=== PATIENT | male | born 1945 | race Caucasian/White ===

== ENCOUNTER → 2019-11-21 09:22 | Outpatient (BNVA) | payer MEDICARE, MEDICAID, SELFPAY | PROVIDERS: Family Provider Family Medicine; PCP Nurse Practitioner Family; Visit Provider Nurse Practitioner | DX: G89.29 Other chronic pain (principal); M54.5 Low back pain; M54.2 Cervicalgia; M47.9 Spondylosis, unspecified; Z79.891 Long term (current) use of opiate analgesic | CPT/HCPCS: 99213; 99214 ==

== ENCOUNTER 2019-12-10 12:14 | Outpatient (CLI) | payer MEDICARE, MEDICAID, SELFPAY ==
[2019-12-10 12:50] LABS: Basophils % 0.6 %; Eosinophils # 0.1 10^3/uL (0.0-0.8); Eosinophils % 2.4 %; Hemoglobin 13.4 g/dL (11.7-16.6); Lymphocytes # 1.4 10^3/uL (0.8-4.8); Lymphocytes % 27.8 %; Mean Corpuscular HGB Conc 34.4 g/dL (30.0-36.0); Mean Corpuscular Hemoglobin 32.7 pg (28.0-34.0); Mean Corpuscular Volume 95.1 fL (80-94); Mean Platelet Volume 10.8 fL (7.4-10.4); Monocytes # 0.4 10^3/uL (0.2-0.9); Nucleated Red Blood Cells % 0 %; Platelet Count 76 10^3/cmm (130-400); Red Cell Distribution Width 12.8 % (12.1-15.1)
== END 2019-12-10 12:15 | disposition home or self-care (01) ==
LOC: ONCMED 12:21
PROVIDERS: Family Provider Family Medicine; PCP Nurse Practitioner Family; Referring Provider Nurse Practitioner Family; Visit Provider Internal Medicine Medical Oncology
DX: D69.6 Thrombocytopenia, unspecified (principal)
CPT/HCPCS: 85025

== ENCOUNTER 2019-12-16 12:13 | Outpatient (CLI) | payer MEDICARE, MEDICAID, SELFPAY ==
--- NOTE | 2019-12-16 13:21 | ONC CON_ITS ---
Dr. Wells New Patient Note Patient: Sloan Rodriguez Unit #: [id number]: 1945 Dicatated By: Amber Wells M.D.Date of Visit: Dec 16, 2019 Onc MED New Patient/Consult Referring Physician: Jada Wallis History of Present Illness: Mr. Sloan Rodriguez, Is a 74-year-old gentleman with history of hepatitis C, as per patient he was diagnosed in 2006 with hepatitis C and at that time he underwent treatment with interferon and multiple times thereafter till 2012 and he was getting all those treatment at [facility] and in 2013, he was declared hepatitis C free and since then he has been following there on 6 months basis. Patient said he was also diagnosed with cirrhosis in 2006 at that time he underwent liver biopsy and it confirmed. During treatment with interferon patient said he required blood transfusion on 3-4 occasion and last time was in 2013. Underwent EGD recently and was diagnosed with peptic ulcer disease and he was started on Protonix, Had colonoscopy done by Dr. Hopkins, many years ago, as per patient, multiple polyps were removed and they were benign. Patient denies any night sweats, or peripheral lymphadenopathy or recurrent fevers. Or weight loss Patient said he never heard about low platelets before until recently. Never required any platelets transfusion. He denies any history of hemoptysis or hematemesis. Denies any history of melena or hematochezia. Denies any nausea vomiting. Denies any petechiae or ecchymosis. Denies any jaundice. Denies aspirin or NSAID intake. Past Medical History: Mr. Rodriguez's medical history consists of arthritis in spine, bph, chronic obstructive pulmonary disease, colon polyps, degenerative disease of the spine, history of hepatitis c, hypertension, memory impairment, osteoarthritis, and renal calculi. Past Surgical History: Mr. Rodriguez's surgical/procedural history consists of cataract excision and cholecystectomy. Medications: There is no information available for Current Medications - Patient. Allergies: Donepezil HCl, Erythromycin Base, Methadone HCl, traMADol HCl, and Vicodin. Social History: Mr. Rodriguez is legally and he is retired. Mr. Rodriguez quit smoking 14 years ago but had smoked 1.0 pack/day for 16 years. He has no history of drinking. Mr. Rodriguez reports contact with the following hazardous materials: asbestos. Mr. Rodriguez reports the following support systems: lives with spouse, significant other, family, or friends. Family History: Mr. Rodriguez's mother at age 66: bladder cancer. Mr. Rodriguez's father at age 81. Mr. Rodriguez has 1 sister who is : leukemia. Review Of Symptoms: Review of Systems is not available for this patient. Vital Signs: Most recent vitals are not available for this patient. Performance Status: 0 - Fully active, able to carry on all predisease activities without restrictions. (ECOG) Physical Examination: ENMT - No oral exudates, ulcers, masses, thrush or mucositis. Oropharynx clear. Tongue normal, Hematologic/Lymphatic - No petechiae or purpura. No tender or palpable lymph nodes in the cervical, supraclavicular, axillary or inguinal area, Respiratory - Lungs are clear to auscultation without rhonchi or wheezing, Cardiovascular - Regular rate and rhythm of heart, Abdomen - Non-tender,but obese Good bowel sounds. No guarding or rebound tenderness. No pulsatile masses, Extremities - no edema. Lab/Imaging: Test performed on Dec 10, 2019 12:26 WBC 5.0 10 3/uL RBC 4.10 10 6/uL HGB 13.4 g/dL HCT 39.0 % MCV 95.1 fL MCH 32.7 pg MCHC 34.4 g/dL RDW 12.8 % Platelet Count 76 10 3/cmm MPV 10.8 fL Neutrophils 3.0 10 3/uL Lymphocytes 1.4 10 3/uL Monocytes 0.4 10 3/uL Eosinophils 0.1 10 3/uL Basophils 0.0 10 3/uL Neutrophil % 61.0 % Lymphocyte % 27.8 % Monocyte % 8.0 % Eosinophil % 2.4 % Basophils % 0.6 % Impression: Isolated moderate thrombocytopenia with a normal hemoglobin and white blood cells per lab done on 11/27/2019 showed white blood count 4.5 hemoglobin 14 crit 39.7 platelets 68,000 with a normal differential History of hepatitis C, diagnosed in 2006, status post therapy with interferon, and multiple occasion till 2012, per patient. History of hepatic cirrhosis per liver biopsy done in 2006, per patient mild hyperbilirubinemia, per labs done on 11/27/2019, bilirubin was 1.8, AST 24, aortic 20, alkaline phosphatase 62. Albumin 4.4. History of alcohol abuse till 2006. Peptic ulcer disease per EGD now on Protonix. Colonoscopy done by Dr. Jauregui, few years back showed benign polyps Plan: Discussed with patient regarding his labs from 12/10/2019 which shows white blood count 5 hemoglobin 13.4 crit 39, platelets 76,000 with normal differential Clinically, patient is doing well with no evidence of gross bleeding, is initial lab workup done on 11/26/2019 showed moderate thrombocytopenia platelet count 68,000 with a normal hemoglobin and white blood cells and CMP shows bilirubin 1.8 with a normal AST/ALT and alkaline phosphatase, albumin. 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 At this point we'll review his peripheral blood smear and also manual platelet count. And also do abdominal sonogram to check spleen size. And the patient return to clinic in one month with CBC, in the meantime we'll obtain record from [facility] especially information regarding hepatitis C status and follow-up radiological studies and labs. After reviewing that we'll consider further workup if needed. Patient was advised to avoid aspirin or NSAIDs or trauma Signed By: Amber Wells M.D. <<Signature on File>>
== END 2019-12-16 12:14 | disposition home or self-care (01) ==
LOC: ONCMED 12:18
PROVIDERS: Family Provider Family Medicine; PCP Nurse Practitioner Family; Visit Provider Internal Medicine Hematology & Oncology
DX: D69.6 Thrombocytopenia, unspecified (principal); K27.9 Peptic ulcer, site unspecified, unspecified as acute or chronic, without hemorrhage or perforation; N40.0 Benign prostatic hyperplasia without lower urinary tract symptoms; J44.9 Chronic obstructive pulmonary disease, unspecified; M47.9 Spondylosis, unspecified; I10 Essential (primary) hypertension; E80.6 Other disorders of bilirubin metabolism; F10.21 Alcohol dependence, in remission; R16.1 Splenomegaly, not elsewhere classified; K74.60 Unspecified cirrhosis of liver; Z79.899 Other long term (current) drug therapy; Z86.19 Personal history of other infectious and parasitic diseases; Z87.442 Personal history of urinary calculi; Z87.891 Personal history of nicotine dependence
CPT/HCPCS: 99203

== ENCOUNTER → 2020-01-14 08:39 | Outpatient (BNVA) | payer MEDICARE, MEDICAID, SELFPAY | PROVIDERS: Family Provider Family Medicine; PCP Nurse Practitioner Family; Visit Provider Anesthesiology | DX: G89.29 Other chronic pain (principal); M54.5 Low back pain; M47.9 Spondylosis, unspecified; Z79.891 Long term (current) use of opiate analgesic | CPT/HCPCS: 99213; 99214 ==

== ENCOUNTER 2020-01-15 07:41 | Outpatient (CLI) | payer MEDICARE, MEDICAID, SELFPAY ==
--- NOTE | 2020-01-15 08:00 | US_ITS ---
WS: [id number] Abdomen ultrasound, 01/15/2020 Clinical Data: THROMBOCYTOPENIA/ATTN: TO SPLEEN Comparison: Abdomen ultrasound, 12/11/2017. Findings: The pancreas is partly obscured by gas, but it shows no cyst, pseudocyst or evidence of pancreatitis. The liver shows no cysts, masses or dilated intrahepatic ducts. The liver measures 13.[address] AP diameter and has a slightly irregular surface contour. There is fatty infiltration of the liver . The gallbladder is absent. The common bile duct is 0.3 cm and no intraductal abnormalities are noted. The right kidney is 3.95 x 4.69 x 8.3 cm. No cysts, masses or hydronephrosis is seen. The left kidney is 4.49 x 5.04 x 8.9 cm. There are numerous left renal calculi. The abdominal aorta is not dilated and the inferior vena cava has normal flow. No vascular abnormalities are seen. The spleen measures 5.49 x 5.92 x 10.3 cm and there are no intrasplenic masses are capsular abnormal ities. US/US abdomen complete* [id number] Impression: 1. Fatty infiltration of the liver with surface irregularity which can be seen with cirrhosis. 2. Splenic size slightly smaller than prior study. 3. Left renal calculi. 4. Cholecystectomy.
== END 2020-01-15 07:42 | disposition home or self-care (01) ==
LOC: ONCMED 07:42
PROVIDERS: Family Provider Nurse Practitioner Family; PCP Nurse Practitioner Family; Visit Provider Internal Medicine Hematology & Oncology
DX: D69.6 Thrombocytopenia, unspecified (principal); K76.0 Fatty (change of) liver, not elsewhere classified; N20.0 Calculus of kidney
CPT/HCPCS: 76700

== ENCOUNTER 2020-01-16 10:53 | Outpatient (CLI) | payer MEDICARE, MEDICAID, SELFPAY ==
[2020-01-16 11:33] LABS: Basophils % 0.6 %; Eosinophils # 0.2 10^3/uL (0.0-0.8); Eosinophils % 3.3 %; Hematocrit 40.7 % (42.0-52.0); Hemoglobin 14.1 g/dL (11.7-16.6); Lymphocytes # 1.1 10^3/uL (0.8-4.8); Lymphocytes % 21.2 %; Mean Corpuscular HGB Conc 34.6 g/dL (30.0-36.0); Mean Corpuscular Hemoglobin 33.6 pg (28.0-34.0); Mean Corpuscular Volume 96.9 fL (80-94); Mean Platelet Volume 11.2 fL (7.4-10.4); Monocytes # 0.4 10^3/uL (0.2-0.9); Monocytes % 6.9 %; Neutrophils # 3.5 10^3/uL (1.8-7.7); Neutrophils % 67.8 %; Nucleated Red Blood Cells % 0 %; Platelet Count 75 10^3/cmm (130-400); Red Cell Distribution Width 13.2 % (12.1-15.1); White Blood Count 5.1 10^3/uL (4.0-10.0)
[2020-01-16 11:35] LABS: INR 1.24 (0.8-1.2)
[2020-01-16 11:43] LABS: Alanine Aminotransferase 19 U/L (0-41); Albumin Level 4.5 g/dL (3.5-5.2); Alkaline Phosphatase 85 IU/L (40-130); Anion Gap 14.5 (5-19); Aspartate Amino Transferase 22 U/L (0-40); Blood Urea Nitrogen 17 mg/dL (8-23); Calcium 9.8 mg/dL (8.5-10.5); Carbon Dioxide 27 mmol/L (22-29); Chloride 103 mmol/L (98-107); Globulin 3.2 g/dL (1.3-4.6); Glucose 118 mg/dL (65-115); Osmolality Calculated 287 mOsm/kg (285-295); Potassium 4.5 mmol/L (3.5-5.1); Sodium 140 mmol/L (136-145); Total Bilirubin 1.4 mg/dL (0.15-1.2); Total Protein 7.7 g/dL (6.6-8.7)
[2020-01-16 12:47] LABS: LAB Peripheral Smear Sent for Review
== END 2020-01-16 10:54 | disposition home or self-care (01) ==
LOC: LAB 10:56
PROVIDERS: Family Provider Nurse Practitioner Family; PCP Nurse Practitioner Family; Visit Provider Nurse Practitioner
DX: Z01.810 Encounter for preprocedural cardiovascular examination (principal); I10 Essential (primary) hypertension; Z79.899 Other long term (current) drug therapy
CPT/HCPCS: 36415; 80053; 80500; 85025; 85610

== ENCOUNTER 2020-01-19 14:58 | Outpatient (CLI) | payer MEDICARE, MEDICAID, SELFPAY ==
--- NOTE | 2020-01-19 16:19 | ONC FU_ITS ---
Dr. Wells follow up note Patient: Sloan Rodriguez Unit #: [id number]: [id number] Dicatated By: Amber Wells M.D.Date of Visit:Jan 19, 2020 Onc Med Follow-up/Prog Note History of Present Illness: Mr. Sloan Rodriguez, Is a 74-year-old gentleman with history of hepatitis C, as per patient he was diagnosed in 2006 with hepatitis C and at that time he underwent treatment with interferon and multiple times thereafter till 2012 and he was getting all those treatment at [facility] and in 2013, he was declared hepatitis C free and since then he has been following there on 6 months basis. Patient said he was also diagnosed with cirrhosis in 2006 at that time he underwent liver biopsy and it confirmed. During treatment with interferon patient said he required blood transfusion on 3-4 occasion and last time was in 2013. Underwent EGD recently and was diagnosed with peptic ulcer disease and he was started on Protonix, Had colonoscopy done by Dr. Hopkins, many years ago, as per patient, multiple polyps were removed and they were benign. Patient denies any night sweats, or peripheral lymphadenopathy or recurrent fevers. Or weight loss Patient said he never heard about low platelets before until recently. Never required any platelets transfusion. He denies any history of hemoptysis or hematemesis. Denies any history of melena or hematochezia. Denies any nausea vomiting. Denies any petechiae or ecchymosis. Denies any jaundice. Denies aspirin or NSAID intake. Came for follow-up, denies any specific complaints, no nausea or vomiting no fever no chills no melena or hematochezia, no hemoptysis or hematemesis no nosebleed or gum bleed no petechiae or ecchymosis. Patient has history of hepatic cirrhosis and portal hypertension for which she is being followed up at [facility], as per patient he is going back for follow-up for sonogram of abdomen on 02/26/2020. Medications: Breo Ellipta 1 Puff(s) (of 100-25 mcg/inh) Aerosol Powder, Breath Activated Inhalation daily, Cyclobenzaprine HCl 1 Tablet (of 10 mg) Oral t.i.d. PRN, oxyCODONE HCl 1 Tablet (of 20 mg) Oral t.i.d. PRN, Ventolin HFA 1 (108 (90 base) mcg/act) Aerosol, solution Inhalation daily PRN Allergies: Donepezil HCl, Erythromycin Base, Methadone HCl, traMADol HCl, and Vicodin. Review of Systems: Constitutional - Appetite is poor and weight is stable. No fever, chills, hot flashes, or night sweats. Energy level varies from poor to fair, per Pt, ENMT - Positive for sinus congestion/drainage. No mouth sores. No sore throat or difficulty swallowing, Hematologic/Lymphatic - No abnormal bruising or bleeding, Respiratory - Positive for shortness of breath. Positive for cough. No pleuritic pain or hemoptysis, Cardiovascular - No angina pain. No palpitations, Gastrointestinal - No nausea or vomiting. No heartburn or acid reflux. Positive for diarrhea, no constipation. No blood in the stool or black stools, Genitourinary (M) - No dysuria or hematuria. No urinary frequency. No urgency or incontinence, Musculoskeletal - No joint or bone pain, Neurologic - No headache or dizziness. No numbness/paresthesias or other focal neurologic symptoms, Psychiatric - No anxiety or depression. No insomnia. Vital Signs: Performed on Jan 19, 2020 15:12 Height - 63.5 in Weight - 183.2 lbs (HIGH) BSA - 1.87 sq.m BMI - 31.94 (HIGH) Temperature - 98.0 F (LOW) Pulse - 78 /min Respiration - 19 /min BP - 151/96 mm(hg) (HIGH) O2 Sat - 96 % Pain - 6 Performance Status: 0 - Fully active, able to carry on all predisease activities without restrictions. (ECOG) Physical Examination: ENMT - No oral exudates, ulcers, masses, thrush or mucositis. Oropharynx clear. Tongue normal, Respiratory - Lungs are clear to auscultation without rhonchi or wheezing, Cardiovascular - Regular rate and rhythm of heart, Abdomen - Non-tender, non-distended,Good bowel sounds. No guarding or rebound tenderness. No pulsatile masses, Extremities - no edema. Lab/Imaging: Test performed on Jan 16, 2020 11:10 Glucose 118 mg/dL BUN 17 mg/dL Creatinine 0.9 mg/dL Cr Clearance (Est) 87.2000 mL/min (Preliminary) Sodium 140 mmol/L Potassium 4.5 mmol/L Chloride 103 mmol/L CO2 27 mmol/L Calcium 9.8 mg/dL Protein, Total 7.7 g/dL Albumin 4.5 g/dL Globulin 3.2 g/dL Bilirubin, Total 1.4 mg/dL Alkaline Phosphatase 85 IU/L AST (SGOT) 22 IU/L ALT (SGPT) 19 IU/L WBC 5.1 10^9/L RBC 4.20 10^12/L HGB 14.1 g/dL HCT 40.7 % MCV 96.9 fl MCH 33.6 pg MCHC 34.6 g/dL RDW 13.2 % Platelet Count 75 10^9/L MPV 11.2 fL Neutrophils (Gran) 3.5 10^9/L Lymphocytes 1.1 10^9/L Monocytes 0.4 10^9/L Eosinophils 0.2 10^9/L Basophils 0.0 10^9/L Manual Lymphocytes 21.2 % Manual Monocytes 6.9 % Manual Eosinophils 3.3 % Manual Basophils 0.6 % Test performed on Dec 10, 2019 12:26 Neutrophil % 61.0 % Lymphocyte % 27.8 % Monocyte % 8.0 % Eosinophil % 2.4 % Basophils % 0.6 % Impression: Isolated moderate thrombocytopenia with a normal hemoglobin and white blood cells per lab done on 11/27/2019 showed white blood count 4.5 hemoglobin 14 crit 39.7 platelets 68,000 with a normal differential History of hepatitis C, diagnosed in 2006, status post therapy with interferon, and multiple occasion till 2012, per patient. History of hepatic cirrhosis per liver biopsy done in 2006, per patient mild hyperbilirubinemia, per labs done on 11/27/2019, bilirubin was 1.8, AST 24, aortic 20, alkaline phosphatase 62. Albumin 4.4. History of alcohol abuse till 2006. Peptic ulcer disease per EGD now on Protonix. Colonoscopy done by Dr. Jauregui, few years back showed benign polyps Plan: Discussed with patient regarding his labs white blood count 5.1 hemoglobin 14.1 crit 40.7 platelets 75,000 with a normal differential CMP within normal limit except bilirubin 1.4 Clinically, patient is doing well with no evidence of gross bleeding his follow-up lab shows persistent but stable moderate isolated thrombocytopenia etiology most likely due to splenic sequestration but his recently done sonogram of abdomen on 01/15/2020 showed spleen size 5.49 x 5.92 x 10.3 cm whereas in the past CT scan and sonograms done at [facility] showed spleen size was 13-14 cm. As per patient he is scheduled for abdominal sonogram on 02/26/2020 at [facility] and At this point is platelet count is stable and there is no evidence of gross bleeding we'll continue to monitor return to clinic in 6 weeks with CBC and will also review abdominal sonogram report from [place]. If it shows normal spleen size then will consider bone marrow evaluation to rule out other causes of isolated thrombocytopenia Signed By: Amber Wells M.D. <<Signature on File>>
== END 2020-01-19 14:59 | disposition home or self-care (01) ==
LOC: ONCMED 14:58
PROVIDERS: Family Provider Nurse Practitioner Family; PCP Nurse Practitioner Family; Visit Provider Internal Medicine Hematology & Oncology
DX: D69.6 Thrombocytopenia, unspecified (principal); K27.9 Peptic ulcer, site unspecified, unspecified as acute or chronic, without hemorrhage or perforation; E80.6 Other disorders of bilirubin metabolism; F10.21 Alcohol dependence, in remission; Z79.899 Other long term (current) drug therapy; Z79.51 Long term (current) use of inhaled steroids; Z86.19 Personal history of other infectious and parasitic diseases
CPT/HCPCS: G0463

== ENCOUNTER 2020-03-01 10:40 | Outpatient (CLI) | payer MEDICARE, MEDICAID, SELFPAY ==
[2020-03-01 12:49] LABS: Basophils # 0.1 10^3/uL (0.0-0.1); Basophils % 0.7 %; Eosinophils # 0.3 10^3/uL (0.0-0.8); Eosinophils % 4.2 %; Hematocrit 42.9 % (42.0-52.0); Hemoglobin 14.3 g/dL (11.7-16.6); Lymphocytes # 1.9 10^3/uL (0.8-4.8); Lymphocytes % 26.6 %; Mean Corpuscular HGB Conc 33.3 g/dL (30.0-36.0); Mean Corpuscular Hemoglobin 32.6 pg (28.0-34.0); Mean Corpuscular Volume 97.7 fL (80-94); Mean Platelet Volume 11.1 fL (7.4-10.4); Monocytes # 0.6 10^3/uL (0.2-0.9); Neutrophils # 4.3 10^3/uL (1.8-7.7); Neutrophils % 60.1 %; Nucleated Red Blood Cells % 0 %; Platelet Count 103 10^3/cmm (130-400); Red Blood Count 4.39 10^6/uL (4.1-5.3); Red Cell Distribution Width 13.7 % (12.1-15.1); White Blood Count 7.1 10^3/uL (4.0-10.0)
[2020-03-01 13:04] LABS: Alanine Aminotransferase 25 U/L (0-41); Albumin Level 4.7 g/dL (3.5-5.2); Alkaline Phosphatase 84 IU/L (40-130); Anion Gap 16.2 (5-19); Aspartate Amino Transferase 27 U/L (0-40); Blood Urea Nitrogen 15 mg/dL (8-23); Calcium 9.5 mg/dL (8.5-10.5); Carbon Dioxide 26 mmol/L (22-29); Chloride 103 mmol/L (98-107); Globulin 3.3 g/dL (1.3-4.6); Glucose 98 mg/dL (65-115); Osmolality Calculated 288 mOsm/kg (285-295); Potassium 4.2 mmol/L (3.5-5.1); Sodium 141 mmol/L (136-145)
== END 2020-03-01 10:41 | disposition home or self-care (01) ==
PROVIDERS: Family Provider Nurse Practitioner Family; PCP Nurse Practitioner Family; Visit Provider Internal Medicine Hematology & Oncology
DX: D69.6 Thrombocytopenia, unspecified (principal)
CPT/HCPCS: 36415; 80053; 85025

== ENCOUNTER → 2020-05-05 07:58 | Outpatient (BNVA) | payer MEDICARE, MEDICAID, SELFPAY | PROVIDERS: Family Provider Nurse Practitioner Family; PCP Nurse Practitioner Family; Visit Provider Anesthesiology | DX: G89.29 Other chronic pain (principal); M54.41 Lumbago with sciatica, right side; M54.9 Dorsalgia, unspecified; M47.9 Spondylosis, unspecified; Z79.891 Long term (current) use of opiate analgesic | CPT/HCPCS: 99213; 99214 ==

== ENCOUNTER 2020-06-02 15:45 | Outpatient (CLI) | payer MEDICARE, MEDICAID, SELFPAY ==
--- NOTE | 2020-06-11 11:06 | ONC FU_ITS ---
Dr. Wells follow up note Patient: Sloan Rodriguez Unit #: [id number]: [id number] Dicatated By: Amber Wells M.D.Date of Visit:Jun 02, 2020 Onc Med Follow-up/Prog Note History of Present Illness: Mr. Sloan Rodriguez, Is a 75-year-old gentleman with history of hepatitis C, as per patient he was diagnosed in 2006 with hepatitis C and at that time he underwent treatment with interferon and multiple times thereafter till 2012 and he was getting all those treatment at [facility] and in 2013, he was declared hepatitis C free and since then he has been following there on 6 months basis. Patient said he was also diagnosed with cirrhosis in 2006 at that time he underwent liver biopsy and it confirmed. During treatment with interferon patient said he required blood transfusion on 3-4 occasion and last time was in 2013. Underwent EGD recently and was diagnosed with peptic ulcer disease and he was started on Protonix, Had colonoscopy done by Dr. Hopkins, many years ago, as per patient, multiple polyps were removed and they were benign. Patient denies any night sweats, or peripheral lymphadenopathy or recurrent fevers. Or weight loss Patient said he never heard about low platelets before until recently. Never required any platelets transfusion. He denies any history of hemoptysis or hematemesis. Denies any history of melena or hematochezia. Denies any nausea vomiting. Denies any petechiae or ecchymosis. Denies any jaundice. Denies aspirin or NSAID intake. Patient has history of hepatic cirrhosis and portal hypertension for which she is being followed up at [facility],Follow-up sonogram of abdomen done on January 15, 2020 showed fatty infiltration of the liver with surface irregularity which can be seen with cirrhosis, spleen size slightly smaller than the prior study, normally 5.49 x 5.92 x 10.3 cm. Came for follow-up, denies any specific complaints, no fever chills, no nausea vomiting, no nosebleed or gum bleed, no hemoptysis or hematemesis, no melena or hematochezia, no hematuria, no petechia or ecchymosis. Patient said since his last visit he has been to hepatic clinic in [place] and he was told everything is fine and stable and he will continue to follow there every 6-month. Medications: Breo Ellipta 1 Puff(s) (of 100-25 mcg/inh) Aerosol Powder, Breath Activated Inhalation daily, Cyclobenzaprine HCl 1 Tablet (of 10 mg) Oral t.i.d. PRN, oxyCODONE HCl 1 Tablet (of 20 mg) Oral t.i.d. PRN, Ventolin HFA 1 (108 (90 base) mcg/act) Aerosol, solution Inhalation daily PRN Allergies: Donepezil HCl, Erythromycin Base, Methadone HCl, traMADol HCl, and Vicodin. Review of Systems: Constitutional - Appetite is poor and weight is stable. No fever, chills, hot flashes, or night sweats. Energy level varies from poor to fair, per Pt, ENMT - Positive for sinus congestion/drainage. No mouth sores. No sore throat or difficulty swallowing, Hematologic/Lymphatic - No abnormal bruising or bleeding, Respiratory - Positive for shortness of breath. Positive for cough. No pleuritic pain or hemoptysis, Cardiovascular - No angina pain. No palpitations, Gastrointestinal - No nausea or vomiting. No heartburn or acid reflux. Positive for diarrhea, no constipation. No blood in the stool or black stools, Genitourinary (M) - No dysuria or hematuria. No urinary frequency. No urgency or incontinence, Musculoskeletal - No joint or bone pain, Neurologic - No headache or dizziness. No numbness/paresthesias or other focal neurologic symptoms. Pt reports increasing problems with his memory, Psychiatric - No anxiety or depression. No insomnia. Vital Signs: Performed on Jun 02, 2020 15:56 Height - 63.50 in Weight - 182.3 lbs (LOW) BSA - 1.87 sq.m BMI - 31.79 (HIGH) Temperature - 98.8 F Pulse - 81 /min Respiration - 24 /min BP - 153/83 mm(hg) (HIGH) O2 Sat - 96 % Pain - 7 Performance Status: 0 - Fully active, able to carry on all predisease activities without restrictions. (ECOG) Physical Examination: ENMT - No mouth sores, no thrush, no jaundice, Respiratory - Lungs are clear, Cardiovascular - Regular rate and rhythm of heart, Abdomen - Soft, bowel sounds present, Extremities - No visible edema or rash. Lab/Imaging: Test performed on May 31, 2020 08:08 Glucose 106 mg/dL BUN 19 mg/dL Creatinine 1.07 mg/dL Cr Clearance (Est) 71.9100 mL/min Sodium 143 mmol/L Potassium 4.3 mmol/L Chloride 108 mmol/L CO2 28 mmol/L Calcium 9.6 mg/dL Protein, Total 6.7 g/dL Albumin 4.2 g/dL Globulin 2.5 g/dL A/G Ratio 1.7 Absolute Value Bilirubin, Total 1.4 mg/dL Alkaline Phosphatase 67 IU/L AST (SGOT) 19 IU/L ALT (SGPT) 20 IU/L WBC 4.3 10^9/L RBC 4.00 10^12/L HGB 13.6 g/dL HCT 40.0 % MCV 100.0 fl MCH 34.0 pg MCHC 34.0 g/dL RDW 13.8 % Platelet Count 69 10^9/L MPV 11.2 fL Neutrophils (Gran) 2.571 10^9/L Lymphocytes 1.200 10^9/L Monocytes 0.348 10^9/L Eosinophils 0.142 10^9/L Basophils 0.039 10^9/L Manual Lymphocytes 27.9 % Manual Monocytes 8.1 % Manual Eosinophils 3.3 % Manual Basophils 0.9 % Test performed on Mar 01, 2020 10:40 Anion Gap 16.2 Neutrophil % 60.1 % Lymphocyte % 26.6 % Monocyte % 8.0 % Eosinophil % 4.2 % Basophils % 0.7 % Impression: Isolated moderate thrombocytopenia with a normal hemoglobin and white blood cells per lab done on 11/27/2019 showed white blood count 4.5 hemoglobin 14 crit 39.7 platelets 68,000 with a normal differential History of hepatitis C, diagnosed in 2006, status post therapy with interferon, and multiple occasion till 2013, per patient. History of hepatic cirrhosis per liver biopsy done in 2006, per patient mild hyperbilirubinemia, per labs done on 11/27/2019, bilirubin was 1.8, AST 24, aortic 20, alkaline phosphatase 62. Albumin 4.4. History of alcohol abuse till 2006. Peptic ulcer disease per EGD now on Protonix. Colonoscopy done by Dr. Jauregui, few years back showed benign polyps Plan: Discussed with the patient regarding his labs white blood count 4.3 hemoglobin 13.6 crit 40 platelets 69,000 and CMP within normal limits except bilirubin 1.4 compared to 2 on March 01, 2020 Clinically, patient is doing well with no new signs symptoms no evidence of gross bleeding his follow-up lab showed hemoglobin normal range but with moderate thrombocytopenia, platelet count down to 69,000 from 103,000 on March 01, 2020 and prior to that 75,000 on January 16, 2020, as per previous lab work-up is baseline platelet count is around 70,000, will continue to follow unless there is a progressive thrombocytopenia. Patient was advised to avoid any kind of trauma. Return to clinic in 3 months with CBC Signed By: Amber Wells M.D. <<Signature on File>>
== END 2020-06-02 15:46 | disposition home or self-care (01) ==
PROVIDERS: PCP Nurse Practitioner Family; Visit Provider Internal Medicine Hematology & Oncology
DX: D69.6 Thrombocytopenia, unspecified (principal); Z86.19 Personal history of other infectious and parasitic diseases; F10.11 Alcohol abuse, in remission; K27.9 Peptic ulcer, site unspecified, unspecified as acute or chronic, without hemorrhage or perforation; Z86.010 Personal history of colon polyps
CPT/HCPCS: G0463

== ENCOUNTER → 2020-06-09 10:28 | Outpatient (BNVA) | payer MEDICARE, MEDICAID, SELFPAY | PROVIDERS: PCP Nurse Practitioner Family; Visit Provider Anesthesiology | DX: G89.29 Other chronic pain (principal); M54.41 Lumbago with sciatica, right side; M54.9 Dorsalgia, unspecified; M47.9 Spondylosis, unspecified; Z79.891 Long term (current) use of opiate analgesic | CPT/HCPCS: 99213; 99214 ==

== ENCOUNTER → 2020-07-02 16:46 | Outpatient (BNVA) | payer MEDICARE, MEDICAID, SELFPAY | PROVIDERS: PCP Nurse Practitioner Family; Visit Provider Nurse Practitioner | DX: J02.9 Acute pharyngitis, unspecified (principal); J06.9 Acute upper respiratory infection, unspecified; H66.91 Otitis media, unspecified, right ear | CPT/HCPCS: 87071; 87880 ==

== ENCOUNTER → 2020-07-14 10:38 | Outpatient (BNVA) | payer MEDICARE, MEDICAID, SELFPAY | PROVIDERS: PCP Nurse Practitioner Family; Visit Provider Anesthesiology | DX: G89.29 Other chronic pain (principal); M54.41 Lumbago with sciatica, right side; M54.9 Dorsalgia, unspecified; M47.9 Spondylosis, unspecified; Z79.891 Long term (current) use of opiate analgesic | CPT/HCPCS: 99213; 99214 ==

== ENCOUNTER 2020-09-01 13:43 | Outpatient (CLI) | payer MEDICARE, MEDICAID, SELFPAY ==
[2020-09-01 14:15] LABS: Basophils % 0.9 %; Eosinophils # 0.2 10^3/uL (0.0-0.8); Eosinophils % 3.3 %; Hematocrit 39.5 % (42.0-52.0); Hemoglobin 13.7 g/dL (11.7-16.6); Lymphocytes # 1.2 10^3/uL (0.8-4.8); Lymphocytes % 25.7 %; Mean Corpuscular HGB Conc 34.7 g/dL (30.0-36.0); Mean Corpuscular Hemoglobin 34.1 pg (28.0-34.0); Mean Corpuscular Volume 98.3 fL (80-94); Mean Platelet Volume 10.9 fL (7.4-10.4); Monocytes # 0.4 10^3/uL (0.2-0.9); Neutrophils # 2.77 10^3/uL (1.8-7.7); Neutrophils % 60.9 %; Nucleated Red Blood Cells % 0 %; Platelet Count 72 10^3/cmm (130-400); Red Blood Count 4.02 10^6/uL (4.1-5.3); Red Cell Distribution Width 13.4 % (12.1-15.1); White Blood Count 4.6 10^3/uL (4.0-10.0)
[2020-09-01 14:34] LABS: Alanine Aminotransferase 28 U/L (0-41); Albumin Level 4.4 g/dL (3.5-5.2); Alkaline Phosphatase 75 IU/L (40-130); Aspartate Amino Transferase 27 U/L (0-40); Blood Urea Nitrogen 16 mg/dL (8-23); Calcium 9.2 mg/dL (8.5-10.5); Carbon Dioxide 23 mmol/L (22-29); Chloride 106 mmol/L (98-107); Globulin 2.4 g/dL (1.3-4.6); Glucose 96 mg/dL (65-115); Osmolality Calculated 291 mOsm/kg (285-295); Sodium 140 mmol/L (136-145); Total Bilirubin 2.1 mg/dL (0.15-1.2); Total Protein 6.8 g/dL (6.6-8.7)
--- NOTE | 2020-09-01 15:24 | ONC FU_ITS ---
Dr. Wells follow up note Patient: Sloan Rodriguez Unit #: [id number]: [id number] Dicatated By: Amber Wells M.D.Date of Visit:Sep 01, 2020 Onc Med Follow-up/Prog Note History of Present Illness: Mr. Sloan Rodriguez, Is a 75-year-old gentleman with history of hepatitis C, as per patient he was diagnosed in 2006 with hepatitis C and at that time he underwent treatment with interferon and multiple times thereafter till 2012 and he was getting all those treatment at [facility] and in 2013, he was declared hepatitis C free and since then he has been following there on 6 months basis. Patient said he was also diagnosed with cirrhosis in 2006 at that time he underwent liver biopsy and it confirmed. During treatment with interferon patient said he required blood transfusion on 3-4 occasion and last time was in 2013. Underwent EGD recently and was diagnosed with peptic ulcer disease and he was started on Protonix, Had colonoscopy done by Dr. Hopkins, many years ago, as per patient, multiple polyps were removed and they were benign. Patient denies any night sweats, or peripheral lymphadenopathy or recurrent fevers. Or weight loss Patient said he never heard about low platelets before until recently. Never required any platelets transfusion. He denies any history of hemoptysis or hematemesis. Denies any history of melena or hematochezia. Denies any nausea vomiting. Denies any petechiae or ecchymosis. Denies any jaundice. Denies aspirin or NSAID intake. Patient has history of hepatic cirrhosis and portal hypertension for which she is being followed up at [facility],Follow-up sonogram of abdomen done on January 15, 2020 showed fatty infiltration of the liver with surface irregularity which can be seen with cirrhosis, spleen size slightly smaller than the prior study, normally 5.49 x 5.92 x 10.3 cm. Came for follow-up, denies any specific complaints, no fever chills, no nausea or vomiting, no diarrhea or constipation, no melena hematochezia, no hemoptysis or hematemesis, no nosebleed. Patient said he has been seeing Dr. Kary Govea, mercerizing range feeder in [place] for his history of hepatitis C and cirrhosis, now scheduled see her in coming October. Medications: Breo Ellipta 1 Puff(s) (of 100-25 mcg/inh) Aerosol Powder, Breath Activated Inhalation daily, Cyclobenzaprine HCl 1 Tablet (of 10 mg) Oral t.i.d. PRN, oxyCODONE HCl 1 Tablet (of 20 mg) Oral t.i.d. PRN, Ventolin HFA 1 (108 (90 base) mcg/act) Aerosol, solution Inhalation daily PRN Allergies: Donepezil HCl, Erythromycin Base, Methadone HCl, traMADol HCl, and Vicodin. Review of Systems: Constitutional - Appetite is poor and weight is stable. No fever, chills, hot flashes, or night sweats. Energy level varies from poor to fair, per Pt, ENMT - Positive for sinus congestion/drainage. No mouth sores. No sore throat or difficulty swallowing, Hematologic/Lymphatic - No abnormal bruising or bleeding, Respiratory - Positive for shortness of breath. Positive for cough. No pleuritic pain or hemoptysis, Cardiovascular - No angina pain. No palpitations, Gastrointestinal - No nausea or vomiting. No heartburn or acid reflux. Positive for diarrhea, no constipation. No blood in the stool or black stools, Genitourinary (M) - No dysuria or hematuria. No urinary frequency. No urgency or incontinence, Musculoskeletal - No joint or bone pain, Neurologic - No headache or dizziness. No numbness/paresthesias or other focal neurologic symptoms. Pt reports increasing problems with his memory, Psychiatric - No anxiety or depression. No insomnia. Vital Signs: Performed on Sep 01, 2020 14:53 Height - 63.50 in Weight - 183.0 lbs (HIGH) BSA - 1.87 sq.m BMI - 31.91 (HIGH) Temperature - 98.0 F (LOW) Pulse - 71 /min Respiration - 16 /min BP - 159/88 mm(hg) (HIGH) O2 Sat - 96 % Pain - 0 Performance Status: 0 - Fully active, able to carry on all predisease activities without restrictions. (ECOG) Physical Examination: ENMT - No mouth sores, no thrush, mild jaundice, Respiratory - Poor air entry otherwise clear, Cardiovascular - Regular rate and rhythm of heart, Abdomen - Soft, bowel sounds present, Extremities - Trace edema bilaterally. Lab/Imaging: Test performed on Jun 01, 2020 06:11 Glucose 106 mg/dL BUN 19 mg/dL Creatinine 1.07 mg/dL Cr Clearance (Est) 71.91 mL/min Sodium 143 mmol/L Potassium 4.3 mmol/L Chloride 108 mmol/L CO2 28 mmol/L Calcium 9.6 mg/dL Protein, Total 6.7 g/dL Albumin 4.2 g/dL Globulin 2.5 g/dL Bilirubin, Total 1.4 mg/dL Alkaline Phosphatase 67 IU/L AST (SGOT) 19 IU/L ALT (SGPT) 20 IU/L WBC 4.3 10^9/L RBC 4.00 10^12/L HGB 13.6 g/dL HCT 40.0 % MCV 100.0 fl MCH 34.0 pg MCHC 34.0 g/dL RDW 13.8 % Platelet Count 69 10^9/L MPV 11.2 fL Neutrophils (Gran) 2571 10^9/L Lymphocytes 1200 10^9/L Monocytes 348 10^9/L Eosinophils 142 10^9/L Basophils 39 10^9/L Manual Lymphocytes 27.9 % Manual Monocytes 8.1 % Manual Eosinophils 3.3 % Manual Basophils 0.9 % Test performed on May 31, 2020 08:08 A/G Ratio 1.7 Absolute Value Impression: Isolated moderate thrombocytopenia with a normal hemoglobin and white blood cells per lab done on 11/27/2019 showed white blood count 4.5 hemoglobin 14 crit 39.7 platelets 68,000 with a normal differential History of hepatitis C, diagnosed in 2006, status post therapy with interferon, and multiple occasion till 2012, per patient. History of hepatic cirrhosis per liver biopsy done in 2006, per patient mild hyperbilirubinemia, per labs done on 11/27/2019, bilirubin was 1.8, AST 24, aortic 20, alkaline phosphatase 62. Albumin 4.4. History of alcohol abuse till 2006. Peptic ulcer disease per EGD now on Protonix. Colonoscopy done by Dr. Jauregui, few years back showed benign polyps Plan: Discussed with patient regarding his labs white blood count 4.6 hemoglobin 13.7 crit 39.5 platelets 72,000 CMP within normal limit except bilirubin 2.1 compared to 1.4 on June 01, 2020 Clinically, patient doing reasonably well with no signs symptom suggestive of gross bleeding, his follow-up CBC shows hemoglobin in normal range and with persistent isolated moderate thrombocytopenia, etiology still unclear, could be due to splenic sequestration as patient has hepatic cirrhosis with mildly enlarged spleen and considering his age underlying myelodysplasia cannot be ruled out, finally, patient agreed for bone marrow evaluation. We will schedule him for bone marrow evaluation and return to clinic 2 weeks after bone marrow for further discussion and planning. As far as mild hyperbilirubinemia is concerned, patient is being followed by Dr. Kary Govea mercerizing range feeder in [facility]. Signed By: Amber Wells M.D. <<Signature on File>>
== END 2020-09-01 13:44 | disposition home or self-care (01) ==
LOC: ONCMED 13:47
PROVIDERS: PCP Nurse Practitioner Family; Visit Provider Internal Medicine Hematology & Oncology
DX: D69.6 Thrombocytopenia, unspecified (principal); K74.60 Unspecified cirrhosis of liver; R16.1 Splenomegaly, not elsewhere classified; E80.6 Other disorders of bilirubin metabolism; Z86.19 Personal history of other infectious and parasitic diseases; F10.11 Alcohol abuse, in remission; K27.9 Peptic ulcer, site unspecified, unspecified as acute or chronic, without hemorrhage or perforation; Z86.010 Personal history of colon polyps
CPT/HCPCS: 36415; 80053; 85025; 99214

== ENCOUNTER → 2020-09-08 13:42 | Outpatient (BNVA) | payer MEDICARE, MEDICAID, SELFPAY | PROVIDERS: PCP Nurse Practitioner Family; Visit Provider Internal Medicine Hematology & Oncology | DX: Z11.59 Encounter for screening for other viral diseases (principal) | CPT/HCPCS: 87635 ==

== ENCOUNTER → 2020-09-15 08:33 | Outpatient (BNVA) | payer MEDICARE, MEDICAID, SELFPAY | PROVIDERS: PCP Nurse Practitioner Family; Visit Provider Anesthesiology | DX: G89.29 Other chronic pain (principal); M54.41 Lumbago with sciatica, right side; M47.9 Spondylosis, unspecified; M54.9 Dorsalgia, unspecified; Z79.891 Long term (current) use of opiate analgesic | CPT/HCPCS: 99212; 99214 ==

== ENCOUNTER 2020-09-16 10:18 | Day surgery (SDC) | payer MEDICARE, MEDICAID, SELFPAY ==
[2020-09-15 09:52] VITALS: BMI 32.9
[2020-09-16] VITALS (8 sets, daily range): BP systolic 93–155; BP diastolic 59–89; PULSE 69–73; RESP 14–20; TEMP 36.3–36.9; O2SAT 98–100
--- NOTE | 2020-09-16 11:03 | ANES.PREANE2 ---
Pre-Anesthetic Assessment Pre-Anesthetic Assessment: Height/Weight: Height 1.6 m Weight 84.368 kg Temp Pulse Resp BP Pulse Ox 97.7 F 73 18 155/78 98 09/16/20 10:45 09/16/20 10:45 09/16/20 10:45 09/16/20 10:45 09/16/20 10:45 Preop Diagnosis: Thombocytopenia Proposed Procedure: Operation Date: 09/16/20 11:30 Proposed Procedures p Bone Marrow Biopsy With Aspiration(Not Applicable) - Amber Wells MD Familial anesthetic complications: None Was Beta Patience taken within 24 hours: N/A Last intake: NPO > 8 hrs Social: Social History: No alcohol and No tobacco Exam: Pre-Anes Outpt Exam: alert, oriented x 3, clear to auscultation bilaterally and regular rate & rhythm Airway: Cervical ROM: WNL MP: 2 Dentition: Full Pulmonary: Pulmonary: COPD Hepatic: Hepatic: Cirrohsis and Hepatitis (C) Anesthetic Plan: ASA status: 3 Anesthesia: MAC Risk of > 500 ml blood loss (7ml/kg in children): No PFSH Anesthesia PFSH: Medical History Chronic pain cervical and lumbar spine Hepatitis C Opioid contract exists Osteoarthritis Surgical History S/P cataract extraction bilateral S/P cholecystectomy Family History Mother Cancer Grandmother Diabetes Social History (Updated 09/15/20 @ 08:45 by Maura Corbett LPN) Smoking and tobacco status: former smoker Second hand smoke exposure: No Alcohol intake: never History of recent travel: No Data Anesthesia CBC & Chem 7: 09/16/20 10:54 Cardiac Studies: No Data to Display
[2020-09-16 11:04] LABS: Basophils % 0.7 %; Eosinophils # 0.1 10^3/uL (0.0-0.8); Eosinophils % 2.4 %; Hematocrit 39.4 % (42.0-52.0); Hemoglobin 13.6 g/dL (11.7-16.6); Lymphocytes # 1.5 10^3/uL (0.8-4.8); Lymphocytes % 25.6 %; Mean Corpuscular HGB Conc 34.5 g/dL (30.0-36.0); Mean Corpuscular Hemoglobin 33.7 pg (28.0-34.0); Mean Corpuscular Volume 97.8 fL (80-94); Mean Platelet Volume 10.7 fL (7.4-10.4); Monocytes # 0.4 10^3/uL (0.2-0.9); Monocytes % 7.2 %; Neutrophils # 3.73 10^3/uL (1.8-7.7); Neutrophils % 63.9 %; Nucleated Red Blood Cells % 0 %; Platelet Count 74 10^3/cmm (130-400); Red Blood Count 4.03 10^6/uL (4.1-5.3); Red Cell Distribution Width 13.1 % (12.1-15.1); White Blood Count 5.8 10^3/uL (4.0-10.0)
[2020-09-16] MEDS: sodium chloride 0.9% 1,000 ML 30 ML IV (11:09)
--- NOTE | 2020-09-16 12:35 | PM.BMB ---
Bone Marrow Biopsy Bone Marrow Biopsy: I was consulted by [] office regarding bone marrow biopsy on Sloan Rodrigeuz[]. Briefly, the patient is a [75] year old [Male] with [Thrombocytopenia]. In the Outpatient Services Department, with nursing staff and laboratory technologists in attendance, the procedure was discussed with the patient. Appropriate consent form had been signed. Appropriate alternatives, benefits and risks of procedure were discussed with the patient and he was pre-operatively assessed with a history and physical by myself and cleared for the biopsy procedure. The patient did request IV sedation and that was provided by the Anesthesia Department. Sedation was given, under aseptic condition right posterior iliac area was cleaned and prepped, local anesthesia was, about 15 mL of bone marrow aspirate and core biopsy was obtained, patient tolerated procedure well, specimen was sent for routine histopathologic and for MDS panel. Postprocedureinstructions were given Thank you for allowing me to participate in this patient's care and diagnosis. Coding Level of Care Code Acute Program Schedule Clerk for 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
--- NOTE | 2020-09-16 14:15 | PC.NURSE ---
No drainage or bleeding noted at surgical site. Observed while in recovery. No bruising or redness noted.
--- NOTE | 2020-09-16 20:19 | ANE.PACU2 ---
Inpatient post-anesthesia follow up: Airway intact: Yes Vital signs: Temperature 97.4 F Pulse Rate 69 Respiratory Rate 16 Blood Pressure 142/89 Pulse Oximetry 98 Oxygen Delivery Me thod Room Air Oxygen Flow Rate 3 Fraction of Inspir ed Oxygen Hydration adequate: Yes Nausea and vomiting: No Pain level: 2 Mental status: Baseline
[2020-09-20 11:28] LABS: Miscellaneous Test See Scanned Lab Rpt
== END 2020-09-16 13:46 | disposition home or self-care (01) ==
PROVIDERS: PCP Nurse Practitioner Family; Visit Provider Internal Medicine Hematology & Oncology
PROC: 07DT3ZX Extraction of Bone Marrow, Percutaneous Approach, Diagnostic (ICD-10-PCS; CPT 38222; principal; 2020-09-16 11:30)
DX: D69.6 Thrombocytopenia, unspecified (principal); B19.20 Unspecified viral hepatitis C without hepatic coma; K74.60 Unspecified cirrhosis of liver; M19.90 Unspecified osteoarthritis, unspecified site; G89.29 Other chronic pain; Z79.891 Long term (current) use of opiate analgesic; Z87.891 Personal history of nicotine dependence
CPT/HCPCS: 12345; 36415; 38222; 85025; 88305; J7030

== ENCOUNTER 2020-10-05 13:44 | Outpatient (CLI) | payer MEDICARE, MEDICAID, SELFPAY ==
[2020-10-05 14:21] LABS: Basophils # 0.1 10^3/uL (0.0-0.1); Basophils % 1.1 %; Eosinophils # 0.1 10^3/uL (0.0-0.8); Eosinophils % 2.5 %; Hematocrit 39.7 % (42.0-52.0); Hemoglobin 13.6 g/dL (11.7-16.6); Lymphocytes # 1.6 10^3/uL (0.8-4.8); Lymphocytes % 28.7 %; Mean Corpuscular HGB Conc 34.3 g/dL (30.0-36.0); Mean Corpuscular Hemoglobin 33.7 pg (28.0-34.0); Mean Corpuscular Volume 98.3 fL (80-94); Mean Platelet Volume 10.7 fL (7.4-10.4); Monocytes # 0.5 10^3/uL (0.2-0.9); Monocytes % 8.8 %; Neutrophils # 3.32 10^3/uL (1.8-7.7); Neutrophils % 58.7 %; Nucleated Red Blood Cells % 0 %; Platelet Count 74 10^3/cmm (130-400); Red Blood Count 4.04 10^6/uL (4.1-5.3); Red Cell Distribution Width 13.1 % (12.1-15.1); White Blood Count 5.7 10^3/uL (4.0-10.0)
[2020-10-05 14:56] LABS: Alanine Aminotransferase 30 U/L (0-41); Albumin Level 4.4 g/dL (3.5-5.2); Alkaline Phosphatase 77 IU/L (40-130); Anion Gap 10.5 (5-19); Aspartate Amino Transferase 27 U/L (0-40); Blood Urea Nitrogen 18 mg/dL (8-23); Calcium 9.3 mg/dL (8.5-10.5); Carbon Dioxide 29 mmol/L (22-29); Chloride 106 mmol/L (98-107); Globulin 2.5 g/dL (1.3-4.6); Glucose 95 mg/dL (65-115); Osmolality Calculated 294 mOsm/kg (285-295); Potassium 4.5 mmol/L (3.5-5.1); Sodium 141 mmol/L (136-145); Total Bilirubin 2.1 mg/dL (0.15-1.2); Total Protein 6.9 g/dL (6.6-8.7)
[2020-10-05 20:28] LABS: INR 1.33 (0.8-1.2)
== END 2020-10-05 13:45 | disposition home or self-care (01) ==
PROVIDERS: PCP Nurse Practitioner Family; Visit Provider Nurse Practitioner
DX: K74.60 Unspecified cirrhosis of liver (principal)
CPT/HCPCS: 36415; 80053; 85025; 85610

== ENCOUNTER → 2020-10-12 13:27 | Outpatient (BNVA) | payer MEDICARE, MEDICAID, SELFPAY | PROVIDERS: PCP Nurse Practitioner Family; Visit Provider Anesthesiology | DX: M54.9 Dorsalgia, unspecified (principal); M51.35 Other intervertebral disc degeneration, thoracolumbar region; M47.9 Spondylosis, unspecified; G89.29 Other chronic pain; Z79.899 Other long term (current) drug therapy; Z79.891 Long term (current) use of opiate analgesic | CPT/HCPCS: 99214 ==

== ENCOUNTER 2020-10-26 08:51 | Outpatient (CLI) | payer MEDICARE, MEDICAID, SELFPAY ==
[2020-10-26 09:32] LABS: Basophils # 0.1 10^3/uL (0.0-0.1); Basophils % 1.1 %; Eosinophils # 0.1 10^3/uL (0.0-0.8); Eosinophils % 2.4 %; Hematocrit 40.4 % (42.0-52.0); Hemoglobin 13.7 g/dL (11.7-16.6); Lymphocytes # 1.2 10^3/uL (0.8-4.8); Lymphocytes % 26.1 %; Mean Corpuscular HGB Conc 33.9 g/dL (30.0-36.0); Mean Corpuscular Hemoglobin 33.5 pg (28.0-34.0); Mean Corpuscular Volume 98.8 fL (80-94); Mean Platelet Volume 10.7 fL (7.4-10.4); Monocytes # 0.4 10^3/uL (0.2-0.9); Monocytes % 9.3 %; Neutrophils # 2.82 10^3/uL (1.8-7.7); Neutrophils % 60.9 %; Nucleated Red Blood Cells % 0 %; Platelet Count 73 10^3/cmm (130-400); Red Blood Count 4.09 10^6/uL (4.1-5.3); Red Cell Distribution Width 12.8 % (12.1-15.1); White Blood Count 4.6 10^3/uL (4.0-10.0)
[2020-10-26 09:41] LABS: Alanine Aminotransferase 29 U/L (0-41); Albumin Level 4.1 g/dL (3.5-5.2); Alkaline Phosphatase 82 IU/L (40-130); Anion Gap 11.1 (5-19); Aspartate Amino Transferase 29 U/L (0-40); Blood Urea Nitrogen 17 mg/dL (8-23); Carbon Dioxide 27 mmol/L (22-29); Chloride 103 mmol/L (98-107); Globulin 2.7 g/dL (1.3-4.6); Glucose 131 mg/dL (65-115); Osmolality Calculated 287 mOsm/kg (285-295); Potassium 4.1 mmol/L (3.5-5.1); Sodium 137 mmol/L (136-145); Total Bilirubin 1.4 mg/dL (0.15-1.2); Total Protein 6.8 g/dL (6.6-8.7)
--- NOTE | 2020-10-26 10:30 | ONC FU_ITS ---
Dr. Wells follow up note Patient: Sloan Rodriguez Unit #: [id number]: [id number] Dicatated By: Amber Wells M.D.Date of Visit:Oct 26, 2020 Onc Med Follow-up/Prog Note History of Present Illness: Mr. Sloan Rodriguez, Is a 75-year-old gentleman with history of hepatitis C, as per patient he was diagnosed in 2006 with hepatitis C and at that time he underwent treatment with interferon and multiple times thereafter till 2012 and he was getting all those treatment at [facility] and in 2013, he was declared hepatitis C free and since then he has been following there on 6 months basis. Patient said he was also diagnosed with cirrhosis in 2006 at that time he underwent liver biopsy and it confirmed. During treatment with interferon patient said he required blood transfusion on 3-4 occasion and last time was in 2013. Underwent EGD recently and was diagnosed with peptic ulcer disease and he was started on Protonix, Had colonoscopy done by Dr. Hopkins, many years ago, as per patient, multiple polyps were removed and they were benign. Patient denies any night sweats, or peripheral lymphadenopathy or recurrent fevers. Or weight loss Patient said he never heard about low platelets before until recently. Never required any platelets transfusion. He denies any history of hemoptysis or hematemesis. Denies any history of melena or hematochezia. Denies any nausea vomiting. Denies any petechiae or ecchymosis. Denies any jaundice. Denies aspirin or NSAID intake. Patient has history of hepatic cirrhosis and portal hypertension for which she is being followed up at [facility],Follow-up sonogram of abdomen done on January 15, 2020 showed fatty infiltration of the liver with surface irregularity which can be seen with cirrhosis, spleen size slightly smaller than the prior study, normally 5.49 x 5.92 x 10.3 cm. Bone marrow evaluation done on September 16, 2020 showed normocellular bone marrow for age with trilineage hematopoiesis present. No overt dyspoietic or megaloblastic changes seen., No evidence of bone marrow infiltrative disorder. No ring sideroblasts, overall iron stores appear to be slightly decreased. No significant reticulin fibrosis. Adequate to mildly increased megakaryopoiesis FISH for MDS is negative and flow cytometry showed no evident myeloid or lymphoid population .Came for follow-up, denies any specific complaints, denies any nausea vomiting diarrhea denies any headaches blurred vision double denies any melena or hematochezia denies hemoptysis or hematemesis denies any jaundice denies any petechia or ecchymosis. Has seen his inspection supervisor in [place], recently Medications: Breo Ellipta 1 Puff(s) (of 100-25 mcg/inh) Aerosol Powder, Breath Activated Inhalation daily, Cyclobenzaprine HCl 1 Tablet (of 10 mg) Oral t.i.d. PRN, oxyCODONE HCl 1 Tablet (of 20 mg) Oral t.i.d. PRN, Ventolin HFA 1 (108 (90 base) mcg/act) Aerosol, solution Inhalation daily PRN Allergies: Donepezil HCl, Erythromycin Base, Methadone HCl, traMADol HCl, and Vicodin. Review of Systems: Constitutional - Appetite is poor and weight is stable. No fever, chills, hot flashes, or night sweats. Energy level is fair, ENMT - Positive for sinus congestion/drainage. No mouth sores. Positive for sore throat or difficulty swallowing, Hematologic/Lymphatic - No abnormal bruising or bleeding, Respiratory - Positive for shortness of breath. No for cough. No pleuritic pain or hemoptysis, Cardiovascular - No angina pain. No palpitations, Gastrointestinal - No nausea or vomiting. No heartburn or acid reflux. Positive for diarrhea, no constipation. No blood in the stool or black stools, Genitourinary (M) - No dysuria or hematuria. No urinary frequency. No urgency or incontinence, Musculoskeletal - No joint or bone pain, Neurologic - No headache or dizziness. No numbness/paresthesias or other focal neurologic symptoms. Pt reports increasing problems with his memory, Psychiatric - No anxiety or depression. No insomnia. Vital Signs: Performed on Oct 26, 2020 09:45 Height - 63.50 in Weight - 183.4 lbs (HIGH) BSA - 1.87 sq.m BMI - 31.98 (HIGH) Temperature - 97.6 F (LOW) Pulse - 76 /min Respiration - 18 /min BP - 160/82 mm(hg) (HIGH) O2 Sat - 96 % Pain - 8 Performance Status: 0 - Fully active, able to carry on all predisease activities without restrictions. (ECOG) Physical Examination: ENMT - No mouth sores, no thrush, no jaundice, Respiratory - Lungs are clear to auscultation, Cardiovascular - Regular rate and rhythm of heart, Abdomen - Soft, bowel sounds present, Extremities - No visible edema Or petechia. Lab/Imaging: Test performed on Sep 01, 2020 13:58 Sodium 140 mmol/L Potassium 4.0 mmol/L Chloride 106 mmol/L CO2 23 mmol/L Anion Gap 15.0 BUN 16 mg/dL Creatinine 0.9 mg/dL Cr Clearance (Est) 85.83 mL/min Glucose 96 mg/dL Osmolality - Calculated 291 mOsm/kg Calcium 9.2 mg/dL Protein, Total 6.8 g/dL Albumin 4.4 g/dL Globulin 2.4 g/dL Bilirubin, Total 2.1 mg/dL ALT (SGPT) 28 U/L AST (SGOT) 27 U/L Alkaline Phosphatase 75 IU/L WBC 4.6 10 3/uL RBC 4.02 10 6/uL HGB 13.7 g/dL HCT 39.5 % MCV 98.3 fL MCH 34.1 pg MCHC 34.7 g/dL RDW 13.4 % Platelet Count 72 10 3/cmm MPV 10.9 fL Neutrophils 2.77 10 3/uL Lymphocytes 1.2 10 3/uL Monocytes 0.4 10 3/uL Eosinophils 0.2 10 3/uL Basophils 0.0 10 3/uL Neutrophil % 60.9 % Lymphocyte % 25.7 % Monocyte % 9.0 % Eosinophil % 3.3 % Basophils % 0.9 % NRBC % 0 % Test performed on Jun 01, 2020 06:11 Manual Lymphocytes 27.9 % Manual Monocytes 8.1 % Manual Eosinophils 3.3 % Manual Basophils 0.9 % Test performed on May 31, 2020 08:08 A/G Ratio 1.7 Absolute Value Impression: Isolated moderate thrombocytopenia with a normal hemoglobin and white blood cells per lab done on 11/27/2019 showed white blood count 4.5 hemoglobin 14 crit 39.7 platelets 68,000 with a normal differential, Etiology unclear but most likely due to peripheral destruction due to either splenic sequestration due to splenomegaly plus minus low-grade ITP as Bone marrow Evaluation done on September 16, 2020 findings showed adequate or increased megakaryopoiesis. And no overt dyspoietic or megaloblastic changes seen, normocellular for his age. FISH for MDS negative and flow cytometry showed no aberrant myeloid or lymphoid population.^ History of hepatitis C, diagnosed in 2006, status post therapy with interferon, and multiple occasion till 2012, per patient. History of hepatic cirrhosis per liver biopsy done in 2006, per patient mild hyperbilirubinemia, per labs done on 11/27/2019, bilirubin was 1.8, AST 24, aortic 20, alkaline phosphatase 62. Albumin 4.4. History of alcohol abuse till 2006. Peptic ulcer disease per EGD now on Protonix. Colonoscopy done by Dr. Jauregui, few years back showed benign polyps ] Plan: Discussed with patient regarding his labs white blood count 4.6 hemoglobin 13.7 hematocrit 40.4 platelets 73,000 compared to 72,000 on September 01, 2020 CMP within normal limit except bilirubin level is pending Bone marrow findings showed adequate or increased megakaryopoiesis. And no overt dyspoietic or megaloblastic changes seen, normocellular for his age. FISH for MDS negative and flow cytometry showed no aberrant myeloid or lymphoid population. 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 Patient return to clinic in 3 months with CBC, and was advised in case he has any evidence of gross bleeding, petechiae or ecchymosis he need to call us. Mild hyperbilirubinemia, now being followed by inspection supervisor in [place] as per patient he was evaluated recently and was told that liver is recovering and will continue to follow-up with observation alone. . . Signed By: Amber Wells M.D. <<Signature on File>>
== END 2020-10-26 08:52 | disposition home or self-care (01) ==
LOC: ONCMED 08:53
PROVIDERS: PCP Nurse Practitioner Family; Visit Provider Internal Medicine Hematology & Oncology
DX: D69.6 Thrombocytopenia, unspecified (principal); K27.9 Peptic ulcer, site unspecified, unspecified as acute or chronic, without hemorrhage or perforation; E80.6 Other disorders of bilirubin metabolism; F10.11 Alcohol abuse, in remission; Z79.899 Other long term (current) drug therapy; Z86.19 Personal history of other infectious and parasitic diseases; Z87.19 Personal history of other diseases of the digestive system
CPT/HCPCS: 36415; 80053; 85025; G0463

== ENCOUNTER 2020-11-18 14:52 | Inpatient (IN) | payer MEDICARE, MEDICAID, SELFPAY ==
[2020-11-18] VITALS (16 sets, daily range): BP systolic 105–151; BP diastolic 44–86; PULSE 62–103; RESP 13–22; TEMP 36.5–37.3; O2SAT 92–100; BMI 31.8
--- NOTE | 2020-11-18 15:06 | CT_ITS ---
WS: [id number] CT scan of the abdomen and pelvis without Oral and IV contrast. Additional two-dimensional coronal an d sagittal reconstruction was performed. 11/18/2020 Clinical Data: abd pain Comparison: CT abdomen and pelvis, 10/19/2017. DLP: 1162.[address] scans at [facility] use at least one of these dose optimization techniques: automat ed exposure control; mA and/or kV adjustment per patient size (includes targeted exams where dose is matched to clinical indication); or iterative reconstruction. Findings: There is a large amount of free air. There is a small hiatal hernia. The lower lungs show no nodules, masses or effusions. The spleen, adrenal glands and pancreas are normal. The liver shows surface irregularity which can b e seen with cirrhosis. The gallbladder is absent and there are clips in the gallbladder fossa from a cholecystectomy. The kidneys show a 2 cm left intrarenal calculus. No right renal calculi are seen. No hydronephrosis, renal masses or cysts are seen. The abdominal aorta is normal in size with calcification in the wall .. No appendicitis or diverticulitis is seen. No abscess, adenopathy, ascites, mass or obstruction is no silvano. The bladder is readily distended. No inguinal hernia is seen. The prostate is enlarged with calcifica tion. There are old compression fractures of the T8, T11 and L1 vertebral bodies. There is degenerati ve disc narrowing at L5-S1. CT/CT abdomen pelvis wo con [id number] Impression: 1. Large amount of free air which by history is from a perforation from a recen t colonoscopy. 2. Negative for acute intra-abdominal or pelvic abnormalities. 3. Large collection of stones in the left kidney. 4. Surface irregularity of the liver which can be seen with cirrhosis.
[2020-11-18] MEDS: fentaNYL 50 mcg/mL INJ 2mL IVP (15:16)
[2020-11-18 15:43] LABS: Basophils % 0.7 %; Eosinophils # 0.1 10^3/uL (0.0-0.8); Eosinophils % 2.4 %; Hematocrit 26.6 % (42.0-52.0); Hemoglobin 8.8 g/dL (11.7-16.6); Lymphocytes # 0.9 10^3/uL (0.8-4.8); Lymphocytes % 29.8 %; Mean Corpuscular HGB Conc 33.1 g/dL (30.0-36.0); Mean Corpuscular Hemoglobin 34.5 pg (28.0-34.0); Mean Corpuscular Volume 104.3 fL (80-94); Monocytes # 0.2 10^3/uL (0.2-0.9); Monocytes % 7.2 %; Neutrophils # 1.75 10^3/uL (1.8-7.7); Neutrophils % 59.9 %; Nucleated Red Blood Cells % 0 %; Platelet Count 46 10^3/cmm (130-400); Red Blood Count 2.55 10^6/uL (4.1-5.3); Red Cell Distribution Width 13.5 % (12.1-15.1); White Blood Count 2.9 10^3/uL (4.0-10.0)
--- NOTE | 2020-11-18 15:58 | W.ED.ABDPA2 ---
HPI - Abdominal Pain General: Chief Complaint: Abdominal Pain Stated Complaint: ABDOMINAL PAIN Time Seen by Provider: 11/18/20 14:53 Source: patient and EMS Mode of arrival: EMS Limitations: no limitations History of Present Illness: HPI narrative: The patient is a 75-year-old male with a history of COPD and chronic pain who presents to the emergency department from the [facility] where he was undergoing a colonoscopy and apparently the physician inadvertently perforated the patient's colon. He was then sent here to be evaluated by the surgeon. The patient is in severe pain, generalized abdominal pain. No vomiting. MD elicited complaint: abdominal pain Location: Diffuse Quality: stabbing Radiation: none Migration to: no migration Exacerbating factors: movement Relieving factors: nothing Context: recent surgery/procedure Associated Symptoms: Denies anorexia, belching, bloating, change in bowel habits, change in stool character, chills, coffee ground emesis, constipation, GI cramping, diarrhea, dyspepsia, dysuria, excessive flatus, fever(s), heartburn, hematochezia, hematuria, hematemesis, fecal incontinence, loose stools, melena, nausea, poor appetite, syncope and vomiting Review of Systems General: Reports: 10 or more systems reviewed and unremarkable except in HPI and below Const: Denies: fever(s) or chills Eyes: Denies: change in vision or blurry vision ENMT: Denies: throat pain, enlarged tonsils, odynophagia, hoarseness, mouth pain or swelling of lips/tongue Card: Denies: syncope Resp: Denies: dyspnea, productive cough or non-productive cough GI: Reports: abdominal pain; Denies: nausea, vomiting, hematemesis, coffee ground emesis, heartburn, diarrhea, constipation, bloating, GI cramping, belching, excessive flatus, fecal incontinence, change in bowel habits, change in stool character, hematochezia or melena : Denies: dysuria or hematuria Musc: Denies: neck pain, back pain or extremity swelling Skin/Breast: Denies: rash, pruritus or erythema Neuro: Denies: headache(s), numbness in extremities or weakness in extremities Endo: Denies: polyuria, polydipsia or tired all the time [facility] ED PFSH: Medical History (Updated 11/18/20 @ 22:39 by Geovanna Nunez MD, [facility] [place]) Chronic pain cervical and lumbar spine Cirrhosis Colon perforation Colon polyps COPD (chronic obstructive pulmonary disease) Hepatitis C Osteoarthritis Thrombocytopenia Surgical History S/P cataract extraction bilateral S/P cholecystectomy Status post colonoscopy Family History Mother Cancer Grandmother Diabetes Social History Smoking and tobacco status: former smoker Second hand smoke exposure: No Alcohol intake: never History of recent travel: No Physical Exam Const: COMMON NORMALS: average body habitus, patient oriented x3, no limitations, healthy appearing, alert and well nourished GENERAL APPEARANCE: in distress HENMT: COMMON NORMALS: normocephalic, atraumatic and moist oral mucous membranes HEAD & SCALP: normocephalic and atraumatic Neck/C-Spine: COMMON NORMALS: no meningeal signs and no JVD Resp: COMMON NORMALS: normal respiratory effort, No retractions, No use of accessory muscles, clear to auscultation bilaterally and percussion normal AUSCULTATION: clear to auscultation bilaterally PERCUSSION: percussion normal Cardio: COMMON NORMALS: no JVD, regular rate, regular rhythm, S1 normal heart sound present, S2 normal heart sound present, No gallops present (Cardio), No clicks present (Cardio), No murmurs present (Cardio), No rub (Cardio) and Peripheral pulses 2+ throughout RATE: regular rate RHYTHM: regular rhythm HEART SOUNDS: S1 normal heart sound present and S2 normal heart sound present PERIPHERAL PULSES: Peripheral pulses 2+ throughout GI: COMMON NORMALS: Normal to inspection, nondistended, normoactive bowel sounds present, Soft to palpation, No hepatosplenomegaly present, no masses and no bruits PALPATION: Yes Soft to palpation, Yes Tenderness to palpation present (GI), Yes Guarding due to palpation present (GI) and Yes No hepatosplenomegaly present Extremity: COMMON NORMALS: normal to inspection, full ROM, capillary refill normal, no calf tenderness and no pedal edema Neuro: COMMON NORMALS: patient oriented x3 SENSORIUM/ORIENTATION: Yes alert MENINGEAL SIGNS: Yes no meningeal signs Skin: COMMON NORMALS: no rashes or lesions noted, no wounds, turgor normal, no jaundice, no petechiae and no mottling GENERAL SKIN EXAM: no rashes or lesions noted and turgor normal Course Consultations: Consultation #1: Discussed patient with Dr. Tang and he accepted the patient to his service. Consultation #2: Discussed the patient with Dr. Stoddard, utilization review coordinator. He saw the second EKG and said the ST changes are nonspecific and this is not a STEMI. Time: 17:58 Vital Signs: Vital signs: Vital Signs Temperature 97.7 F 11/18/20 19:58 Pulse Rate 86 11/18/20 19:58 Respiratory Rate 13 11/18/20 19:58 Blood Pressure 128/73 11/18/20 19:58 Pulse Oximetry 97 11/18/20 19:58 MDM - Abdominal Pain MDM Narrative: Medical decision making narrative: 75-year-old male who had an inadvertent perforation of his colon during colonoscopy. He has remained stable in the emergency department. He was given a dose of intravenous antibiotic and admitted to the surgical service for further evaluation and management. He will be watched for decompensation, if he decompensates he will be taken emergently to the OR. Medical Records: Attestation: I reviewed the patient's medical records. Lab Data: Attestation: I reviewed the patient's lab results. Labs: Lab Results 11/18/20 11/18/20 11/18/20 Range/Units 15:15 15:15 15:15 WBC 2.9 L (4.0-10.0) 10^3/ uL RBC 2.55 L (4.1-5.3) 10^6/u L Hgb 8.8 L (11.7-16.6) g/dL Hct 26.6 L (42.0-52.0) % MCV 104.3 H (80-94) fL MCH 34.5 H (28.0-34.0) pg MCHC 33.1 (30.0-36.0) g/dL RDW 13.5 (12.1-15.1) % Plt Count 46 L (130-400) 10^3/c mm MPV 11.0 H (7.4-10.4) fL Neut % (Auto) 59.9 % Lymph % (Auto) 29.8 % [place] % (Auto) 7.2 % Eos % (Auto) 2.4 % Baso % (Auto) 0.7 % Neut # (Auto) 1.75 L (1.8-7.7) 10^3/u L Lymph # (Auto) 0.9 (0.8-4.8) 10^3/u L [place] # (Auto) 0.2 (0.2-0.9) 10^3/u L Eos # (Auto) 0.1 (0.0-0.8) 10^3/u L Baso # (Auto) 0.0 (0.0-0.1) 10^3/u L Nucleated RBC % (a uto) 0 % Nucleated RBCs # 0.0 /100WBC Sodium 134 L (136-145) mmol/L Potassium 4.1 (3.5-5.1) mmol/L Chloride 104 (98-107) mmol/L Carbon Dioxide 18 L (22-29) mmol/L Anion Gap 16.1 (5-19) BUN 10 (8-23) mg/dL Creatinine 0.5 L (0.7-1.2) mg/dL GFR Calculation Not Reportable Glucose 76 (65-115) mg/dL Calculated Osmolal ity 276 L (285-295) mOsm/k g Lactate 8.4 H* (0.5-2.2) mmol/L Calcium 7.7 L (8.5-10.5) mg/dL Total Bilirubin 1.7 H (0.15-1.2) mg/dL AST 19 (0-40) U/L ALT 18 (0-41) U/L Alkaline Phosphata se 45 (40-130) IU/L C-Reactive Protein 0.5 (0.0-4.9) mg/L Total Protein 4.3 L (6.6-8.7) g/dL Albumin 2.7 L (3.5-5.2) g/dL Globulin 1.6 (1.3-4.6) g/dL Blood Type Rho(D) Type 11/18/20 11/18/20 Range/Units 17:17 17:17 WBC (4.0-10.0) 10^3/ uL RBC (4.1-5.3) 10^6/u L Hgb (11.7-16.6) g/dL Hct (42.0-52.0) % MCV (80-94) fL MCH (28.0-34.0) pg MCHC (30.0-36.0) g/dL RDW (12.1-15.1) % Plt Count (130-400) 10^3/c mm MPV (7.4-10.4) fL Neut % (Auto) % Lymph % (Auto) % [place] % (Auto) % Eos % (Auto) % Baso % (Auto) % Neut # (Auto) (1.8-7.7) 10^3/u L Lymph # (Auto) (0.8-4.8) 10^3/u L [place] # (Auto) (0.2-0.9) 10^3/u L Eos # (Auto) (0.0-0.8) 10^3/u L Baso # (Auto) (0.0-0.1) 10^3/u L Nucleated RBC % (a uto) % Nucleated RBCs # /100WBC Sodium (136-145) mmol/L Potassium (3.5-5.1) mmol/L Chloride (98-107) mmol/L Carbon Dioxide (22-29) mmol/L Anion Gap (5-19) BUN (8-23) mg/dL Creatinine (0.7-1.2) mg/dL GFR Calculation Glucose (65-115) mg/dL Calculated Osmolal ity (285-295) mOsm/k g Lactate 2.1 (0.5-2.2) mmol/L Calcium (8.5-10.5) mg/dL Total Bilirubin (0.15-1.2) mg/dL AST (0-40) U/L ALT (0-41) U/L Alkaline Phosphata se (40-130) IU/L C-Reactive Protein (0.0-4.9) mg/L Total Protein (6.6-8.7) g/dL Albumin (3.5-5.2) g/dL Globulin (1.3-4.6) g/dL Blood Type B Positive Rho(D) Type Positive Imaging Data ^: CT Abd/Pel: Radiologist's impression: [employer] [address] [address] [address] Scan Report Signed Patient: Sloan Rodriguez #: [id number] : 7Acct#:[id number] Age/Sex: 75 / MADM Date: 11/18/20 Loc: ERRoom/Bed: Attending Dr: Ordering Provider/Ordering MD: Geovanna Nunez MD, [facility] [place] Date of Service: 11/18/20 Procedure(s): CT abdomen pelvis wo con [id number] Accession Number(s): [id number] Report Number: [id number] WS: [id number] CT scan of the abdomen and pelvis without Oral and IV contrast. Additional two-dimensional coronal and sagittal reconstruction was performed. 11/18/2020 Clinical Data: abd pain Comparison: CT abdomen and pelvis, 10/19/2017. DLP: 1162.[address] scans at [facility] use at least one of these dose optimization techniques: automated exposure control; mA and/or kV adjustment per patient size (includes targeted exams where dose is matched to clinical indication); or iterative reconstruction. Findings: There is a large amount of free air. There is a small hiatal hernia. The lower lungs show no nodules, masses or effusions. The spleen, adrenal glands and pancreas are normal. The liver shows surface irregularity which can be seen with cirrhosis. The gallbladder is absent and there are clips in the gallbladder fossa from a cholecystectomy. The kidneys show a 2 cm left intrarenal calculus. No right renal calculi are seen. No hydronephrosis, renal masses or cysts are seen. The abdominal aorta is normal in size with calcification in the wall.. No appendicitis or diverticulitis is seen. No abscess, adenopathy, ascites, mass or obstruction is noted. The bladder is readily distended. No inguinal hernia is seen. The prostate is enlarged with calcification. There are old compression fractures of the T8, T11 and L1 vertebral bodies. There is degenerative disc narrowing at L5-S1. CT/CT abdomen pelvis wo con [id number] Impression: 1. Large amount of free air which by history is from a perforation from a recent colonoscopy. 2. Negative for acute intra-abdominal or pelvic abnormalities. 3. Large collection of stones in the left kidney. 4. Surface irregularity of the liver which can be seen with cirrhosis. Dictated By:Rani Phillips MD Signed By:Rani Phillips MDSigned Date/Time:11/18/20 1637 DD/ 1544 EKG Data ^: EKG 1: Attestation: I personally reviewed and interpreted this EKG as follows: EKG interpretation date: 11/18/20 EKG interpretation time: 15:03 Prior EKG tracings: not available for review Interpretation: Sinus rhythm with first-degree AV block. Heart rate [address] changes. Normal axis. EKG 2: Attestation: I personally reviewed and interpreted this EKG as follows: EKG interpretation date: 11/18/20 EKG interpretation time: 17:51 Prior EKG tracings: available for review Interpretation: Normal sinus rhythm. Heart rate [address] elevation in lead V2. Discharge Plan Discharge Patient Disposition: Admitted As Inpatient Admit Provider: Haresh Tang Clinical Impression: Colon perforation, Thrombocytopenia, Anemia, Acidosis, lactic, Leukopenia Condition: Stable Coding Level of Care Code ED Talking Books Library Clerk for Chg Fwd Exam Comprehensive
[2020-11-18 16:02] LABS: Alanine Aminotransferase 18 U/L (0-41); Albumin Level 2.7 g/dL (3.5-5.2); Alkaline Phosphatase 45 IU/L (40-130); Anion Gap 16.1 (5-19); Aspartate Amino Transferase 19 U/L (0-40); Blood Urea Nitrogen 10 mg/dL (8-23); C Reactive Protein 0.5 mg/L (0.0-4.9); Calcium 7.7 mg/dL (8.5-10.5); Carbon Dioxide 18 mmol/L (22-29); Chloride 104 mmol/L (98-107); Globulin 1.6 g/dL (1.3-4.6); Glucose 76 mg/dL (65-115); Osmolality Calculated 276 mOsm/kg (285-295); Potassium 4.1 mmol/L (3.5-5.1); Sodium 134 mmol/L (136-145); Total Bilirubin 1.7 mg/dL (0.15-1.2); Total Protein 4.3 g/dL (6.6-8.7)
[2020-11-18 16:11] LABS: Lactate (Lactic Acid level) 8.4 mmol/L (0.5-2.2)
--- NOTE | 2020-11-18 16:13 | PC.NURSE ---
lactic 8.4
[2020-11-18] MEDS: piperacillin-tazobactam 3.375 GM in sodium chloride 0.9% (plus) 50 ML IV ×2 (16:18→21:21)
--- NOTE | 2020-11-18 16:31 | P.HP_ITS ---
Providers/Chief Complaint Admitting Physician: Haresh Tang Primary Care Provider: TERRY Wall Chief Complaint: ABDOMINAL PAIN History of Present Illness Sloan Rodriguez is a 75 year old male who was undergoing a colonoscopy for history of colon polyps at the surgery center. Patient developed abdominal distention at about 40 cm on the colonoscope and as per Dr. Cuevas extr aluminal abdominal cavity could be seen that he could not subsequently identify the perforation. Patient was therefore transferred here by ambulance. At presentation he complained of abdominal pain and distention. No nausea or vomiting. Patient is noted to be hemodynamically stable, not tachycardic. Review of Systems General: Reports: 10 or more systems reviewed and unremarkable except in HPI and below Medications/Allergies Home Medications Medication Instructions Recorded Confirmed Last Taken Type fluticasone 500 mcg-salmeterol 50 1 inh INHALATION ONCE each 11/21/19 10/12/20 09/06/20 History mcg/dose blistr powdr for inhalation oxycodone 20 mg tablet 20 mg PO TID PRN 30 Days #90 tab 10/12/20 10/12/20 Unknown Rx albuterol sulfate [Ventolin HFA] 2 puff INHALATION Q4H PRN 11/18/20 11/18/20 Unknown History clotrimazole 1 applic TOPICAL BID 11/18/20 11/18/20 Unknown History pantoprazole 40 mg PO DAILY 11/18/20 11/18/20 11/17/20 History Allergies Allergy/AdvReac Type Severity Reaction Status Date / Time methadone Allergy SWELLING, Verified 11/18/20 15:04 INDIGESTION acetaminophen [From Tylenol] AdvReac UNABLE TO Verified 11/18/20 15:04 TAKE DUE TO LIVER FUNCTION donepezil AdvReac DROWSINESS Verified 11/18/20 15:04 erythromycin base AdvReac ALGY-Rash Verified 11/18/20 15:04 tramadol AdvReac MAKES HIM Verified 11/18/20 15:04 FEEL FUNNY PFSH Acute PFSH: Medical History (Updated 11/18/20 @ 17:06 by Moises Villa MD) Chronic pain cervical and lumbar spine Cirrhosis Colon perforation Colon polyps COPD (chronic obstructive pulmonary disease) Hepatitis C Osteoarthritis Thrombocytopenia Surgical History S/P cataract extraction bilateral S/P cholecystectomy Status post colonoscopy Family History Mother Cancer Grandmother Diabetes Social History Smoking and tobacco status: former smoker Second hand smoke exposure: No Alcohol intake: never History of recent travel: No Vitals/I&O/Wt Last Vital Signs Temp 97.8 F 11/18/20 14:52 Pulse 62 11/18/20 14:52 Resp 20 H 11/18/20 15:16 BP 115/80 11/18/20 14:52 Pulse Ox 96 11/18/20 15:16 Weight last 48 hrs Weight 180 lb Physical Exam Narrative: EXAM NARRATIVE: HEENT: Normocephalic Eye: Sclera /conjunctiva normal Cardiovascular: Normal S1 and S2 heart sounds Abdomen: Distended, tender left lower quadrant, voluntary guarding present, no rigidity Neurological: Oriented to place person and time Skin: Intact, no lesions appreciated on gross exam Data : 11/18/20 15:15 11/18/20 15:15 Micro: Microbiology 11/18/20 15:15 Blood Culture - Preliminary Blood SPECIMEN COLLECTED A&P Assessment and plan (1) Colon perforation: 75-year-old male with history of colon polyps, thrombocytopenia who developed sigmoid perforation during colonoscopy. Patient has been hemodynamically stable and tender in the left lower quadrant. A Verres needle was used to decompress the pneumoperitoneum. Patient feels better after placement of Quevedo catheter and decompression of pneumoperitoneum. Quevedo catheter placed Admit to ICU Vitals every hour D51/2NS + 20 KCl at 100 cc/h CBC, CMP in the morning Lactic acid series IV zosyn q8h Heparin for DVT prophylaxis Pepcid for GI prophylaxis Hospitalist consult for medical management 2 units platelets on hold If patient develops worsening abdominal pain or hypotension, then we will proceed with surgery Status: Acute Attestations Medical Necessity Statement*: perforation requiring ICU monitoring Coding Level of Care Code Acute Climatology Professor for 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 Diagnoses Colon perforation K63.1
--- NOTE | 2020-11-18 17:00 | P.CONIM_ITS ---
Providers/Reason For Consult Consulting Physican/Specialty*: General surgery Reason for Consult*: Anemia, thrombocytopenia, lactic acidosis Primary Care Provider: TERRY Wall History of Present Illness History of Present Illness Sloan Rodriguez is a 75 year old male with a past medical history of hepatitis C status post treatment, chronic thrombocytopenia, chronic back pain, who presents to [facility] from the surgery center after developing a perforation during a colonoscopy procedure. Hospitalist team was called for comanagement of perforated abdomen, with lactic acidosis and thrombocytopenia and anemia. Currently patient is alert oriented x3, on 2 L, blood pressures in 180/110, sinus tachycardia heart rates in the 80s, he is in severe abdominal pain, abdomen is distended. Patient's only complaint is abdominal pain, no fevers, chills, no nausea, no vomiting, no chest pain, no shortness of breath, no lightheadedness, no dizziness. Patient denies a history of cardiovascular disease. Denies history of CHF. Denies a history of strokes. Denies a history of COPD. Denies a history of DVTs or PEs. Is not on blood thinners. No issues with anesthesia in the past. Review of Systems Const: Denies: fever(s), chills, fatigue or malaise Eyes: Denies: change in vision or blurry vision ENMT: Denies: nasal congestion Card: Denies: chest pain Resp: Denies: dyspnea, productive cough, non-productive cough or wheezing GI: Reports: abdominal pain; Denies: nausea, vomiting, hematemesis, diarrhea, constipation, hematochezia or melena : Denies: flank pain, difficulty urinating, dysuria or urinary frequency Musc: Denies: neck pain or back pain Skin/Breast: Denies: rash Neuro: Denies: headache(s), dizziness or vertigo Psych: Denies: anxiety or depression Endo: Denies: polyuria or polydipsia Meds/Allergies Home Medications and Allergies Home Medications Medication Instructions Recorded Confirmed Last Taken Type fluticasone 500 mcg-salmeterol 50 1 inh INHALATION ONCE each 11/21/19 10/12/20 09/06/20 History mcg/dose blistr powdr for inhalation oxycodone 20 mg tablet 20 mg PO TID PRN 30 Days #90 tab 10/12/20 10/12/20 Unknown Rx albuterol sulfate [Ventolin HFA] 2 puff INHALATION Q4H PRN 11/18/20 11/18/20 Unknown History clotrimazole 1 applic TOPICAL BID 11/18/20 11/18/20 Unknown History pantoprazole 40 mg PO DAILY 11/18/20 11/18/20 11/17/20 History Allergies Allergy/AdvReac Type Severity Reaction Status Date / Time methadone Allergy SWELLING, Verified 11/18/20 15:04 INDIGESTION acetaminophen [From Tylenol] AdvReac UNABLE TO Verified 11/18/20 15:04 TAKE DUE TO LIVER FUNCTION donepezil AdvReac DROWSINESS Verified 11/18/20 15:04 erythromycin base AdvReac ALGY-Rash Verified 11/18/20 15:04 tramadol AdvReac MAKES HIM Verified 11/18/20 15:04 FEEL FUNNY PFSH Acute PFSH: Medical History Chronic pain cervical and lumbar spine Cirrhosis Colon perforation Colon polyps COPD (chronic obstructive pulmonary disease) Hepatitis C Osteoarthritis Thrombocytopenia Surgical History S/P cataract extraction bilateral S/P cholecystectomy Status post colonoscopy Family History Mother Cancer Grandmother Diabetes Social History Smoking and tobacco status: former smoker Second hand smoke exposure: No Alcohol intake: never History of recent travel: No Vitals/I&O/Wt Last Vital Signs Temp 97.8 F 11/18/20 14:52 Pulse 62 11/18/20 14:52 Resp 20 H 11/18/20 15:16 BP 115/80 11/18/20 14:52 Pulse Ox 96 11/18/20 15:16 Weight last 48 hrs Weight 81.647 kg Physical Exam Const: COMMON NORMALS: patient oriented x3 GENERAL APPEARANCE: cooperative OTHER: Has moderate pain abdominal pain HENMT: COMMON NORMALS: normocephalic HEAD & SCALP: normocephalic Eye: COMMON NORMALS: Equal, round and reactive pupils present, EOMs intact bilaterally and no papilledema GENERAL EYE: appearance normal, both eyes and all related structures PUPIL: Yes Equal, round and reactive pupils present DIRECT OPHTHALMOSCOPY: Yes no papilledema Neck/C-Spine: COMMON NORMALS: full ROM, no lymphadenopathy, no JVD and Thyroid normal THYROID: Thyroid normal Lymph: LYMPHATIC: no lymphadenopathy noted Resp: COMMON NORMALS: normal respiratory effort, No retractions, No use of accessory muscles and clear to auscultation bilaterally AUSCULTATION: clear to auscultation bilaterally Cardio: COMMON NORMALS: no JVD, regular rate, regular rhythm, S1 normal heart sound present, S2 normal heart sound present, No gallops present (Cardio), No clicks present (Cardio) and No murmurs present (Cardio) RATE: regular rate RHYTHM: regular rhythm HEART SOUNDS: S1 normal heart sound present and S2 normal heart sound present GI: INSPECTION: Yes abdominal distension AUSCULTATION: Yes Hyperactive bowel sounds present PALPATION: Yes Firmness to palpation present (GI), Yes Tenderness to palpation present (GI) Details: LLQ, RLQ, LUQ and RUQ, Yes Guarding due to palpation present (GI) and Yes Rigid due to palpation : COMMON NORMALS: Yes no CVA tenderness BLADDER/KIDNEY EXAM: Yes no CVA tenderness Back/Pelvis: COMMON NORMALS: no CVA tenderness Extremity: COMMON NORMALS: normal to inspection, full ROM and no pedal edema Neuro: COMMON NORMALS: patient oriented x3, CN's II-XII intact bilaterally, moves all extremities and no focal motor deficits Psych: COMMON NORMALS: mental status grossly normal, Normal thought process present and cooperative THOUGHT PROCESS: Normal thought process present Data Micro: Micro: Microbiology 11/18/20 15:15 Blood Culture - Pr eliminary Blood SPECIMEN [facility] A&P Assessment and plan (1) Colon perforation: -Currently n.p.o. -Morphine for pain -Pepcid for GI prophylaxis -Receiving Zosyn for antibiotic coverage -Patient is a full code -Lovenox for DVT prophylaxis -Serial abdominal exams, KUB -Monitor hemodynamics closely Status: Acute (2) Thrombocytopenia: -Acute on chronic thrombocytopenia -We will give 1 unit platelet -Had a bone marrow biopsy on 09/24/2020, by Dr. Wells, normocellular bone marrow, no overt myelo blastic changes or dysplastic changes, no evidence of bone marrow infiltration -We will continue to monitor Status: Acute (3) Anemia: -Acute anemia, likely secondary to colon perforation -Hemoglobin 8.8 -We will transfuse if hemoglobin less than 7 -Recheck CBC in the evening Status: Acute (4) Lactic acidosis: -Likely secondary to perforation, lactic acid 8.8 -Currently normotensive -Monitor hemodynamics closely -Lactic acids every 4 hours -Fluid boluses as needed -Levophed as needed Status: Acute (5) Hepatitis C: Status: Acute Coding Level of Care Code Acute Nursery Technician for [facility] Fwd Diagnoses Colon perforation K63.1 Thrombocytopenia D69.6 Anemia D64.9 Lactic acidosis E87.2 Hepatitis C B19.20
--- NOTE | 2020-11-18 17:10 | PC.PHAR ---
pt states he takes the medications entered-pts states she thinks the pt has a ventolin inhaler that he uses prn-[facility] states they havent filled that medication for 377 days
--- NOTE | 2020-11-18 17:40 | ECG_ITS ---
[facility] Test Date: 2020-11-18 Pat Name: Sloan Rodriguez Department: Room: Gender: Male Stuffed Casing Tier: : 1945 Requested By: Geovanna Nunez I Order Number: [id number] Reading MD: SHIVANI LOYOLA Measurements Intervals [place] Rate: 81 P: 71 NM: 209 QRS: 64 QRSD: 102 T: 67 QT: 390 QTc: 453 Interpretive Statements SINUS RHYTHM LOW QRS VOLTAGE IN EXTREMITY LEADS [QRS DEFLECTION < 0.5 mV IN LIMB LEADS] ST Abnormality in lead V1 and II could be nonspecific. Compared to ECG 01/05/2019 17:10:09 Low QRS voltage now present Incomplete right bundle-branch block no longer present ST (T wave) deviation still present Electronically Signed On 11-18-2020 20:27:23 MANAGER ONLINE by SHIVANI LOYOLA [id number]
--- NOTE | 2020-11-18 17:56 | ECG_ITS ---
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: : 1945 Requested By: Geovanna Nunez I Order Number: [id number] Reading MD: SHIVANI LOYOLA Measurements Intervals [place] Rate: 64 P: 65 MT: 212 QRS: 50 QRSD: 108 T: 48 QT: 417 QTc: 431 Interpretive Statements SINUS RHYTHM WITH FIRST DEGREE AV BLOCK Compared to ECG 01/05/2019 17:10:09 First degree AV block now present Incomplete right bundle-branch block no longer present ST (T wave) deviation no longer present Electronically Signed On 11-18-2020 20:27:33 CORN PICKER by SHIVANI LOYOLA [id number]
[2020-11-18 18:15] LABS: Lactate (Lactic Acid level) 2.1 mmol/L (0.5-2.2)
[2020-11-18 18:29] LABS: Troponin(5th) Baseline 7 ng/L (0-15)
[2020-11-18] MEDS: fentaNYL 50 mcg/mL INJ 2mL 100 MCG IVP (19:22)
--- NOTE | 2020-11-18 19:51 | PM.PN ---
Subjective Subjective: Interval history: Patient denies any abdominal pain at rest, no nausea or vomiting, patient has not received any pain medications for the last 4 hours Vitals/I&O/Wt Last Vital Signs Temp 97.8 F 11/18/20 14:52 Pulse 90 11/18/20 19:00 Resp 19 H 11/18/20 19:22 BP 126/67 11/18/20 19:00 Pulse Ox 95 11/18/20 19:22 Weight last 48 hrs Weight 180 lb Physical Exam Narrative: EXAM NARRATIVE: Abdomen: Soft, mildly distended, minimally tender left lower quadrant Urinary Catheter Management^: Quevedo: Cath Placed During This Visit: yes Reason for Continuing Indwelling Catheter: Acute Urinary Retention or Obstruction Urinary Catheter Date of Insertion: 11/18/20 Urinary Catheter Time of Insertion: 16:00 Data : 11/18/20 15:15 11/18/20 15:15 Micro: Microbiology 11/18/20 15:15 Blood Culture - Preliminary Blood SPECIMEN COLLECTED A&P Assessment and plan (1) Colon perforation: Iatrogenic colonic perforation, patient currently hemodynamically stable, no evidence of peritonitis. Continue IV fluids NPO iv zosyn Status: Acute Attestations Medical Necessity Statement*: colonic perforation Coding Level of Care Code Acute Revenue Accounting Manager for 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 Diagnoses Colon perforation K63.1
--- NOTE | 2020-11-18 19:58 | ECG_ITS ---
[facility] Test Date: 2020-11-18 Pat Name: Sloan Rodriguez Department: Room: ICU01 Gender: Male Healthcare Specialist: : 1945 Requested By: Geovanna Nunez I Order Number: [id number] Reading MD: Jm Stewart M.D. Measurements Intervals [place] Rate: 80 P: 15 DC: 202 QRS: 23 QRSD: 105 T: 42 QT: 396 QTc: 457 Interpretive Statements SINUS RHYTHM POSSIBLE INFERIOR MYOCARDIAL INFARCTION [30 ms Q WAVE IN II/aVF], PROBABLY OLD ST ELEVATION, CONSIDER SEPTAL INJURY [MARKED ST ELEVATION W/O NORMALLY INFLECTED T WAVE IN V1/V2] ACUTE LA Compared to ECG 11/18/2020 17:50:58 Myocardial infarct finding now present ST (T wave) deviation still present Electronically Signed On 11-21-2020 9:21:33 CLERICAL DENTIST ASSISTANT by Jm Stewart M.D. [id number]
--- NOTE | 2020-11-18 20:58 | ECG_ITS ---
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 Measurements Intervals [place] Rate: 82 P: -5 MN: 184 QRS: 42 QRSD: 107 T: 56 QT: 393 QTc: 461 Interpretive Statements SINUS RHYTHM POSSIBLE INFERIOR MYOCARDIAL INFARCTION [30 ms Q WAVE IN II/aVF], PROBABLY OLD INTERPRETATION BASED ON A DEFAULT AGE OF 40 YEARS Compared to ECG 11/18/2020 20:30:50 ST (T wave) deviation no longer present Myocardial infarct finding still present Electronically Signed On 11-21-2020 9:00:18 TEACHER SPECIALIST by Jm Stewart M.D. [id number] f
--- NOTE | 2020-11-18 21:10 | PM.EVENT ---
Event Note Event Note: Called with EKG changes. Serial cardiac enzymes and EKGs were ordered earlier. Review shows nonspecific changes in V1 and lead II earlier today, sinus rhythm 60s to 80s. EKG done at [address] elevation confined to V2, with continued sinus rhythm in the 80s.. Had similar but less prominent changes on last EKG at 1750. He is currently resting comfortably. Heart rate 83, blood pressure 128/76 and oxygen saturations normal. He denies any chest pain. Denies shortness of breath. No diaphoresis. No palpitations. Denies recall of any specific similar symptoms any time today. He underwent needle decompression of pneumoperitoneum from a iatrogenic colonic perforation during colonoscopy earlier in the day. He has had a Quevedo catheter placed. He has thrombocytopenia with platelet count 46. This is chronic. 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 He has not had any gross bleeding. He has a history of hepatitis C and was previously treated with interferon. 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 No known history of coronary artery disease, hypertension, diabetes. No family history of coronary artery disease. He is a former smoker. Initial troponin was normal. Repeat EKG just now per my interpretation shows approximately [address] elevation, continues to be confined to V2. Second troponin is still pending. We will follow this up and monitor patient. Given perforation today combined with degree of chronic thrombocytopenia not a good candidate for consideration of anticoagulation or antiplatelet therapy. We will monitor for development of any symptoms and further changes. Discussed with the patient and nursing staff.
[2020-11-18] MEDS: D5-NS 0.45% + KCL 20 mEq 20 MEQ/1,000 ML BAG 100 MEQ IV (21:20)
[2020-11-18] MEDS: famotidine 20 mg/2 mL INJ IVP (21:21)
[2020-11-18] MEDS: morphine 4 mg/mL SDV 1 mL 2 MG IVP (21:22)
--- NOTE | 2020-11-18 21:22 | PC.NURSE ---
Late medication - Famotadine - d5 1/2 ns with 20k Patient newly admitted, medications not administered in ED Pain is 7/10 in abdominal region
[2020-11-18 21:23] LABS: Troponin 5 2HR 7.09 ng/L (0-15); Troponin 5 2HR Delta 0.09 ABS# (0-10)
--- NOTE | 2020-11-18 22:21 | PM.PN ---
Subjective Subjective: Interval history: Patient denies any abdominal pain unless he moves and the pain is localized to the left lower quadrant. His T-max was 99 Vitals/I&O/Wt Last Vital Signs Temp 97.7 F 11/18/20 19:58 Pulse 86 11/18/20 19:58 Resp 13 11/18/20 19:58 BP 128/73 11/18/20 19:58 Pulse Ox 97 11/18/20 19:58 Weight last 48 hrs Weight 180 lb Physical Exam Narrative: EXAM NARRATIVE: Abdomen: Soft, tender left lower quadrant, voluntary guarding Urinary Catheter Management^: Quevedo: Cath Placed During This Visit: yes Reason for Continuing Indwelling Catheter: Acute Urinary Retention or Obstruction Urinary Catheter Date of Insertion: 11/18/20 Urinary Catheter Time of Insertion: 16:00 Data : 11/18/20 15:15 11/18/20 15:15 Micro: Microbiology 11/18/20 15:15 Blood Culture - Preliminary Blood SPECIMEN COLLECTED A&P Assessment and plan (1) Colon perforation: Iatrogenic colonic perforation, patient currently hemodynamically stable, no evidence of peritonitis. Continue IV fluids NPO iv zosyn Status: Acute Attestations Medical Necessity Statement*: Perforation requiring continued inpatient stay for monitoring Coding Level of Care Code Acute Drier Transfer Car Operator for [facility] Diagnoses Colon perforation K63.1
[2020-11-18 23:42] LABS: Basophils % 0.4 %; Hematocrit 40.5 % (42.0-52.0); Hemoglobin 13.7 g/dL (11.7-16.6); Lymphocytes # 0.3 10^3/uL (0.8-4.8); Lymphocytes % 6.6 %; Mean Corpuscular HGB Conc 33.8 g/dL (30.0-36.0); Mean Corpuscular Hemoglobin 33.8 pg (28.0-34.0); Mean Platelet Volume 11.7 fL (7.4-10.4); Monocytes # 0.3 10^3/uL (0.2-0.9); Monocytes % 5.2 %; Neutrophils # 4.52 10^3/uL (1.8-7.7); Neutrophils % 87.6 %; Nucleated Red Blood Cells % 0 %; Platelet Count 64 10^3/cmm (130-400); Red Blood Count 4.05 10^6/uL (4.1-5.3); Red Cell Distribution Width 13.2 % (12.1-15.1); White Blood Count 5.2 10^3/uL (4.0-10.0)
[2020-11-18 23:54] LABS: Lactate (Lactic Acid level) 2.1 mmol/L (0.5-2.2)
--- NOTE | 2020-11-18 23:58 | ECG_ITS ---
[facility] Test Date: 2020-11-18 Pat Name: Sloan Rodriguez Department: Room: ICU01 Gender: Male Burial Needs Salesperson: : 1945 Requested By: Geovanna Nunez I Order Number: [id number] Chidi MD: Jm Stewart M.D. Measurements Intervals [place] Rate: 97 P: 35 [place]: 201 QRS: 35 QRSD: 105 T: 23 QT: 361 QTc: 461 Interpretive Statements SINUS RHYTHM ST ELEVATION, CONSIDER SEPTAL INJURY [MARKED ST ELEVATION W/O NORMALLY INFLECTED T WAVE IN V1/V2] ACUTE TN INTERPRETATION BASED ON A DEFAULT AGE OF 40 YEARS Compared to ECG 11/18/2020 20:59:58 ST (T wave) deviation now present Myocardial infarct finding no longer present Electronically Signed On 11-21-2020 9:22:20 SUPERVISOR LOOPING by Jm Stewart M.D. [id number] f
[2020-11-19] VITALS (41 sets, daily range): BP systolic 84–144; BP diastolic 45–86; PULSE 60–103; RESP 11–25; TEMP 36.9–37.3; O2SAT 91–98
[2020-11-19] MEDS: morphine 4 mg/mL SDV 1 mL 2 MG IVP ×4 (01:26→21:48)
[2020-11-19 04:39] LABS: Basophils % 0.5 %; Hematocrit 40.2 % (42.0-52.0); Hemoglobin 13.6 g/dL (11.7-16.6); Lymphocytes # 0.5 10^3/uL (0.8-4.8); Lymphocytes % 5.5 %; Mean Corpuscular HGB Conc 33.8 g/dL (30.0-36.0); Mean Corpuscular Hemoglobin 33.8 pg (28.0-34.0); Mean Platelet Volume 10.8 fL (7.4-10.4); Monocytes # 0.4 10^3/uL (0.2-0.9); Monocytes % 4.9 %; Neutrophils # 7.48 10^3/uL (1.8-7.7); Neutrophils % 88.9 %; Nucleated Red Blood Cells % 0 %; Platelet Count 71 10^3/cmm (130-400); Red Blood Count 4.02 10^6/uL (4.1-5.3); Red Cell Distribution Width 13.3 % (12.1-15.1); White Blood Count 8.4 10^3/uL (4.0-10.0)
[2020-11-19 05:08] LABS: Lactate (Lactic Acid level) 3.4 mmol/L (0.5-2.2)
[2020-11-19 05:13] LABS: Alanine Aminotransferase 24 U/L (0-41); Albumin Level 3.7 g/dL (3.5-5.2); Alkaline Phosphatase 55 IU/L (40-130); Anion Gap 13.6 (5-19); Aspartate Amino Transferase 23 U/L (0-40); Blood Urea Nitrogen 17 mg/dL (8-23); Calcium 8.5 mg/dL (8.5-10.5); Carbon Dioxide 24 mmol/L (22-29); Chloride 104 mmol/L (98-107); Globulin 2.4 g/dL (1.3-4.6); Glucose 185 mg/dL (65-115); Osmolality Calculated 290 mOsm/kg (285-295); Potassium 4.6 mmol/L (3.5-5.1); Sodium 137 mmol/L (136-145); Total Bilirubin 3.9 mg/dL (0.15-1.2); Total Protein 6.1 g/dL (6.6-8.7)
[2020-11-19 05:17] LABS: Slide Review Slide Review Perform
[2020-11-19] MEDS: D5-NS 0.45% + KCL 20 mEq 20 MEQ/1,000 ML BAG 100 MEQ IV (05:44)
[2020-11-19] MEDS: sodium chloride 0.9% 500 ML 999 ML IV (05:45)
--- NOTE | 2020-11-19 05:45 | PC.NURSE ---
d5 1/2 ns with 20 k hung late due to previos bag being hung late after patient didnt receive in ED
[2020-11-19] MEDS: piperacillin-tazobactam 3.375 GM in sodium chloride 0.9% (plus) 50 ML IV ×3 (06:20→21:15)
--- NOTE | 2020-11-19 06:24 | P.PN_ITS ---
Subjective Subjective: Interval history: I was contacted 30 minutes ago since patient's systolic had dropped to 85. His lactate which was initially 8.4 and down to 2.1x2 has now increased to 3.4. His current temp is 99.1. Patient has abdominal pain Vitals/I&O/Wt Last Vital Signs Temp 99.1 F 11/18/20 21:00 Pulse 97 11/19/20 05:45 Resp 14 11/19/20 05:45 BP 103/72 11/19/20 05:45 Pulse Ox 93 11/19/20 05:45 11/18/20 11/18/20 11/19/20 14:59 22:59 06:59 Intake Total 890 / 890 Output Total 250 / 450 200 / 450 Balance -250 / 440 690 / 440 Weight last 48 hrs Weight 180 lb Physical Exam Narrative: EXAM NARRATIVE: Abdomen: Soft, tenderness now more generalized compared to yesterday and is localized to the left lower quadrant Urinary Catheter Management^: Quevedo: Cath Placed During This Visit: yes Reason for Continuing Indwelling Catheter: Acute Urinary Retention or Obstruction Urinary Catheter Date of Insertion: 11/18/20 Urinary Catheter Time of Insertion: 16:00 Data : 11/19/20 04:04 11/19/20 04:04 Micro: Microbiology 11/18/20 04:04 Blood Culture - Preliminary Blood SPECIMEN COLLECTED 11/18/20 15:15 Blood Culture - Preliminary Blood SPECIMEN COLLECTED A&P Assessment and plan (1) Colon perforation: Iatrogenic colonic perforation, patient's blood pressure is now a bit softer running in the 90s systolic while it was in the 120s last night, he is awake and alert. Patient appears to have more generalized tenderness and current temperature is 99.1. His lactate has gone up to 3.4 from 2.1. Urine output has been around 30 cc an hour. I discussed my concerns with the patient and his over the phone that conservative measures are probably failing, plan for laparoscopic possible open colon resection, possible ostomy 1 L normal saline bolus given. Thrombocytopenia. 2 units platelets given Patient is receiving a dose of IV Zosyn now Status: Acute Attestations Medical Necessity Statement*: Colonic perforation requiring continued inpatient stay Coding Level of Care Code Acute Pathology Laboratory Technologist for [facility] Diagnoses Colon perforation K63.1
[2020-11-19] MEDS: sodium chloride 0.9% (100 ml) 100 ML 10 ML (06:35)
--- NOTE | 2020-11-19 06:55 | PC.NURSE ---
Patient escorted to surgery via surgical team
--- NOTE | 2020-11-19 07:40 | P.ANESASSM_ITS ---
Pre-Anesthetic Assessment Pre-Anesthetic Assessment: Height/Weight: Height 1.6 m Weight 81.647 kg Temp Pulse Resp BP Pulse Ox 99 F 91 20 H 105/72 92 11/19/20 06:48 11/19/20 06:48 11/19/20 06:48 11/19/20 06:48 11/19/20 06:48 Preop Diagnosis: Thombocytopenia Proposed Procedure: Operation Date: 11/19/20 06:50 Proposed Procedures p Laparoscopy possible open laparotomy for colon perforation(Not Applicable) - Haresh Tang MD Social: Social History: No alcohol and No tobacco Comment: h/o smoking Exam: Pre-Anes Outpt Exam: alert, oriented x 3, clear to auscultation bilaterally and regular rate & rhythm Airway: Submandibular: WNL Cervical ROM: WNL MP: 2 Additional comments: Missing some Pulmonary: Pulmonary: COPD CV/HEM: CV/HEM: CAD and HTN Comments: thrombocytopenia Hepatic: Hepatic: Cirrohsis and Hepatitis (C) GI: GI: GERD Comments: Perforated bowel s/p endoscopy Metabolic: Metabolic: Morbid obesity Musc/skel: Musc/skel: None reported Neuropsych: Neuropsych: None reported Anesthetic Plan: ASA status: 4E Anesthesia: General Other: Mod RSI, A.line Risk of > 500 ml blood loss (7ml/kg in children): Yes, adequate IV access and fluids planned Meds/Allergies Current Medications: Current Medications Generic Name Dose Route Start Last Admin Trade Name Freq PRN Reason Stop Dose Admin Famotidine 20 mg 11/18/20 18:00 11/18/20 21:21 Famotidine 20 Mg /2 Ml Inj IVP 20 mg BID HUBERT Administration Heparin Sodium (Be ef Lung) 5,000 unit 11/19/20 06:00 11/19/20 06:17 Heparin 5,000 Un it/Ml Inj 1 Ml SUBCUT Not Given Q12H HUBERT Potassium Chloride /Dextrose/Sod Cl 20 meq in 1,000 m ls @ 100 mls/hr 11/18/20 16:15 11/19/20 05:44 D5-Ns 0.45% + Justino l 20 Meq IV 100 mls/hr .Q10H HUBERT Administration Piperacillin Sod/T azobactam 50 mls @ 12.5 mls /hr 11/18/20 22:00 11/19/20 06:20 Sod 3.375 gm/ So dium Chloride IV 12.5 mls/hr Q8H HBUERT Administration Protocol Morphine Sulfate 2 mg 11/18/20 16:44 11/19/20 01:26 Morphine 4 Mg/Ml Sdv 1 Ml IVP 2 mg Q4H PRN Administration PAIN PFSH Anesthesia PFSH: Medical History (Updated 11/18/20 @ 22:39 by Geovanna Nunez MD, [facility] [place]) Chronic pain cervical and lumbar spine Cirrhosis Colon perforation Colon polyps COPD (chronic obstructive pulmonary disease) Hepatitis C Osteoarthritis Thrombocytopenia Surgical History S/P cataract extraction bilateral S/P cholecystectomy Status post colonoscopy Family History Mother Cancer Grandmother Diabetes Social History Smoking and tobacco status: former smoker Second hand smoke exposure: No Alcohol intake: never History of recent travel: No Data Anesthesia CBC & Chem 7: 11/19/20 04:04 11/19/20 04:04 Other Labs: Laboratory Results - last 48 hr 11/18/20 11/18/20 11/18/20 15:15 15:15 15:15 WBC 2.9 L RBC 2.55 L Hgb 8.8 L Hct 26.6 L MCV 104.3 H MCH 34.5 H MCHC 33.1 RDW 13.5 Plt Count 46 L MPV 11.0 H Neut % (Auto) 59.9 Lymph % (Auto) 29.8 Simpson % (Auto) 7.2 Eos % (Auto) 2.4 Baso % (Auto) 0.7 Neut # (Auto) 1.75 L Lymph # (Auto) 0.9 Simpson # (Auto) 0.2 Eos # (Auto) 0.1 Baso # (Auto) 0.0 Nucleated RBC % (auto) 0 Nucleated RBCs # 0.0 Sodium 134 L Potassium 4.1 Chloride 104 Carbon Dioxide 18 L Anion Gap 16.1 BUN 10 Creatinine 0.5 L GFR Calculation Not Reportable Glucose 76 Calculated Osmolality 276 L Lactate 8.4 H* Calcium 7.7 L Total Bilirubin 1.7 H AST 19 ALT 18 Alkaline Phosphatase 45 Troponin T Baseline Troponin T 120 Minute Delta Troponin T Troponin T Hi Sens 6Hr Troponin T Hi Sens 6Hr Delta C-Reactive Protein 0.5 Total Protein 4.3 L Albumin 2.7 L Globulin 1.6 Blood Type Rho(D) Type 11/18/20 11/18/20 11/18/20 17:17 17:17 18:00 WBC RBC Hgb Hct MCV MCH MCHC RDW Plt Count MPV Neut % (Auto) Lymph % (Auto) Simpson % (Auto) Eos % (Auto) Baso % (Auto) Neut # (Auto) Lymph # (Auto) Simpson # (Auto) Eos # (Auto) Baso # (Auto) Nucleated RBC % (auto) Nucleated RBCs # Sodium Potassium Chloride Carbon Dioxide Anion Gap BUN Creatinine GFR Calculation Glucose Calculated Osmolality Lactate 2.1 Calcium Total Bilirubin AST ALT Alkaline Phosphatase Troponin T Baseline 7 Troponin T 120 Minute Delta Troponin T Troponin T Hi Sens 6Hr Troponin T Hi Sens 6Hr Delta C-Reactive Protein Total Protein Albumin Globulin Blood Type B Positive Rho(D) Type Positive 11/18/20 11/18/20 11/18/20 20:21 22:58 22:58 WBC 5.2 RBC 4.05 L Hgb 13.7 D Hct 40.5 L D MCV 100.0 H MCH 33.8 MCHC 33.8 RDW 13.2 Plt Count 64 L MPV 11.7 H Neut % (Auto) 87.6 Lymph % (Auto) 6.6 Simpson % (Auto) 5.2 Eos % (Auto) 0.0 Baso % (Auto) 0.4 Neut # (Auto) 4.52 Lymph # (Auto) 0.3 L Simpson # (Auto) 0.3 Eos # (Auto) 0.0 Baso # (Auto) 0.0 Nucleated RBC % (auto) 0 Nucleated RBCs # 0.0 Sodium Potassium Chloride Carbon Dioxide Anion Gap BUN Creatinine GFR Calculation Glucose Calculated Osmolality Lactate 2.1 Calcium Total Bilirubin AST ALT Alkaline Phosphatase Troponin T Baseline Troponin T 120 Minute 7.09 Delta Troponin T 0.09 Troponin T Hi Sens 6Hr Troponin T Hi Sens 6Hr Delta C-Reactive Protein Total Protein Albumin Globulin Blood Type Rho(D) Type 11/18/20 11/19/20 11/19/20 22:58 04:04 04:04 WBC 8.4 RBC 4.02 L Hgb 13.6 Hct 40.2 L MCV 100.0 H MCH 33.8 MCHC 33.8 RDW 13.3 Plt Count 71 L MPV 10.8 H Neut % (Auto) 88.9 Lymph % (Auto) 5.5 Simpson % (Auto) 4.9 Eos % (Auto) 0.0 Baso % (Auto) 0.5 Neut # (Auto) 7.48 Lymph # (Auto) 0.5 L Simpson # (Auto) 0.4 Eos # (Auto) 0.0 Baso # (Auto) 0.0 Nucleated RBC % (auto) 0 Nucleated RBCs # 0.0 Sodium 137 Potassium 4.6 Chloride 104 Carbon Dioxide 24 Anion Gap 13.6 BUN 17 Creatinine 1.2 GFR Calculation Not Reportable Glucose 185 H Calculated Osmolality 290 Lactate Calcium 8.5 Total Bilirubin 3.9 H AST 23 ALT 24 Alkaline Phosphatase 55 Troponin T Baseline Troponin T 120 Minute Delta Troponin T Troponin T Hi Sens 6Hr 7.70 Troponin T Hi Sens 6Hr Delta 0.70 C-Reactive Protein Total Protein 6.1 L D Albumin 3.7 Globulin 2.4 Blood Type Rho(D) Type 11/19/20 04:04 WBC RBC Hgb Hct MCV MCH MCHC RDW Plt Count MPV Neut % (Auto) Lymph % (Auto) Simpson % (Auto) Eos % (Auto) Baso % (Auto) Neut # (Auto) Lymph # (Auto) Simpson # (Auto) Eos # (Auto) Baso # (Auto) Nucleated RBC % (auto) Nucleated RBCs # Sodium Potassium Chloride Carbon Dioxide Anion Gap BUN Creatinine GFR Calculation Glucose Calculated Osmolality Lactate 3.4 H Calcium Total Bilirubin AST ALT Alkaline Phosphatase Troponin T Baseline Troponin T 120 Minute Delta Troponin T Troponin T Hi Sens 6Hr Troponin T Hi Sens 6Hr Delta C-Reactive Protein Total Protein Albumin Globulin Blood Type Rho(D) Type Micro: Microbiology 11/18/20 04:04 Blood Culture - Preliminary Blood SPECIMEN COLLECTED 11/18/20 15:15 Blood Culture - Preliminary Blood SPECIMEN COLLECTED Cardiac Studies: No Data to Display
--- NOTE | 2020-11-19 07:42 | ANES.PROC ---
Anesthesia Procedures Procedure/Date: 11/19/20 Arterial Line: Time Out Performed: Yes Consent: requested by attending/covering physician, from patient, risks and benefits reviewed and patient agrees to proceed Size (Gauge): 20 Technique Used: guide wire technique Post-Procedure: dry sterile dressing placed Patient Tolerated Procedure: well Complications: other (hematoma) Site: left and radial Additional Comments: x3 attempts on left radial
--- NOTE | 2020-11-19 08:39 | USCV_ITS ---
Sloan Rodriguez Age: 75 Gender: M : 1945 Exam Date: 11/19/2020 14:52 Ordering Phys: Moises Villa MD Technologist: Jose Stearns [place] [facility] [place]: SHORTNESS OF BREATH BP: 105 / 72 HR: 87 Rhythm: Sinus Technical Quality: Poor MEASUREMENTS (Male / Female) Normal Values 2D ECHO LV Diastolic Diameter PLAX 3.6 cm 4.2 - 5.9 / 3.9 - 5.3 cm LV Systolic Diameter PLAX 2.1 cm IVS Diastolic Thickness 1.0 cm 0.6 - 1.0 / 0.6 - 0.9 cm IVS Systolic Thickness 1.2 cm LVPW Diastolic Thickness 1.2 cm 0.6 - 1.0 / 0.6 - 0.9 cm LVPW Systolic Thickness 1.3 cm LVOT Diameter 2.0 cm LV Ejection Fraction 2D Teich 72.6 % LV Ejection Fraction MOD 2C 68.3 % LV Ejection Fraction 2C AL 68.3 % LA Diameter 3.9 cm M-MODE LV Diastolic Diameter MM 4.9 cm 4.2 - 5.9 / 3.9 - 5.3 cm LV Systolic Diameter MM 3.2 cm LV Ejection Fraction MM Teich 63.0 % IVS Diastolic Thickness MM 0.9 cm 0.6 - 1.0 / 0.6 - 0.9 cm IVS Systolic Thickness MM 1.6 cm LVPW Diastolic Thickness MM 1.2 cm 0.6 - 1.0 / 0.6 - 0.9 cm LVPW Systolic Thickness MM 1.9 cm RV Diastolic Diameter MM 2.1 cm Aortic Annulus Diameter 3.7 cm LA Ao Ratio MM 1.2 MV E Point Septal Separation 1.2 cm DOPPLER AV Peak Velocity 132.0 cm/s LVOT Peak Velocity 80.0 cm/s AV Area Cont Eq vti 2.6 cm squared AV Area Cont Eq pk 2.0 cm squared MV Area PHT 5.0 cm squared Mitral E to A Ratio 0.9 MV E' Velocity 44.5 cm/s Mitral E to MV E' Ratio 8.8 Mitral E to LV E' Lateral Ratio 8.2 Mitral E to LV E' Septal Ratio 9.4 TR Peak Velocity 133.7 cm/s TR Peak Gradient 7.1 mmHg TV Peak E Velocity 94.0 cm/s Right Atrial Pressure 3.0 mmHg Pulmonary Artery Systolic Pressu 10.1 mmHg PV Peak Velocity 120.0 cm/s RV Acceleration Time 0.1 s FINDINGS Left Ventricle Normal left ventricular size and systolic function, EF 63 %. No regional wall motion abnormalities. Grade I/IV diastolic dysfunction (abnormal relaxation filling pattern), normal to mildly elevated filling pressures. Right Ventricle Normal right ventricular size and systolic function. Right Atrium Possibly of normal size Left Atrium Possibly of normal size . Mitral Valve No gross abnormalities noted . Aortic Valve Not visualized well Tricuspid Valve Tricuspid valve not well visualized. Pulmonic Valve Pulmonic valve not well visualized. Pericardium No pericardial effusion. Aorta Normal aortic annulus size. CONCLUSIONS Normal left ventricular size and systolic function, EF 63 %. No regional wall motion abnormalities. Grade I/IV diastolic dysfunction (abnormal relaxation filling pattern), normal to mildly elevated filling pressures. Possibly normal chamber sizes Technically difficult study because of the poor ultrasonic window. Dr Jm Stewart MD FACC (Electronically Signed) Final Date: 19 November 2020 20:14 S
--- NOTE | 2020-11-19 09:14 | P.OP_ITS ---
Operative Report Date of procedure: November 19, 2020 Pre-op Diagnosis: Sigmoid perforation during colonoscopy Pre-op Diagnosis: Peritonitis Post-op Diagnosis: 1.5 cm tear in the mid sigmoid colon with peritoneal cont amination. No fecal contamination identified Procedure Done: Laparoscopic primary repair of sigmoid colon perforation Flexible sigmoidoscopy Pathology: none sent Surgeon: Haresh Tang Anesthesia: General Estimated blood loss (mL): 10 IV fluids (mL): 1,000 Urine output (mL): 100 Condition: stable Disposition: ICU Procedure: The patient was taken to the operating room and was intubated under general anesthesia in the modified lithotomy position. The patient already had a Quevedo catheter in place. After the antibiotic had been administered, the abdomen was prepped and draped in a sterile manner. Using a #15 blade, a 1 centimeter infraumbilical incision was made and using an open Simran technique the peritoneal cavity was entered. A 10 millimeter port was placed and 15 millimeters of pneumoperitoneum was created. A 10 millimeter, 30 degrees scope was introduced. 5 mm ports were placed in the right lower quadrant and at the level of the umbilicus under direct visualization. There was peritoneal contamination noted within the left lower quadrant and pelvis which was irrigated and suctioned out after the patient had been placed in steep Trendelenburg position. The sigmoid colon was examined and in the mid sigmoid colon there was a 1.5 cm tear which was identified. 2-0 silk interrupted s utures were placed to close the colonic tear and a piece of appendiceal epiploicae was laid over the sutures and tied down. The peritoneal cavity was irrigated with 3 L of warm saline. A colonoscope was introduced , sigmoidoscopy was performed and leak test was negative. The greater omentum was laid over the repair. A 10 mm flat JEANNE drain was introduced through the 5 mm port and was placed within the pelvis and adjacent to the repair and sutured with 2-0 Prolene suture. The fascia of the umbilical port site was closed using [id number] 0 Vicryl suture and the subcutaneous tissue was approximated using 3-0 Vicryl sutures and skin was closed with diana. 20 cc of 0.5% Marcaine, 20 cc of saline mixed with 20 cc of Exparel was injected around the incisions. The patient was extubated and transferred back to the ICU with a Quevedo catheter.
[2020-11-19] MEDS: famotidine 20 mg/2 mL INJ IVP ×2 (09:42→17:41)
[2020-11-19] MEDS: HYDROcodone-acetaminophen 5-325 mg Tablet 1 TAB PO (11:20)
[2020-11-19 11:30] LABS: Lactate (Lactic Acid level) 3.6 mmol/L (0.5-2.2)
--- NOTE | 2020-11-19 11:31 | PC.NURSE ---
pt refused at this time wasted with witness jadon raymond rn
--- NOTE | 2020-11-19 13:13 | PM.PN ---
Subjective Subjective: Interval history: This morning patient was examined postoperatively, he is in mild pain, he is on 4 L, denies fevers, chills, denies chest pain, denies shortness of breath, alert oriented x3, answering all questions appropriately Vitals/I&O/Wt Last Vital Signs Temp 99 F 11/19/20 06:48 Pulse 79 11/19/20 10:45 Resp 16 11/19/20 10:45 BP 105/72 11/19/20 06:48 Pulse Ox 96 11/19/20 10:45 11/18/20 11/19/20 11/19/20 22:59 06:59 14:59 Intake Total 1366 / 1366 150 / 150 Output Total 250 / 250 200 / 450 305 / 305 Balance -250 / -250 1166 / 916 -155 / -155 Weight last 48 hrs Weight 81.647 kg Physical Exam Const: COMMON NORMALS: no acute distress and patient oriented x3 HENMT: COMMON NORMALS: normocephalic HEAD & SCALP: normocephalic Neck/C-Spine: COMMON NORMALS: no JVD Resp: COMMON NORMALS: normal respiratory effort, No retractions, No use of accessory muscles and clear to auscultation bilaterally AUSCULTATION: clear to auscultation bilaterally Cardio: COMMON NORMALS: no JVD, regular rate, regular rhythm, S1 normal heart sound present and S2 normal heart sound present RATE: regular rate RHYTHM: regular rhythm HEART SOUNDS: S1 normal heart sound present and S2 normal heart sound present GI: COMMON NORMALS: Normal to inspection, nondistended, normoactive bowel sounds present, Soft to palpation, non-tender, no masses and no bruits PALPATION: Yes Soft to palpation and Yes Tenderness to palpation present (GI) (Generalized tenderness) Details: LLQ, RLQ, LUQ and RUQ OTHER: Surgical site looks clean and dry Extremity: COMMON NORMALS: capillary refill normal, no clubbing, cyanosis or edema, no calf tenderness and no pedal edema Neuro: COMMON NORMALS: patient oriented x3 Psych: COMMON NORMALS: mental status grossly normal Urinary Catheter Management^: Quevedo: Cath Placed During This Visit: yes Reason for Continuing Indwelling Catheter: Acute Urinary Retention or Obstruction Urinary Catheter Date of Insertion: 11/18/20 Urinary Catheter Time of Insertion: 16:00 Data : 11/19/20 04:04 11/19/20 04:04 Micro: Microbiology 11/18/20 04:04 Blood Culture - Preliminary Blood SPECIMEN COLLECTED 11/18/20 15:15 Blood Culture - Preliminary Blood SPECIMEN COLLECTED A&P Assessment and plan (1) Colon perforation: -Status post laparoscopic repair of sigmoid colon perforation by Dr. Tang postop day 0 -Morphine for pain -Pepcid for GI prophylaxis -Receiving Zosyn for antibiotic coverage -Patient is a full code -Heparin for DVT prophylaxis -Serial abdominal exam -Monitor hemodynamics closely Status: Acute (2) Thrombocytopenia: -Acute on chronic thrombocytopenia, -71,000 -Status post 1 unit PRBC -Had a bone marrow biopsy on 09/24/2020, by Dr. Wells, normocellular bone marrow, no overt myelo blastic changes or dysplastic changes, no evidence of bone marrow infiltration -We will continue to monitor Status: Acute (3) Anemia: -Acute anemia, likely secondary to colon perforation -Hemoglobin 13.6 -We will transfuse if hemoglobin less than 7 -Recheck CBC in the evening Status: Acute (4) Lactic acidosis: -Likely secondary to perforation, lactic acid 8.8, now 3.6 -Currently normotensive -Monitor hemodynamics closely -Fluid boluses as needed -Levophed as needed Status: Acute (5) Hepatitis C: Status: Acute (6) ST segment changes on electrocardiogram: -EKG shows slight ST elevation in V1, V2, 1 to 2 mm, nonspecific -No chest pain complaints -6-hour troponin 7.7, 6-hour delta 0.7 -No complaints of chest pain, no complaints of shortness of breath -Cardiac echocardiogram pending -We will continue to monitor, monitor for chest pain, telemetry monitoring Status: Acute Attestations Medical Necessity Statement*: Patient requires hospitalization for colon perforation, status post repair Procedures Arterial Line Size (Gauge): 20 Coding Level of Care Code Acute Financial Sales Advisor for Chg Fwd Diagnoses Colon perforation K63.1 Thrombocytopenia D69.6 Anemia D64.9 Lactic acidosis E87.2 [address]atitis C B19.20 ST segment changes on electrocardiogram R94.31
--- NOTE | 2020-11-19 13:53 | ANE.PACU2 ---
Inpatient post-anesthesia follow up: Airway intact: Yes Vital signs: Temperature 99 F Pulse Rate [Apical ] 62 Pulse Rate 79 Respiratory Rate 16 Blood Pressure [Ri ght Arm] 115/80 Blood Pressure 105/72 Pulse Oximetry 96 Oxygen Delivery Me thod [ Nasal Cannula Current Rate & Del dany] Oxygen Delivery Me thod Nasal Cannula Oxygen Flow Rate [ Current Rate 6 & Delivery] Oxygen Flow Rate 3 Fraction of Inspir ed Oxygen Hydration adequate: Yes Nausea and vomiting: No Pain level: 3 Mental status: Baseline
--- NOTE | 2020-11-19 15:24 | PC.RESP ---
PULMONARY REHAB INFORMATION SENT TO PATIENT.
--- NOTE | 2020-11-19 17:30 | P.PN_ITS ---
Subjective Subjective: Interval history: Patient hemodynamically stable denies any chest pain, has some abdominal pain, tolerating clears Vitals/I&O/Wt Last Vital Signs Temp 99 F 11/19/20 06:48 Pulse 79 11/19/20 14:22 Resp 16 11/19/20 10:45 BP 105/72 11/19/20 06:48 Pulse Ox 96 11/19/20 10:45 11/19/20 11/19/20 11/19/20 06:59 14:59 22:59 Intake Total 1366 / 1366 150 / 150 Output Total 200 / 450 305 / 305 Balance 1166 / 916 -155 / -155 Weight last 48 hrs Weight 180 lb Physical Exam Narrative: EXAM NARRATIVE: Abdomen: Soft, distended, minimally tender, JEANNE drain output is serosanguineous Urinary Catheter Management^: Quevedo: Cath Placed During This Visit: yes Reason for Continuing Indwelling Catheter: Acute Urinary Retention or Obstruction Urinary Catheter Date of Insertion: 11/18/20 Urinary Catheter Time of Insertion: 16:00 Data : 11/19/20 04:04 11/19/20 04:04 Micro: Microbiology 11/18/20 15:15 Blood Culture - Preliminary Blood NEGATIVE TO DATE 11/18/20 04:04 Blood Culture - Preliminary Blood SPECIMEN COLLECTED A&P Assessment and plan (1) S/P laparoscopy: Patient currently hemodynamically stable Continue clears Continue antibiotics Quevedo to gravity JEANNE to bulb suction Status: Acute Attestations Medical Necessity Statement*: Colonic perforation requiring continued inpatient stay Procedures Arterial Line Size (Gauge): 20 Coding Level of Care Code Acute District Plant Supervisor for Bassem Fwd Diagnoses S/P laparoscopy Z98.890
[2020-11-19] MEDS: sennosides-docusate Tablet 1 TAB PO (17:41)
[2020-11-19] MEDS: heparin 5,000 unit/mL INJ 1 mL 5000 UNIT SUBCUT (17:41)
--- NOTE | 2020-11-19 19:00 | PC.NURSE ---
Left wrist arterial line d/c'd, manual pressure applied to site for 15min with pressure dressing applied after. Cap refill<3 seconds, hands warm to touch and pink in coloration. Patient tolerated well
[2020-11-20] VITALS (14 sets, daily range): BP systolic 108–155; BP diastolic 59–106; PULSE 62–99; RESP 14–22; TEMP 36.9–37.2; O2SAT 90–98
[2020-11-20] MEDS: D5-NS 0.45% + KCL 20 mEq 20 MEQ/1,000 ML BAG 30 MEQ IV (01:59)
[2020-11-20] MEDS: morphine 4 mg/mL SDV 1 mL 2 MG IVP ×2 (04:55→09:15)
[2020-11-20] MEDS: piperacillin-tazobactam 3.375 GM in sodium chloride 0.9% (plus) 50 ML IV ×3 (05:02→21:42)
[2020-11-20 05:32] LABS: Lactate (Lactic Acid level) 1.8 mmol/L (0.5-2.2)
[2020-11-20 05:59] LABS: Basophils # 0.1 10^3/uL (0.0-0.1); Basophils % 0.6 %; Eosinophils # 0.1 10^3/uL (0.0-0.8); Hematocrit 36.7 % (42.0-52.0); Lymphocytes # 1.1 10^3/uL (0.8-4.8); Lymphocytes % 9.6 %; Mean Corpuscular HGB Conc 32.7 g/dL (30.0-36.0); Mean Corpuscular Hemoglobin 33.5 pg (28.0-34.0); Mean Corpuscular Volume 102.5 fL (80-94); Mean Platelet Volume 11.2 fL (7.4-10.4); Monocytes # 0.7 10^3/uL (0.2-0.9); Monocytes % 5.7 %; Neutrophils # 9.56 10^3/uL (1.8-7.7); Neutrophils % 82.8 %; Nucleated Red Blood Cells % 0 %; Platelet Count 91 10^3/cmm (130-400); Red Blood Count 3.58 10^6/uL (4.1-5.3); Red Cell Distribution Width 13.6 % (12.1-15.1); White Blood Count 11.5 10^3/uL (4.0-10.0)
--- NOTE | 2020-11-20 06:00 | ECG_ITS ---
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 Measurements Intervals [place] Rate: 91 P: 49 [place]: 197 QRS: 53 QRSD: 98 T: 32 QT: 346 QTc: 427 Interpretive Statements SINUS RHYTHM MARKED ST ELEVATION, CONSIDER SEPTAL INJURY [MARKED ST ELEVATION W/O NORMALLY INFLECTED T WAVE IN V1/V2] TYPE 3 BRUGADA PATTERN (NON-DIAGNOSTIC) [COVED/SADDLEBACK ST ELEVATION > 0.1mV IN 2 OF V1-3] ACUTE [place] Compared to ECG 11/18/2020 23:47:21 No significant changes Electronically Signed On 11-21-2020 20:28:07 ELECTRONIC MUSICAL INSTRUMENT REPAIRER by Jm tSewart M.D. [id number]
[2020-11-20 06:35] LABS: Alanine Aminotransferase 22 U/L (0-41); Albumin Level 3.5 g/dL (3.5-5.2); Alkaline Phosphatase 49 IU/L (40-130); Aspartate Amino Transferase 34 U/L (0-40); Blood Urea Nitrogen 26 mg/dL (8-23); Calcium 8.4 mg/dL (8.5-10.5); Carbon Dioxide 22 mmol/L (22-29); Chloride 108 mmol/L (98-107); Globulin 2.6 g/dL (1.3-4.6); Glucose 105 mg/dL (65-115); Magnesium 2.4 mg/dL (1.7-2.3); NT Pro B Type Natriuretic Pept 460 pg/mL (0-125); Osmolality Calculated 289 mOsm/kg (285-295); Sodium 137 mmol/L (136-145); Total Protein 6.1 g/dL (6.6-8.7)
--- NOTE | 2020-11-20 08:29 | PC.CHAP ---
Pastoral Care Encounter/Spiritual Assessment Type of Contact [] Declined cath lab visit [] Patient/Family/Request visit [] Outpatient visit [] Follow-up visit [] Physician referral [] Code/Alert [] Routine visit [] Staff referral [] Actively dying [] Patient sleeping [] Family support [] [] Out of room [] Palliative care [] [] Receiving care in room [] Pre-surgical visit [] Trauma [] Long length of stay [x] ICU visit [] Other: Relational/Emotional Strength [] Patient feels connected with others/family/visitors/staff [] Distress [] Loneliness/isolation [] Abandonment Spirituality of Patient [] Person of Hannah [] Attends Adventist of their Hannah [] Believes in Prayer [] Reads Bible or Congregational materials [] There are Spiritual issues to be addressed [place]er Off Interventions [x] Prayer [] Active listening [] Non-anxious presence [] Spiritual/emotional support [] Crisis/trauma care [] Spiritual counseling [] Bereavement support [] Provided bereavement packet [] Provided Bible/devotional materials [] Provided toy/stuffed animal, coloring book to patient or family member [] Provided Communion [] Anointing/[place] [] Salvation [x] Completed spiritual assessment [] Other: Impact on Illness or Injury [] Angry [] Fearful [] Anxious [] Often cries [] Exhaustion [] Unable to work [] Unable to attend muslim [] Unable to walk/stand [] Unable to read [] Unable to drive [] Unable to eat/drink [] Unable to sleep [] Unable to be with family [] Patient intubated [] Other: Summary Time spent with patient
[2020-11-20] MEDS: phosphorus 250 mg Tablet 500 MG PO (09:06)
[2020-11-20] MEDS: famotidine 20 mg/2 mL INJ IVP ×2 (09:06→17:48)
[2020-11-20] MEDS: sennosides-docusate Tablet 1 TAB PO ×2 (09:06→17:48)
[2020-11-20] MEDS: FUROsemide 10 mg/mL SDV 4mL 40 MG IVP (09:06)
--- NOTE | 2020-11-20 09:29 | PC.NURSE ---
had gotten out of bed by self prior and now with more c/o pain in abd and wants to rest painn medication given and bed alarm placed on .. close to nurses station at this
--- NOTE | 2020-11-20 11:02 | P.PN_ITS ---
Subjective Subjective: Interval history: This morning patient was examined, he is doing well, he has no complaints, no fevers, chills Vitals/I&O/Wt Last Vital Signs Temp 98.4 F 11/20/20 04:00 Pulse 95 11/20/20 06:00 Resp 15 11/20/20 06:00 BP 116/70 11/20/20 06:00 Pulse Ox 91 11/20/20 06:00 11/19/20 11/20/20 11/20/20 22:59 06:59 14:59 Intake Total 1180 / 1330 50 / 1380 200 / 200 Output Total 630 / 935 475 / 1410 0 / 0 Balance 550 / 395 -425 / -30 200 / 200 Weight last 48 hrs Weight 81.647 kg Physical Exam Const: COMMON NORMALS: no acute distress and patient oriented x3 HENMT: COMMON NORMALS: normocephalic HEAD & SCALP: normocephalic Neck/C-Spine: COMMON NORMALS: no JVD Resp: COMMON NORMALS: normal respiratory effort, No retractions, No use of accessory muscles and clear to auscultation bilaterally AUSCULTATION: clear to auscultation bilaterally Cardio: COMMON NORMALS: no JVD, regular rate, regular rhythm, S1 normal heart sound present and S2 normal heart sound present RATE: regular rate RHYTHM: regular rhythm HEART SOUNDS: S1 normal heart sound present and S2 normal heart sound present GI: COMMON NORMALS: Normal to inspection, nondistended, normoactive bowel sounds present, Soft to palpation, non-tender, No hepatosplenomegaly present, no masses and no bruits PALPATION: Yes Soft to palpation and Yes No hepatosplenomegaly present OTHER: Surgical site looks clean and dry Extremity: COMMON NORMALS: capillary refill normal, no clubbing, cyanosis or edema, no calf tenderness and no pedal edema Neuro: COMMON NORMALS: patient oriented x3 Psych: COMMON NORMALS: mental status grossly normal Urinary Catheter Management^: Quevedo: Cath Placed During This Visit: yes Reason for Continuing Indwelling Catheter: Accurate Measurement of Urinary Output in Critically Ill Patients Urinary Catheter Date of Insertion: 11/18/20 Urinary Catheter Time of Insertion: 16:00 Data : 11/21/20 06:05 11/21/20 06:05 Micro: Microbiology 11/18/20 04:04 Blood Culture - Preliminary Blood NEGATIVE TO DATE 11/18/20 15:15 Blood Culture - Preliminary Blood A&P Assessment and plan (1) Colon perforation: -Status post laparoscopic repair of sigmoid colon perforation by Dr. Tang postop day 1 -Morphine for pain -Pepcid for GI prophylaxis -Receiving Zosyn for antibiotic coverage -Patient is a full code -Heparin for DVT prophylaxis -Serial abdominal exam -Monitor hemodynamics closely Status: Acute (2) Thrombocytopenia: -Acute on chronic thrombocytopenia, -91,000 -Status post 1 unit platelets -Had a bone marrow biopsy on 09/24/2020, by Dr. Wells, normocellular bone marrow, no overt myelo blastic changes or dysplastic changes, no evidence of bone marrow infiltration -We will continue to monitor Status: Acute (3) Anemia: -Acute anemia, likely secondary to colon perforation -Hemoglobin 12.0 -We will transfuse if hemoglobin less than 7 -Recheck CBC in the evening Status: Acute (4) Lactic acidosis: -Resolved -Likely secondary to perforation, lactic acid 8.8, now 3.6 -Currently normotensive -Monitor hemodynamics closely Status: Acute (5) Hepatitis C: Status: Acute (6) ST segment changes on electrocardiogram: -EKG shows slight ST elevation in V1, V2, 1 to 2 mm, nonspecific -No chest pain complaints -6-hour troponin 7.7, 6-hour delta 0.7 -No complaints of chest pain, no complaints of shortness of breath -Cardiac echocardiogram Normal left ventricular size and systolic function, EF 63 %. No regional wall motion abnormalities. Grade I/IV diastolic dysfunction (abnormal relaxation filling pattern), normal to mildly elevated filling pressures. Possibly normal chamber sizes -We will continue to monitor, monitor for chest pain, telemetry monitoring Status: Acute Attestations Medical Necessity Statement*: Patient requires hospitalization for colon perforation, status post surgery for repair, thrombocytopenia, anemia, this is note from 11/20/2020 Procedures Arterial Line Size (Gauge): 20 Coding Level of Care Code Acute Poultry Hatchery Man for Pennyg Fwd Diagnoses Colon perforation K63.1 Thrombocytopenia D69.6 Anemia D64.9 Lactic acidosis E87.2 Hepatitis C B19.20 ST segment changes on electrocardiogram R94.31
--- NOTE | 2020-11-20 11:36 | PM.PN ---
Subjective Subjective: Interval history: Patient has been stable overnight, no nausea or vomiting, tolerating clears, no flatus or BM Vitals/I&O/Wt Last Vital Signs Temp 98.4 F 11/20/20 04:00 Pulse 95 11/20/20 06:00 Resp 15 11/20/20 06:00 BP 116/70 11/20/20 06:00 Pulse Ox 91 11/20/20 06:00 11/19/20 11/20/20 11/20/20 22:59 06:59 14:59 Intake Total 1180 / 1380 50 / 1380 200 / 200 Output Total 630 / 1410 475 / 1410 0 / 0 Balance 550 / -30 -425 / -30 200 / 200 Weight last 48 hrs Weight 180 lb Physical Exam Narrative: EXAM NARRATIVE: Abdomen: Soft, slightly distended, minimally tender, JEANNE drain output serosanguineous, dressing saturated slightly Urinary Catheter Management^: Quevedo: Cath Placed During This Visit: yes Reason for Continuing Indwelling Catheter: Accurate Measurement of Urinary Output in Critically Ill Patients Urinary Catheter Date of Insertion: 11/18/20 Urinary Catheter Time of Insertion: 16:00 Data : 11/20/20 04:50 11/20/20 04:50 Micro: Microbiology 11/18/20 04:04 Blood Culture - Preliminary Blood NEGATIVE TO DATE 11/18/20 15:15 Blood Culture - Preliminary Blood A&P Assessment and plan (1) S/P laparoscopy: With repair of sigmoid colon perforation Patient currently hemodynamically stable Continue clears Continue IV Zosyn Quevedo to gravity JEANNE to bulb suction DC morphine, Homer, Tylenol, start oxycodone 10 mg extended release twice daily as needed and Toradol 10 mg 3 times daily as needed Appreciate medical management by Dr. Villa Status: Acute Attestations Medical Necessity Statement*: Status post laparoscopic repair of colon perforation requiring continued IV antibiotics Procedures Arterial Line Size (Gauge): 20 Coding Level of Care Code Acute Test Kitchen Home Economist for Bassem Fwhuan Diagnoses S/P laparoscopy Z98.890
--- NOTE | 2020-11-20 16:06 | PC.NURSE ---
up with staff and ambulated in sanchez up in chair for about 1hr tolerated well . but with ambulation noted wheezes noted and short of breath
[2020-11-20] MEDS: heparin 5,000 unit/mL INJ 1 mL 5000 UNIT SUBCUT (17:53)
[2020-11-21] VITALS (13 sets, daily range): BP systolic 113–146; BP diastolic 71–98; PULSE 80–103; RESP 12–20; TEMP 36.4–37.5; O2SAT 91–94
[2020-11-21] MEDS: heparin 5,000 unit/mL INJ 1 mL 5000 UNIT SUBCUT ×2 (05:45→17:09)
[2020-11-21] MEDS: piperacillin-tazobactam 3.375 GM in sodium chloride 0.9% (plus) 50 ML IV ×3 (05:45→22:34)
--- NOTE | 2020-11-21 06:00 | ECG_ITS ---
[facility] Test Date: 2020-11-21 Pat Name: Sloan Rodriguez Department: Room: [id number] Gender: Male Corporate Scheduler: : 1945 Requested By: Moises Villa Order Number: [id number] Chidi MD: Jm Stewart M.D. Measurements Intervals [place] Rate: 84 P: 48 ME: 195 QRS: 38 QRSD: 101 T: 34 QT: 353 QTc: 419 Interpretive Statements SINUS RHYTHM LOW QRS VOLTAGE IN EXTREMITY LEADS [QRS DEFLECTION < 0.5 mV IN LIMB LEADS] Compared to ECG 11/20/2020 06:19:49 Low QRS voltage now present ST (T wave) deviation no longer present Electronically Signed On 11-21-2020 20:31:06 BLANKET WEAVER by Jm Stewart M.D. [id number]
[2020-11-21 06:17] LABS: Basophils % 0.4 %; Eosinophils # 0.2 10^3/uL (0.0-0.8); Eosinophils % 1.7 %; Hematocrit 35.2 % (42.0-52.0); Hemoglobin 11.9 g/dL (11.7-16.6); Lymphocytes % 9.5 %; Mean Corpuscular HGB Conc 33.8 g/dL (30.0-36.0); Mean Corpuscular Hemoglobin 33.9 pg (28.0-34.0); Mean Corpuscular Volume 100.3 fL (80-94); Mean Platelet Volume 10.5 fL (7.4-10.4); Monocytes # 0.7 10^3/uL (0.2-0.9); Monocytes % 6.8 %; Neutrophils # 8.14 10^3/uL (1.8-7.7); Neutrophils % 80.9 %; Nucleated Red Blood Cells % 0 %; Platelet Count 86 10^3/cmm (130-400); Red Blood Count 3.51 10^6/uL (4.1-5.3); Red Cell Distribution Width 13.2 % (12.1-15.1); White Blood Count 10.1 10^3/uL (4.0-10.0)
[2020-11-21 06:47] LABS: Alanine Aminotransferase 21 U/L (0-41); Albumin Level 3.2 g/dL (3.5-5.2); Alkaline Phosphatase 65 IU/L (40-130); Anion Gap 10.5 (5-19); Aspartate Amino Transferase 32 U/L (0-40); Blood Urea Nitrogen 22 mg/dL (8-23); Calcium 8.3 mg/dL (8.5-10.5); Carbon Dioxide 28 mmol/L (22-29); Chloride 104 mmol/L (98-107); Globulin 2.6 g/dL (1.3-4.6); Glucose 133 mg/dL (65-115); Osmolality Calculated 291 mOsm/kg (285-295); Potassium 4.5 mmol/L (3.5-5.1); Sodium 138 mmol/L (136-145); Total Bilirubin 2.8 mg/dL (0.15-1.2); Total Protein 5.8 g/dL (6.6-8.7)
[2020-11-21 06:57] LABS: NT Pro B Type Natriuretic Pept 148 pg/mL (0-125)
[2020-11-21 07:11] LABS: Lactate (Lactic Acid level) 1.1 mmol/L (0.5-2.2)
[2020-11-21 07:14] LABS: Magnesium 2.1 mg/dL (1.7-2.3); Phosphorus 1.7 mg/dL (2.5-4.5)
[2020-11-21] MEDS: FUROsemide 10 mg/mL SDV 4mL 40 MG IVP (08:05)
--- NOTE | 2020-11-21 08:37 | USR_ITS ---
PROCEDURE INFORMATION: Exam: US Abdomen, Limited; Right Upper Quadrant Exam date and time: 11/21/2020 8:41 AM Age: 75 years old Clinical indication: Other: Jaundice; Prior surgery; Surgery type: S/P colonoscopy (not clear when). Post-op laparoscopy 11-19-20 TECHNIQUE: Imaging protocol: US abdomen. Real time ultrasound with image documentation. Limited exam focused on the right upper quadrant. COMPARISON: US abdomen complete* [id number] 01/15/2020 7:57 AM FINDINGS: Liver: No focal mass in the incompletely visualized liver. Gallbladder: Status post cholecystectomy. Common bile duct: Normal caliber of the incompletely visualized common bile duct measuring 2 mm in diameter. Pancreas: Obscuration of the pancreas by bowel gas. Right kidney: Incompletely visualized right kidney. No hydronephrosis. US/US liver [id number] IMPRESSION: 1. Technically limited examination. 2. No acute sonographic abnormality in the visualized right upper quadrant.
--- NOTE | 2020-11-21 09:04 | PC.SOCIAL ---
IM follow up initialed explained and copy provided to patient. Verbalized understanding no questions.
[2020-11-21] MEDS: famotidine 20 mg/2 mL INJ IVP ×2 (09:18→17:08)
[2020-11-21] MEDS: phosphorus 250 mg Tablet PO ×2 (09:18→17:07)
[2020-11-21] MEDS: sennosides-docusate Tablet 1 TAB PO ×2 (09:18→17:08)
[2020-11-21 09:27] LABS: Gamma Glutamyl Transferase 44 U/L (8-61)
[2020-11-21 09:52] LABS: Total Bilirubin 2.8 mg/dL (0.15-1.2)
--- NOTE | 2020-11-21 10:34 | PM.PN ---
Subjective Subjective: Interval history: This morning patient was examined, he is alert oriented x3, tells me is passing gas, has not had a bowel movement, he is feeling well, pain is well controlled, he was able to ambulate the hallways, no nausea, no vomiting, he does appear jaundiced this morning, Vitals/I&O/Wt Last Vital Signs Temp 98.6 F 11/21/20 04:00 Pulse 85 11/21/20 06:00 Resp 17 11/21/20 06:00 BP 146/97 11/21/20 06:00 Pulse Ox 93 11/21/20 06:00 11/20/20 11/21/20 11/21/20 22:59 06:59 14:59 Intake Total 250 / 950 250 / 1200 450 / 450 Output Total 2940 / 2940 535 / 3475 Balance -2690 / -1990 -285 / -2275 450 / 450 Physical Exam Narrative: EXAM NARRATIVE: Appears jaundice Const: COMMON NORMALS: no acute distress and patient oriented x3 HENMT: COMMON NORMALS: normocephalic HEAD & SCALP: normocephalic Neck/C-Spine: COMMON NORMALS: no JVD Resp: COMMON NORMALS: normal respiratory effort, No retractions, No use of accessory muscles and clear to auscultation bilaterally AUSCULTATION: clear to auscultation bilaterally Cardio: COMMON NORMALS: no JVD, regular rate, regular rhythm, S1 normal heart sound present and S2 normal heart sound present RATE: regular rate RHYTHM: regular rhythm HEART SOUNDS: S1 normal heart sound present and S2 normal heart sound present GI: COMMON NORMALS: Normal to inspection, nondistended, normoactive bowel sounds present, Soft to palpation, non-tender, No hepatosplenomegaly present, no masses and no bruits PALPATION: Yes Soft to palpation and Yes No hepatosplenomegaly present OTHER: Surgical site looks clean and dry Extremity: COMMON NORMALS: capillary refill normal, no clubbing, cyanosis or edema, no calf tenderness and no pedal edema Neuro: COMMON NORMALS: patient oriented x3 Psych: COMMON NORMALS: mental status grossly normal Urinary Catheter Management^: Quevedo: Cath Placed During This Visit: yes Reason for Continuing Indwelling Catheter: Accurate Measurement of Urinary Output in Critically Ill Patients Urinary Catheter Date of Insertion: 11/18/20 Urinary Catheter Time of Insertion: 16:00 Data : 11/21/20 06:05 11/21/20 06:05 A&P Assessment and plan (1) Colon perforation: -Status post laparoscopic repair of sigmoid colon perforation by Dr. Tang postop day 2 -Morphine for pain -Pepcid for GI prophylaxis -Receiving Zosyn for antibiotic coverage -Patient is a full code -Heparin for DVT prophylaxis -Serial abdominal exam -On a full liquid diet -Transition patient to the general medical floors today Status: Acute (2) Thrombocytopenia: -Acute on chronic thrombocytopenia, - 86,000 -Status post 1 unit platelets -Had a bone marrow biopsy on 09/24/2020, by Dr. Wells, normocellular bone marrow, no overt myelo blastic changes or dysplastic changes, no evidence of bone marrow infiltration -We will continue to monitor Status: Acute (3) Anemia: -Acute anemia, likely secondary to colon perforation -Hemoglobin 10.1 -We will transfuse if hemoglobin less than 7 -Recheck CBC in the evening Status: Acute (4) Lactic acidosis: -Resolved -Likely secondary to perforation, lactic acid 8.8, now 3.6 -Currently normotensive -Monitor hemodynamics closely Status: Acute (5) Hepatitis C: Status: Acute (6) ST segment changes on electrocardiogram: -EKG shows slight ST elevation in V1, V2, 1 to 2 mm, nonspecific -No chest pain complaints -6-hour troponin 7.7, 6-hour delta 0.7 -No complaints of chest pain, no complaints of shortness of breath -Cardiac echocardiogram Normal left ventricular size and systolic function, EF 63 %. No regional wall motion abnormalities. Grade I/IV diastolic dysfunction (abnormal relaxation filling pattern), normal to mildly elevated filling pressures. Possibly normal chamber sizes -We will continue to monitor, monitor for chest pain, telemetry monitoring Status: Acute (7) Jaundice: -Appears jaundiced today -His total bili has come down to 2.8 -Direct bili is 0.6 -We will order a right upper quadrant ultrasound to evaluate liver -No right upper quadrant pain complaints, has evidence of liver cirrhosis Status: Acute Attestations Medical Necessity Statement*: Patient requires hospitalization for colon perforation, anemia, thrombocytopenia Procedures Arterial Line Size (Gauge): 20 Coding Level of Care Code Acute Home Health Lpn for g Fwd Diagnoses Colon perforation K63.1 Thrombocytopenia D69.6 Anemia D64.9 Lactic acidosis E87.2 Hepatitis C B19.20 ST segment changes on electrocardiogram R94.31 Jaundice R17
--- NOTE | 2020-11-21 11:33 | PC.NURSE ---
report called for transfer
--- NOTE | 2020-11-21 11:43 | P.PN_ITS ---
Subjective Subjective: Interval history: Patient passing flatus, no nausea or vomiting, tolerating clear liquid diet abdomen is less distended, pain is controlled with oxycodone and Toradol Vitals/I&O/Wt Last Vital Signs Temp 98.6 F 11/21/20 04:00 Pulse 85 11/21/20 06:00 Resp 17 11/21/20 06:00 BP 146/97 11/21/20 06:00 Pulse Ox 93 11/21/20 06:00 11/20/20 11/21/20 11/21/20 22:59 06:59 14:59 Intake Total 250 / 1200 250 / 1200 450 / 450 Output Total 2940 / 3475 535 / 3475 Balance -2690 / -2275 -285 / -2275 450 / 450 Physical Exam Narrative: EXAM NARRATIVE: Abdomen: Soft, minimally distended, JEANNE drain output serosanguineous, dressing saturated Urinary Catheter Management^: Quevedo: Cath Placed During This Visit: yes Reason for Continuing Indwelling Catheter: Accurate Measurement of Urinary Output in Critically Ill Patients Urinary Catheter Date of Insertion: 11/18/20 Urinary Catheter Time of Insertion: 16:00 Data : 11/21/20 06:05 11/21/20 06:05 A&P Assessment and plan (1) S/P laparoscopy: With repair of sigmoid colon perforation Patient currently hemodynamically stable, WBC down to 10.1 today Thrombocytopenia: Received 2 units platelets stable at 86 Advance to full liquid diet Continue IV Zosyn DC Quevedo today JEANNE to bulb suction Continue oxycodone 10 mg extended release twice daily as needed and Toradol 10 mg 3 times daily as needed Appreciate medical management by Dr. Villa Hyperbilirubinemia: Trending down, patient has known cirrhosis secondary to hep C. Ultrasound: Normal Transfer to floor today Status: Acute Attestations Medical Necessity Statement*: Patient will need 1 more night of inpatient stay to ensure resolution of ileus and leukocytosis Procedures Arterial Line Size (Gauge): 20 Coding Level of Care Code Acute Repair Electric Motor Assembler for Chg Fwd Diagnoses S/P laparoscopy Z98.890
--- NOTE | 2020-11-21 12:40 | PC.NURSE ---
report given and transfered to 258
[2020-11-21] MEDS: oxyCODONE 10 mg ER (12 HR) Tablet PO (12:57)
[2020-11-22] VITALS (11 sets, daily range): BP systolic 101–158; BP diastolic 58–79; PULSE 78–92; RESP 18–20; TEMP 36.6–37.4; O2SAT 91–93
[2020-11-22 04:18] LABS: Basophils # 0.1 10^3/uL (0.0-0.1); Basophils % 0.5 %; Eosinophils # 0.3 10^3/uL (0.0-0.8); Eosinophils % 3.1 %; Hematocrit 33.8 % (42.0-52.0); Hemoglobin 11.8 g/dL (11.7-16.6); Lymphocytes # 1.4 10^3/uL (0.8-4.8); Mean Corpuscular HGB Conc 34.9 g/dL (30.0-36.0); Mean Corpuscular Hemoglobin 33.6 pg (28.0-34.0); Mean Corpuscular Volume 96.3 fL (80-94); Monocytes # 0.9 10^3/uL (0.2-0.9); Monocytes % 8.9 %; Neutrophils # 7.27 10^3/uL (1.8-7.7); Nucleated Red Blood Cells % 0 %; Platelet Count 98 10^3/cmm (130-400); Red Blood Count 3.51 10^6/uL (4.1-5.3)
[2020-11-22 04:34] LABS: Anion Gap 9.4 (5-19); Blood Urea Nitrogen 21 mg/dL (8-23); Calcium 8.1 mg/dL (8.5-10.5); Carbon Dioxide 27 mmol/L (22-29); Chloride 101 mmol/L (98-107); Potassium 3.4 mmol/L (3.5-5.1); Sodium 134 mmol/L (136-145); Total Protein 5.3 g/dL (6.6-8.7)
[2020-11-22 04:51] LABS: Magnesium 1.8 mg/dL (1.7-2.3); NT Pro B Type Natriuretic Pept 134 pg/mL (0-125); Phosphorus 2.4 mg/dL (2.5-4.5)
[2020-11-22 05:41] LABS: Alanine Aminotransferase 22 U/L (0-41); Albumin Level 2.8 g/dL (3.5-5.2); Alkaline Phosphatase 63 IU/L (40-130); Aspartate Amino Transferase 25 U/L (0-40); Globulin 2.5 g/dL (1.3-4.6); Glucose 117 mg/dL (65-115); Osmolality Calculated 282 mOsm/kg (285-295)
[2020-11-22] MEDS: piperacillin-tazobactam 3.375 GM in sodium chloride 0.9% (plus) 50 ML IV ×3 (05:43→20:54)
[2020-11-22] MEDS: heparin 5,000 unit/mL INJ 1 mL 5000 UNIT SUBCUT ×2 (05:43→17:20)
[2020-11-22] MEDS: phosphorus 250 mg Tablet PO ×2 (09:00→17:20)
[2020-11-22] MEDS: famotidine 20 mg/2 mL INJ IVP ×2 (09:00→17:20)
--- NOTE | 2020-11-22 11:06 | PM.PN ---
Subjective Subjective: Interval history: Patient doing well, had a large bowel movement yesterday and loose stools today, no nausea or vomiting, tolerating full liquid diet, abdominal pain is minimal Vitals/I&O/Wt Last Vital Signs Temp 98.2 F 11/22/20 07:14 Pulse 78 11/22/20 07:14 Resp 18 11/22/20 07:14 BP 106/65 11/22/20 07:14 Pulse Ox 92 11/22/20 07:14 11/21/20 11/22/20 11/22/20 22:59 06:59 14:59 Intake Total 530 / 1890 410 / 1890 320 / 320 Output Total 175 / 3180 855 / 3180 30 / 30 Balance 355 / -1290 -445 / -1290 290 / 290 Physical Exam Narrative: EXAM NARRATIVE: Abdomen: Soft, nondistended, incision clean dry and intact, minimally tender, JEANNE drain output is serosanguineous Urinary Catheter Management^: Quevedo: Cath Placed During This Visit: yes, but has since been removed by the nurse Reason for Continuing Indwelling Catheter: Decision to DC Catheter Urinary Catheter Date of Insertion: 11/18/20 Urinary Catheter Time of Insertion: 16:00 Date Urinary Catheter Removed: 11/21/20 Time Urinary Catheter Discontinued: 14:00 Data : 11/22/20 03:43 11/22/20 03:43 A&P Assessment and plan (1) S/P laparoscopy: With repair of sigmoid colon perforation, patient had bowel movements, tolerating full liquid diet Patient currently hemodynamically stable, WBC down to 10 today Thrombocytopenia: Received 2 units platelets stable at 86 Advance to GI soft diet Continue IV Zosyn DC Quevedo today JEANNE to bulb suction Continue oxycodone 10 mg extended release twice daily as needed and Toradol 10 mg 3 times daily as needed Appreciate medical management by Dr. Villa Hyperbilirubinemia: Trending down, patient has known cirrhosis secondary to hep C. Ultrasound: Normal Hopefully patient can be discharged home tomorrow Status: Acute Attestations Medical Necessity Statement*: Status post colon perforation doing well with plan discharge tomorrow Procedures Arterial Line Size (Gauge): 20 Coding Level of Care Code Acute Environmental Health Officer for Chg Fwd Diagnoses S/P laparoscopy Z98.890
--- NOTE | 2020-11-22 11:08 | P.PN_ITS ---
Subjective Subjective: Interval history: No acute event overnight, Complaining of loose stools today, no nausea or vomiting, tolerating full liquid diet. Abdominal pain has improved. His vitals and labs have been reviewed. l Medications: Reviewed: Yes Vitals/I&O/Wt Last Vital Signs Temp 98.2 F 11/22/20 07:14 Pulse 78 11/22/20 07:14 Resp 18 11/22/20 07:14 BP 106/65 11/22/20 07:14 Pulse Ox 92 11/22/20 07:14 11/21/20 11/22/20 11/22/20 22:59 06:59 14:59 Intake Total 530 / 1480 410 / 1890 320 / 320 Output Total 175 / 2325 855 / 3180 30 / 30 Balance 355 / -845 -445 / -1290 290 / 290 Physical Exam Const: COMMON NORMALS: patient oriented x3 HENMT: COMMON NORMALS: normocephalic and atraumatic HEAD & SCALP: normocephalic and atraumatic Chest: COMMONS NORMALS: normal inspection of the chest and normal palpation of entire chest wall CHEST: Yes Symmetrical chest wall rise Resp: COMMON NORMALS: normal respiratory effort, No retractions, No use of accessory muscles and clear to auscultation bilaterally EFFORT & INSPECTION: Yes symmetric chest movement AUSCULTATION: clear to auscultation bilaterally Cardio: COMMON NORMALS: regular rate, regular rhythm, S1 normal heart sound present, S2 normal heart sound present, No gallops present (Cardio), No murmurs present (Cardio), No rub (Cardio) and Peripheral pulses 2+ throughout RATE: regular rate RHYTHM: regular rhythm HEART SOUNDS: S1 normal heart sound present and S2 normal heart sound present PERIPHERAL PULSES: Peripheral pulses 2+ throughout GI: COMMON NORMALS: Soft to palpation, non-tender, No hepatosplenomegaly present and no masses AUSCULTATION: Yes normoactive bowel sounds PALPATION: Yes Soft to palpation and Yes No hepatosplenomegaly present RECTAL EXAM: Yes deferred OTHER: Abdomen: Soft, nondistended, incision clean dry and intact, minimally tender, JEANNE drain output is serosanguineous Extremity: COMMON NORMALS: no clubbing, cyanosis or edema and no pedal edema Neuro: COMMON NORMALS: patient oriented x3 Urinary Catheter Management^: Quevedo: Cath Placed During This Visit: yes, but has since been removed by the nurse Reason for Continuing Indwelling Catheter: Decision to DC Catheter Urinary Catheter Date of Insertion: 11/18/20 Urinary Catheter Time of Insertion: 16:00 Date Urinary Catheter Removed: 11/21/20 Time Urinary Catheter Discontinued: 14:00 Data : 11/22/20 03:43 11/22/20 03:43 A&P Assessment and plan (1) Colon perforation: -Status post laparoscopic repair of sigmoid colon perforation by Dr. Tang postop day 2 -Morphine for pain -Pepcid for GI prophylaxis -Receiving Zosyn for antibiotic coverage -Patient is a full code -Heparin for DVT prophylaxis -Serial abdominal exam -On a full liquid diet -Transition patient to the general medical floors today Status: Acute (2) Thrombocytopenia: -Acute on chronic thrombocytopenia, - 86,000 -Status post 1 unit platelets -Had a bone marrow biopsy on 09/24/2020, by Dr. Wells, normocellular bone marrow, no overt myelo blastic changes or dysplastic changes, no evidence of bone marrow infiltration -We will continue to monitor Status: Acute (3) Anemia: -Acute anemia, likely secondary to colon perforation -Hemoglobin 10.1 -We will transfuse if hemoglobin less than 7 -Recheck CBC in the evening Status: Acute (4) Lactic acidosis: -Resolved -Likely secondary to perforation, lactic acid 8.8, now 3.6 -Currently normotensive -Monitor hemodynamics closely Status: Acute (5) Hepatitis C: Status: Acute (6) ST segment changes on electrocardiogram: -EKG shows slight ST elevation in V1, V2, 1 to 2 mm, nonspecific -No chest pain complaints -6-hour troponin 7.7, 6-hour delta 0.7 -No complaints of chest pain, no complaints of shortness of breath -Cardiac echocardiogram Normal left ventricular size and systolic function, EF 63 %. No regional wall motion abnormalities. Grade I/IV diastolic dysfunction (abnormal relaxation filling pattern), normal to mildly elevated filling pressures. Possibly normal chamber sizes -We will continue to monitor, monitor for chest pain, telemetry monitoring Status: Acute (7) Jaundice: -Appears jaundiced today -His total bili has come down to 2.8 -Direct bili is 0.6 -Indirect Hyperbilirubenemia : Will do hemolysis work up -US Abdomen :Technically limited examination. No acute sonographic abnormality in the visualized right upper quadrant. -No right upper quadrant pain complaints, has evidence of liver cirrhosis. -Monitor LFT Status: Acute Attestations Medical Necessity Statement*: Patient requires hospitalization for colon perforation, anemia, Procedures Arterial Line Size (Gauge): 20 Coding Level of Care Code Acute Platform Beater for Chg Fwd Diagnoses Colon perforation K63.1 Thrombocytopenia D69.6 Anemia D64.9 Lactic acidosis E87.2 [address] C B19.20 ST segment changes on electrocardiogram R94.31 Jaundice R17
[2020-11-22] MEDS: oxyCODONE 10 mg ER (12 HR) Tablet PO (17:19)
[2020-11-23 02:44] LABS: Basophils # 0.1 10^3/uL (0.0-0.1); Basophils % 0.7 %; Eosinophils # 0.3 10^3/uL (0.0-0.8); Eosinophils % 3.7 %; Hematocrit 33.8 % (42.0-52.0); Hemoglobin 11.8 g/dL (11.7-16.6); Lymphocytes # 1.6 10^3/uL (0.8-4.8); Lymphocytes % 20.5 %; Mean Corpuscular HGB Conc 34.9 g/dL (30.0-36.0); Mean Corpuscular Hemoglobin 33.6 pg (28.0-34.0); Mean Corpuscular Volume 96.3 fL (80-94); Mean Platelet Volume 10.9 fL (7.4-10.4); Monocytes # 0.9 10^3/uL (0.2-0.9); Neutrophils # 4.74 10^3/uL (1.8-7.7); Neutrophils % 62.1 %; Nucleated Red Blood Cells % 0 %; Platelet Count 90 10^3/cmm (130-400); Red Blood Count 3.51 10^6/uL (4.1-5.3); Red Cell Distribution Width 12.7 % (12.1-15.1); White Blood Count 7.6 10^3/uL (4.0-10.0)
[2020-11-23 02:47] LABS: Alanine Aminotransferase 25 U/L (0-41); Albumin Level 2.9 g/dL (3.5-5.2); Alkaline Phosphatase 69 IU/L (40-130); Anion Gap 14.2 (5-19); Aspartate Amino Transferase 30 U/L (0-40); Blood Urea Nitrogen 20 mg/dL (8-23); Calcium 8.2 mg/dL (8.5-10.5); Carbon Dioxide 25 mmol/L (22-29); Chloride 99 mmol/L (98-107); Globulin 2.6 g/dL (1.3-4.6); Glucose 120 mg/dL (65-115); Osmolality Calculated 284 mOsm/kg (285-295); Potassium 3.2 mmol/L (3.5-5.1); Sodium 135 mmol/L (136-145); Total Bilirubin 1.4 mg/dL (0.15-1.2); Total Protein 5.5 g/dL (6.6-8.7)
[2020-11-23 04:07] VITALS: BP 151/74; PULSE 75; RESP 18; TEMP 36.8; O2SAT 94
[2020-11-23] MEDS: piperacillin-tazobactam 3.375 GM in sodium chloride 0.9% (plus) 50 ML IV (05:27)
[2020-11-23] MEDS: heparin 5,000 unit/mL INJ 1 mL 5000 UNIT SUBCUT (05:27)
[2020-11-23 06:00] VITALS: PULSE 80
[2020-11-23 07:45] VITALS: BP 127/55; PULSE 76; RESP 17; TEMP 37; O2SAT 94
[2020-11-23] MEDS: phosphorus 250 mg Tablet PO (09:24)
[2020-11-23] MEDS: famotidine 20 mg/2 mL INJ IVP (09:26)
--- NOTE | 2020-11-23 09:46 | PM.PN ---
Subjective Subjective: Interval history: Patient doing well, tolerating GI soft diet, had bowel movements, abdominal pain is minimal Vitals/I&O/Wt Last Vital Signs Temp 98.6 F 11/23/20 07:45 Pulse 76 11/23/20 07:45 Resp 17 11/23/20 07:45 BP 127/55 11/23/20 07:45 Pulse Ox 94 11/23/20 07:45 11/22/20 11/23/20 11/23/20 22:59 06:59 14:59 Intake Total 650 / 1670 650 / 1670 360 / 360 Output Total 480 / 1225 515 / 1225 Balance 170 / 445 135 / 445 360 / 360 Physical Exam Narrative: EXAM NARRATIVE: Abdomen: Soft, nondistended minimally tender, drain output is serous fluid, drain was removed today Urinary Catheter Management^: Quevedo: Cath Placed During This Visit: yes, but has since been removed by the nurse Reason for Continuing Indwelling Catheter: Decision to DC Catheter Urinary Catheter Date of Insertion: 11/18/20 Urinary Catheter Time of Insertion: 16:00 Date Urinary Catheter Removed: 11/21/20 Time Urinary Catheter Discontinued: 14:00 Data : 11/23/20 02:05 11/23/20 02:05 Micro: Microbiology 11/18/20 15:15 Blood Culture - Preliminary Blood Anaerobic cocci A&P Assessment and plan (1) S/P laparoscopy: Tolerating GI soft diet D/c home today Status: Acute Attestations Medical Necessity Statement*: Status post laparoscopic repair of colon perforation going home today Procedures Arterial Line Size (Gauge): 20 Coding Level of Care Code Acute Entertainment Reporter for Pennyg Fwd Diagnoses S/P laparoscopy Z98.890
--- NOTE | 2020-11-23 09:48 | P.DS_ITS ---
Discharge Providers Date of Admission: 11/18/20 17:19 Date of Discharge: November 23, 2020 Attending Provider at Admission: Haresh Tang MD Attending Provider at Discharge: Haresh Tang MD Primary Care Provider: TERRY Wall Diagnoses at Discharge Discharge Diagnosis (1) S/P laparoscopy: Status: Acute Permanent problem details: repair of sigmoid perforation Reason for Visit Reason for Visit: ABDOMINAL PAIN Hospital Course Hospital Course This is 75-year-old male who had undergone colonoscopy for colon polyps at [facility] and subsequently had a perforation on 11/18/2020. On initi al presentation patient is hemodynamically stable with minimal tenderness in the left lower quadrant and therefore was admitted for observation and IV antibiotics. Overnight he became a bit hypotensive and more tender on physical exam and therefore was taken to the operating room where he underwent laparoscopic repair of colonic perforation. Patient was treated with IV antibiotics and by day 2 patient was passing flatus and by day 3 had bowel movements. At time of discharge patient is tolerating a GI soft diet, having bowel movements, abdominal pain is minimal. His incisions are clean dry and intact. His JEANNE drain has been removed. His leukocytosis has resolved Patient also had some ST changes on day 1 of hospital stay but troponins were normal and subsequent echo showed ejection fraction of 65%. He also had elevated bilirubin, patient has known cirrhosis secondary to hep C and initially the bilirubin went up to 3.9 but was down to 1.4 at the time of discharge Physical Exam Urinary Catheter Management^: Quevedo: Cath Placed During This Visit: yes, but has since been removed by the nurse Reason for Continuing Indwelling Catheter: Decision to DC Catheter Urinary Catheter Date of Insertion: 11/18/20 Urinary Catheter Time of Insertion: 16:00 Date Urinary Catheter Removed: 11/21/20 Time Urinary Catheter Discontinued: 14:00 Discharge Data Data Completed and Pending: Completed Studies During Hospitalization Category Date Time Status CT abdomen pelvis wo con [id number] Stat Cat Scan 11/18/20 15:06 Completed CV echo complete* [id number] Routine Ultrasound 11/19/20 08:39 [address] [place] liver [id number] Ro utine Ultrasound 11/21/20 08:37 Completed Pending at discharge Category Date Time Status ES surgery / GI i mages Routine Exams 11/19/20 06:42 Ordered Blood Culture Sta t Lab 11/18/20 04:04 Results Complete Blood Co unt w/Auto AM LABS Lab 11/24/20 04:00 Ordered Comprehensive Met abolic Panel AM LA BS Lab 11/24/20 04:00 Ordered Labs from last 24 hours 11/23/20 11/23/20 02:05 02:05 WBC 7.6 RBC 3.51 L Hgb 11.8 Hct 33.8 L MCV 96.3 H MCH 33.6 MCHC 34.9 RDW 12.7 Plt Count 90 L MPV 10.9 H Neut % (Auto) 62.1 Lymph % (Auto) 20.5 [place] % (Auto) 12.0 Eos % (Auto) 3.7 Baso % (Auto) 0.7 Neut # (Auto) 4.74 Lymph # (Auto) 1.6 [place] # (Auto) 0.9 Eos # (Auto) 0.3 Baso # (Auto) 0.1 Nucleated RBC % (a uto) 0 Nucleated RBCs # 0.0 Sodium 135 L Potassium 3.2 L Chloride 99 Carbon Dioxide 25 Anion Gap 14.2 BUN 20 Creatinine 1.2 GFR Calculation Not Reportable Glucose 120 H Calculated Osmolal ity 284 L Calcium 8.2 L Total Bilirubin 1.4 H AST 30 ALT 25 Alkaline Phosphata se 69 Total Protein 5.5 L Albumin 2.9 L Globulin 2.6 Vitals: Last Vital Signs Temp 98.6 F 11/23/20 07:45 Pulse 76 11/23/20 07:45 Resp 17 11/23/20 07:45 BP 127/55 11/23/20 07:45 Pulse Ox 94 11/23/20 07:45 Discharge Plan Discharge Patient Disposition: Home Condition: Stable Prescriptions: New lactulose 10 gram/15 mL solution 15 ml PO BID Qty: 237 RF: 2 levofloxacin 750 mg tablet 750 mg PO DAILY 7 Days RF: 0 metronidazole [Flagyl] 500 mg tablet 500 mg PO Q8H 7 Days Qty: 21 RF: 0 Continued fluticasone propion-salmeterol [Advair Diskus] 500-50 mcg/dose blister with device 1 inh INHALATION DAILY RF: 0 oxycodone 20 mg tablet 20 mg PO TID PRN (Reason: pain) 30 Days Qty: 90 RF: 0 pantoprazole 40 mg tablet,delayed release (DR/EC) 40 mg PO DAILY RF: 0 Ventolin HFA 90 mcg/actuation Hfa Aerosol Inhaler 2 puff INHALATION Q4H PRN (Reason: Shortness Of Breath) RF: 0 clotrimazole 1 % cream 1 applic TOPICAL BID RF: 0 finasteride 5 mg Tablet 5 mg PO DAILY RF: 0 Discharge Orders: Discharge Order (Routine); Ordered 11/23/20 Ordered By: Haresh Tang Referrals: Haresh Tang MD [Physician] - 11/30/20 1:30 pm Discharge Activity: Resume usual activity Activity Restrictions/Additional Instructions: 1. Up and walking as tolerated. 2. Ok to shower 3. Ok to leave incisions open 4. Do not lift more than 10 pounds. 5. Do not operate heavy machinery or drive while using pain medications. 6. Advised to return to ER or contact my office if there are any signs of infection like, increasing pain, fevers, chills, redness or drainage of pus. 7. Adjust the dose of Lactulose if having excessive loose stools. Discharge Attestations Time Spent in Discharge Care*: less than 30 min Quality Metrics Clinical Quality Measures During this hospital stay, did patient experience: None Coding Level of Care Code Acute Chiller Hand for Chg Fwd Diagnoses S/P laparoscopy Z98.890
--- NOTE | 2020-11-23 11:13 | PC.SOCIAL ---
*IMM UPDATE* Called and gave IMM to pt's , Valeria. Initialed, dated and timed and placed in chart.
[2020-11-23 11:28] VITALS: BP 151/75; PULSE 84; RESP 18; TEMP 36.2; O2SAT 95
[2020-11-23 12:50] VITALS: BP 151/75; PULSE 84; RESP 18; TEMP 36.2; O2SAT 95
== END 2020-11-23 12:00 | disposition home or self-care (01) | DRG 908 ==
LOC: ER 15:15 → ICU 19:02 → MEDSURG 11-21 12:30
PROVIDERS: Family Medicine; Admitting Provider Surgery; Emergency Provider Family Medicine; PCP Nurse Practitioner Family; Visit Provider Surgery
PROC: 0DQN4ZZ Repair Sigmoid Colon, Percutaneous Endoscopic Approach (ICD-10-PCS; CPT 49320; principal; 2020-11-19 06:30)
DX: K91.71 Accidental puncture and laceration of a digestive system organ or structure during a digestive system procedure (principal); E87.2 Acidosis; Y73.0 Diagnostic and monitoring gastroenterology and urology devices associated with adverse incidents; Z86.010 Personal history of colon polyps; G89.29 Other chronic pain; M54.2 Cervicalgia; M54.5 Low back pain; K71.7 Toxic liver disease with fibrosis and cirrhosis of liver; B18.2 Chronic viral hepatitis C; J44.9 Chronic obstructive pulmonary disease, unspecified; M19.90 Unspecified osteoarthritis, unspecified site; D69.6 Thrombocytopenia, unspecified; Z87.891 Personal history of nicotine dependence; D64.9 Anemia, unspecified; Z79.891 Long term (current) use of opiate analgesic
CPT/HCPCS: 12345; 36415; 36430; 51702; 74176; 76705; 80053; 82247; 82248; 82977; 83605; 83735; 83880; 84100; 84484; 85025; 86140; 86900; 87040; 87077; 87205; 93005; 93306; 94664; 96372; 99283; 99291; C9290; J1644; J1940; J2270; J2370; J2405; J2543; J2704; J2710; J3010; J3490; J7040; P9035

== ENCOUNTER → 2020-12-14 10:23 | Outpatient (BNVA) | payer MEDICARE, MEDICAID, SELFPAY | PROVIDERS: PCP Nurse Practitioner Family; Visit Provider Anesthesiology | DX: G89.29 Other chronic pain (principal); M47.9 Spondylosis, unspecified; M54.9 Dorsalgia, unspecified; Z79.899 Other long term (current) drug therapy; Z79.891 Long term (current) use of opiate analgesic | CPT/HCPCS: 99213 ==

== ENCOUNTER 2021-01-17 11:58 | Outpatient (CLI) | payer MEDICARE, MEDICAID, SELFPAY ==
[2021-01-17 12:19] LABS: Basophils % 0.7 %; Eosinophils # 0.1 10^3/uL (0.0-0.8); Eosinophils % 3.1 %; Hemoglobin 13.1 g/dL (11.7-16.6); Lymphocytes # 1.1 10^3/uL (0.8-4.8); Lymphocytes % 26.6 %; Mean Corpuscular HGB Conc 33.6 g/dL (30.0-36.0); Mean Corpuscular Hemoglobin 32.8 pg (28.0-34.0); Mean Corpuscular Volume 97.5 fL (80-94); Mean Platelet Volume 10.9 fL (7.4-10.4); Monocytes # 0.3 10^3/uL (0.2-0.9); Monocytes % 7.8 %; Neutrophils # 2.63 10^3/uL (1.8-7.7); Neutrophils % 61.8 %; Nucleated Red Blood Cells % 0 %; Platelet Count 70 10^3/cmm (130-400); Red Cell Distribution Width 13.3 % (12.1-15.1); White Blood Count 4.3 10^3/uL (4.0-10.0)
--- NOTE | 2021-01-17 15:01 | ONC FU_ITS ---
Dr. Wells follow up note Patient: Sloan Rodriguez Unit #: [id number]: [id number] Dicatated By: Amber Wells M.D.Date of Visit:Jan 17, 2021 Onc Med Follow-up/Prog Note History of Present Illness: Mr. Sloan Rodriguez, Is a 75-year-old gentleman with history of hepatitis C, as per patient he was diagnosed in 2006 with hepatitis C and at that time he underwent treatment with interferon and multiple times thereafter till 2012 and he was getting all those treatment at [facility] and in 2013, he was declared hepatitis C free and since then he has been following there on 6 months basis. Patient said he was also diagnosed with cirrhosis in 2006 at that time he underwent liver biopsy and it confirmed. During treatment with interferon patient said he required blood transfusion on 3-4 occasion and last time was in 2013. Underwent EGD recently and was diagnosed with peptic ulcer disease and he was started on Protonix, Had colonoscopy done by Dr. Hopkins, many years ago, as per patient, multiple polyps were removed and they were benign. Patient denies any night sweats, or peripheral lymphadenopathy or recurrent fevers. Or weight loss Patient said he never heard about low platelets before until recently. Never required any platelets transfusion. He denies any history of hemoptysis or hematemesis. Denies any history of melena or hematochezia. Denies any nausea vomiting. Denies any petechiae or ecchymosis. Denies any jaundice. Denies aspirin or NSAID intake. Patient has history of hepatic cirrhosis and portal hypertension for which she is being followed up at [facility],Follow-up sonogram of abdomen done on January 15, 2020 showed fatty infiltration of the liver with surface irregularity which can be seen with cirrhosis, spleen size slightly smaller than the prior study, normally 5.49 x 5.92 x 10.3 cm. Bone marrow evaluation done on September 16, 2020 showed normocellular bone marrow for age with trilineage hematopoiesis present. No overt dyspoietic or megaloblastic changes seen., No evidence of bone marrow infiltrative disorder. No ring sideroblasts, overall iron stores appear to be slightly decreased. No significant reticulin fibrosis. Adequate to mildly increased megakaryopoiesis FISH for MDS is negative and flow cytometry showed no evident myeloid or lymphoid population Has seen his assessment rn in [place], recently Came for follow-up, denies any specific complaints, no fever chills, no nausea or vomiting, no diarrhea or constipation, no nosebleed or gum bleed, no petechia or ecchymosis, no melena or hematochezia or hemoptysis or hematemesis Medications: Breo Ellipta 1 Puff(s) (of 100-25 mcg/inh) Aerosol Powder, Breath Activated Inhalation daily, Cyclobenzaprine HCl 1 Tablet (of 10 mg) Oral t.i.d. PRN, oxyCODONE HCl 1 Tablet (of 20 mg) Oral t.i.d. PRN, Ventolin HFA 1 (108 (90 base) mcg/act) Aerosol, solution Inhalation daily PRN Allergies: Donepezil HCl, Erythromycin Base, Methadone HCl, traMADol HCl, and Vicodin. Review of Systems: Review of Systems is not available for this patient. Vital Signs: Performed on Jan 17, 2021 14:25 Height - 63.50 in Weight - 176 lbs (LOW) BSA - 1.84 sq.m BMI - 30.69 (HIGH) Temperature - 98.1 F (LOW) Pulse - 73 /min Respiration - 18 /min BP - 172/91 mm(hg) (HIGH) O2 Sat - 97 % Pain - 8 Fatigue - 5 Performance Status: 1 - No physically strenuous activity, but ambulatory and able to carry out light or sedentary work (e.g. office work, light house work). (ECOG) Physical Examination: ENMT - No mouth sores, no thrush, no jaundice, Respiratory - Lungs are clear to auscultation, Cardiovascular - Regular rate and rhythm of heart, Abdomen - Soft, bowel sounds present, Extremities - No visible edema. Lab/Imaging: Test performed on Oct 26, 2020 09:10 Sodium 137 mmol/L Potassium 4.1 mmol/L Chloride 103 mmol/L CO2 27 mmol/L Anion Gap 11.1 BUN 17 mg/dL Creatinine 1.1 mg/dL Cr Clearance (Est) 70.38 mL/min Glucose 131 mg/dL Osmolality - Calculated 287 mOsm/kg Calcium 9.0 mg/dL Protein, Total 6.8 g/dL Albumin 4.1 g/dL Globulin 2.7 g/dL Bilirubin, Total 1.4 mg/dL ALT (SGPT) 29 U/L AST (SGOT) 29 U/L Alkaline Phosphatase 82 IU/L WBC 4.6 10 3/uL RBC 4.09 10 6/uL HGB 13.7 g/dL HCT 40.4 % MCV 98.8 fL MCH 33.5 pg MCHC 33.9 g/dL RDW 12.8 % Platelet Count 73 10 3/cmm MPV 10.7 fL Neutrophils 2.82 10 3/uL Lymphocytes 1.2 10 3/uL Monocytes 0.4 10 3/uL Eosinophils 0.1 10 3/uL Basophils 0.1 10 3/uL Neutrophil % 60.9 % Lymphocyte % 26.1 % Monocyte % 9.3 % Eosinophil % 2.4 % Basophils % 1.1 % NRBC % 0 % Impression: Isolated moderate thrombocytopenia with a normal hemoglobin and white blood cells per lab done on 11/27/2019 showed white blood count 4.5 hemoglobin 14 crit 39.7 platelets 68,000 with a normal differential History of hepatitis C, diagnosed in 2006, status post therapy with interferon, and multiple occasion till 2012, per patient. History of hepatic cirrhosis per liver biopsy done in 2006, per patient mild hyperbilirubinemia, per labs done on 11/27/2019, bilirubin was 1.8, AST 24, aortic 20, alkaline phosphatase 62. Albumin 4.4. History of alcohol abuse till 2006. Peptic ulcer disease per EGD now on Protonix. Colonoscopy done by Dr. Jauregui, few years back showed benign polyps Bone marrow Evaluation done on September 16, 2020 findings showed adequate or increased megakaryopoiesis. And no overt dyspoietic or megaloblastic changes seen, normocellular for his age. FISH for MDS negative and flow cytometry showed no aberrant myeloid or lymphoid population. Plan: . 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 He will return to clinic in 3 months with CBC, patient was advised to call us in case there is any evidence of gross bleeding or petechia or ecchymosis. Signed By: Amber Wells M.D. <<Signature on File>>
== END 2021-01-17 11:59 | disposition home or self-care (01) ==
PROVIDERS: PCP Nurse Practitioner Family; Visit Provider Internal Medicine Hematology & Oncology
DX: D69.6 Thrombocytopenia, unspecified (principal); K76.0 Fatty (change of) liver, not elsewhere classified; Z86.19 Personal history of other infectious and parasitic diseases; E80.6 Other disorders of bilirubin metabolism; F10.11 Alcohol abuse, in remission; K27.7 Chronic peptic ulcer, site unspecified, without hemorrhage or perforation; D12.6 Benign neoplasm of colon, unspecified; Z79.899 Other long term (current) drug therapy
CPT/HCPCS: 85025; G0463

== ENCOUNTER → 2021-02-10 08:46 | Outpatient (BNVA) | payer MEDICARE, MEDICAID, SELFPAY | PROVIDERS: PCP Nurse Practitioner Family; Visit Provider Anesthesiology | DX: G89.29 Other chronic pain (principal); M47.9 Spondylosis, unspecified; M54.9 Dorsalgia, unspecified; M54.2 Cervicalgia; M25.551 Pain in right hip; Z79.899 Other long term (current) drug therapy; Z79.891 Long term (current) use of opiate analgesic | CPT/HCPCS: 99213; 99214 ==

== ENCOUNTER 2021-03-17 09:54 | Outpatient (CLI) | payer MEDICARE, MEDICAID, SELFPAY ==
--- NOTE | 2021-03-17 10:07 | CT_ITS ---
WS: [id number] CT ABDOMEN PELVIS TECHNIQUE: Contrast-enhanced CT of the abdomen and pelvis with coronal and sagittal reformatted image s. CLINICAL INFORMATION: RLQ ABDOMINAL PAIN/DIARRHEA COMPARISON: November 18, 2020 DLP: 1511.[address] scans at [facility] use at least one of these dose optimization techniques: automat ed exposure control; mA and/or kV adjustment per patient size (includes targeted exams where dose is matched to clinical indication); or iterative reconstruction. FINDINGS: Diffuse fatty infiltration of the liver. Portal vein and splenic vein are patent. Cholecystectomy cli ps. Normal GE junction. Splenomegaly. Spleen measures 14.8 cm [id number]. Lung bases are well aerated. Fatty atrophy of the pancreas. Diffuse transmural thickening involving t he right colon and extending into the proximal transverse colon involving the hepatic flexure most co nsistent with colitis. Recommend correlation for infection and colitis type symptoms. Normal appendix in the right lower quadrant.Colon is otherwise normal in appearance. Normal sigmoid colon. No eviden ce of small bowel obstruction. Urine distended bladder. Prominent prostate with calcification. Prostate measures 3.6 cm. Disc space narrowing L5-S1 with chronic spondylolysis. Grade 1 anterolisthesis L5 on S1. Biconcave ch ronic appearing compression fractures at T11 and L1. Tiny fat-containing upper abdominal epigastric h ernia. CT/CT abdomen pelvis w con* [id number] IMPRESSION: 1. Diffuse transmural colonic thickening involving the right ascending colon e xtending into the proximal transverse colon consistent with infectious or infla mmatory colitis. No drainable fluid collections. Recommend correlation for infe ction and colitis symptoms. 2. Normal appendix in the right lower quadrant. 3. Normal sigmoid colon. 4. Diffuse fatty infiltration of the liver with cirrhotic contour. Splenomegal y measuring 14.8 cm. 5. Urine distended bladder with prominent prostate likely due to bladder outle t obstruction. Recommend correlation PSA. 6. Normal caliber abdominal aorta.
[2021-03-17] MEDS: iohexol 300 mg/mL 50 mL Btl PO (11:21)
[2021-03-17] MEDS: iohexol 300 mg/mL 100 mL Btl IV (12:10)
== END 2021-03-17 09:55 | disposition home or self-care (01) ==
LOC: RADWPI 10:02
PROVIDERS: PCP Nurse Practitioner Family; Visit Provider Nurse Practitioner Family
DX: R10.31 Right lower quadrant pain (principal); R19.7 Diarrhea, unspecified; N40.0 Benign prostatic hyperplasia without lower urinary tract symptoms; K76.0 Fatty (change of) liver, not elsewhere classified; R16.1 Splenomegaly, not elsewhere classified
CPT/HCPCS: 74177; Q9967

== ENCOUNTER 2021-04-01 10:09 | Outpatient (CLI) | payer MEDICARE, MEDICAID, SELFPAY ==
[2021-04-01 10:42] LABS: Basophils # 0.1 10^3/uL (0.0-0.1); Basophils % 1.1 %; Eosinophils # 0.1 10^3/uL (0.0-0.8); Eosinophils % 2.6 %; Hematocrit 40.3 % (42.0-52.0); Hemoglobin 13.6 g/dL (11.7-16.6); Lymphocytes % 20.7 %; Mean Corpuscular HGB Conc 33.7 g/dL (30.0-36.0); Mean Corpuscular Hemoglobin 33.3 pg (28.0-34.0); Mean Corpuscular Volume 98.8 fL (80-94); Mean Platelet Volume 10.6 fL (7.4-10.4); Monocytes # 0.4 10^3/uL (0.2-0.9); Monocytes % 8.2 %; Neutrophils # 3.12 10^3/uL (1.8-7.7); Neutrophils % 67.2 %; Nucleated Red Blood Cells % 0 %; Platelet Count 68 10^3/cmm (130-400); Red Blood Count 4.08 10^6/uL (4.1-5.3); Red Cell Distribution Width 14.1 % (12.1-15.1); White Blood Count 4.6 10^3/uL (4.0-10.0)
[2021-04-01 10:51] LABS: INR 1.26 (0.8-1.2)
[2021-04-01 11:06] LABS: Alanine Aminotransferase 26 U/L (0-41); Albumin Level 4.2 g/dL (3.5-5.2); Alkaline Phosphatase 71 IU/L (40-130); Anion Gap 11.2 (5-19); Aspartate Amino Transferase 30 U/L (0-40); Blood Urea Nitrogen 12 mg/dL (8-23); Calcium 8.7 mg/dL (8.5-10.5); Carbon Dioxide 28 mmol/L (22-29); Chloride 106 mmol/L (98-107); Globulin 2.7 g/dL (1.3-4.6); Glucose 113 mg/dL (65-115); Osmolality Calculated 293 mOsm/kg (285-295); Potassium 4.2 mmol/L (3.5-5.1); Sodium 141 mmol/L (136-145); Total Bilirubin 2.1 mg/dL (0.15-1.2); Total Protein 6.9 g/dL (6.6-8.7)
== END 2021-04-01 10:10 | disposition home or self-care (01) ==
LOC: LAB 10:20
PROVIDERS: PCP Nurse Practitioner Family; Visit Provider Nurse Practitioner
DX: K74.60 Unspecified cirrhosis of liver (principal)
CPT/HCPCS: 36415; 80053; 85025; 85610

== ENCOUNTER → 2021-04-14 09:18 | Outpatient (BNVA) | payer MEDICARE, MEDICAID, SELFPAY | PROVIDERS: PCP Nurse Practitioner Family; Visit Provider Nurse Practitioner | DX: G89.29 Other chronic pain (principal); M47.9 Spondylosis, unspecified; M54.9 Dorsalgia, unspecified; Z79.899 Other long term (current) drug therapy; Z79.891 Long term (current) use of opiate analgesic | CPT/HCPCS: 99213 ==

== ENCOUNTER 2021-04-25 11:08 | Outpatient (CLI) | payer MEDICARE, MEDICAID, SELFPAY ==
[2021-04-25 11:35] LABS: Basophils % 1.1 %; Eosinophils # 0.1 10^3/uL (0.0-0.8); Eosinophils % 1.9 %; Hematocrit 37.8 % (42.0-52.0); Hemoglobin 12.8 g/dL (11.7-16.6); Lymphocytes # 1.1 10^3/uL (0.8-4.8); Lymphocytes % 29.1 %; Mean Corpuscular HGB Conc 33.9 g/dL (30.0-36.0); Mean Corpuscular Hemoglobin 32.9 pg (28.0-34.0); Mean Corpuscular Volume 97.2 fL (80-94); Mean Platelet Volume 10.9 fL (7.4-10.4); Monocytes # 0.3 10^3/uL (0.2-0.9); Monocytes % 7.3 %; Neutrophils # 2.24 10^3/uL (1.8-7.7); Neutrophils % 60.3 %; Nucleated Red Blood Cells % 0 %; Platelet Count 59 10^3/cmm (130-400); Red Blood Count 3.89 10^6/uL (4.1-5.3); Red Cell Distribution Width 13.5 % (12.1-15.1); White Blood Count 3.7 10^3/uL (4.0-10.0)
--- NOTE | 2021-04-25 17:04 | ONC FU_ITS ---
Dr. Wells follow up note Patient: Sloan Rodriguez Unit #: [id number]: 1945 Dicatated By: Amber Wells M.D.Date of Visit:Apr 25, 2021 Onc Med Follow-up/Prog Note History of Present Illness: Mr. Sloan Rodriguez, Is a 76-year-old gentleman with history of hepatitis C, as per patient he was diagnosed in 2006 with hepatitis C and at that time he underwent treatment with interferon and multiple times thereafter till 2012 and he was getting all those treatment at [facility] and in 2013, he was declared hepatitis C free and since then he has been following there on 6 months basis. Patient said he was also diagnosed with cirrhosis in 2006 at that time he underwent liver biopsy and it confirmed. During treatment with interferon patient said he required blood transfusion on 3-4 occasion and last time was in 2013. Underwent EGD recently and was diagnosed with peptic ulcer disease and he was started on Protonix, Had colonoscopy done by Dr. Hopkins, many years ago, as per patient, multiple polyps were removed and they were benign. Patient denies any night sweats, or peripheral lymphadenopathy or recurrent fevers. Or weight loss Patient said he never heard about low platelets before until recently. Never required any platelets transfusion. He denies any history of hemoptysis or hematemesis. Denies any history of melena or hematochezia. Denies any nausea vomiting. Denies any petechiae or ecchymosis. Denies any jaundice. Denies aspirin or NSAID intake. Patient has history of hepatic cirrhosis and portal hypertension for which she is being followed up at [facility],Follow-up sonogram of abdomen done on January 15, 2020 showed fatty infiltration of the liver with surface irregularity which can be seen with cirrhosis, spleen size slightly smaller than the prior study, normally 5.49 x 5.92 x 10.3 cm. Bone marrow evaluation done on September 16, 2020 showed normocellular bone marrow for age with trilineage hematopoiesis present. No overt dyspoietic or megaloblastic changes seen., No evidence of bone marrow infiltrative disorder. No ring sideroblasts, overall iron stores appear to be slightly decreased. No significant reticulin fibrosis. Adequate to mildly increased megakaryopoiesis FISH for MDS is negative and flow cytometry showed no evident myeloid or lymphoid population Has seen his manager event in [place], recently, As per patient he was told that his liver function tests are stable or improving Came for follow-up, denies any specific complaint, no fever chills, no nausea vomiting, no diarrhea or constipation, no melena or hematochezia, no dysuria or hematuria, no nosebleed or gum bleed, no petechia or ecchymosis, patient has seen his manager event recently and he was told that his liver function tests are getting better but his spleen is getting bigger Medications: Breo Ellipta 1 Puff(s) (of 100-25 mcg/inh) Aerosol Powder, Breath Activated Inhalation daily, Cyclobenzaprine HCl 1 Tablet (of 10 mg) Oral t.i.d. PRN, oxyCODONE HCl 1 Tablet (of 20 mg) Oral t.i.d. PRN, Pantoprazole Sodium 1 Tablet (of 40 mg) Tablet, enteric coated Oral daily, Ventolin HFA 1 (108 (90 base) mcg/act) Aerosol, solution Inhalation daily PRN Allergies: Donepezil HCl, Erythromycin Base, Methadone HCl, traMADol HCl, and Vicodin. Review of Systems: Review of Systems is not available for this patient. Vital Signs: Performed on Apr 25, 2021 13:00 Height - 63.50 in Weight - 176.8 lbs (HIGH) BSA - 1.85 sq.m BMI - 30.83 (HIGH) Temperature - 97.7 F (LOW) Pulse - 77 /min Respiration - 17 /min BP - 163/81 mm(hg) (HIGH) O2 Sat - 97 % Pain - 6 Performance Status: 0 - Fully active, able to carry on all predisease activities without restrictions. (ECOG) Physical Examination: ENMT - No mouth sores, no thrush, no jaundice, Respiratory - Lungs are clear to auscultation, Cardiovascular - Regular rate and rhythm of heart, Abdomen - Soft, bowel sounds present, Extremities - No visible edema or rash no cyanosis. Lab/Imaging: Most recent lab results are not available for this patient. Impression: Isolated moderate thrombocytopenia with a normal hemoglobin and white blood cells per lab done on 11/27/2019 showed white blood count 4.5 hemoglobin 14 crit 39.7 platelets 68,000 with a normal differential History of hepatitis C, diagnosed in 2006, status post therapy with interferon, and multiple occasion till 2012, per patient. History of hepatic cirrhosis per liver biopsy done in 2006, per patient mild hyperbilirubinemia, per labs done on 11/27/2019, bilirubin was 1.8, AST 24, aortic 20, alkaline phosphatase 62. Albumin 4.4. History of alcohol abuse till 2006. Peptic ulcer disease per EGD now on Protonix. Colonoscopy done by Dr. Jauregui, few years back showed benign polyps Bone marrow Evaluation done on September 16, 2020 findings showed adequate or increased megakaryopoiesis. And no overt dyspoietic or megaloblastic changes seen, normocellular for his age. FISH for MDS negative and flow cytometry showed no aberrant myeloid or lymphoid population. Plan: . 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 <<Signature on File>>
== END 2021-04-25 11:09 | disposition home or self-care (01) ==
LOC: ONCMED 11:12
PROVIDERS: PCP Nurse Practitioner Family; Visit Provider Internal Medicine Hematology & Oncology
DX: D69.6 Thrombocytopenia, unspecified (principal); K76.0 Fatty (change of) liver, not elsewhere classified; K74.60 Unspecified cirrhosis of liver; E80.6 Other disorders of bilirubin metabolism; F10.21 Alcohol dependence, in remission; K27.7 Chronic peptic ulcer, site unspecified, without hemorrhage or perforation; Z86.010 Personal history of colon polyps; Z86.19 Personal history of other infectious and parasitic diseases; Z79.899 Other long term (current) drug therapy
CPT/HCPCS: 36415; 85025; 99214

== ENCOUNTER → 2021-06-16 12:36 | Outpatient (BNVA) | payer MEDICARE, MEDICAID, SELFPAY | PROVIDERS: PCP Nurse Practitioner Family; Visit Provider Nurse Practitioner | DX: G89.29 Other chronic pain (principal); M54.5 Low back pain; M47.9 Spondylosis, unspecified; Z79.891 Long term (current) use of opiate analgesic; Z87.891 Personal history of nicotine dependence | CPT/HCPCS: 99213 ==

== ENCOUNTER → 2021-08-11 09:51 | Outpatient (BNVA) | payer MEDICARE, MEDICAID, SELFPAY | PROVIDERS: PCP Nurse Practitioner Family; Visit Provider Anesthesiology | DX: G89.29 Other chronic pain (principal); M54.2 Cervicalgia; M54.50 Low back pain, unspecified; M47.9 Spondylosis, unspecified; Z79.899 Other long term (current) drug therapy; Z79.891 Long term (current) use of opiate analgesic | CPT/HCPCS: 99214 ==

== ENCOUNTER 2022-03-01 13:19 | Emergency (ER) | payer MEDICARE, MEDICAID, SELFPAY ==
[2022-03-01 13:42] VITALS: BP 155/89; PULSE 71; RESP 16; TEMP 36.3; O2SAT 99
--- NOTE | 2022-03-01 13:50 | XR_ITS ---
WS: [id number] Chest 2 views, 03/01/2022 Clinical Data: chest pain after fall Comparison: Portable chest, 01/05/2019. Findings: No nodules, masses or effusions are seen. The heart is normal. The pulmonary vascularity is not increased. No pneumonia or pneumothorax is seen. The diaphragms are flattened. The aortic arch a nd descending thoracic aorta are tortuous. There are several thoracic compression fractures which are chronic. XR/XR chest 2V* [id number] Impression: Atherosclerosis and hyperinflation.
[2022-03-01 13:53] VITALS: BP 155/89; PULSE 71; RESP 16; O2SAT 99
--- NOTE | 2022-03-01 14:15 | ED_ITS ---
HPI - Fall General: Chief Complaint: Fall Stated Complaint: Fell Upper chest injury Time Seen by Provider: 03/01/22 13:50 [facility] ED PFSH: Medical History Chronic pain cervical and lumbar spine Cirrhosis Colon perforation Colon polyps COPD (chronic obstructive pulmonary disease) Hepatitis C Osteoarthritis Thrombocytopenia Surgical History S/P cataract extraction bilateral S/P cholecystectomy S/P laparoscopy (11/19/20) repair of sigmoid perforation Status post colonoscopy Family History Mother Cancer Grandmother Diabetes Social History (Updated 08/11/21 @ 10:30 by Maura Corbett LPN) Second hand smoke exposure: No Alcohol intake: never History of recent travel: No Course Vital Signs: Vital signs: Vital Signs Temperature 97.3 F L 03/01/22 13:42 Pulse Rate 71 03/01/22 13:53 Respiratory Rate 16 03/01/22 13:53 Blood Pressure 155/89 03/01/22 13:53 Pulse Oximetry 99 03/01/22 13:53 MDM - Fall Lab Data Radiology Impressions Chest X-Ray 03/01/22 13:50 Impression: Atherosclerosis and hyperinflation. Discharge Plan Discharge Patient Disposition: Home Clinical Impression: Fall, Chest pain Condition: Stable Prescriptions: No Action fluticasone propion-salmeterol [Advair Diskus] 500-50 mcg/dose blister with device 1 inh INHALATION DAILY 0RF tamsulosin [Flomax] 0.4 mg capsule 0.4 mg PO DAILY 0RF oxycodone 20 mg tablet 20 mg PO TID PRN (Reason: pain) 30 Days Qty: 90 0RF Rx Instructions: fill on or after 08/17/21 oxycodone 20 mg tablet 20 mg PO TID PRN (Reason: pain) 30 Days Qty: 90 0RF Rx Instructions: fill on or after 09/16/21 cyclobenzaprine 10 mg tablet 10 mg PO TID PRN (Reason: muscle spasm) Qty: 90 1RF pantoprazole 40 mg tablet,delayed release (DR/EC) 40 mg PO DAILY 0RF Ventolin HFA 90 mcg/actuation Hfa Aerosol Inhaler 2 puff INHALATION Q4H PRN (Reason: Shortness Of Breath) 0RF clotrimazole 1 % cream 1 applic TOPICAL BID 0RF Rx Instructions: for 2 weeks finasteride 5 mg Tablet 5 mg PO DAILY 0RF lactulose 10 gram/15 mL solution 15 ml PO BID Qty: 237 2RF Referrals: Jada Yeh FNP [Primary Care Provider] - Patient Instructions: Opioid Safety Coding Level of Care Code 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
--- NOTE | 2022-03-01 14:16 | ED_ITS ---
HPI - General Adult General: Chief complaint: Fall Stated complaint: Fell Upper chest injury Time Seen by Provider: 03/01/22 13:50 History of Present Illness: Onset:[] Duration:[] Location:[] Severity:[] Associated symptoms: Deny chest pain, dyspnea, nausea, rash, palpitations or vomiting Review of Systems Const: Denies: fever(s) or chills Eyes: Denies: change in vision ENMT: Denies: mouth pain Card: Denies: chest pain or palpitations Resp: Denies: dyspnea or non-productive cough GI: Denies: abdominal pain, nausea, vomiting or diarrhea : Denies: dysuria Musc: Denies: extremity pain Skin/Breast: Denies: rash or new lesions Neuro: Denies: weakness in extremities Psych: Reports: other (Normal mood) Grant/Lymph: Denies: easy bruising PFSH ED PFSH: Medical History Chronic pain cervical and lumbar spine Cirrhosis Colon perforation Colon polyps COPD (chronic obstructive pulmonary disease) Hepatitis C Osteoarthritis Thrombocytopenia Surgical History S/P cataract extraction bilateral S/P cholecystectomy S/P laparoscopy (11/19/20) repair of sigmoid perforation Status post colonoscopy Family History Mother Cancer Grandmother Diabetes Social History Second hand smoke exposure: No Alcohol intake: never History of recent travel: No Physical Exam Const: COMMON NORMALS: alert HENMT: COMMON NORMALS: atraumatic HEAD & SCALP: atraumatic MOUTH: moist mucous membranes not abnormal Eye: COMMON NORMALS: EOMs intact bilaterally and conjunctivae normal CONJUNCTIVA: Yes conjunctivae normal Neck/C-Spine: COMMON NORMALS: full ROM and supple Resp: COMMON NORMALS: normal respiratory effort and clear to auscultation bilaterally AUSCULTATION: clear to auscultation bilaterally Cardio: COMMON NORMALS: regular rate RATE: regular rate GI: COMMON NORMALS: Soft to palpation and non-tender PALPATION: Yes Soft to palpation Extremity: COMMON NORMALS: full ROM Neuro: SENSORIUM/ORIENTATION: Yes alert MOTOR EXAM: No Abnormal motor strength present and Other motor observations present (no focal motor deficits) Psych: COMMON NORMALS: speech normal SPEECH: Yes normal speech MOOD & AFFECT: Yes euthymic mood Course Vital Signs: Vital signs: Vital Signs Temperature 97.3 F L 03/01/22 13:42 Pulse Rate 71 03/01/22 13:53 Respiratory Rate 16 03/01/22 13:53 Blood Pressure 155/89 03/01/22 13:53 Pulse Oximetry 99 03/01/22 13:53 MDM - General Adult Lab Data Radiology Impressions Chest X-Ray 03/01/22 13:50 Impression: Atherosclerosis and hyperinflation. 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
--- NOTE | 2022-03-01 14:32 | ECG_ITS ---
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 Measurements Intervals [place] Rate: 67 P: 84 [place]: 207 QRS: 61 QRSD: 106 T: 63 QT: 379 QTc: 400 Interpretive Statements SINUS RHYTHM INCOMPLETE RIGHT BUNDLE BRANCH BLOCK [90+ ms QRS DURATION, TERMINAL R IN V1/V2, 40+ ms S IN I/aVL/V4/V5/V6] ST ELEVATION, CONSIDER SEPTAL INJURY [MARKED ST ELEVATION W/O NORMALLY INFLECTED T-WAVE IN V1/V2] Compared to ECG 11/21/2020 06:17:59 Incomplete right bundle-branch block now present ST (T wave) deviation now present Electronically Signed On 03-01-2022 16:56:15 CDT by Deshaun Yung M.D. [id number] f
--- NOTE | 2022-03-01 14:50 | ED_ITS ---
HPI - General Adult General: Chief complaint: Fall Stated complaint: Fell Upper chest injury Time Seen by Provider: 03/01/22 13:50 History of Present Illness: Patient is a 76-year-old male with no significant past medical history presents the emergency room with complaints of right-sided chest pain after an episode of fall. Patient fell and pushes and has had right- sided chest pain since. Patient has any shortness of breath, injury elsewhere, head injuries or other complaints. No complaints of exertional chest pain, shortness breath, pleuritic chest pain, dyspnea with exertion, or any other complaints at this time. Onset:1 day ago Duration:1 day Location:home Severity:moderate Associated symptoms: Reports chest pain; Deny dyspnea, nausea, rash, palpitations or vomiting Review of Systems Const: Denies: fever(s) or chills Eyes: Denies: change in vision ENMT: Denies: mouth pain Card: Reports: chest pain; Denies: palpitations Resp: Denies: dyspnea or non-productive cough GI: Denies: abdominal pain, nausea, vomiting or diarrhea : Denies: dysuria Musc: Denies: extremity pain Skin/Breast: Denies: rash or new lesions Neuro: Denies: weakness in extremities Psych: Reports: other (Normal mood) Grant/Lymph: Denies: easy bruising PFSH ED PFSH: Medical History Chronic pain cervical and lumbar spine Cirrhosis Colon perforation Colon polyps COPD (chronic obstructive pulmonary disease) Hepatitis C Osteoarthritis Thrombocytopenia Surgical History S/P cataract extraction bilateral S/P cholecystectomy S/P laparoscopy (11/19/20) repair of sigmoid perforation Status post colonoscopy Family History Mother Cancer Grandmother Diabetes Social History Second hand smoke exposure: No Alcohol intake: never History of recent travel: No Physical Exam Const: COMMON NORMALS: alert HENMT: COMMON NORMALS: atraumatic HEAD & SCALP: atraumatic MOUTH: moist mucous membranes not abnormal Eye: COMMON NORMALS: EOMs intact bilaterally and conjunctivae normal CONJUNCTIVA: Yes conjunctivae normal Neck/C-Spine: COMMON NORMALS: full ROM and supple Resp: COMMON NORMALS: normal respiratory effort and clear to auscultation bilaterally AUSCULTATION: clear to auscultation bilaterally Cardio: COMMON NORMALS: regular rate RATE: regular rate OTHER: 2+ radial pulse GI: COMMON NORMALS: Soft to palpation and non-tender PALPATION: Yes Soft to palpation Extremity: COMMON NORMALS: full ROM Neuro: SENSORIUM/ORIENTATION: Yes alert MOTOR EXAM: No Abnormal motor strength present and Other motor observations present (no focal motor deficits) Psych: COMMON NORMALS: speech normal SPEECH: Yes normal speech MOOD & AFFECT: Yes euthymic mood Course Vital Signs: Vital signs: Vital Signs Temperature 97.3 F L 03/01/22 13:42 Pulse Rate 71 03/01/22 13:53 Respiratory Rate 16 03/01/22 13:53 Blood Pressure 155/89 03/01/22 13:53 Pulse Oximetry 99 03/01/22 13:53 MDM - General Adult Medical Decision Making 76-year-old male presenting to the emergency room for complaints of right-sided chest pain after an episode of fall. X-ray chest negative for any acute finding. EKG was ordered which showed coved ST depression with T wave inversion in V1 and trampoline sign in V2 concerning for possible Brugada. Case was discussed with Dr. Acosta reviewed the EKG with me and recommended blood work prior to decision for inpatient admission vs close followup. Patient eloped prior to blood work and repeat evaluation. Lab Data Radiology Impressions Chest X-Ray 03/01/22 13:50 Impression: Atherosclerosis and hyperinflation. Imaging Data Other Imaging: Radiologist's impression: [address] [address] XRay Report Signed Patient: Sloan Rodriguez Unit #: [id number] : 1945 Age/Sex: 76 / M ADM Date: 03/01/22 Loc: ER Room/Bed: Attending Dr: Ordering Provider/Ordering MD: Miky Duarte MD Date of Service: 03/01/22 Procedure(s): XR chest 2V* [id number] Accession Number(s): [id number] Report Number: [id number] WS: [id number] Chest 2 views, 03/01/2022 Clinical Data: chest pain after fall Comparison: Portable chest, 01/05/2019. Findings: No nodules, masses or effusions are seen. The heart is normal. The pulmonary vascularity is not increased. No pneumonia or pneumothorax is seen. The diaphragms are flattened. The aortic arch and descending thoracic aorta are tortuous. There are several thoracic compression fractures which are chronic. XR/XR chest 2V* [id number] Impression: Atherosclerosis and hyperinflation. ? ? Dictated By: Rani Phillips MD Signed By: Rani Phillips MD Signed Date/Time: 03/01/22 1409 DD/ 1407 Discharge Plan Discharge Patient Disposition: Left Without Being Seen Clinical Impression: Fall, Chest pain Condition: Stable Coding Level of Care Code ED Senior Account Clerk for Chg Fwd Exam Comprehensive
--- NOTE | 2022-03-01 15:09 | PC.NURSE ---
Patient went to xray and never returned to VF1
== END 2022-03-01 15:10 | disposition left against medical advice (07) ==
PROVIDERS: Emergency Provider Emergency Medicine; PCP Nurse Practitioner Family
DX: Z53.29 Procedure and treatment not carried out because of patient's decision for other reasons (principal); R07.9 Chest pain, unspecified; W19.XXXA Unspecified fall, initial encounter
CPT/HCPCS: 71046; 93005; 99283

== ENCOUNTER 2022-03-03 14:23 | Outpatient (CLI) | payer MEDICARE, MEDICAID, SELFPAY ==
--- NOTE | 2022-03-03 | US_ITS ---
WS: [id number] RENAL ULTRASOUND HISTORY: UTI, FLANK COMPARISON: 01/15/2020 TECHNIQUE: 2-D and color Doppler imaging of the kidney submitted. Right kidney: 9.2 cm x 4.3 cm x 5.2 cm. Normal echogenicity with no hydronephrosis or mass. Left kidney: 9.4 cm x 5.0 cm x 5.5 cm. Normal size kidney. Shadowing in the central kidney from a cortical calcification measuring 1.6 x 2.5 x 0.6 cm. No obstruction secondary to the calcification. This dense calcification was also noted on a prior CT. Aorta: Normal. Urinary Bladder: Moderately well distended. No intraluminal filling defect. US/US renal BI* [id number] IMPRESSION: 1. Nonobstructing large calcification mid cortex LEFT kidney. 2. No renal obstruction or solid mass.
== END 2022-03-03 14:24 | disposition home or self-care (01) ==
PROVIDERS: PCP Nurse Practitioner Family; Visit Provider Nurse Practitioner Family
DX: R31.9 Hematuria, unspecified (principal); N39.0 Urinary tract infection, site not specified; M54.59 Other low back pain; R10.9 Unspecified abdominal pain; N20.0 Calculus of kidney
CPT/HCPCS: 76770

== ENCOUNTER → 2022-03-21 14:54 | Outpatient (BNVA) | payer MEDICARE, MEDICAID, SELFPAY | PROVIDERS: PCP Nurse Practitioner Family; Visit Provider Podiatrist Foot & Ankle Surgery | DX: M20.21 Hallux rigidus, right foot (principal); M21.611 Bunion of right foot; M79.671 Pain in right foot | CPT/HCPCS: 73630; 99204 ==

== ENCOUNTER → 2022-05-03 15:35 | Outpatient (BNVA) | payer MEDICARE, MEDICAID, SELFPAY | PROVIDERS: PCP Nurse Practitioner Family; Visit Provider Nurse Practitioner | DX: K74.60 Unspecified cirrhosis of liver (principal) | CPT/HCPCS: 80053; 82105; 85025; 85610 ==

== ENCOUNTER 2022-05-05 08:25 | Oncology outpatient (recurring) (ONCR) | payer MEDICARE, MEDICAID, SELFPAY | END 2022-06-04 23:59 | disposition home or self-care (01) | PROVIDERS: PCP Nurse Practitioner Family; Referring Provider Nurse Practitioner Family; Visit Provider Nurse Practitioner Family | DX: D69.6 Thrombocytopenia, unspecified (principal); K27.9 Peptic ulcer, site unspecified, unspecified as acute or chronic, without hemorrhage or perforation; Z86.19 Personal history of other infectious and parasitic diseases; Z86.010 Personal history of colon polyps; E80.6 Other disorders of bilirubin metabolism; Z79.899 Other long term (current) drug therapy | CPT/HCPCS: G0463 ==

== ENCOUNTER 2022-06-11 16:00 | Emergency (ER) | payer MEDICARE, MEDICAID, SELFPAY ==
[2022-06-11 16:27] VITALS: BP 144/89; PULSE 71; RESP 18; TEMP 36.6; O2SAT 96; BMI 30.9
--- NOTE | 2022-06-11 16:41 | CTR_ITS ---
PROCEDURE INFORMATION: Exam: CT Head Without Contrast Exam date and time: 06/11/2022 5:03 PM Age: 77 years old Clinical indication: Pain; Headache not specified TECHNIQUE: Imaging protocol: Computed tomography of the head without contrast. Radiation optimization: All CT scans at this facility use at least one of these dose optimization techniques: automated exposure control; mA and/or kV adjustment per patient size (includes targeted exams where dose is matched to clinical indication); or iterative reconstruction. COMPARISON: CT head wo con* [id number] 12/29/2018 7:57 PM RADIATION DOSE METRICS: Total DLP (mGy-cm): 1020.58 FINDINGS: Brain: No hemorrhage. No edema. Moderate diffuse cerebral atrophy. No significant white matter disease. No mass effect. Cerebral ventricles: No ventriculomegaly. Paranasal sinuses: Visualized sinuses are unremarkable. No fluid levels. Mastoid air cells: Visualized mastoid air cells are well aerated. Bones/joints: Unremarkable. No acute fracture. Soft tissues: Unremarkable. CT/CT head wo con* [id number] IMPRESSION: No acute intracranial abnormality.
--- NOTE | 2022-06-11 16:55 | ECG_ITS ---
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 Measurements Intervals [place] Rate: 66 P: 56 [place]: 196 QRS: 60 QRSD: 105 T: 62 QT: 402 QTc: 423 Interpretive Statements SINUS RHYTHM TYPE 3 BRUGADA PATTERN (NON-DIAGNOSTIC) [COVED/SADDLEBACK ST ELEVATION > 0.1mV IN 2 OF V1-3] Compared to ECG 03/01/2022 14:22:26 Incomplete right bundle-branch block no longer present ST (T wave) deviation still present Electronically Signed On 06-11-2022 19:07:29 CDT by Jm Stewart M.D. [email or web address] [email or web address]/[id number]
--- NOTE | 2022-06-11 16:55 | XRR_ITS ---
PROCEDURE INFORMATION: Exam: XR Chest Exam date and time: 06/11/2022 5:08 PM Age: 77 years old Clinical indication: Cough TECHNIQUE: Imaging protocol: Radiologic exam of the chest. Views: 1 view. COMPARISON: CR XR chest 2V* [id number] 03/01/2022 1:56 PM FINDINGS: Lungs: Unremarkable. No consolidation. Pleural spaces: Unremarkable. No pleural effusion. No pneumothorax. Heart/Mediastinum: Unremarkable. No cardiomegaly. Bones/joints: Unremarkable. XR/XR chest 1V portable [id number] IMPRESSION: No acute findings.
--- NOTE | 2022-06-11 17:00 | W.ED.GENADLT ---
HPI - General Adult General: Chief complaint: Headache Stated complaint: Headache, covid symptoms Time Seen by Provider: 06/11/22 16:41 History of Present Illness: Patient is a 77-year-old male with a history of cirrhosis, COPD, hepatitis C who presents to the emergency room for evaluation of cough, shortness of breath, headache, sore throat and ear pain. Patient tells me that at baseline, he has COPD. For the last week, he has been coming increasingly short of breath. Patient has been using his albuterol inhaler and has had productive cough. Patient denies any fever/chills but however reports an unusual taste in mouth. Patient denies any chest pain but reports shortness of breath. Patient denies any diarrhea, melena/hematochezia, or complaint. No focal complaints abdominal pain. Onset: 3 days of headache, L ear pain and fatigue, 7 days of dyspnea Duration:ongoing Location:home Severity:moderate Associated symptoms: Reports dyspnea and malaise; Deny chest pain, nausea, rash, palpitations or vomiting Review of Systems Const: Reports: fatigue, malaise and other (+generalized weakness); Denies: fever(s) or chills Eyes: Denies: change in vision ENMT: Reports: mouth pain (+sore throat) and other (+L ear pain) Card: Denies: chest pain or palpitations Resp: Reports: dyspnea and productive cough GI: Denies: abdominal pain, nausea, vomiting or diarrhea : Denies: dysuria Musc: Denies: extremity pain Skin/Breast: Denies: rash or new lesions Neuro: Denies: weakness in extremities Psych: Reports: other (Normal mood) Grant/Lymph: Denies: easy bruising PFSH ED PFSH: Medical History Chronic pain cervical and lumbar spine Cirrhosis Colon perforation Colon polyps COPD (chronic obstructive pulmonary disease) Hepatitis C Osteoarthritis Thrombocytopenia Surgical History S/P cataract extraction bilateral S/P cholecystectomy S/P laparoscopy (11/19/20) repair of sigmoid perforation Status post colonoscopy Family History Mother Cancer Grandmother Diabetes Other Hypertension Denies family history of CAD (coronary artery disease) Clotting disorder Dementia Hyperlipidemia Psychiatric illness Chronic kidney disease (CKD) Suicide Anesthesia complication Bleeding disorder Lung disease Stroke Social History Smoking and tobacco status: former smoker Second hand smoke exposure: No Alcohol intake: never History of recent travel: No Physical Exam Const: COMMON NORMALS: alert HENMT: COMMON NORMALS: atraumatic HEAD & SCALP: atraumatic MOUTH: moist mucous membranes not abnormal Eye: COMMON NORMALS: EOMs intact bilaterally and conjunctivae normal CONJUNCTIVA: Yes conjunctivae normal OTHER: +TM intact b/l No posterior pharyneal erythema or exudates Neck/C-Spine: COMMON NORMALS: full ROM and supple Resp: COMMON NORMALS: normal respiratory effort OTHER: + Coarse breath sounds bilaterally, no expiratory wheezes Cardio: COMMON NORMALS: regular rate RATE: regular rate GI: COMMON NORMALS: Soft to palpation and non-tender PALPATION: Yes Soft to palpation OTHER: No focal TTP. NO guarding rebound, guarding, rigidity. No CVA tenderness to percussion. Neg Carrillo/Neg McBurney's point tenderness, no suprabupic tenderness to palpation. Extremity: COMMON NORMALS: full ROM Neuro: SENSORIUM/ORIENTATION: Yes alert MOTOR EXAM: No Abnormal motor strength present and Other motor observations present (no focal motor deficits) Psych: COMMON NORMALS: speech normal SPEECH: Yes normal speech MOOD & AFFECT: Yes euthymic mood Course Vital Signs: Vital signs: Vital Signs Temperature 97.9 F 06/11/22 16:27 Pulse Rate 68 06/11/22 18:11 Respiratory Rate 18 06/11/22 18:11 Blood Pressure 144/89 06/11/22 16:27 Pulse Oximetry 97 06/11/22 18:11 Oxygen Delivery Me thod 06/11/22 18:11 MDM - General Adult Medical Decision Making 77-year-old male presenting to the emergency room with complaints of headache, sore throat, earache for the last 4 sitting shortness of breath for 1 week. Exam, patient is noted have coarse crackles bilaterally. No increased work of breathing, sats >95% on RA. Afebrile currently. Today's EKG was read by the machine as acute STEMI. However on further review, patient does NOT appear to have any ST elevation of the J-point. Patient has no reciprocal T wave changes. Patient's not actively complaining of chest pain currently. Compared to prior EKG from 03/01/2022, EKG looks similar. Lab work-up showed no leukocytosis. Rest of lab within normal. Troponin x1 within normal limit. Do not suspect ACS as patient does not have any active pain at this time. Patient received DuoNeb for mild bronchitis. COVID PCR pending Disposition: Discharge. Patient counseled regarding diagnostic impression, treatment plan. Patient given ED strict return precautions to return for continuation, worsening, or development of new symptoms. Instructed to f/u w/ PCP regarding symptoms today. Patient verbalized understanding. Lab Data : 06/11/22 17:20 06/11/22 17:[address] 06/11/22 16:41 IMPRESSION: No acute intracranial abnormality. Chest X-Ray 06/11/22 16:55 IMPRESSION: No acute findings. Laboratory Results WBC 4.8 10^3/uL (4.0-10.0) 06/11/22 17:20 RBC 4.05 10^6/uL (4.1-5.3) L 06/11/22 17:20 Hgb 13.9 g/dL (11.7-16.6) 06/11/22 17:20 Hct 39.7 % (42.0-52.0) L 06/11/22 17:20 MCV 98.0 fl (80-94) H 06/11/22 17:20 MCH 34.3 pg (28.0-34.0) H 06/11/22 17:20 MCHC 35.0 g/dL (30.0-36.0) 06/11/22 17:20 RDW 13.4 % (12.1-15.1) 06/11/22 17:20 Plt Count 69 10^3/cmm (130-400) L 06/11/22 17:20 MPV 10.8 fL (7.4-10.4) H 06/11/22 17:20 Neut % (Auto) 61.7 % 06/11/22 17:20 Lymph % (Auto) 25.3 % 06/11/22 17:20 Meigs % (Auto) 8.3 % 06/11/22 17:20 Eos % (Auto) 3.5 % 08/07/22 17:20 Baso % (Auto) 1.0 % 06/11/22 17:20 Neut # (Auto) 2.97 10^3/uL (1.8-7.7) 06/11/22 17:20 Lymph # (Auto) 1.2 10^3/uL (0.8-4.8) 06/11/22 17:20 Meigs # (Auto) 0.4 10^3/uL (0.2-0.9) 06/11/22 17:20 Eos # (Auto) 0.2 10^3/uL (0.0-0.8) 06/11/22 17:20 Baso # (Auto) 0.1 10^3/uL (0.0-0.1) 06/11/22 17:20 Nucleated RBC % (auto) 0 % 06/11/22 17:20 Nucleated RBCs # 0.0 /100WBC 06/11/22 17:20 Sodium 143 mmol/L (136-145) 06/11/22 17:20 Potassium 4.3 mmol/L (3.5-5.1) 06/11/22 17:20 Chloride 106 mmol/L (98-107) 06/11/22 17:20 Carbon Dioxide 28 mmol/L (22-29) 06/11/22 17:20 Anion Gap 13.3 (5-19) 06/11/22 17:20 BUN 23 mg/dL (8-23) 06/11/22 17:20 Creatinine 1.1 mg/dL (0.7-1.2) 06/11/22 17:20 GFR Calculation Not Reportable 06/11/22 17:20 Glucose 84 mg/dL (65-115) 06/11/22 17:20 Calculated Osmolality 299 mOsm/kg (285-295) H 06/11/22 17:20 Calcium 9.7 mg/dL (8.5-10.5) 06/11/22 17:20 Troponin T Baseline 10 ng/L (0-15) 06/11/22 17:20 Influenza Type A Ag Negative (Negative) 06/11/22 17:20 Influenza Type B Ag Negative (Negative) 06/11/22 17:20 Imaging Data Other Imaging: Radiologist's impression: [address] [address] XRay Report Signed Patient: Sloan Rodriguez Unit #: [id number] : 1945 Age/Sex: 77 / M ADM Date: 06/11/22 Loc: ER Room/Bed: Attending Dr: Ordering Provider/Ordering MD: Miky Duarte MD Date of Service: 06/11/22 Procedure(s): XR chest 1V portable [id number] Accession Number(s): [id number] Report Number: [id number] PROCEDURE INFORMATION: Exam: XR Chest Exam date and time: 06/11/2022 5:08 PM Age: 77 years old Clinical indication: Cough TECHNIQUE: Imaging protocol: Radiologic exam of the chest. Views: 1 view. COMPARISON: CR XR chest 2V* [id number] 03/01/2022 1:56 PM FINDINGS: Lungs: Unremarkable. No consolidation. Pleural spaces: Unremarkable. No pleural effusion. No pneumothorax. Heart/Mediastinum: Unremarkable. No cardiomegaly. Bones/joints: Unremarkable. XR/XR chest 1V portable [id number] IMPRESSION: No acute findings. ? Dictated By: Kan Díaz DO Signed By: Kan Díaz DO Signed Date/Time: 06/11/22 1756 DD/ [address] [address] [address] Scan Report Signed Patient: Sloan Rodriguez Unit #: [id number] : 1945 Age/Sex: 77 / M ADM Date: 06/11/22 Loc: ER Room/Bed: Attending Dr: Ordering Provider/Ordering MD: Miky Duarte MD Date of Service: 06/11/22 Procedure(s): CT head wo con* [id number] Accession Number(s): [id number] Report Number: [id number] PROCEDURE INFORMATION: Exam: CT Head Without Contrast Exam date and time: 06/11/2022 5:03 PM Age: 77 years old Clinical indication: Pain; Headache not specified TECHNIQUE: Imaging protocol: Computed tomography of the head without contrast. Radiation optimization: All CT scans at this facility use at least one of these dose optimization techniques: automated exposure control; mA and/or kV adjustment per patient size (includes targeted exams where dose is matched to clinical indication); or iterative reconstruction. COMPARISON: CT head wo con* [id number] 12/29/2018 7:57 PM RADIATION DOSE METRICS: Total DLP (mGy-cm): 1020.58 FINDINGS: Brain: No hemorrhage. No edema. Moderate diffuse cerebral atrophy. No significant white matter disease. No mass effect. Cerebral ventricles: No ventriculomegaly. Paranasal sinuses: Visualized sinuses are unremarkable. No fluid levels. Mastoid air cells: Visualized mastoid air cells are well aerated. Bones/joints: Unremarkable. No acute fracture. Soft tissues: Unremarkable. CT/CT head wo con* [id number] IMPRESSION: No acute intracranial abnormality. ? Dictated By: Kan Díaz DO Signed By: aKn Díaz DO Signed Date/Time: 06/11/22 1800 DD/ 1703 Discharge Plan Discharge Patient Disposition: Home Clinical Impression: Cough, Ear pain Condition: Stable Prescriptions: No Action fluticasone propion-salmeterol [Advair Diskus] 500-50 mcg/dose blister with device 1 inh INHALATION DAILY tamsulosin [Flomax] 0.4 mg capsule 0.4 mg PO DAILY oxycodone 20 mg tablet 20 mg PO TID PRN (Reason: pain) 30 Days Qty: 90 0RF Rx Instructions: fill on or after 09/16/21 cyclobenzaprine 10 mg tablet 10 mg PO TID PRN (Reason: muscle spasm) Qty: 90 1RF diclofenac sodium [Voltaren Arthritis Pain] 1 % gel 4 g topical BID 30 Days Qty: 100 2RF Rx Instructions: apply to single right great toe morning and night (DME) Sole Supports See Rx Instructions .Route .MEDSUPPLY Qty: 1 0RF Rx Instructions: As directed pantoprazole 40 mg tablet,delayed release (DR/EC) 40 mg PO DAILY Ventolin HFA 90 mcg/actuation Hfa Aerosol Inhaler 2 puff INHALATION Q4H PRN (Reason: Shortness Of Breath) clotrimazole 1 % cream 1 applic TOPICAL BID Rx Instructions: for 2 weeks finasteride 5 mg Tablet 5 mg PO DAILY lactulose 10 gram/15 mL solution 15 ml PO BID Qty: 237 2RF Discharge Orders: Discharge ED (Routine); Ordered 06/11/22 Ordered By: Miky Duarte Referrals: Jada Yeh FNP [Primary Care Provider] - Discharge Diet: Advance as tolerated Discharge Activity: Increase activity as tolerated Patient Instructions: Acute Cough (ED) Activity Restrictions/Additional Instructions: Come back to the emergency room if your symptoms worsen, have any shortness of breath, fever/chills, dehydration, inability tolerate food or drinks, any difficulty breathing, or any new or concerning complaints. Coding Level of Care Code ED Funeral Director'S Assistant for Chg Fwd Exam Comprehensive
[2022-06-11] MEDS: sodium chloride 0.9% 500 ML IV (17:29)
[2022-06-11 17:36] LABS: Basophils # 0.1 10^3/uL (0.0-0.1); Eosinophils # 0.2 10^3/uL (0.0-0.8); Eosinophils % 3.5 %; Hematocrit 39.7 % (42.0-52.0); Hemoglobin 13.9 g/dL (11.7-16.6); Lymphocytes # 1.2 10^3/uL (0.8-4.8); Lymphocytes % 25.3 %; Mean Corpuscular Hemoglobin 34.3 pg (28.0-34.0); Mean Platelet Volume 10.8 fL (7.4-10.4); Monocytes # 0.4 10^3/uL (0.2-0.9); Monocytes % 8.3 %; Neutrophils # 2.97 10^3/uL (1.8-7.7); Neutrophils % 61.7 %; Nucleated Red Blood Cells % 0 %; Platelet Count 69 10^3/cmm (130-400); Red Blood Count 4.05 10^6/uL (4.1-5.3); Red Cell Distribution Width 13.4 % (12.1-15.1); White Blood Count 4.8 10^3/uL (4.0-10.0)
[2022-06-11 17:55] LABS: Anion Gap 13.3 (5-19); Blood Urea Nitrogen 23 mg/dL (8-23); Calcium 9.7 mg/dL (8.5-10.5); Carbon Dioxide 28 mmol/L (22-29); Chloride 106 mmol/L (98-107); Glucose 84 mg/dL (65-115); Osmolality Calculated 299 mOsm/kg (285-295); Potassium 4.3 mmol/L (3.5-5.1); Sodium 143 mmol/L (136-145)
[2022-06-11 17:57] LABS: Influenza A by IFA Negative (Negative); Troponin(5th) Baseline 10 ng/L (0-15)
[2022-06-11 17:58] LABS: Influenza B by IFA Negative (Negative)
[2022-06-11 18:00] VITALS: BP 156/117; PULSE 63; RESP 15; O2SAT 97
[2022-06-11] MEDS: ipratropium-albuterol 3 mL Neb INHALATION ×3 (18:09→18:14)
[2022-06-11 18:11] VITALS: PULSE 68; RESP 18; O2SAT 97
[2022-06-11 18:23] VITALS: PULSE 85
[2022-06-11 18:36] VITALS: BP 124/89; PULSE 95; RESP 15; O2SAT 97
[2022-06-11 21:20] LABS: Adenovirus Not Detected (NOT DETECT); Chlamydia Pneumoniae Not Detected (NOT DETECT); Coronavirus 229E,HKU1,NL63,OC4 Not Detected (NOT DETECT); Human Metapneumovirus Not Detected (NOT DETECT); Human Rhinovirus/Enterovirus Not Detected (NOT DETECT); Influenza A Not Detected (NOT DETECT); Influenza A H1 Not Detected (NOT DETECT); Influenza A H1-2009 Not Detected (NOT DETECT); Influenza A H3 Not Detected (NOT DETECT); Influenza B Not Detected (NOT DETECT); Mycoplasma Pneumoniae Not Detected (NOT DETECT); Parainfluenza Virus Type 1 Not Detected (NOT DETECT); Parainfluenza Virus Type 2 Not Detected (NOT DETECT); Parainfluenza Virus Type 3 Not Detected (NOT DETECT); Parainfluenza Virus Type 4 Not Detected (NOT DETECT); Respiratory Syncytial Virus A Not Detected (NOT DETECT); Respiratory Syncytial Virus B Not Detected (NOT DETECT); SARS-COV-2 Not Detected (NOT DETECT)
== END 2022-06-11 18:39 | disposition home or self-care (01) ==
PROVIDERS: Emergency Provider Emergency Medicine; PCP Nurse Practitioner Family
DX: R05.9 Cough, unspecified (principal); H92.02 Otalgia, left ear; Z87.891 Personal history of nicotine dependence; J44.9 Chronic obstructive pulmonary disease, unspecified; Z86.19 Personal history of other infectious and parasitic diseases; Z20.822 Contact with and (suspected) exposure to COVID-19
CPT/HCPCS: 70450; 71045; 80048; 84484; 85025; 87635; 87804; 93005; 94640; 99285; J7040

== ENCOUNTER → 2022-06-21 11:59 | Outpatient (BNVA) | payer MEDICARE, MEDICAID, SELFPAY | PROVIDERS: PCP Nurse Practitioner Family; Visit Provider Internal Medicine | DX: R06.02 Shortness of breath (principal); R00.2 Palpitations; R94.31 Abnormal electrocardiogram [ECG] [EKG]; M20.21 Hallux rigidus, right foot; M21.611 Bunion of right foot; L60.3 Nail dystrophy | CPT/HCPCS: 99204; 99213; 99214 ==

== ENCOUNTER 2022-07-16 14:00 | Emergency (ER) | payer MEDICARE, MEDICAID, SELFPAY ==
[2022-07-16 14:07] VITALS: BP 163/90; PULSE 100; RESP 18; TEMP 36.9; O2SAT 96; BMI 31.8
--- NOTE | 2022-07-16 14:25 | XRR_ITS ---
PROCEDURE INFORMATION: Exam: XR Chest Exam date and time: 07/16/2022 2:34 PM Age: 77 years old Clinical indication: Cough; Additional info: Cough, SOB TECHNIQUE: Imaging protocol: Radiologic exam of the chest. Views: 2 views. COMPARISON: 1. CR XR chest 2V* [id number] 03/01/2022 1:56 PM 2. CR XR chest 1V portable [id number] 06/11/2022 5:08 PM FINDINGS: Lungs: No consolidation. Flattening of diaphragms suggesting COPD similar to prior exam. Pleural spaces: Unremarkable. No pleural effusion. No pneumothorax. Heart/Mediastinum: No cardiomegaly. Bones/joints: Osteopenia with kyphosis and multiple multilevel chronic moderate-severe wedging deformities of lower thoracic vertebral bodies. No obvious subluxation. If there is a clinical concern for acute spine pathology, dedicated spine imaging may also be considered. XR/XR chest 2V* [id number] IMPRESSION: 1. Probable COPD. No acute cardiopulmonary findings. 2. Vertebral findings as above.
--- NOTE | 2022-07-16 14:28 | ED_ITS ---
HPI - URI/Sore Throat General: Chief Complaint: Upper Respiratory Infection Stated Complaint: Cough, headache, chills Time Seen by Provider: 07/16/22 14:16 Source: patient Mode of arrival: ambulatory Limitations: no limitations History of Present Illness: 77-year-old male presents to the ER today for co ugh, shortness of breath, congestion, body aches, chills x12 hours. Patient reports he woke up this morning with the symptoms. Patient reports he has difficulty taking a deep breath and has a constant dry cough. Patient reports congestion and a runny nose today. Patient reports chills and body aches all over. He reports a headache that also started this morning. He denies any known sick contacts. Patient reports he has been vaccinated for COVID. Review of Systems General: Reports: 10 or more systems reviewed and unremarkable except in HPI and below PFSH ED PFSH: Medical History Chronic pain cervical and lumbar spine Cirrhosis Colon perforation Colon polyps COPD (chronic obstructive pulmonary disease) Hepatitis C Osteoarthritis Thrombocytopenia Surgical History S/P cataract extraction bilateral S/P cholecystectomy S/P laparoscopy (11/19/20) repair of sigmoid perforation Status post colonoscopy Family History Mother Cancer Grandmother Diabetes Other Hypertension Denies family history of CAD (coronary artery disease) Clotting disorder Dementia Hyperlipidemia Psychiatric illness Chronic kidney disease (CKD) Suicide Anesthesia complication Bleeding disorder Lung disease Stroke Social History Smoking and tobacco status: former smoker Second hand smoke exposure: No Alcohol intake: never History of recent travel: No Physical Exam Const: COMMON NORMALS: no acute distress, average body habitus, patient oriented x3, no limitations, healthy appearing, alert and well nourished HENMT: NOSE: Abnormal mucous membranes and turbinates present erythematous and Nasal discharge present clear THROAT: posterior oropharynx normal Neck/C-Spine: COMMON NORMALS: full ROM and no lymphadenopathy Resp: EFFORT & INSPECTION: Yes labored AUSCULTATION: rhonchi lower bilaterally and wheezes throughout Cardio: COMMON NORMALS: regular rate, regular rhythm and No murmurs present (Cardio) RATE: regular rate RHYTHM: regular rhythm GI: COMMON NORMALS: Normal to inspection, nondistended, normoactive bowel sounds present, Soft to palpation and non-tender PALPATION: Yes Soft to palpation Extremity: COMMON NORMALS: normal to inspection and full ROM Neuro: COMMON NORMALS: patient oriented x3 SENSORIUM/ORIENTATION: Yes alert Psych: COMMON NORMALS: mental status grossly normal, Normal thought process present and cooperative THOUGHT PROCESS: Normal thought process present Skin: COMMON NORMALS: no rashes or lesions noted and no wounds GENERAL SKIN EXAM: no rashes or lesions noted Course ED course: 77-year-old male presents to the ER today for cough, shortness of breath, congestion, runny nose, headache, body aches, chills x12 hours. Patient reports he woke up this morning with most of the symptoms. He reports things are not improving. He reports a cough that is nonproductive and makes him short of breath. Patient reports body aches all over. Denies any known sick contacts Patient reports he is up-to-date on COVID status. We will go ahead and get a COVID test today. We will do chest x-ray and DuoNeb given patient's wheezes and tight breath sounds. Vital Signs: Vital signs: Vital Signs Temperature 98.4 F 07/16/22 14:07 Pulse Rate 105 H 07/16/22 14:54 Respiratory Rate 20 H 07/16/22 14:46 Blood Pressure 163/90 07/16/22 14:07 Pulse Oximetry 97 07/16/22 14:46 Oxygen Delivery Me thod 07/16/22 14:46 MDM - URI/Sore Throat Medical Decision Making 77-year-old male presents to the ER today for cough, shortness of breath, congestion, runny nose, headache, body aches, chills x12 hours. Patient reports he woke up this morning with most of the symptoms. He reports things are not improving. He reports a cough that is nonproductive and makes him short of breath. Patient reports body aches all over. Denies any known sick contacts Patient reports he is up-to-date on COVID status. We will go ahead and get a COVID test today. We will do chest x-ray and DuoNeb given patient's wheezes and tight breath sounds. COVID was negative. Chest x-ray indicates COPD. Likely this is a COPD exacerbation. We will treat patient with doxycycline 100 mg twice daily x10 days and a short burst of prednisone. Patient has home inhalers that he takes. Recommend increasing fluid intake. Also recommended taking Mucinex twice daily until symptoms improve. Patient should follow-up with PCP in 1 week if no improvement. Return to the ER with any new or worsening symptoms. Patient verbalized understanding and was in agreement with this treatment plan. Lab Data : 07/16/22 15:14 Radiology Impressions Chest X-Ray 07/16/22 14:25 IMPRESSION: 1. Probable COPD. No acute cardiopulmonary findings. 2. Vertebral findings as above. Laboratory Results WBC 5.4 10^3/uL (4.0-10.0) 07/16/22 15:14 RBC 4.18 10^6/uL (4.1-5.3) 07/16/22 15:14 Hgb 14.3 g/dL (11.7-16.6) 07/16/22 15:14 Hct 41.4 % (42.0-52.0) L 07/16/22 15:14 MCV 99.0 fl (80-94) H 07/16/22 15:14 MCH 34.2 pg (28.0-34.0) H 07/16/22 15:14 MCHC 34.5 g/dL (30.0-36.0) 07/16/22 15:14 RDW 13.4 % (12.1-15.1) 07/16/22 15:14 Plt Count 62 10^3/cmm (130-400) L 07/16/22 15:14 MPV 10.5 fL (7.4-10.4) H 07/16/22 15:14 Neut % (Auto) 69.3 % 07/16/22 15:14 Lymph % (Auto) 12.5 % 07/16/22 15:14 O'Brien % (Auto) 16.2 % 07/16/22 15:14 Eos % (Auto) 1.1 % 07/16/22 15:14 Baso % (Auto) 0.7 % 07/16/22 15:14 Neut # (Auto) 3.76 10^3/uL (1.8-7.7) 07/16/22 15:14 Lymph # (Auto) 0.7 10^3/uL (0.8-4.8) L 07/16/22 15:14 O'Brien # (Auto) 0.9 10^3/uL (0.2-0.9) 07/16/22 15:14 Eos # (Auto) 0.1 10^3/uL (0.0-0.8) 07/16/22 15:14 Baso # (Auto) 0.0 10^3/uL (0.0-0.1) 07/16/22 15:14 Nucleated RBC % (auto) 0 % 07/16/22 15:14 Nucleated RBCs # 0.0 /100WBC 07/16/22 15:14 SARS-CoV-2 Ag (Rapid) Negative (Negative) 07/16/22 15:14 Critical Care Time Critical Care Time: Critical Care Time: No Discharge Plan Discharge Patient Disposition: Home Clinical Impression: COPD exacerbation Condition: Stable Prescriptions: New prednisone 20 mg tablet 40 mg PO DAILY 4 Days Qty: 8 0RF doxycycline hyclate 100 mg tablet 100 mg PO BID 10 Days Qty: 20 0RF No Action fluticasone propion-salmeterol [Advair Diskus] 500-50 mcg/dose blister with device 1 inh INHALATION DAILY tamsulosin [Flomax] 0.4 mg capsule 0.4 mg PO DAILY oxycodone 20 mg tablet 20 mg PO TID PRN (Reason: pain) 30 Days Qty: 90 0RF Rx Instructions: fill on or after 09/16/21 cyclobenzaprine 10 mg tablet 10 mg PO TID PRN (Reason: muscle spasm) Qty: 90 1RF diclofenac sodium [Voltaren Arthritis Pain] 1 % gel 4 g topical BID 30 Days Qty: 100 2RF Rx Instructions: apply to single right great toe morning and night (DME) Sole Supports See Rx Instructions .Route .MEDSUPPLY Qty: 1 0RF Rx Instructions: As directed amlodipine 5 mg tablet 5 mg PO DAILY Qty: 90 3RF pantoprazole 40 mg tablet,delayed release (DR/EC) 40 mg PO DAILY Qty: 90 3RF Ventolin HFA 90 mcg/actuation Hfa Aerosol Inhaler 2 puff INHALATION Q4H PRN (Reason: Shortness Of Breath) clotrimazole 1 % cream 1 applic TOPICAL BID Rx Instructions: for 2 weeks finasteride 5 mg Tablet 5 mg PO DAILY lactulose 10 gram/15 mL solution 15 ml PO BID Qty: 237 2RF Discharge Orders: Discharge ED (Routine); Ordered 07/16/22 Ordered By: Josette Tilley Referrals: Jada Yeh, [employer] [Primary Care Provider] - Discharge Diet: Usual diet Discharge Activity: Resume usual activity Patient Instructions: Opioid Safety Activity Restrictions/Additional Instructions: Take antibiotics and steroids as prescribed. Take Mucinex 600 mg twice daily. Increase fluid intake. Follow-up with PCP with any new or worsening symptoms. Coding Level of Care Code ED Enrollment Manager for Chg Fwd Exam Comprehensive
[2022-07-16] MEDS: ipratropium-albuterol 3 mL Neb INHALATION (14:44)
[2022-07-16 14:46] VITALS: PULSE 102; RESP 20; O2SAT 97
[2022-07-16 14:54] VITALS: PULSE 105
[2022-07-16 15:28] LABS: Basophils % 0.7 %; Eosinophils # 0.1 10^3/uL (0.0-0.8); Eosinophils % 1.1 %; Hematocrit 41.4 % (42.0-52.0); Hemoglobin 14.3 g/dL (11.7-16.6); Lymphocytes # 0.7 10^3/uL (0.8-4.8); Lymphocytes % 12.5 %; Mean Corpuscular HGB Conc 34.5 g/dL (30.0-36.0); Mean Corpuscular Hemoglobin 34.2 pg (28.0-34.0); Mean Platelet Volume 10.5 fL (7.4-10.4); Monocytes # 0.9 10^3/uL (0.2-0.9); Monocytes % 16.2 %; Neutrophils # 3.76 10^3/uL (1.8-7.7); Neutrophils % 69.3 %; Nucleated Red Blood Cells % 0 %; Platelet Count 62 10^3/cmm (130-400); Red Blood Count 4.18 10^6/uL (4.1-5.3); Red Cell Distribution Width 13.4 % (12.1-15.1); White Blood Count 5.4 10^3/uL (4.0-10.0)
[2022-07-16 15:46] LABS: SARS Covid-2 Antigen Negative (Negative)
== END 2022-07-16 16:15 | disposition home or self-care (01) ==
PROVIDERS: Emergency Provider Physician Assistant; PCP Nurse Practitioner Family
DX: J44.1 Chronic obstructive pulmonary disease with (acute) exacerbation (principal); Z20.822 Contact with and (suspected) exposure to COVID-19; Z86.19 Personal history of other infectious and parasitic diseases; Z87.891 Personal history of nicotine dependence
CPT/HCPCS: 36415; 71046; 85025; 87426; 94640; 99284

== ENCOUNTER 2022-08-15 07:50 | Oncology outpatient (recurring) (ONCR) | payer MEDICARE, MEDICAID, SELFPAY ==
[2022-08-14 12:04] LABS: Basophils % 0.6 %; Eosinophils # 0.2 10^3/uL (0.0-0.8); Eosinophils % 4.3 %; Hematocrit 36.4 % (42.0-52.0); Hemoglobin 12.7 g/dL (11.7-16.6); Lymphocytes # 1.1 10^3/uL (0.8-4.8); Lymphocytes % 30.4 %; Mean Corpuscular HGB Conc 34.9 g/dL (30.0-36.0); Mean Corpuscular Hemoglobin 34.7 pg (28.0-34.0); Mean Corpuscular Volume 99.5 fl (80-94); Mean Platelet Volume 10.5 fL (7.4-10.4); Monocytes # 0.3 10^3/uL (0.2-0.9); Monocytes % 8.7 %; Neutrophils # 1.92 10^3/uL (1.8-7.7); Neutrophils % 55.7 %; Nucleated Red Blood Cells % 0 %; Platelet Count 61 10^3/cmm (130-400); Red Blood Count 3.66 10^6/uL (4.1-5.3); Red Cell Distribution Width 13.7 % (12.1-15.1); White Blood Count 3.5 10^3/uL (4.0-10.0)
== END 2022-09-04 23:59 | disposition home or self-care (01) ==
PROVIDERS: Nurse Practitioner; PCP Nurse Practitioner Family; Visit Provider Internal Medicine Hematology & Oncology
DX: K27.9 Peptic ulcer, site unspecified, unspecified as acute or chronic, without hemorrhage or perforation (principal); D69.6 Thrombocytopenia, unspecified; D72.819 Decreased white blood cell count, unspecified; K74.60 Unspecified cirrhosis of liver; Z79.899 Other long term (current) drug therapy; Z87.891 Personal history of nicotine dependence
CPT/HCPCS: 36415; 85025; 99214

== ENCOUNTER 2022-09-15 08:17 | Oncology outpatient (recurring) (ONCR) | payer MEDICARE, MEDICAID, SELFPAY ==
[2022-09-15 08:34] LABS: Eosinophils # 0.1 10^3/uL (0.0-0.8); Eosinophils % 3.3 %; Hematocrit 39.1 % (42.0-52.0); Hemoglobin 13.3 g/dL (11.7-16.6); Lymphocytes % 24.9 %; Mean Corpuscular Hemoglobin 33.8 pg (28.0-34.0); Mean Corpuscular Volume 99.2 fl (80-94); Mean Platelet Volume 10.7 fL (7.4-10.4); Monocytes # 0.4 10^3/uL (0.2-0.9); Monocytes % 9.3 %; Neutrophils # 2.38 10^3/uL (1.8-7.7); Neutrophils % 61.2 %; Nucleated Red Blood Cells % 0 %; Platelet Count 66 10^3/cmm (130-400); Red Blood Count 3.94 10^6/uL (4.1-5.3); Red Cell Distribution Width 13.4 % (12.1-15.1); White Blood Count 3.9 10^3/uL (4.0-10.0)
== END 2022-10-04 23:59 | disposition home or self-care (01) ==
PROVIDERS: PCP Nurse Practitioner Family; Visit Provider Internal Medicine Hematology & Oncology
DX: D61.818 Other pancytopenia; D69.6 Thrombocytopenia, unspecified; K27.9 Peptic ulcer, site unspecified, unspecified as acute or chronic, without hemorrhage or perforation; Z86.19 Personal history of other infectious and parasitic diseases; Z79.899 Other long term (current) drug therapy
CPT/HCPCS: 36415; 85025; 99214

== ENCOUNTER → 2022-11-02 14:12 | Outpatient (BNVA) | payer MEDICARE, MEDICAID, SELFPAY | PROVIDERS: PCP Nurse Practitioner Family; Visit Provider Nurse Practitioner Family | DX: R33.9 Retention of urine, unspecified (principal) | CPT/HCPCS: 81000 ==

== ENCOUNTER → 2022-11-28 14:45 | Outpatient (BNVA) | payer MEDICARE, MEDICAID, SELFPAY | PROVIDERS: PCP Clinical Nurse Specialist Adult Health; Visit Provider Clinical Nurse Specialist Adult Health | DX: Z00.00 Encounter for general adult medical examination without abnormal findings (principal); Z79.899 Other long term (current) drug therapy | CPT/HCPCS: 80053; 80061 ==

== ENCOUNTER 2022-12-01 07:08 | Outpatient (CLI) | payer MEDICARE, MEDICAID, SELFPAY ==
--- NOTE | 2022-12-01 07:15 | US_ITS ---
WS: [id number] Complete ABDOMINAL ULTRASOUND HISTORY: Thrombocytopenia. COMPARISON: 01/15/2020 Liver: 13.1 cm in length. Small coarse liver. Margins are slightly lobulated. No bile duct dilatation or mass. Portal Vein: Normal hepatopetal flow with monophasic waveform. Gallbladder: Prior cholecystectomy. Pancreas: Completely obscured by bowel gas. CBD: 0.4 cm. Right kidney: 7.9 cm x 4.8 cm x 5.5 cm. Atrophied RIGHT kidney. Very difficult to visualize due to p atient's body habitus. No obstruction or mass. Left kidney: 9.8 cm x 5.7 cm x 5.6 cm. Low normal size kidney. Dense nonobstructing calcification in the central kidney measures 2.1 cm. No hydronephrosis or solid mass. Spleen: 12.9 cm in length. Spleen is normal size with mild coarse echotexture. No mass identified. Sp ximena is just slightly larger than the prior ultrasound of 01/15/2020. At that time splenic measurement was 10.3 cm. Abdominal aorta and IVC are within normal limits. No ascites. US/US abdomen complete* [id number] IMPRESSION: 1. Spleen measures 12.9 cm in length. Within normal limits but slightly increa sed from 10.3 cm on 01/15/2020. 2. Prior cholecystectomy. 3. Moderate atrophy RIGHT kidney. 4. Nonobstructing central LEFT renal calcification. 5. Cirrhotic appearing liver.
== END 2022-12-01 07:09 | disposition home or self-care (01) ==
PROVIDERS: PCP Clinical Nurse Specialist Adult Health; Visit Provider Internal Medicine Hematology & Oncology
DX: D69.6 Thrombocytopenia, unspecified (principal); K74.60 Unspecified cirrhosis of liver; N28.89 Other specified disorders of kidney and ureter; N20.0 Calculus of kidney; N26.1 Atrophy of kidney (terminal); Z90.49 Acquired absence of other specified parts of digestive tract
CPT/HCPCS: 76700

== ENCOUNTER 2023-01-29 08:45 | Oncology outpatient (recurring) (ONCR) | payer MEDICARE, MEDICAID, SELFPAY ==
[2023-01-29 09:14] LABS: Basophils # 0.1 10^3/uL (0.0-0.1); Basophils % 0.9 %; Eosinophils # 0.2 10^3/uL (0.0-0.8); Eosinophils % 3.3 %; Hematocrit 39.5 % (42.0-52.0); Hemoglobin 13.7 g/dL (11.7-16.6); Lymphocytes # 1.5 10^3/uL (0.8-4.8); Lymphocytes % 28.2 %; Mean Corpuscular HGB Conc 34.7 g/dL (30.0-36.0); Mean Corpuscular Hemoglobin 33.8 pg (28.0-34.0); Mean Corpuscular Volume 97.5 fl (80-94); Mean Platelet Volume 10.7 fL (7.4-10.4); Monocytes # 0.5 10^3/uL (0.2-0.9); Monocytes % 8.8 %; Neutrophils # 3.17 10^3/uL (1.8-7.7); Neutrophils % 58.4 %; Nucleated Red Blood Cells % 0 %; Platelet Count 84 10^3/cmm (130-400); Red Blood Count 4.05 10^6/uL (4.1-5.3); Red Cell Distribution Width 13.8 % (12.1-15.1); White Blood Count 5.4 10^3/uL (4.0-10.0)
== END 2023-02-02 23:59 | disposition home or self-care (01) ==
PROVIDERS: Nurse Practitioner; PCP Clinical Nurse Specialist Adult Health; Visit Provider Internal Medicine Hematology & Oncology
DX: D69.6 Thrombocytopenia, unspecified; K27.9 Peptic ulcer, site unspecified, unspecified as acute or chronic, without hemorrhage or perforation; Z86.19 Personal history of other infectious and parasitic diseases; Z79.899 Other long term (current) drug therapy; Z86.010 Personal history of colon polyps
CPT/HCPCS: 36415; 85025; 99214

== ENCOUNTER 2023-02-13 09:49 | Outpatient (CLI) | payer MEDICARE, MEDICAID, SELFPAY ==
[2023-02-13 11:14] LABS: Prostate Specific Antigen 0.313 ng/mL (0-4); Testosterone Total 805.3 ng/dL (193-740)
== END 2023-02-13 09:50 | disposition home or self-care (01) ==
LOC: LAB 10:00
PROVIDERS: PCP Clinical Nurse Specialist Adult Health
DX: R35.0 Frequency of micturition (principal)
CPT/HCPCS: 84153; 84403

== ENCOUNTER 2023-04-06 15:24 | Outpatient (CLI) | payer MEDICARE, MEDICAID, SELFPAY ==
[2023-04-06 17:27] LABS: Prostate Specific Antigen 0.333 ng/mL (0-4)
== END 2023-04-06 15:25 | disposition home or self-care (01) ==
LOC: LAB 15:31
PROVIDERS: PCP Clinical Nurse Specialist Adult Health; Visit Provider Clinical Nurse Specialist Adult Health
DX: N52.9 Male erectile dysfunction, unspecified (principal); R33.9 Retention of urine, unspecified
CPT/HCPCS: 84153; 84403

== ENCOUNTER 2023-04-23 18:57 | Emergency (ER) | payer MEDICARE, MEDICAID, SELFPAY ==
[2023-04-23] VITALS (7 sets, daily range): BP systolic 101–123; BP diastolic 59–73; PULSE 77–125; RESP 16–20; TEMP 37.9; O2SAT 91–98; BMI 31.1
--- NOTE | 2023-04-23 19:12 | W.ED.MALEGU ---
HPI - Male Genitourinary General: Chief complaint: Urogenital-Male Stated complaint: Cath fell out \Lots of Pain Time Seen by Provider: 04/23/23 19:08 Source: patient Mode of arrival: ambulatory Limitations: no limitations History of Present Illness: 78-year-old male who has a hx of indwelling catheter he states that he is unable to really urinate due to he states chronic blockage. He states that his catheter fell out this morning he has not been able to urinate and he is having pain. He states pain sharp in nature rates it a 7 out of 10 denies any vomiting or diarrhea. Associated symptoms: Deny nausea or vomiting Review of Systems Const: Denies: fever(s) or chills Card: Denies: chest pain Resp: Denies: dyspnea GI: Reports: abdominal pain; Denies: nausea or vomiting : Reports: difficulty urinating Musc: Denies: back pain Skin/Breast: Denies: rash Neuro: Denies: headache(s) PFSH ED PFSH: Medical History Chronic pain cervical and lumbar spine Cirrhosis Colon perforation Colon polyps COPD (chronic obstructive pulmonary disease) Essential hypertension Hepatitis C Osteoarthritis Thrombocytopenia Surgical History S/P cataract extraction bilateral S/P cholecystectomy S/P laparoscopy (11/19/20) repair of sigmoid perforation Status post colonoscopy Family History Mother Cancer Grandmother Diabetes Other Hypertension Denies family history of CAD (coronary artery disease) Clotting disorder Dementia Hyperlipidemia Psychiatric illness Chronic kidney disease (CKD) Suicide Anesthesia complication Bleeding disorder Lung disease Stroke Social History Smoking and tobacco status: former smoker (smoked x 20 years off and on) Second hand smoke exposure: No Alcohol intake: never Substance/Drug Use: never Physical Exam Const: COMMON NORMALS: no acute distress and patient oriented x3 HENMT: COMMON NORMALS: normocephalic and atraumatic HEAD & SCALP: normocephalic and atraumatic Eye: COMMON NORMALS: conjunctivae normal CONJUNCTIVA: Yes conjunctivae normal Neck/C-Spine: COMMON NORMALS: supple Chest: COMMONS NORMALS: normal inspection of the chest and normal palpation of entire chest wall Resp: COMMON NORMALS: normal respiratory effort Cardio: COMMON NORMALS: regular rate and regular rhythm RATE: regular rate RHYTHM: regular rhythm GI: OTHER: Tenderness over his bladder Extremity: COMMON NORMALS: normal to inspection Neuro: COMMON NORMALS: patient oriented x3 Psych: COMMON NORMALS: mental status grossly normal Skin: COMMON NORMALS: no rashes or lesions noted GENERAL SKIN EXAM: no rashes or lesions noted Course Vital Signs: Vital signs: Vital Signs Temperature 100.2 F H 04/23/23 19:01 Pulse Rate 97 04/23/23 20:12 Respiratory Rate 20 H 04/23/23 19:29 Blood Pressure 101/73 04/23/23 20:12 Pulse Oximetry 93 04/23/23 20:12 Oxygen Delivery Me thod Room Air 04/23/23 20:12 MDM - Male Medical Decision Making Patient presents here with urinary retention he feels much improved here after Quevedo was placed does have a slight UTI he had multiple tick bites as well and he does have a low-grade fever here we will start him on doxycycline he is to follow-up with his urologist along with his PCP he understands agrees to plan. Lab Data Laboratory Results Urine Color Yellow (Yellow) 04/23/23 19:22 Urine Appearance Cloudy (CLEAR) A 04/23/23 19:22 Urine pH 6.5 (5-7) 04/23/23 19:22 Ur Specific [place] 1.010 (1.005-1.030) 04/23/23 19:22 Urine Protein Neg (Negative) 04/23/23 19:22 Urine Glucose (UA) Norm (Normal) 04/23/23 19:22 Urine Ketones Negative (Negative) 04/23/23 19:22 Urine Blood 3+ (Negative) H 04/23/23 19:22 Urine Nitrate Negative (Negative) 04/23/23 19:22 Urine Bilirubin Neg (Negative) 04/23/23 19:22 Urine Urobilinogen Norm mg/dL (Negative) 04/23/23 19:22 Ur Leukocyte Esterase 2+ (Negative) H 04/23/23 19:22 Urine RBC 10-15 /hpf (0-2) H 04/23/23 19:22 Urine WBC 80-100 /hpf (0-5) H 04/23/23 19:22 Ur Squamous Epith Cells 0-4 /hpf (0-5) H 04/23/23 19:22 Amorphous Sediment Not Reportable 04/23/23 19:22 Urine Bacteria 3+ /hpf (NONE) H 04/23/23 19:22 Urine Mucus 1+ /hpf 04/23/23 19:22 Discharge Plan Discharge Patient Disposition: Home Clinical Impression: Acute retention of urine, Urinary tract infection, Tick bite Condition: Stable Prescriptions: New doxycycline hyclate 100 mg tablet 100 mg PO BID 14 Days Qty: 28 0RF No Action fluticasone propion-salmeterol [Advair Diskus] 500-50 mcg/dose blister with device 1 inh INHALATION DAILY oxycodone 20 mg tablet 20 mg PO TID PRN (Reason: pain) 30 Days Qty: 90 0RF Rx Instructions: fill on or after 09/16/21 cyclobenzaprine 10 mg tablet 10 mg PO TID PRN (Reason: muscle spasm) Qty: 90 1RF albuterol sulfate 2.5 mg /3 mL (0.083 %) solution for nebulization 2.5 mg inhalation QID PRN (Reason: shortness of breath or wheezing) Qty: 90 1RF clotrimazole 1 % cream 1 applic TOPICAL BID PRN Rx Instructions: for 2 weeks diclofenac sodium [Voltaren Arthritis Pain] 1 % gel 4 g topical BID 30 Days Qty: 100 2RF Rx Instructions: apply to single right great toe morning and night (DME) Sole Supports See Rx Instructions .Route .MEDSUPPLY Qty: 1 0RF Rx Instructions: As directed (DME) Nebulizer and tubing See Rx Instructions .Route .MEDSUPPLY Qty: 1 0RF Rx Instructions: As directed amlodipine 10 mg tablet 10 mg PO DAILY Qty: 90 3RF Ventolin HFA 90 mcg/actuation Hfa Aerosol Inhaler 2 puff INHALATION Q4H PRN (Reason: Shortness Of Breath) Discharge Orders: Discharge ED (Routine); Ordered 04/23/23 Ordered By: Rubens Juarez Referrals: Rich Holliday SOFTWARE IMPLEMENTATION PROJECT MANAGER [Primary Care Provider] - Discharge Diet: Advance as tolerated Discharge Activity: Resume usual activity Patient Instructions: Urinary Retention in Men (ED), Urinary Tract Infection in Men (ED), Tick Bite (ED) Coding Level of Care Code ED Developer Advocate for 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
[2023-04-23] MEDS: ibuprofen 800 mg tablet PO (19:16)
[2023-04-23] MEDS: morphine 4 mg/mL SDV 1 mL IM (19:16)
[2023-04-23 20:02] LABS: Add Urine Microscopic? YES; Bilirubin Urine Neg (Negative); Blood Urine 3+ (Negative); Glucose Urine UA Norm (Normal); Ketones Urine Negative (Negative); Leukocyte Esterase Urine 2+ (Negative); Nitrate Urine Negative (Negative); Protein Urine Neg (Negative); Urine Appearance Cloudy (CLEAR); Urine Color Yellow (Yellow); Urobilinogen Urine Norm (Negative); pH Urine 6.5 (5-7)
[2023-04-23 20:03] LABS: Bacteria Urine 3+ /hpf; Squamous Epithelial Cell Urine 0-4 /hpf (0-5); WBC Urine 80-100 /hpf (0-5)
[2023-04-23 20:04] LABS: Add Urine Culture? Yes; Mucus Urine 1+ /hpf
[2023-04-23] MEDS: cefTRIAXone 1,000 MG in water for injection-sterile 2.1 ML 1 MG IM (20:36)
[2023-04-26 15:54] LABS: Lyme AB IGG, Blot NEGATIVE (NEGATIVE)
[2023-05-01 18:44] LABS: RMSF IGG NOT DETECTED; RMSF IGM NOT DETECTED
[2023-05-03 17:50] LABS: E. Chaffeensis AB IGG <1:64; E. Chaffeensis AB IGM <1:20
== END 2023-04-23 21:12 | disposition home or self-care (01) ==
PROVIDERS: Emergency Provider Emergency Medicine; PCP Clinical Nurse Specialist Adult Health
DX: R33.9 Retention of urine, unspecified (principal); N39.0 Urinary tract infection, site not specified; T14.8XXA Other injury of unspecified body region, initial encounter; W57.XXXA Bitten or stung by nonvenomous insect and other nonvenomous arthropods, initial encounter; Z87.891 Personal history of nicotine dependence; J44.9 Chronic obstructive pulmonary disease, unspecified; I10 Essential (primary) hypertension; Z86.19 Personal history of other infectious and parasitic diseases
CPT/HCPCS: 36415; 51702; 81001; 86618; 86666; 86757; 87077; 87086; 87186; 96372; 99284; J0696; J2270

== ENCOUNTER 2023-05-03 14:56 | Oncology outpatient (recurring) (ONCR) | payer MEDICARE, MEDICAID, SELFPAY ==
[2023-05-03 15:01] VITALS: BP 121/71; PULSE 72; RESP 18; TEMP 37; O2SAT 95
[2023-05-03 15:18] LABS: Basophils # 0.1 10^3/uL (0.0-0.1); Basophils % 0.9 %; Eosinophils # 0.2 10^3/uL (0.0-0.8); Eosinophils % 3.4 %; Hemoglobin 12.4 g/dL (11.7-16.6); Lymphocytes # 1.3 10^3/uL (0.8-4.8); Lymphocytes % 20.6 %; Mean Corpuscular HGB Conc 34.4 g/dL (30.0-36.0); Mean Corpuscular Hemoglobin 33.1 pg (28.0-34.0); Mean Platelet Volume 9.7 fL (7.4-10.4); Monocytes # 0.4 10^3/uL (0.2-0.9); Monocytes % 5.7 %; Neutrophils # 4.45 10^3/uL (1.8-7.7); Neutrophils % 68.8 %; Nucleated Red Blood Cells % 0 %; Platelet Count 144 10^3/cmm (130-400); Red Blood Count 3.75 10^6/uL (4.1-5.3); Red Cell Distribution Width 13.4 % (12.1-15.1); White Blood Count 6.5 10^3/uL (4.0-10.0)
[2023-05-03 15:39] LABS: Alanine Aminotransferase 25 U/L (0-41); Albumin Level 3.7 g/dL (3.5-5.2); Alkaline Phosphatase 83 U/L (40-130); Anion Gap 15.5 (5-19); Aspartate Amino Transferase 30 U/L (0-40); Blood Urea Nitrogen 18 mg/dL (8-23); Calcium 8.9 mg/dL (8.5-10.5); Carbon Dioxide 21 mmol/L (22-29); Chloride 105 mmol/L (98-107); Globulin 2.9 g/dL (1.3-4.6); Glucose 89 mg/dL (65-115); Osmolality Calculated 285 mOsm/kg (285-295); Potassium 4.5 mmol/L (3.5-5.1); Sodium 137 mmol/L (136-145); Total Bilirubin 1.1 mg/dL (0.15-1.2); Total Protein 6.6 g/dL (6.6-8.7)
== END 2023-05-04 23:59 | disposition home or self-care (01) ==
LOC: ONCMED 14:57
PROVIDERS: PCP Clinical Nurse Specialist Adult Health; Visit Provider Internal Medicine Hematology & Oncology
DX: D69.6 Thrombocytopenia, unspecified (principal); Z79.899 Other long term (current) drug therapy
CPT/HCPCS: 36415; 80053; 85025; 99214

== ENCOUNTER 2023-06-08 12:18 | Emergency (ER) | payer MEDICARE, MEDICAID, SELFPAY ==
--- NOTE | 2023-06-08 12:20 | W.ED.MALEGU ---
HPI - Male Genitourinary General: Chief complaint: General Medical Stated complaint: cath bag leaking Time Seen by Provider: 06/08/23 12:20 History of Present Illness: 78-year-old gentleman presenting due to concern over leaking Quevedo catheter bag. Denies complaints associated with catheter itself. Review of Systems General: Reports: 10 or more systems reviewed and unremarkable except in HPI and below PFSH ED PFSH: Medical History Chronic pain cervical and lumbar spine Cirrhosis Colon perforation Colon polyps COPD (chronic obstructive pulmonary disease) Essential hypertension Hepatitis C Osteoarthritis Thrombocytopenia Surgical History S/P cataract extraction bilateral S/P cholecystectomy S/P laparoscopy (11/19/20) repair of sigmoid perforation Status post colonoscopy Family History Mother Cancer Grandmother Diabetes Other Hypertension Denies family history of CAD (coronary artery disease) Clotting disorder Dementia Hyperlipidemia Psychiatric illness Chronic kidney disease (CKD) Suicide Anesthesia complication Bleeding disorder Lung disease Stroke Social History Smoking and tobacco status: former smoker (smoked x 20 years off and on) Second hand smoke exposure: No Alcohol intake: never Substance/Drug Use: never Physical Exam Const: COMMON NORMALS: no acute distress, patient oriented x3 and healthy appearing Resp: COMMON NORMALS: normal respiratory effort, No use of accessory muscles and clear to auscultation bilaterally AUSCULTATION: clear to auscultation bilaterally Cardio: COMMON NORMALS: regular rate and regular rhythm RATE: regular rate RHYTHM: regular rhythm GI: COMMON NORMALS: Soft to palpation and non-tender PALPATION: Yes Soft to palpation Neuro: COMMON NORMALS: patient oriented x3 Course Vital Signs: Vital signs: Vital Signs Temperature 98.1 F 06/08/23 13:04 Respiratory Rate 17 06/08/23 13:04 MDM - Male Medical Decision Making 78-year-old gentleman presenting with concern over Quevedo catheter bag leak. Apparently he has had this issue before. I am somewhat uncertain of the cause however reported problem is isolated to the back. Patient is nontoxic and has benign abdominal exam and does not wish for further evaluation. Bag changed and patient discharged for follow-up in satisfactory condition. Discharge Plan Discharge Patient Disposition: Home Clinical Impression: Quevedo catheter problem Condition: Stable Prescriptions: No Action fluticasone propion-salmeterol [Advair Diskus] 500-50 mcg/dose blister with device 1 inh INHALATION DAILY oxycodone 20 mg tablet 20 mg PO TID PRN (Reason: pain) 30 Days Qty: 90 0RF Rx Instructions: fill on or after 09/16/21 cyclobenzaprine 10 mg tablet 10 mg PO TID PRN (Reason: muscle spasm) Qty: 90 1RF albuterol sulfate 2.5 mg /3 mL (0.083 %) solution for nebulization 2.5 mg inhalation QID PRN (Reason: shortness of breath or wheezing) Qty: 90 1RF clotrimazole 1 % cream 1 applic TOPICAL BID PRN Rx Instructions: for 2 weeks sulfamethoxazole-trimethoprim [Bactrim] 400-80 mg tablet See Rx Instructions PO BID Rx Instructions: strength unknown orally twice a day; oxybutynin chloride 2.5 mg tablet See Rx Instructions PO TID Rx Instructions: strength unknown orally three times daily; diclofenac sodium [Voltaren Arthritis Pain] 1 % gel 4 g topical BID 30 Days Qty: 100 2RF Rx Instructions: apply to single right great toe morning and night (DME) Sole Supports See Rx Instructions .Route .MEDSUPPLY Qty: 1 0RF Rx Instructions: As directed (DME) Nebulizer and tubing See Rx Instructions .Route .MEDSUPPLY Qty: 1 0RF Rx Instructions: As directed amlodipine 10 mg tablet 10 mg PO DAILY Qty: 90 3RF Ventolin HFA 90 mcg/actuation Hfa Aerosol Inhaler 2 puff INHALATION Q4H PRN (Reason: Shortness Of Breath) Discharge Orders: Discharge ED (Routine); Ordered 06/08/23 Ordered By: Elliot Nur Referrals: Rich Holliday CINETECHNICIAN [Primary Care Provider] - Discharge Diet: Usual diet Discharge Activity: Limit activity as instructed Patient Instructions: Quevedo Catheter Care, How to Change a Catheter Drainage Bag (DC) Activity Restrictions/Additional Instructions: Thank you for visiting the emergency department. You were seen and evaluated for concern over leaking Quevedo catheter bag. Given recurrence of problem I am somewhat unsure of the exact cause. I recommend follow-up with urology and your primary care provider. Please contact durable medical equipment supplier. Return for anything that you are concerned about and feel needs emergency department evaluation. Coding Level of Care Code ED Catalyst Operator for 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
[2023-06-08 12:44] VITALS: RESP 17; TEMP 36.7; BMI 30.1
--- NOTE | 2023-06-08 13:01 | PC.NURSE ---
RN into room to triage pt. Pt is uncooperative with obtaining vital signs. This RN attempted to get blood pressure, oxygen saturation, and heart rate levels. Pt took blood pressure cuff off saying, This is cutting off the circulation to my arm, i just want a new bag please. notified.
[2023-06-08 13:04] VITALS: RESP 17; TEMP 36.7
== END 2023-06-08 13:05 | disposition home or self-care (01) ==
PROVIDERS: Emergency Provider Emergency Medicine; PCP Clinical Nurse Specialist Adult Health
DX: T83.031A Leakage of indwelling urethral catheter, initial encounter (principal); Y73.1 Therapeutic (nonsurgical) and rehabilitative gastroenterology and urology devices associated with adverse incidents; Z87.891 Personal history of nicotine dependence; J44.9 Chronic obstructive pulmonary disease, unspecified; I10 Essential (primary) hypertension; Z86.19 Personal history of other infectious and parasitic diseases
CPT/HCPCS: 99281

== ENCOUNTER 2023-06-11 16:02 | Emergency (ER) | payer MEDICARE, MEDICAID, SELFPAY ==
[2023-06-11 16:11] VITALS: BP 145/86; PULSE 80; RESP 16; TEMP 36.7; O2SAT 97; BMI 30.9
--- NOTE | 2023-06-11 17:03 | ED_ITS ---
HPI - Male Genitourinary General: Chief complaint: Urogenital-Male Stated complaint: cath fell out Time Seen by Provider: 06/11/23 16:18 History of Present Illness: 78-year-old male with indwelling Quevedo reports that somehow his Quevedo fell out. He did not have any pain or bleeding. He is actually not sure if the balloon was inflated or not. He is having surgery on his bladder in July. He put a little bit of Neosporin on the tip of his penis so would get infected. He rep orts he like to have another Quevedo catheter. This is his only complaint. Review of Systems Narrative: Patient has been unable to void. He needs a Quevedo catheter. Review of systems otherwise negative. [facility] ED PFSH: Medical History Chronic pain cervical and lumbar spine Cirrhosis Colon perforation Colon polyps COPD (chronic obstructive pulmonary disease) Essential hypertension Hepatitis C Osteoarthritis Thrombocytopenia Surgical History S/P cataract extraction bilateral S/P cholecystectomy S/P laparoscopy (11/19/20) repair of sigmoid perforation Status post colonoscopy Family History Mother Cancer Grandmother Diabetes Other Hypertension Denies family history of CAD (coronary artery disease) Clotting disorder Dementia Hyperlipidemia Psychiatric illness Chronic kidney disease (CKD) Suicide Anesthesia complication Bleeding disorder Lung disease Stroke Social History Smoking and tobacco status: former smoker (smoked x 20 years off and on) Second hand smoke exposure: No Alcohol intake: never Substance/Drug Use: never Physical Exam Const: COMMON NORMALS: no limitations and well nourished EXAM LIMITATIONS: no altered mental status HENMT: COMMON NORMALS: normocephalic and atraumatic HEAD & SCALP: normo cephalic and atraumatic MOUTH: no muffled voice Neck/C-Spine: GENERAL: Yes normal visual inspection and Yes trachea midline Resp: COMMON NORMALS: normal respiratory effort and No use of accessory muscles Cardio: COMMON NORMALS: regular rate RATE: regular rate GI: COMMON NORMALS: Soft to palpation and non-tender PALPATION: Yes Soft to palpation and No Guarding due to palpation present (GI) Extremity: COMMON NORMALS: normal to inspection Neuro: COMMON NORMALS: no focal motor deficits SPEECH: speech normal Psych: COMMON NORMALS: mental status grossly normal, cooperative, normal affect and speech normal SPEECH: Yes normal speech Course Vital Signs: Vital signs: Vital Signs Temperature 98.0 F 06/11/23 16:11 Pulse Rate 80 06/11/23 16:11 Respiratory Rate 16 06/11/23 16:11 Blood Pressure 145/86 06/11/23 16:11 Pulse Oximetry 97 06/11/23 16:11 Oxygen Delivery Me thod Room Air 06/11/23 16:11 [facility] - Male Medical Decision Making Patient with indwelling Quevedo reports catheter came out. He does not remember any tugging or pulling on it. This is happened to him before. It is unclear to me why this would happen with the balloon inflated. Patient states he cannot remember whether the balloon was inflated when it fell out or not. We will replace with a 16 [place] and inflate the balloon Quevedo. Patient reports he has follow-up with urology. Discharge Plan Discharge Patient Disposition: Home Clinical Impression: Malfunction of indwelling urinary catheter, Urinary retention Condition: Stable Prescriptions: No Action fluticasone propion-salmeterol [Advair Diskus] 500-50 mcg/dose blister with device 1 inh INHALATION DAILY oxycodone 20 mg tablet 20 mg PO TID PRN (Reason: pain) 30 Days Qty: 90 0RF Rx Instructions: fill on or after 09/16/21 cyclobenzaprine 10 mg tablet 10 mg PO TID PRN (Reason: muscle spasm) Qty: 90 1RF albuterol sulfate 2.5 mg /3 mL (0.083 %) solution for nebulization 2.5 mg inhalation QID PRN (Reason: shortness of breath or wheezing) Qty: 90 1RF clotrimazole 1 % cream 1 applic TOPICAL BID PRN Rx Instructions: for 2 weeks sulfamethoxazole-trimethoprim [Bactrim] 400-80 mg tablet See Rx Instructions PO BID Rx Instructions: strength unknown orally twice a day; oxybutynin chloride 2.5 mg tablet See Rx Instructions PO TID Rx Instructions: strength unknown orally three times daily; diclofenac sodium [Voltaren Arthritis Pain] 1 % gel 4 g topical BID 30 Days Qty: 100 2RF Rx Instructions: apply to single right great toe morning and night (DME) Sole Supports See Rx Instructions .Route .MEDSUPPLY Qty: 1 0RF Rx Instructions: As directed (DME) Nebulizer and tubing See Rx Instructions .Route .MEDSUPPLY Qty: 1 0RF Rx Instructions: As directed amlodipine 10 mg tablet 10 mg PO DAILY Qty: 90 3RF Ventolin HFA 90 mcg/actuation Hfa Aerosol Inhaler 2 puff INHALATION Q4H PRN (Reason: Shortness Of Breath) Discharge Orders: Discharge ED (Routine); Ordered 06/11/23 Ordered By: Gustavo Shields Referrals: Rich Holliday NP [Primary Care Provider] - Discharge Diet: Usual diet Discharge Activity: Resume usual activity Patient Instructions: Quevedo Catheter Placement and Care (ED), Opioid Safety, Pain Management Activity Restrictions/Additional Instructions: Follow-up with your urologist as planned. Try to limit any traction or pulling on the Quevedo catheter. If you have fever, low blood pressure, or other emergent symptoms return to the emergency department. Otherwise you may follow-up with urology. Coding Level of Care Code ED On Site Manager for 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
[2023-06-11 17:21] VITALS: BP 145/86; PULSE 78; O2SAT 99
== END 2023-06-11 17:23 | disposition home or self-care (01) ==
PROVIDERS: Emergency Provider Emergency Medicine; PCP Clinical Nurse Specialist Adult Health
DX: T83.098A Other mechanical complication of other urinary catheter, initial encounter (principal); R33.9 Retention of urine, unspecified; Z87.891 Personal history of nicotine dependence; J44.9 Chronic obstructive pulmonary disease, unspecified; I10 Essential (primary) hypertension; Z86.19 Personal history of other infectious and parasitic diseases; Y73.8 Miscellaneous gastroenterology and urology devices associated with adverse incidents, not elsewhere classified
CPT/HCPCS: 51702; 99283

== ENCOUNTER → 2023-06-26 15:04 | Outpatient (BNVA) | payer MEDICARE, MEDICAID, SELFPAY | PROVIDERS: PCP Clinical Nurse Specialist Adult Health; Visit Provider Clinical Nurse Specialist Adult Health | DX: N40.1 Benign prostatic hyperplasia with lower urinary tract symptoms (principal); Z01.818 Encounter for other preprocedural examination | CPT/HCPCS: 87077; 87086; 87184 ==

== ENCOUNTER 2023-06-29 09:43 | Outpatient (CLI) | payer MEDICARE, MEDICAID, SELFPAY ==
--- NOTE | 2023-06-29 09:50 | CT_ITS ---
WS: [id number] CT ABDOMEN AND PELVIS NONCONTRAST HISTORY: KIDNEY STONES TECHNIQUE: Imaging performed through the abdomen and pelvis. Coronal and sagittal reformats are submi tted. All CT scans at [facility] use at least one of these dose optimization techniques: auto mated exposure control; mA and/or kV adjustment per patient size (includes targeted exams where dose is matched to clinical indication); or iterative reconstruction. DLP: 363.20 mGy.cm COMPARISON: 03/17/2021 Lower thorax: Hyperinflated lung bases from emphysema. Normal size heart. No hiatal hernia. Liver: Small shrunken liver with marked surface lobulations consistent with cirrhosis. LEFT lobe and the caudate lobe are prominent. No obvious bile duct dilatation. Gallbladder: Prior cholecystectomy. Pancreas: Normal size and attenuation. Normal pancreatic duct. No pancreatitis or mass. Spleen: Mildly enlarged spleen at 12.4 cm. Numerous splenic varicosities are noted within the LEFT up per quadrant. Additional varicosities noted adjacent to the esophagus. Adrenal glands: Normal. No mass. Right kidney: Normal size kidney with no mass or hydronephrosis. Left kidney: Mild perinephric stranding. There is a large calcification centered in the mid renal cor marcos measuring 1.9 x 1.4 cm. No obstruction of the kidney. This calcification is similar to the prior exam. Aorta: Mild atherosclerosis abdominal aorta with no aneurysm. No free fluid or free air. There are small shotty retroperitoneal and central mesenteric lymph nodes. No increase in size. GI tract: Nondistended stomach with mild wall thickening. No small bowel obstruction. Tortuous overla pping loops of colon. No obstruction of the colon. Normal appendix. Mild distal colon diverticular bu rden. Abdominal wall: Negative. No hernia. Pelvis: Quevedo catheter in a nondistended bladder. Prostate calcifications are extensive along the cou rse of the catheter. No pelvic adenopathy. Osseous structures: Increase in the lumbar lordosis. Biconcave chronic compression fractures at T11 a nd L1. Mild anterior wedging of T12. Severe disc space narrowing at L5-S1. These changes have not sig nificantly progressed since 2020. IMPRESSION: 1. Negative RIGHT kidney. No renal calcification or obstruction. 2. Stable large calcification LEFT renal cortex measures 1.9 x 1.4 cm. No renal obstruction. 3. Cirrhosis with changes of portal venous hypertension and varicosities. 4. Mild diverticular disease. 5. Quevedo catheter in the urinary bladder with mild diffuse bladder wall thickening. Urinary bladder is not distended. 6. Stable compression fractures at T11 and L1. 7. Prior cholecystectomy.
== END 2023-06-29 09:44 | disposition home or self-care (01) ==
LOC: RAD 09:46
PROVIDERS: PCP Clinical Nurse Specialist Adult Health; Visit Provider Nurse Practitioner Family
DX: N20.0 Calculus of kidney (principal); K57.30 Diverticulosis of large intestine without perforation or abscess without bleeding
CPT/HCPCS: 74176

== ENCOUNTER 2023-07-06 17:54 | Emergency (ER) | payer MEDICARE, MEDICAID, SELFPAY ==
[2023-07-06 18:08] VITALS: BMI 31.1
[2023-07-06 18:12] VITALS: BP 179/95; PULSE 84; RESP 18; TEMP 36.6; O2SAT 98
[2023-07-06 19:11] VITALS: BP 172/101; PULSE 83; O2SAT 99
[2023-07-06 19:29] LABS: Basophils # 0.1 10^3/uL (0.0-0.1); Basophils % 0.6 %; Eosinophils # 0.2 10^3/uL (0.0-0.8); Eosinophils % 1.9 %; Hematocrit 41.9 % (37-53); Lymphocytes # 1.5 10^3/uL (0.8-4.8); Lymphocytes % 16.1 %; Mean Corpuscular HGB Conc 34.6 g/dL (30-55); Mean Corpuscular Hemoglobin 33.8 pg (27-33); Mean Corpuscular Volume 97.7 fl (82-101); Monocytes # 0.8 10^3/uL (0.2-0.9); Neutrophils # 6.87 10^3/uL (1.8-7.7); Neutrophils % 73.1 %; Nucleated Red Blood Cells % 0 %; Platelet Count 135 10^3/cmm (157-399); Red Blood Count 4.29 10^6/uL (3.85-5.65); Red Cell Distribution Width 13.5 % (12.1-15.1)
[2023-07-06 19:51] LABS: Alanine Aminotransferase 22 U/L (0-41); Albumin Level 4.5 g/dL (3.5-5.2); Alkaline Phosphatase 100 U/L (40-130); Anion Gap 15.3 (5-19); Aspartate Amino Transferase 29 U/L (0-40); Blood Urea Nitrogen 15 mg/dL (8-23); Calcium 9.4 mg/dL (8.5-10.5); Carbon Dioxide 25 mmol/L (22-29); Chloride 104 mmol/L (98-107); Globulin 3.5 g/dL (1.3-4.6); Glucose 95 mg/dL (65-115); Lipase 48 U/L (13-60); Osmolality Calculated 291 mOsm/kg (285-295); Potassium 4.3 mmol/L (3.5-5.1); Sodium 140 mmol/L (136-145); Total Bilirubin 2.7 mg/dL (0.15-1.2)
--- NOTE | 2023-07-06 19:59 | W.ED.GENADLT ---
HPI - General Adult General: Chief complaint: General Medical Stated complaint: Low Left Side back pain Time Seen by Provider: 07/06/23 19:03 History of Present Illness: Patient reports to the ER with complaints of low abdominal pain mainly on his left side and also feels something is might be coming out of his rectum when he has a bowel movement and wipes. Patient denies any nausea vomiting diarrhea constipation coughs colds fevers chills shortness of breath. Patient says he just recently had a CT scan done for a kidney stone and has appointment with a urologist up in [place] to have it removed. Review of Systems General: Reports: 10 or more systems reviewed and unremarkable except in HPI and below PFSH ED PFSH: Medical History Chronic pain cervical and lumbar spine Cirrhosis Colon perforation Colon polyps COPD (chronic obstructive pulmonary disease) Essential hypertension Hepatitis C Osteoarthritis Thrombocytopenia Surgical History S/P cataract extraction bilateral S/P cholecystectomy S/P laparoscopy (11/19/20) repair of sigmoid perforation Status post colonoscopy Family History Mother Cancer Grandmother Diabetes Other Hypertension Denies family history of CAD (coronary artery disease) Clotting disorder Dementia Hyperlipidemia Psychiatric illness Chronic kidney disease (CKD) Suicide Anesthesia complication Bleeding disorder Lung disease Stroke Social History Smoking and tobacco status: former smoker (smoked x 20 years off and on) Second hand smoke exposure: No Alcohol intake: never Substance/Drug Use: never Physical Exam Const: COMMON NORMALS: no acute distress, average body habitus, patient oriented x3, no limitations, healthy appearing, alert and well nourished HENMT: COMMON NORMALS: normocephalic, atraumatic, hearing grossly normal bilaterally, external ears normal, Normal external nose present and moist oral mucous membranes HEAD & SCALP: normocephalic and atraumatic NOSE: Normal external nose present EXTERNAL EAR: Yes external ears normal Eye: COMMON NORMALS: Equal, round and reactive pupils present, EOMs intact bilaterally, conjunctivae normal and no scleral icterus CONJUNCTIVA: Yes conjunctivae normal PUPIL: Yes Equal, round and reactive pupils present Neck/C-Spine: COMMON NORMALS: full ROM, no lymphadenopathy, supple, no meningeal signs, no JVD and Thyroid normal THYROID: Thyroid normal Chest: COMMONS NORMALS: normal inspection of the chest and normal palpation of entire chest wall Resp: COMMON NORMALS: normal respiratory effort, No retractions and No use of accessory muscles Cardio: COMMON NORMALS: no JVD, regular rate, regular rhythm, S1 normal heart sound present, S2 normal heart sound present, No gallops present (Cardio), No clicks present (Cardio), No murmurs present (Cardio) and No rub (Cardio) RATE: regular rate RHYTHM: regular rhythm HEART SOUNDS: S1 normal heart sound present and S2 normal heart sound present GI: COMMON NORMALS: Normal to inspection, nondistended, normoactive bowel sounds present, Soft to palpation, non-tender, No hepatosplenomegaly present and no masses PALPATION: Yes Soft to palpation and Yes No hepatosplenomegaly present OTHER: External rectal exam normal no irritation no hemorrhoids no : COMMON NORMALS: Yes no CVA tenderness BLADDER/KIDNEY EXAM: Yes no CVA tenderness Back/Pelvis: COMMON NORMALS: no CVA tenderness Neuro: COMMON NORMALS: patient oriented x3 SENSORIUM/ORIENTATION: Yes alert MENINGEAL SIGNS: Yes no meningeal signs Course Vital Signs: Vital signs: Vital Signs Temperature 97.8 F 07/06/23 18:12 Pulse Rate 87 07/06/23 20:00 Respiratory Rate 18 07/06/23 18:12 Blood Pressure 174/81 07/06/23 20:00 Pulse Oximetry 97 07/06/23 20:00 Oxygen Delivery Me thod Room Air 07/06/23 20:00 MDM - General Adult Medical Decision Making Presents to the ER with lower quadrant abdominal pain and possible blockage per patient. Patient is having bowel movements he is given all 4 quadrants with equal bowel sounds. Patient is nontender to palpate lab work was essentially benign. Patient be discharged home to follow-up with his family practice doc on an as-needed basis for further evaluation and treatment. Differential Diagnosis Abdominal pain, ileus, constipation, bowel obstruction Medical Records I reviewed the patient's medical records. Lab Data I reviewed the patient's lab results. 07/06/23 19:05 07/06/23 19:05 Laboratory Results WBC 9.40 10^3/uL (3.29-11.43) 07/06/23 19:05 RBC 4.29 10^6/uL (3.85-5.65) 07/06/23 19:05 Hgb 14.50 g/dL (11.27-16.99) 07/06/23 19:05 Hct 41.9 % (37-53) 07/06/23 19:05 MCV 97.7 fl (82-101) 07/06/23 19:05 MCH 33.8 pg (27-33) H 07/06/23 19:05 MCHC 34.6 g/dL (30-55) 07/06/23 19:05 RDW 13.5 % (12.1-15.1) 07/06/23 19:05 Plt Count 135 10^3/cmm (157-399) L 07/06/23 19:05 MPV 10.0 fL (7.4-10.4) 07/06/23 19:05 Neut % (Auto) 73.1 % 07/06/23 19:05 Lymph % (Auto) 16.1 % 07/06/23 19:05 [place] % (Auto) 8.0 % 07/06/23 19:05 Eos % (Auto) 1.9 % 07/06/23 19:05 Baso % (Auto) 0.6 % 07/06/23 19:05 Neut # (Auto) 6.87 10^3/uL (1.8-7.7) 07/06/23 19:05 Lymph # (Auto) 1.5 10^3/uL (0.8-4.8) 07/06/23 19:05 [place] # (Auto) 0.8 10^3/uL (0.2-0.9) 07/06/23 19:05 Eos # (Auto) 0.2 10^3/uL (0.0-0.8) 07/06/23 19:05 Baso # (Auto) 0.1 10^3/uL (0.0-0.1) 07/06/23 19:05 Nucleated RBC % (auto) 0 % 07/06/23 19:05 Nucleated RBCs # 0.0 /100WBC 07/06/23 19:05 Sodium 140 mmol/L (136-145) 07/06/23 19:05 Potassium 4.3 mmol/L (3.5-5.1) 07/06/23 19:05 Chloride 104 mmol/L (98-107) 07/06/23 19:05 Carbon Dioxide 25 mmol/L (22-29) 07/06/23 19:05 Anion Gap 15.3 (5-19) 07/06/23 19:05 BUN 15 mg/dL (8-23) 07/06/23 19:05 Creatinine 1.2 mg/dL (0.7-1.2) 07/06/23 19:05 GFR Calculation Not Reportable 07/06/23 19:05 Glucose 95 mg/dL (65-115) 07/06/23 19:05 Calculated Osmolality 291 mOsm/kg (285-295) 07/06/23 19:05 Calcium 9.4 mg/dL (8.5-10.5) 07/06/23 19:05 Total Bilirubin 2.7 mg/dL (0.15-1.2) H 07/06/23 19:05 AST 29 U/L (0-40) 07/06/23 19:05 ALT 22 U/L (0-41) 07/06/23 19:05 Alkaline Phosphatase 100 U/L (40-130) 07/06/23 19:05 Total Protein 8.0 g/dL (6.6-8.7) 07/06/23 19:05 Albumin 4.5 g/dL (3.5-5.2) 07/06/23 19:05 Globulin 3.5 g/dL (1.3-4.6) 07/06/23 19:05 Lipase 48 U/L (13-60) 07/06/23 19:05 Urine Color Brown (Yellow) A 07/06/23 20:01 Urine Appearance Cloudy (CLEAR) A 07/06/23 20:01 Urine pH 5 (5-7) 07/06/23 20:01 Ur Specific [place] 1.015 (1.005-1.030) 07/06/23 20: Urine Protein 2+ (Negative) H 07/06/23 20:01 Urine Glucose (UA) Norm (Normal) 07/06/23 20:01 Urine Ketones 1+ (Negative) H 07/06/23 20: Urine Blood 3+ (Negative) H 07/06/23 20:01 Urine Nitrate Negative (Negative) 07/06/23 20:01 Urine Bilirubin Neg (Negative) 07/06/23 20:01 Urine Urobilinogen Norm mg/dL (Negative) 07/06/23 20:01 Ur Leukocyte Esterase 2+ (Negative) H 07/06/23 20:01 Urine RBC >100 /hpf (0-2) H 07/06/23 20:01 Urine WBC 15-25 /hpf (0-5) H 07/06/23 20:01 Ur Squamous Epith Cells 0-4 /hpf (0-5) H 07/06/23 20:01 Amorphous Sediment 1+ /hpf 07/06/23 20:01 Urine Bacteria 1+ /hpf (NONE) H 07/06/23 20:01 Discharge Plan Discharge Patient Disposition: Home Clinical Impression: Abdominal pain Qualifiers: Abdominal location: lower abdomen, unspecified Qualified Code(s): R10.30 - Lower abdominal pain, unspecified Urinary tract infection Qualifiers: Urinary tract infection type: acute cystitis Hematuria presence: with hematuria Qualified Code(s): N30.01 - Acute cystitis with hematuria Condition: Stable Prescriptions: New ciprofloxacin HCl 500 mg tablet 500 mg PO Q12H Qty: 20 0RF No Action fluticasone propion-salmeterol [Advair Diskus] 500-50 mcg/dose blister with device 1 inh INHALATION DAILY oxycodone 20 mg tablet 20 mg PO TID PRN (Reason: pain) 30 Days Qty: 90 0RF Rx Instructions: fill on or after 09/16/21 cyclobenzaprine 10 mg tablet 10 mg PO TID PRN (Reason: muscle spasm) Qty: 90 1RF albuterol sulfate 2.5 mg /3 mL (0.083 %) solution for nebulization 2.5 mg inhalation QID PRN (Reason: shortness of breath or wheezing) Qty: 90 1RF clotrimazole 1 % cream 1 applic TOPICAL BID PRN Rx Instructions: for 2 weeks oxybutynin chloride 2.5 mg tablet See Rx Instructions PO TID Rx Instructions: strength unknown orally three times daily; diclofenac sodium [Voltaren Arthritis Pain] 1 % gel 4 g topical BID 30 Days Qty: 100 2RF Rx Instructions: apply to single right great toe morning and night (DME) Sole Supports See Rx Instructions .Route .MEDSUPPLY Qty: 1 0RF Rx Instructions: As directed (DME) Nebulizer and tubing See Rx Instructions .Route .MEDSUPPLY Qty: 1 0RF Rx Instructions: As directed amlodipine 10 mg tablet 10 mg PO DAILY Qty: 90 3RF sulfamethoxazole-trimethoprim [Bactrim] 400-80 mg tablet 1 tab PO BID Qty: 14 0RF Ventolin HFA 90 mcg/actuation Hfa Aerosol Inhaler 2 puff INHALATION Q4H PRN (Reason: Shortness Of Breath) Discharge Orders: Discharge ED (Routine); Ordered 07/06/23 Ordered By: Micha Rivera Referrals: Rich Holliday, [employer] [Primary Care Provider] - 1 week Patient Instructions: Abdominal Pain (ED), Catheter-associated Urinary Tract Infection (ED) Activity Restrictions/Additional Instructions: Please finish all your antibiotics as directed. Please follow-up with your family practice doctor in 7 days or sooner as needed for further evaluation and treatment. Please keep your appointment with your urologist in [place]. Coding Level of Care Code ED Band Nailer for 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
[2023-07-06 20:00] VITALS: BP 174/81; PULSE 87; O2SAT 97
[2023-07-06 20:12] LABS: Add Urine Microscopic? YES; Bacteria Urine 1+ /hpf; Bilirubin Urine Neg (Negative); Blood Urine 3+ (Negative); Glucose Urine UA Norm (Normal); Ketones Urine 1+ (Negative); Leukocyte Esterase Urine 2+ (Negative); Nitrate Urine Negative (Negative); Protein Urine 2+ (Negative); RBC Urine >100 /hpf (0-2); Specific Gravity, Urine 1.015 (1.005-1.030); Squamous Epithelial Cell Urine 0-4 /hpf (0-5); Urine Appearance Cloudy (CLEAR); Urine Color Brown (Yellow); Urobilinogen Urine Norm (Negative); WBC Urine 15-25 /hpf (0-5); pH Urine 5 (5-7)
[2023-07-06 20:13] LABS: Add Urine Culture? Yes; Amorphous Sediment Urine 1+ /hpf
[2023-07-06] MEDS: ciprofloxacin 500 mg Tablet PO (20:36)
[2023-07-06 20:40] VITALS: BP 142/76; PULSE 87; O2SAT 97
== END 2023-07-06 20:41 | disposition home or self-care (01) ==
PROVIDERS: Emergency Medicine; Emergency Provider Emergency Medicine; PCP Clinical Nurse Specialist Adult Health
DX: R10.30 Lower abdominal pain, unspecified (principal); N30.01 Acute cystitis with hematuria; Z87.891 Personal history of nicotine dependence; J44.9 Chronic obstructive pulmonary disease, unspecified; I10 Essential (primary) hypertension; Z86.19 Personal history of other infectious and parasitic diseases
CPT/HCPCS: 36415; 80053; 81001; 83690; 85025; 87077; 87086; 87186; 99283

== ENCOUNTER 2023-07-12 12:36 | Emergency (ER) | payer MEDICARE, MEDICAID, SELFPAY ==
[2023-07-12 12:44] VITALS: BP 116/56; PULSE 81; RESP 21; TEMP 36.9; O2SAT 96; BMI 29.4
--- NOTE | 2023-07-12 13:03 | XR_ITS ---
WS: [id number] Portable AP upright chest, 07/12/2023 Clinical Data: sob Comparison: 2 view chest, 07/16/2022 Findings: No nodules, masses or effusions are seen. The heart is normal. The pulmonary vascularity is not increased. No pneumonia or pneumothorax is seen. The aortic arch and descending thoracic aorta s how tortuosity. The diaphragms are flattened. Impression: Atherosclerosis and hyperinflation.
[2023-07-12] MEDS: methylPREDNISolone sod succ 125 MG in water for injection-sterile 2 ML 24 MG IVP (13:08)
--- NOTE | 2023-07-12 13:16 | W.ED.SOB ---
HPI - SOB/Dyspnea General: Chief Complaint: Shortness of Breath/Dyspnea Stated Complaint: sob Time Seen by Provider: 07/12/23 12:47 Source: patient and EMS Mode of arrival: EMS Limitations: no limitations History of Present Illness: HPI Narrative: 78-year-old male states he is got a history of some chronic bronchitis he states he used to wild believes it was from the smoke exposure. 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 He is not on any oxygen here he states he is feeling improved now that he is away from the smoke he denies any chest pain denies any cough or fever Associated symptoms: Deny abdominal pain, chest pain, fever(s), nausea or vomiting Review of Systems Const: Denies: fever(s), chills, body aches or change in appetite ENMT: Denies: throat pain or dental pain Card: Denies: chest pain Resp: Reports: dyspnea and non-productive cough GI: Denies: abdominal pain, nausea, vomiting or diarrhea : Denies: dysuria Musc: Denies: neck pain or back pain Skin/Breast: Denies: rash Neuro: Denies: headache(s) PFSH ED PFSH: Medical History Chronic pain cervical and lumbar spine Cirrhosis Colon perforation Colon polyps COPD (chronic obstructive pulmonary disease) Essential hypertension Hepatitis C Osteoarthritis Thrombocytopenia Surgical History S/P cataract extraction bilateral S/P cholecystectomy S/P laparoscopy (11/19/20) repair of sigmoid perforation Status post colonoscopy Family History Mother Cancer Grandmother Diabetes Other Hypertension Denies family history of CAD (coronary artery disease) Clotting disorder Dementia Hyperlipidemia Psychiatric illness Chronic kidney disease (CKD) Suicide Anesthesia complication Bleeding disorder Lung disease Stroke Social History Smoking and tobacco status: former smoker (smoked x 20 years off and on) Second hand smoke exposure: No Alcohol intake: never Substance/Drug Use: never Physical Exam Const: COMMON NORMALS: no acute distress, patient oriented x3 and healthy appearing HENMT: COMMON NORMALS: normocephalic and atraumatic HEAD & SCALP: normocephalic and atraumatic Neck/C-Spine: COMMON NORMALS: full ROM and supple Chest: COMMONS NORMALS: normal inspection of the chest and normal palpation of entire chest wall Resp: COMMON NORMALS: normal respiratory effort, No retractions and No use of accessory muscles OTHER: mild wheezing Cardio: COMMON NORMALS: regular rate, regular rhythm and No murmurs present (Cardio) RATE: regular rate RHYTHM: regular rhythm GI: COMMON NORMALS: Normal to inspection, nondistended, normoactive bowel sounds present, Soft to palpation, non-tender and no masses PALPATION: Yes Soft to palpation Extremity: COMMON NORMALS: normal to inspection and full ROM Neuro: COMMON NORMALS: patient oriented x3, moves all extremities and no focal motor deficits Psych: COMMON NORMALS: mental status grossly normal, Normal thought process present and cooperative THOUGHT PROCESS: Normal thought process present Skin: COMMON NORMALS: no rashes or lesions noted and no wounds GENERAL SKIN EXAM: no rashes or lesions noted Course Vital Signs: Vital signs: Vital Signs Temperature 98.5 F 07/12/23 12:44 Pulse Rate 83 07/12/23 14:00 Respiratory Rate 18 07/12/23 13:22 Blood Pressure 122/60 07/12/23 14:00 Pulse Oximetry 93 07/12/23 14:00 Oxygen Delivery Me thod Room Air 07/12/23 13:22 MDM - SOB/Dyspnea Medical Decision Making Patient presents here with COPD exacerbation he has been in no distress here. he is no t hypoxic. Will place on prednisone and he is to follow up with pcp Medical Records I reviewed the patient's medical records. Lab Data I reviewed the patient's lab results. 07/12/23 13:17 07/12/23 13:17 Labs/Radiology: Laboratory Results WBC 6.08 10^3/uL (3.29-11.43) 07/12/23 13:17 RBC 3.33 10^6/uL (3.85-5.65) L 07/12/23 13:17 Hgb 11.50 g/dL (11.27-16.99) 07/12/23 13:17 Hct 33.1 % (37-53) L 07/12/23 13:17 MCV 99.4 fl (82-101) 07/12/23 13:17 MCH 34.5 pg (27-33) H 07/12/23 13:17 MCHC 34.7 g/dL (30-55) 07/12/23 13:17 RDW 13.3 % (12.1-15.1) 07/12/23 13:17 Plt Count 67 10^3/cmm (157-399) L 07/12/23 13:17 MPV 10.2 fL (7.4-10.4) 07/12/23 13:17 Neut % (Auto) 72.8 % 07/12/23 13:17 Lymph % (Auto) 16.3 % 07/12/23 13:17 [facility] % (Auto) 7.6 % 07/12/23 13:17 Eos % (Auto) 2.5 % 07/12/23 13:17 Baso % (Auto) 0.3 % 07/12/23 13:17 Neut # (Auto) 4.43 10^3/uL (1.8-7.7) 07/12/23 13:17 Lymph # (Auto) 1.0 10^3/uL (0.8-4.8) 07/12/23 13:17 [facility] # (Auto) 0.5 10^3/uL (0.2-0.9) 07/12/23 13:17 Eos # (Auto) 0.2 10^3/uL (0.0-0.8) 07/12/23 13:17 Baso # (Auto) 0.0 10^3/uL (0.0-0.1) 07/12/23 13:17 Nucleated RBC % (auto) 0 % 07/12/23 13:17 Nucleated RBCs # 0.0 /100WBC 07/12/23 13:17 Specimen Type Arterial 07/12/23 13:30 Sample Site Radial, right 07/12/23 13:30 ABG pH 7.42 (7.35-7.45) 07/12/23 13:30 ABG pCO2 37.1 mmHg (35-45) 07/12/23 13:30 ABG pO2 68.2 mmHg (80.0-100.0) L 07/12/23 13:30 ABG HCO3 24.1 mmol/L (22-26) 07/12/23 13:30 ABG Base Excess -0.2 mmol/L (-2.0-2.0) 07/12/23 13:30 [place]ante Test Pos 07/12/23 13:30 Hematocrit 35.2 % (42-52) L 07/12/23 13:30 Hgb O2 Saturation 93.2 % (95-100) L 07/12/23 13:30 Carboxyhemoglobin 1.3 %THgb (0.4-20.1) 07/12/23 13:30 Methemoglobin 0.3 % (0.4-1.5) L 07/12/23 13:30 Total Hemoglobin 11.5 g/dL (14-18) L 07/12/23 13:30 O2 Delivery Device Room air 07/12/23 13:30 FiO2 21.0 % 07/12/23 13:30 Medical Technologist ID glc 07/12/23 13:30 Sodium 138 mmol/L (136-145) 07/12/23 13:17 Potassium 3.8 mmol/L (3.5-5.1) 07/12/23 13:17 Chloride 104 mmol/L (98-107) 07/12/23 13:17 Carbon Dioxide 25 mmol/L (22-29) 07/12/23 13:17 Anion Gap 12.8 (5-19) 07/12/23 13:17 BUN 30 mg/dL (8-23) H 07/12/23 13:17 Creatinine 1.3 mg/dL (0.7-1.2) H 07/12/23 13:17 GFR Calculation Not Reportable 07/12/23 13:17 Glucose 119 mg/dL (65-115) H 07/12/23 13:17 Calculated Osmolality 293 mOsm/kg (285-295) 07/12/23 13:17 Calcium 8.2 mg/dL (8.5-10.5) L 07/12/23 13:17 Total Bilirubin 0.8 mg/dL (0.15-1.2) 07/12/23 13:17 AST 23 U/L (0-40) 07/12/23 13:17 ALT 9 U/L (0-41) 07/12/23 13:17 Alkaline Phosphatase 73 U/L (40-130) 07/12/23 13:17 NT-Pro-B Natriuret Pep 1069 pg/mL (0-450) H 07/12/23 13:17 Total Protein 6.2 g/dL (6.6-8.7) L 07/12/23 13:17 Albumin 3.4 g/dL (3.5-5.2) L 07/12/23 13:17 Globulin 2.8 g/dL (1.3-4.6) 07/12/23 13:17 Discharge Plan Discharge Patient Disposition: Home Clinical Impression: Acute exacerbation of chronic obstructive airways disease Condition: Stable Prescriptions: New prednisone 50 mg tablet 50 mg PO DAILY Qty: 5 0RF No Action fluticasone propion-salmeterol [Advair Diskus] 500-50 mcg/dose blister with device 1 inh INHALATION DAILY albuterol sulfate 2.5 mg /3 mL (0.083 %) solution for nebulization 2.5 mg inhalation QID PRN (Reason: shortness of breath or wheezing) Qty: 90 1RF clotrimazole 1 % cream 1 applic TOPICAL BID PRN (Reason: Rash) Rx Instructions: for 2 weeks diclofenac sodium [Voltaren Arthritis Pain] 1 % gel 4 g topical BID 30 Days Qty: 100 2RF Rx Instructions: apply to single right great toe morning and night (DME) Sole Supports See Rx Instructions .Route .MEDSUPPLY Qty: 1 0RF Rx Instructions: As directed (DME) Nebulizer and tubing See Rx Instructions .Route .MEDSUPPLY Qty: 1 0RF Rx Instructions: As directed amlodipine 10 mg tablet 10 mg PO DAILY Qty: 90 3RF albuterol sulfate [Ventolin HFA] 90 mcg/actuation Hfa Aerosol Inhaler 2 puff INHALATION Q4H PRN (Reason: Shortness Of Breath) ciprofloxacin HCl 500 mg tablet 500 mg PO Q12H Qty: 20 0RF oxybutynin chloride 5 mg tablet 5 mg PO TID tadalafil 20 mg tablet See Rx Instructions .ROUTE .COMPLEX Rx Instructions: 20 mg orally as needed for sexual intercourse oxycodone 20 mg tablet 20 mg PO Q4H PRN (Reason: pain) Rx Instructions: fill on or after 09/16/21 Discharge Orders: Discharge ED (Routine); Ordered 07/12/23 Ordered By: Rubens Juarez Referrals: Rich Holliday [employer] [Nurse Practitioner] - 1-3 days Discharge Diet: Advance as tolerated Discharge Activity: Resume usual activity Patient Instructions: COPD (Chronic Obstructive Pulmonary Disease) (ED) Coding Level of Care Code ED Edge Burnisher for 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
[2023-07-12] MEDS: albuterol 2.5 mg/3 mL Neb INHALATION (13:20)
[2023-07-12] MEDS: ipratropium-albuterol 3 mL Neb INHALATION (13:20)
[2023-07-12 13:22] VITALS: PULSE 79; RESP 18; O2SAT 97
[2023-07-12 13:25] LABS: Basophils % 0.3 %; Eosinophils # 0.2 10^3/uL (0.0-0.8); Eosinophils % 2.5 %; Hematocrit 33.1 % (37-53); Lymphocytes % 16.3 %; Mean Corpuscular HGB Conc 34.7 g/dL (30-55); Mean Corpuscular Hemoglobin 34.5 pg (27-33); Mean Corpuscular Volume 99.4 fl (82-101); Mean Platelet Volume 10.2 fL (7.4-10.4); Monocytes # 0.5 10^3/uL (0.2-0.9); Monocytes % 7.6 %; Neutrophils # 4.43 10^3/uL (1.8-7.7); Neutrophils % 72.8 %; Nucleated Red Blood Cells % 0 %; Platelet Count 67 10^3/cmm (157-399); Red Blood Count 3.33 10^6/uL (3.85-5.65); Red Cell Distribution Width 13.3 % (12.1-15.1); White Blood Count 6.08 10^3/uL (3.29-11.43)
[2023-07-12 13:36] VITALS: PULSE 78
[2023-07-12 13:44] LABS: ABG PCO2 37.1 mmHg (35-45); ABG PH Result 7.42 (7.35-7.45); Arterial Blood Gas Hematocrit 35.2 % (42-52); Base Excess ABG -0.2 mmol/L (-2.0-2.0); Blood Gas Allen Test Pos; Blood Gas Operator Identificat glc; Blood Gas Sample Site Radial, right; Blood Gas Sample Type Arterial; Carboxyhemoglobin 1.3 %THgb (0.4-20.1); HCO3 ABG 24.1 mmol/L (22-26); HGB O2 Sat 93.2 % (95-100); Methemoglobin 0.3 % (0.4-1.5); Oxygen Device ROOM AIR; PO2 ABG 68.2 mmHg (80.0-100.0); Total Hemoglobin 11.5 g/dL (14-18)
[2023-07-12 13:58] LABS: Alanine Aminotransferase 9 U/L (0-41); Albumin Level 3.4 g/dL (3.5-5.2); Alkaline Phosphatase 73 U/L (40-130); Anion Gap 12.8 (5-19); Aspartate Amino Transferase 23 U/L (0-40); Blood Urea Nitrogen 30 mg/dL (8-23); Calcium 8.2 mg/dL (8.5-10.5); Carbon Dioxide 25 mmol/L (22-29); Chloride 104 mmol/L (98-107); Globulin 2.8 g/dL (1.3-4.6); Glucose 119 mg/dL (65-115); NT Pro B Type Natriuretic Pept 1069 pg/mL (0-450); Osmolality Calculated 293 mOsm/kg (285-295); Potassium 3.8 mmol/L (3.5-5.1); Sodium 138 mmol/L (136-145); Total Bilirubin 0.8 mg/dL (0.15-1.2); Total Protein 6.2 g/dL (6.6-8.7)
[2023-07-12 14:00] VITALS: BP 122/60; PULSE 83; O2SAT 93
[2023-07-12 14:27] VITALS: BP 132/59; PULSE 88; O2SAT 93
--- NOTE | 2023-07-12 15:44 | DCPLANNER ---
Addendum entered by Lucia Loo 07/19/23 14:43: Patient has a follow up appointment scheduled for 10.25.23 at 2:30 Original Note: industrial relations manager had message to schedule a follow up appointment for patient with pulmonology. industrial relations manager sent patients information to the front office staff at [facility]. Patients information will be printed and reviewed. Clinic will call patient with appointment information.
== END 2023-07-12 14:28 | disposition home or self-care (01) ==
PROVIDERS: Emergency Provider Emergency Medicine; PCP Family Medicine
DX: J44.1 Chronic obstructive pulmonary disease with (acute) exacerbation (principal); Z87.891 Personal history of nicotine dependence; I10 Essential (primary) hypertension; Z86.19 Personal history of other infectious and parasitic diseases
CPT/HCPCS: 36415; 36600; 71045; 80053; 82805; 83880; 85025; 94640; 96374; 99284; J2930; J7613

== ENCOUNTER 2023-07-16 17:48 | Emergency (ER) | payer MEDICARE, MEDICAID, SELFPAY ==
[2023-07-16 17:54] VITALS: BP 165/82; PULSE 81; RESP 18; TEMP 36.7; O2SAT 96; BMI 29.4
--- NOTE | 2023-07-16 19:12 | W.ED.SKABFB ---
HPI - Skin/Abscess/Foreign Bdy General: Chief complaint: Skin/Abscess/Foreign Body Stated complaint: allergic reaction to meds Time Seen by Provider: 07/16/23 19:11 History of Present Illness: 78-year-old male patient comes in today for concerns of rash. Patient was started on antibiotics on the seventh due to blood in the urine and concern for possible infection after a urology procedure. Patient reports no fever or chills. Patient appears nontoxic. Patient does continue to have some blood in his urine. Patient was concerned he may be becoming anemic as he has had problems before in the past with his anemia. Patient was also concerned about the rash. Associated symptoms: Deny fever(s) Review of Systems Const: Denies: fever(s) Skin/Breast: Reports: rash PFSH ED PFSH: Medical History Chronic pain cervical and lumbar spine Cirrhosis Colon perforation Colon polyps COPD (chronic obstructive pulmonary disease) Essential hypertension Hepatitis C Osteoarthritis Thrombocytopenia Surgical History S/P cataract extraction bilateral S/P cholecystectomy S/P laparoscopy (11/19/20) repair of sigmoid perforation Status post colonoscopy Family History Mother Cancer Grandmother Diabetes Other Hypertension Denies family history of CAD (coronary artery disease) Clotting disorder Dementia Hyperlipidemia Psychiatric illness Chronic kidney disease (CKD) Suicide Anesthesia complication Bleeding disorder Lung disease Stroke Social History Smoking and tobacco status: former smoker (smoked x 20 years off and on) Second hand smoke exposure: No Alcohol intake: never Substance/Drug Use: never Physical Exam Const: COMMON NORMALS: alert HENMT: COMMON NORMALS: normocephalic HEAD & SCALP: normocephalic THROAT: posterior oropharynx normal Eye: COMMON NORMALS: Equal, round and reactive pupils present and EOMs intact bilaterally PUPIL: Yes Equal, round and reactive pupils present Neck/C-Spine: COMMON NORMALS: full ROM Resp: COMMON NORMALS: normal respiratory effort and clear to auscultation bilaterally AUSCULTATION: clear to auscultation bilaterally Cardio: COMMON NORMALS: regular rate and regular rhythm RATE: regular rate RHYTHM: regular rhythm GI: COMMON NORMALS: non-tender : COMMON NORMALS: Yes no CVA tenderness BLADDER/KIDNEY EXAM: Yes no CVA tenderness Back/Pelvis: COMMON NORMALS: no CVA tenderness Extremity: COMMON NORMALS: full ROM Neuro: SENSORIUM/ORIENTATION: Yes alert Skin: RASHES: no rashes (Generalized macular rash) Course Vital Signs: Vital signs: Vital Signs Temperature 98.0 F 07/16/23 17:54 Pulse Rate 81 07/16/23 17:54 Respiratory Rate 18 07/16/23 17:54 Blood Pressure 165/82 07/16/23 17:54 Pulse Oximetry 96 07/16/23 17:54 Oxygen Delivery Me thod Room Air 07/16/23 17:54 MDM - Skin/Abscess/Foreign Bdy Medicial Decision Making 78-year-old male patient comes in today for blood in the urine and a generalized macular rash. Patient believes he probably had a reaction to some antibiotics he was started on the seventh for possible urinary infection. Patient reports no fever or chills. Patient had a recent urology procedure on the fifth. Prior urinalysis for the first showed a positive growth of Pseudomonas. Exam was unremarkable except for generalized macular rash. Differential diagnosis includes but not limited to anaphylaxis, allergic reaction, drug eruption, anemia. CBC was unremarkable. Urinalysis can have a large amount of blood but small amount of white blood cells. Urine was sent for culture. At this time I did not recommend further antibiotics until we have a repeat culture. Recommend patient follow-up with his urologist in the morning regarding his bleeding and any instruction for antibiotic use. Recommended Benadryl or second-generation antihistamines for the rash and itching. Patient and family both reported understanding. Lab Data 07/16/23 19:54 Laboratory Results WBC 6.53 10^3/uL (3.29-11.43) 07/16/23 19:54 RBC 4.08 10^6/uL (3.85-5.65) 07/16/23 19:54 Hgb 13.70 g/dL (11.27-16.99) 07/16/23 19:54 Hct 40.0 % (37-53) 07/16/23 19:54 MCV 98.0 fl (82-101) 07/16/23 19:54 MCH 33.6 pg (27-33) H 07/16/23 19:54 MCHC 34.3 g/dL (30-55) 07/16/23 19:54 RDW 13.3 % (12.1-15.1) 07/16/23 19:54 Plt Count 123 10^3/cmm (157-399) L 07/16/23 19:54 MPV 9.8 fL (7.4-10.4) 07/16/23 19:54 Neut % (Auto) 72.0 % 07/16/23 19:54 Lymph % (Auto) 15.0 % 07/16/23 19:54 [place] % (Auto) 8.1 % 07/16/23 19:54 Eos % (Auto) 3.8 % 07/16/23 19:54 Baso % (Auto) 0.6 % 07/16/23 19:54 Neut # (Auto) 4.70 10^3/uL (1.8-7.7) 07/16/23 19:54 Lymph # (Auto) 1.0 10^3/uL (0.8-4.8) 07/16/23 19:54 [place] # (Auto) 0.5 10^3/uL (0.2-0.9) 07/16/23 19:54 Eos # (Auto) 0.3 10^3/uL (0.0-0.8) 07/16/23 19:54 Baso # (Auto) 0.0 10^3/uL (0.0-0.1) 07/16/23 19:54 Nucleated RBC % (auto) 0 % 07/16/23 19:54 Nucleated RBCs # 0.0 /100WBC 07/16/23 19:54 Urine Color Red (Yellow) A 07/16/23 19:48 Urine Appearance Cloudy (CLEAR) A 07/16/23 19:48 Urine pH 6 (5-7) 07/16/23 19:48 Ur Specific [place] 1.015 (1.005-1.030) 07/16/23 19:48 Urine Protein 3+ (Negative) H 07/16/23 19:48 Urine Glucose (UA) Norm (Normal) 07/16/23 19:48 Urine Ketones Negative (Negative) 07/16/23 19:48 Urine Blood 3+ (Negative) H 07/16/23 19:48 Urine Nitrate Negative (Negative) 07/16/23 19:48 Urine Bilirubin Neg (Negative) 07/16/23 19:48 Urine Urobilinogen Neg mg/dL (Negative) 07/16/23 19:48 Ur Leukocyte Esterase 2+ (Negative) H 07/16/23 19:48 Urine RBC >100 /hpf (0-2) H 07/16/23 19:48 Urine WBC 10-15 /hpf (0-5) H 07/16/23 19:48 Ur Squamous Epith Cells 0-4 /hpf (0-5) H 07/16/23 19:48 Amorphous Sediment Not Reportable 07/16/23 19:48 Urine Bacteria 1+ /hpf (NONE) H 07/16/23 19:48 Discharge Plan Discharge Patient Disposition: Home Clinical Impression: Generalized skin eruption due to drugs and medicaments Condition: Stable Prescriptions: No Action fluticasone propion-salmeterol [Advair Diskus] 500-50 mcg/dose blister with device 1 inh INHALATION DAILY albuterol sulfate 2.5 mg /3 mL (0.083 %) solution for nebulization 2.5 mg inhalation QID PRN (Reason: shortness of breath or wheezing) Qty: 90 1RF clotrimazole 1 % cream 1 applic TOPICAL BID PRN (Reason: Rash) Rx Instructions: for 2 weeks diclofenac sodium [Voltaren Arthritis Pain] 1 % gel 4 g topical BID 30 Days Qty: 100 2RF Rx Instructions: apply to single right great toe morning and night (DME) Sole Supports See Rx Instructions .Route .MEDSUPPLY Qty: 1 0RF Rx Instructions: As directed (DME) Nebulizer and tubing See Rx Instructions .Route .MEDSUPPLY Qty: 1 0RF Rx Instructions: As directed amlodipine 10 mg tablet 10 mg PO DAILY Qty: 90 3RF albuterol sulfate [Ventolin HFA] 90 mcg/actuation Hfa Aerosol Inhaler 2 puff INHALATION Q4H PRN (Reason: Shortness Of Breath) ciprofloxacin HCl 500 mg tablet 500 mg PO Q12H Qty: 20 0RF oxybutynin chloride 5 mg tablet 5 mg PO TID tadalafil 20 mg tablet See Rx Instructions .ROUTE .COMPLEX Rx Instructions: 20 mg orally as needed for sexual intercourse oxycodone 20 mg tablet 20 mg PO Q4H PRN (Reason: pain) Rx Instructions: fill on or after 09/16/21 prednisone 50 mg tablet 50 mg PO DAILY Qty: 5 0RF Discharge Orders: Discharge ED (Routine); Ordered 07/16/23 Ordered By: Santy Pradhan Referrals: Primo King MD [Primary Care Provider] - Discharge Diet: Usual diet Discharge Activity: Increase activity as tolerated Patient Instructions: Acute Rash (ED) Activity Restrictions/Additional Instructions: Stop ciprofloxacin. Use Benadryl or Claritin or Zyrtec as needed for itching and rash. Drink plenty of water. Follow-up with urologist in the morning for further recommendations of treatment of blood in the urine, no signs of infection were noted at this time. A culture of the urine will be done. Coding Level of Care Code ED Molding Process Technician for 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
[2023-07-16] MEDS: cetirizine 10 mg Tablet PO (19:45)
[2023-07-16 20:13] LABS: Basophils % 0.6 %; Eosinophils # 0.3 10^3/uL (0.0-0.8); Eosinophils % 3.8 %; Mean Corpuscular HGB Conc 34.3 g/dL (30-55); Mean Corpuscular Hemoglobin 33.6 pg (27-33); Mean Platelet Volume 9.8 fL (7.4-10.4); Monocytes # 0.5 10^3/uL (0.2-0.9); Monocytes % 8.1 %; Nucleated Red Blood Cells % 0 %; Platelet Count 123 10^3/cmm (157-399); Red Blood Count 4.08 10^6/uL (3.85-5.65); Red Cell Distribution Width 13.3 % (12.1-15.1); White Blood Count 6.53 10^3/uL (3.29-11.43)
[2023-07-16 20:21] LABS: Blood Urine 3+ (Negative); Glucose Urine UA Norm (Normal); Ketones Urine Negative (Negative); Nitrate Urine Negative (Negative); Protein Urine 3+ (Negative); Specific Gravity, Urine 1.015 (1.005-1.030); Urine Appearance Cloudy (CLEAR); Urine Color Red (Yellow); pH Urine 6 (5-7)
[2023-07-16 20:22] LABS: Add Urine Culture? Yes; Add Urine Microscopic? YES; Bacteria Urine 1+ /hpf; Bilirubin Urine Neg (Negative); Leukocyte Esterase Urine 2+ (Negative); RBC Urine >100 /hpf (0-2); Squamous Epithelial Cell Urine 0-4 /hpf (0-5); Urobilinogen Urine Neg (Negative)
== END 2023-07-16 20:46 | disposition home or self-care (01) ==
PROVIDERS: Emergency Provider Nurse Practitioner Family; PCP Family Medicine
DX: L27.1 Localized skin eruption due to drugs and medicaments taken internally (principal); T36.95XA Adverse effect of unspecified systemic antibiotic, initial encounter; Z87.891 Personal history of nicotine dependence; J44.9 Chronic obstructive pulmonary disease, unspecified; I10 Essential (primary) hypertension; Z86.19 Personal history of other infectious and parasitic diseases; R31.9 Hematuria, unspecified
CPT/HCPCS: 36415; 81001; 85025; 87077; 87086; 87186; 99283

== ENCOUNTER → 2023-07-20 09:08 | Outpatient (BNVA) | payer MEDICARE, MEDICAID, SELFPAY | PROVIDERS: PCP Family Medicine; Referring Provider Emergency Medicine; Visit Provider Internal Medicine Pulmonary Disease | DX: T78.40XA Allergy, unspecified, initial encounter (principal); R06.09 Other forms of dyspnea; R06.02 Shortness of breath; Z87.891 Personal history of nicotine dependence; Z30.2 Encounter for sterilization | CPT/HCPCS: 82785; 86003; 99204 ==

== ENCOUNTER 2023-07-31 19:20 | Emergency (ER) | payer MEDICARE, MEDICAID, SELFPAY ==
[2023-07-31 19:32] VITALS: BP 139/72; PULSE 84; RESP 18; TEMP 37.3; O2SAT 95; BMI 29.3
--- NOTE | 2023-07-31 19:44 | XRR_ITS ---
PROCEDURE INFORMATION: Exam: XR Chest Exam date and time: 07/31/2023 7:49 PM Age: 78 years old Clinical indication: Shortness of breath; Additional info: SOB TECHNIQUE: Imaging protocol: Radiologic exam of the chest. Views: 1 view. COMPARISON: CR XR chest 1V portable [id number] 07/12/2023 1:44 PM FINDINGS: Lungs: Unremarkable. No consolidation. Pleural spaces: Unremarkable. No pleural effusion. No pneumothorax. Heart/Mediastinum: Moderate-sized hiatal hernia. No cardiomegaly. Bones/joints: Few old right rib deformities. XR/XR chest 1V portable [id number] IMPRESSION: 1. No acute findings. 2. Moderate-sized hiatal hernia.
[2023-07-31 20:22] VITALS: BP 123/72; PULSE 96; RESP 16; O2SAT 92
--- NOTE | 2023-07-31 20:33 | W.ED.SOB ---
HPI - SOB/Dyspnea General: Chief Complaint: Shortness of Breath/Dyspnea Stated Complaint: SOB Time Seen by Provider: 07/31/23 19:43 Source: patient Mode of arrival: ambulatory Limitations: no limitations History of Present Illness: HPI Narrative: 78-year-old male states he been having cough congestion along with low-grade fever over the last 2 days he states concerned he may have COVID he had some mild dyspnea denies any chest pain. He states he has had some lower flank pain states that last month he had had kidney stones had to have he states a procedure done at [facility] he is unsure exactly what it was this pain started also a day ago denies any dysuria denies any severe pain denies any vomiting Associated symptoms: Deny abdominal pain, chest pain, fever(s), nausea or vomiting Review of Systems Const: Reports: chills; Denies: fever(s) Eyes: Denies: blurry vision or eye discomfort ENMT: Denies: throat pain or dental pain Card: Denies: chest pain Resp: Reports: dyspnea and productive cough GI: Denies: abdominal pain, nausea, vomiting or diarrhea Musc: Denies: neck pain or back pain Skin/Breast: Denies: rash Neuro: Denies: headache(s) PFSH ED PFSH: Medical History Chronic pain cervical and lumbar spine Cirrhosis Colon perforation Colon polyps COPD (chronic obstructive pulmonary disease) Essential hypertension Hepatitis C Osteoarthritis Thrombocytopenia Surgical History S/P cataract extraction bilateral S/P cholecystectomy S/P laparoscopy (11/19/20) repair of sigmoid perforation Status post colonoscopy Family History Mother Cancer Grandmother Diabetes Other Hypertension Denies family history of CAD (coronary artery disease) Clotting disorder Dementia Hyperlipidemia Psychiatric illness Chronic kidney disease (CKD) Suicide Anesthesia complication Bleeding disorder Lung disease Stroke Social History Smoking and tobacco status: former smoker (smoked x 20 years off and on) Quit status (tobacco): has quit using tobacco Year quit tobacco: 2004 Former quit date comment: 1 ppd X 16 years Second hand smoke exposure: No Alcohol intake: never Substance/Drug Use: never Physical Exam Const: COMMON NORMALS: no acute distress, patient oriented x3 and healthy appearing HENMT: COMMON NORMALS: normocephalic and atraumatic HEAD & SCALP: normocephalic and atraumatic Eye: COMMON NORMALS: Equal, round and reactive pupils present and EOMs intact bilaterally PUPIL: Yes Equal, round and reactive pupils present Neck/C-Spine: COMMON NORMALS: full ROM and supple Chest: COMMONS NORMALS: normal inspection of the chest and normal palpation of entire chest wall Resp: COMMON NORMALS: normal respiratory effort, No retractions, No use of accessory muscles and clear to auscultation bilaterally AUSCULTATION: clear to auscultation bilaterally Cardio: COMMON NORMALS: regular rate, regular rhythm and No murmurs present (Cardio) RATE: regular rate RHYTHM: regular rhythm GI: COMMON NORMALS: Normal to inspection, nondistended, normoactive bowel sounds present, Soft to palpation, non-tender and no masses PALPATION: Yes Soft to palpation Extremity: COMMON NORMALS: normal to inspection and full ROM Neuro: COMMON NORMALS: patient oriented x3, moves all extremities and no focal motor deficits Psych: COMMON NORMALS: mental status grossly normal, Normal thought process present and cooperative THOUGHT PROCESS: Normal thought process present Skin: COMMON NORMALS: no rashes or lesions noted and no wounds GENERAL SKIN EXAM: no rashes or lesions noted Course Vital Signs: Vital signs: Vital Signs Temperature 99.1 F 07/31/23 22:53 Pulse Rate 79 07/31/23 22:53 Respiratory Rate 16 07/31/23 22:53 Blood Pressure 132/74 07/31/23 22:53 Pulse Oximetry 97 07/31/23 22:53 Oxygen Delivery Me thod Room Air 07/31/23 20:22 MDM - SOB/Dyspnea Medical Decision Making Patient presents here with cough congestion COVID was negative he has no signs of pneumonia he is also been having some flank pain he does have a left proximal kidney stone no signs of infection informed he needs to follow-up with his urologist at [facility] if worsening he understands agrees to plan. Medical Records I reviewed the patient's medical records. Lab Data I reviewed the patient's lab results. 07/31/23 20:35 07/31/23 20:35 Labs/Radiology: Radiology Impressions Chest X-Ray 07/31/23 19:44 IMPRESSION: 1. No acute findings. 2. Moderate-sized hiatal hernia. Chest/Abdomen/Pelvis CT 07/31/23 20:59 IMPRESSION: No acute findings. IMPRESSION: 1. Left proximal ureteral 7 mm calculus causes at least mild obstruction. This has a cast type appearance on the coronals and extends along a length of about 1.8 cm. The previously seen large left kidney stone from 06/29/2023 is now very fragmented throughout the left kidney. Correlate with any recent procedure such as lithotripsy. 2. No small bowel obstruction, abscess or free air. 3. Chronic findings above with cirrhosis, splenomegaly, etc. COMMENTS: Consistent with the [employer]'s Incidental Findings Committee white paper (J Am Lorie Radiol 2018): Any incidental renal lesion less than 1 cm or classified as too small to characterize, or any incidental cystic renal lesion characterized as simple-appearing, is likely benign. No follow-up imaging is recommended for these lesions per consensus recommendations based on imaging criteria. Laboratory Results WBC 4.96 10^3/uL (3.29-11.43) 07/31/23 20:35 RBC 3.60 10^6/uL (3.85-5.65) L 07/31/23 20:35 Hgb 12.10 g/dL (11.27-16.99) 07/31/23 20:35 Hct 35.2 % (37-53) L 07/31/23 20:35 MCV 97.8 fl (82-101) 07/31/23 20:35 MCH 33.6 pg (27-33) H 07/31/23 20:35 MCHC 34.4 g/dL (30-55) 07/31/23 20:35 RDW 13.4 % (12.1-15.1) 07/31/23 20:35 Plt Count 68 10^3/cmm (157-399) L 07/31/23 20:35 MPV 10.1 fL (7.4-10.4) 07/31/23 20:35 Neut % (Auto) 72.2 % 07/31/23 20:35 Lymph % (Auto) 15.3 % 07/31/23 20:35 [place] % (Auto) 9.7 % 07/31/23 20:35 Eos % (Auto) 2.0 % 07/31/23 20:35 Baso % (Auto) 0.4 % 07/31/23 20:35 Neut # (Auto) 3.58 10^3/uL (1.8-7.7) 07/31/23 20:35 Lymph # (Auto) 0.8 10^3/uL (0.8-4.8) 07/31/23 20:35 [place] # (Auto) 0.5 10^3/uL (0.2-0.9) 07/31/23 20:35 Eos # (Auto) 0.1 10^3/uL (0.0-0.8) 07/31/23 20:35 Baso # (Auto) 0.0 10^3/uL (0.0-0.1) 07/31/23 20:35 Nucleated RBC % (auto) 0 % 07/31/23 20:35 Nucleated RBCs # 0.0 /100WBC 07/31/23 20:35 Sodium 137 mmol/L (136-145) 07/31/23 20:35 Potassium 4.0 mmol/L (3.5-5.1) 07/31/23 20:35 Chloride 101 mmol/L (98-107) 07/31/23 20:35 Carbon Dioxide 25 mmol/L (22-29) 07/31/23 20:35 Anion Gap 15.0 (5-19) 07/31/23 20:35 BUN 23 mg/dL (8-23) 07/31/23 20:35 Creatinine 1.8 mg/dL (0.7-1.2) H 07/31/23 20:35 GFR Calculation Not Reportable 07/31/23 20:35 Glucose 99 mg/dL (65-115) 07/31/23 20:35 Calculated Osmolality 288 mOsm/kg (285-295) 07/31/23 20:35 Calcium 8.9 mg/dL (8.5-10.5) 07/31/23 20:35 Total Bilirubin 1.9 mg/dL (0.15-1.2) H 07/31/23 20:35 AST 21 U/L (0-40) 07/31/23 20:35 ALT 16 U/L (0-41) 07/31/23 20:35 Alkaline Phosphatase 99 U/L (40-130) 07/31/23 20:35 NT-Pro-B Natriuret Pep 427 pg/mL (0-450) 07/31/23 20:35 Total Protein 6.9 g/dL (6.6-8.7) 07/31/23 20:35 Albumin 4.1 g/dL (3.5-5.2) 07/31/23 20:35 Globulin 2.8 g/dL (1.3-4.6) 07/31/23 20:35 Lipase 47 U/L (13-60) 07/31/23 20:35 Urine Color Yellow (Yellow) 07/31/23 20:28 Urine Appearance Hazy (CLEAR) A 07/31/23 20:28 Urine pH 6 (5-7) 07/31/23 20:28 Ur Specific [place] 1.010 (1.005-1.030) 07/31/23 20:28 Urine Protein Neg (Negative) 07/31/23 20:28 Urine Glucose (UA) Norm (Normal) 07/31/23 20:28 Urine Ketones Negative (Negative) 07/31/23 20:28 Urine Blood 3+ (Negative) H 07/31/23 20:28 Urine Nitrate Negative (Negative) 07/31/23 20:28 Urine Bilirubin Neg (Negative) 07/31/23 20:28 Urine Urobilinogen Neg mg/dL (Negative) 07/31/23 20:28 Ur Leukocyte Esterase 2+ (Negative) H 07/31/23 20:28 Urine RBC 15-25 /hpf (0-2) H 07/31/23 20:28 Urine WBC 25-40 /hpf (0-5) H 07/31/23 20:28 Ur Squamous Epith Cells None /hpf (0-5) 07/31/23 20:28 Amorphous Sediment Not Reportable 07/31/23 20:28 Urine Bacteria 1+ /hpf (NONE) H 07/31/23 20:28 SARS-CoV-2 Ag (Rapid) negative (Negative) 07/31/23 19:50 All radiology interpretation(s) finalized by discharge Discharge Plan Discharge Patient Disposition: Home Clinical Impression: Cough, Kidney stone Condition: Stable Prescriptions: No Action fluticasone propion-salmeterol [Advair Diskus] 500-50 mcg/dose blister with device 1 inh INHALATION DAILY albuterol sulfate 2.5 mg /3 mL (0.083 %) solution for nebulization 2.5 mg inhalation QID PRN (Reason: shortness of breath or wheezing) Qty: 90 1RF clotrimazole 1 % cream 1 applic TOPICAL BID PRN (Reason: Rash) Rx Instructions: for 2 weeks diclofenac sodium [Voltaren Arthritis Pain] 1 % gel 4 g topical BID 30 Days Qty: 100 2RF Rx Instructions: apply to single right great toe morning and night (DME) Sole Supports See Rx Instructions .Route .MEDSUPPLY Qty: 1 0RF Rx Instructions: As directed ipratropium-albuterol 0.5 mg-3 mg(2.5 mg base)/3 mL solution for nebulization 3 ml inhalation Q6H PRN (Reason: wheezing) Qty: 90 3RF (DME) Nebulizer and tubing See Rx Instructions .Route .MEDSUPPLY Qty: 1 0RF Rx Instructions: As directed albuterol sulfate [Ventolin HFA] 90 mcg/actuation Hfa Aerosol Inhaler 2 puff INHALATION Q4H PRN (Reason: Shortness Of Breath) tadalafil 20 mg tablet See Rx Instructions .ROUTE .COMPLEX Rx Instructions: 20 mg orally as needed for sexual intercourse oxycodone 20 mg tablet 20 mg PO Q4H PRN (Reason: pain) Rx Instructions: fill on or after 09/16/21 Discharge Orders: Discharge ED (Routine); Ordered 07/31/23 Ordered By: Rubens Juarez Referrals: Primo King MD [Primary Care Provider] - 1-3 days Discharge Diet: Advance as tolerated Discharge Activity: Resume usual activity Patient Instructions: Kidney Stones (ED), Upper Respiratory Infection (ED) Coding Level of Care Code ED Prison Keeper for 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
[2023-07-31 20:41] LABS: Basophils % 0.4 %; Eosinophils # 0.1 10^3/uL (0.0-0.8); Hematocrit 35.2 % (37-53); Lymphocytes # 0.8 10^3/uL (0.8-4.8); Lymphocytes % 15.3 %; Mean Corpuscular HGB Conc 34.4 g/dL (30-55); Mean Corpuscular Hemoglobin 33.6 pg (27-33); Mean Corpuscular Volume 97.8 fl (82-101); Mean Platelet Volume 10.1 fL (7.4-10.4); Monocytes # 0.5 10^3/uL (0.2-0.9); Monocytes % 9.7 %; Neutrophils # 3.58 10^3/uL (1.8-7.7); Neutrophils % 72.2 %; Nucleated Red Blood Cells % 0 %; Platelet Count 68 10^3/cmm (157-399); Red Cell Distribution Width 13.4 % (12.1-15.1); White Blood Count 4.96 10^3/uL (3.29-11.43)
[2023-07-31 20:47] LABS: SARS Covid-2 Antigen negative (Negative)
[2023-07-31 20:53] LABS: Add Urine Microscopic? YES; Bilirubin Urine Neg (Negative); Blood Urine 3+ (Negative); Glucose Urine UA Norm (Normal); Ketones Urine Negative (Negative); Leukocyte Esterase Urine 2+ (Negative); Nitrate Urine Negative (Negative); Protein Urine Neg (Negative); RBC Urine 15-25 /hpf (0-2); Urine Appearance Hazy (CLEAR); Urine Color Yellow (Yellow); Urobilinogen Urine Neg (Negative); WBC Urine 25-40 /hpf (0-5); pH Urine 6 (5-7)
[2023-07-31 20:54] LABS: Add Urine Culture? Yes; Bacteria Urine 1+ /hpf
--- NOTE | 2023-07-31 20:59 | CTR_ITS ---
PROCEDURE INFORMATION: Exam: CTA Chest With Contrast Exam date and time: 07/31/2023 9:55 PM Age: 78 years old Clinical indication: Abdominal pain; Generalized; Other: SOB; Additional info: SOB abd pain TECHNIQUE: Imaging protocol: Computed tomographic angiography of the chest with contrast. Exam focused on the arteries. 3D rendering (Not supervised by radiologist): MIP and/or 3D reconstructed images were created by the technologist. Radiation optimization: All CT scans at this facility use at least one of these dose optimization techniques: automated exposure control; mA and/or kV adjustment per patient size (includes targeted exams where dose is matched to clinical indication); or iterative reconstruction. Contrast material: OMNI 350; Contrast volume: 100 ml; Contrast route: INTRAVENOUS (IV); REPORTING DATA: Count of CT and Cardiac NM exams in prior 12 months: This patient has received [address] and 0 known cardiac nuclear medicine studies in the 12 months prior to the current study. COMPARISON: CR (CHEST, ) 07/31/2023 7:49 PM RADIATION DOSE METRICS: Total DLP (mGy-cm): 970.57 FINDINGS: Pulmonary arteries: No main, lobar, or segmental PE identified. Aorta: Advanced diffuse vascular calcification noted. No aortic aneurysm. No aortic dissection. Lungs: The lungs show no dominant mass or spiculated nodule. No focal consolidation is seen. Pleural spaces: No pneumothorax. No pleural effusion noted. Heart: The heart is not enlarged. No pericardial effusion is noted. Lymph nodes: No bulky hilar or mediastinal lymphadenopathy noted. Bones/joints: Skeletal structures are age appropriate. No acute fracture is seen. Diffuse osteopenia. Several old lower thoracic/upper lumbar compressions have not really changed from 01/05/2019 CT chest. Soft tissues: Unremarkable. PROCEDURE INFORMATION: Exam: CT Abdomen And Pelvis With Contrast Exam date and time: 07/31/2023 9:55 PM Age: 78 years old Clinical indication: Abdominal pain; Generalized; Other: SOB; Additional info: SOB abd pain TECHNIQUE: Imaging protocol: Computed tomography of the abdomen and pelvis with contrast. Radiation optimization: All CT scans at this facility use at least one of these dose optimization techniques: automated exposure control; mA and/or kV adjustment per patient size (includes targeted exams where dose is matched to clinical indication); or iterative reconstruction. Contrast material: OMNI 350; Contrast volume: 100 ml; Contrast route: INTRAVENOUS (IV); REPORTING DATA: Count of CT and Cardiac NM exams in prior 12 months: This patient has received [address] and 0 known cardiac nuclear medicine studies in the 12 months prior to the current study. COMPARISON: CT kidney stone [id number] 06/29/2023 10:20 AM RADIATION DOSE METRICS: Total DLP (mGy-cm): 970.57 FINDINGS: Lungs: The visualized lung bases are clear. Liver: Liver appears large and cirrhotic. Gallbladder and bile ducts: See Vasculature finding. Pancreas: Unremarkable with no suspicious mass. No ductal dilation. Spleen: Moderate splenomegaly. Adrenal glands: Normal. No mass. Kidneys and ureters: Left proximal ureteral 7 mm calculus causes at least mild obstruction. Other left-sided kidney stones up to about 1 cm in size. Few small left renal cysts. Stomach and bowel: Mild sigmoid diverticulosis. Appendix: No evidence of appendicitis. Intraperitoneal space: Unremarkable. No free air. No suspicious fluid collection. Vasculature: The upper anterior portal vein is ectatic and tortuous on series 5, image 10. Absent gallbladder. Advanced diffuse vascular calcification noted. Lymph nodes: No enlarged lymph nodes. Urinary bladder: Borderline nonspecific wall thickening. Reproductive: Large prostate with previous TURP. Bones/joints: Old lower thoracic/upper lumbar compressions. Diffuse osteopenia. Soft tissues: No acute or suspicious finding noted. CT/CT angio chest w abd pel w con IMPRESSION: No acute findings. IMPRESSION: 1. Left proximal ureteral 7 mm calculus causes at least mild obstruction. This has a cast type appearance on the coronals and extends along a length of about 1.8 cm. The previously seen large left kidney stone from 06/29/2023 is now very fragmented throughout the left kidney. Correlate with any recent procedure such as lithotripsy. 2. No small bowel obstruction, abscess or free air. 3. Chronic findings above with cirrhosis, splenomegaly, etc. COMMENTS: Consistent with the [employer]'s Incidental Findings Committee white paper (J Am Lorie Radiol 2018): Any incidental renal lesion less than 1 cm or classified as too small to characterize, or any incidental cystic renal lesion characterized as simple-appearing, is likely benign. No follow-up imaging is recommended for these lesions per consensus recommendations based on imaging criteria.
[2023-07-31 21:08] LABS: Alanine Aminotransferase 16 U/L (0-41); Albumin Level 4.1 g/dL (3.5-5.2); Alkaline Phosphatase 99 U/L (40-130); Aspartate Amino Transferase 21 U/L (0-40); Blood Urea Nitrogen 23 mg/dL (8-23); Calcium 8.9 mg/dL (8.5-10.5); Carbon Dioxide 25 mmol/L (22-29); Chloride 101 mmol/L (98-107); Globulin 2.8 g/dL (1.3-4.6); Glucose 99 mg/dL (65-115); Lipase 47 U/L (13-60); NT Pro B Type Natriuretic Pept 427 pg/mL (0-450); Osmolality Calculated 288 mOsm/kg (285-295); Sodium 137 mmol/L (136-145); Total Bilirubin 1.9 mg/dL (0.15-1.2); Total Protein 6.9 g/dL (6.6-8.7)
[2023-07-31] MEDS: iohexol 350 mg/mL 500 mL Btl (per mL) IV (21:57)
[2023-07-31 22:20] VITALS: BP 133/72; PULSE 72; RESP 16; O2SAT 97
[2023-07-31 22:33] VITALS: BP 132/74; PULSE 79; RESP 16; O2SAT 97
[2023-07-31 22:53] VITALS: BP 132/74; PULSE 79; RESP 16; TEMP 37.3; O2SAT 97
== END 2023-07-31 22:56 | disposition home or self-care (01) ==
PROVIDERS: Emergency Provider Emergency Medicine; PCP Family Medicine
DX: R05.9 Cough, unspecified (principal); N20.1 Calculus of ureter; Z20.822 Contact with and (suspected) exposure to COVID-19; J44.9 Chronic obstructive pulmonary disease, unspecified; I10 Essential (primary) hypertension; Z86.19 Personal history of other infectious and parasitic diseases; Z87.891 Personal history of nicotine dependence
CPT/HCPCS: 36415; 71045; 71275; 74177; 80053; 81001; 83690; 83880; 85025; 87086; 87426; 99285; Q9967

== ENCOUNTER 2023-08-09 13:47 | Outpatient (CLI) | payer MEDICARE, MEDICAID, SELFPAY ==
[2023-08-09 14:03] VITALS: PULSE 84; RESP 18; O2SAT 98
[2023-08-09 14:07] VITALS: PULSE 85
[2023-08-09] MEDS: albuterol 2.5 mg/3 mL Neb INHALATION (14:07)
== END 2023-08-09 13:48 | disposition home or self-care (01) ==
PROVIDERS: PCP Family Medicine; Visit Provider Internal Medicine Pulmonary Disease
DX: R06.02 Shortness of breath (principal)
CPT/HCPCS: 82785; 86003; 94060; 94726; 94729; J7613

== ENCOUNTER 2023-09-24 10:59 | Outpatient (CLI) | payer MEDICARE, MEDICAID, SELFPAY | END 2023-09-24 11:00 | disposition home or self-care (01) | PROVIDERS: PCP Family Medicine; Visit Provider Urology | DX: Z01.818 Encounter for other preprocedural examination (principal); N20.0 Calculus of kidney | CPT/HCPCS: 87077; 87086; 87186 ==

== ENCOUNTER → 2023-10-19 08:20 | Outpatient (BNVA) | payer MEDICARE, MEDICAID, SELFPAY | PROVIDERS: PCP Family Medicine; Visit Provider Internal Medicine Pulmonary Disease | DX: J45.20 Mild intermittent asthma, uncomplicated (principal); J82.83 Eosinophilic asthma; Z87.891 Personal history of nicotine dependence | CPT/HCPCS: 99214 ==

== ENCOUNTER 2023-11-06 16:52 | Emergency (ER) | payer MEDICARE, MEDICAID, SELFPAY ==
[2023-11-06 17:00] VITALS: BP 130/111; PULSE 89; TEMP 37; O2SAT 96; BMI 30.9
--- NOTE | 2023-11-06 17:31 | XRR_ITS ---
PROCEDURE INFORMATION: Exam: XR Chest Exam date and time: 11/06/2023 5:42 PM Age: 78 years old Clinical indication: Shortness of breath; Additional info: Cough SOB TECHNIQUE: Imaging protocol: Radiologic exam of the chest. Views: 1 view. COMPARISON: CT angio chest w abd pel w con 07/31/2023 9:55 PM FINDINGS: Lungs: Unremarkable. No consolidation. Pleural spaces: Unremarkable. No pleural effusion. No pneumothorax. Heart/Mediastinum: Unremarkable. No cardiomegaly. Bones/joints: Unremarkable. XR/XR chest 1V portable [id number] IMPRESSION: No acute findings.
--- NOTE | 2023-11-06 17:32 | ECG_ITS ---
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 Measurements Intervals [place] Rate: 85 P: 62 MT: 202 QRS: 32 QRSD: 85 T: 51 QT: 372 QTc: 444 Interpretive Statements SINUS RHYTHM ST ELEVATION, CONSIDER SEPTAL INJURY [MARKED ST ELEVATION W/O NORMALLY INFLECTED T-WAVE IN V1/V2] ACUTE NH Compared to ECG 06/11/2022 17:20:24 No significant changes Electronically Signed On 11-06-2023 17:54:34 SENIOR QA TESTER by Jm Stewart M.D. [id number]
--- NOTE | 2023-11-06 17:33 | W.ED.SOB ---
HPI - SOB/Dyspnea General: Chief Complaint: Shortness of Breath/Dyspnea Stated Complaint: sob Time Seen by Provider: 11/06/23 17:16 History of Present Illness: HPI Narrative: Is a 78-year-old man that presents to the emergency department with complaints of shortness of breath and cough. Patient states that he has a chronic cough and shortness of breath. He has had increased cough, sputum production, shortness of breath in the last 2 days. He reports fever and chills He has a history that includes cirrhosis, COPD, thrombocytopenia, hep C, essential hypertension. Associated symptoms: Reports chest congestion and fever(s); Deny abdominal pain, chest pain, nausea, palpitations, syncope or vomiting Review of Systems Const: Reports: fever(s), chills, body aches and fatigue Eyes: Denies: blurry vision or eye discomfort ENMT: Reports: throat pain, nasal discharge, nasal congestion and post nasal drip; Denies: ear or mastoid pain or sinus pain Card: Denies: chest pain, palpitations or syncope Resp: Reports: dyspnea, productive cough, wheezing, change in phlegm color and chest congestion GI: Denies: abdominal pain, nausea, vomiting or diarrhea Skin/Breast: Denies: rash, pruritus or sores PFSH ED PFSH: Medical History Essential hypertension Colon perforation Cirrhosis Colon polyps COPD (chronic obstructive pulmonary disease) Thrombocytopenia Osteoarthritis Chronic pain cervical and lumbar spine Hepatitis C Surgical History S/P laparoscopy (11/19/20) repair of sigmoid perforation Status post colonoscopy S/P cholecystectomy S/P cataract extraction bilateral Family History Mother Cancer Grandmother Diabetes Other Hypertension Denies family history of CAD (coronary artery disease) Clotting disorder Dementia Hyperlipidemia Psychiatric illness Chronic kidney disease (CKD) Suicide Anesthesia complication Bleeding disorder Lung disease Stroke Social History Smoking and tobacco/nicotine status: former use of tobacco/nicotine (smoked x 20 years off and on) Quit status (tobacco/nicotine): has quit using Year quit tobacco: 2004 Former quit date comment: 1 ppd X 16 years Second hand smoke exposure: No Alcohol intake: never Substance/Drug Use: never Physical Exam Const: COMMON NORMALS: no acute distress, patient oriented x3 and alert GENERAL APPEARANCE: cooperative ORIENTATION/CONSCIOUSNESS: Yes awake, Yes oriented to person, Yes oriented to place and Yes oriented to time HENMT: COMMON NORMALS: normocephalic and atraumatic HEAD & SCALP: normocephalic and atraumatic FACE & SINUS: normal facial exam MOUTH: Normal oral and palatal mucosa present THROAT: posterior oropharynx normal Eye: COMMON NORMALS: Equal, round and reactive pupils present, EOMs intact bilaterally, conjunctivae normal and no scleral icterus GENERAL EYE: appearance normal, both eyes and all related structures ALIGNMENT: Yes alignment normal PERIORBITAL: periorbital findings normal CONJUNCTIVA: Yes conjunctivae normal PUPIL: Yes Equal, round and reactive pupils present Neck/C-Spine: COMMON NORMALS: full ROM GENERAL: Yes normal visual inspection Lymph: LYMPHATIC: no lymphadenopathy noted Chest: COMMONS NORMALS: normal inspection of the chest Breast/axilla inspection: Yes no chest deformity, asymmetry, normal contours, no nodules, masses, tenderness Resp: COMMON NORMALS: normal respiratory effort, No retractions and No use of accessory muscles EFFORT & INSPECTION: Yes able to speak in complete sentences, Yes symmetric chest movement and Yes audible wheezes AUSCULTATION: wheezes throughout Cardio: COMMON NORMALS: regular rate, regular rhythm and Peripheral pulses 2+ throughout RATE: regular rate RHYTHM: regular rhythm PERIPHERAL PULSES: Peripheral pulses 2+ throughout GI: COMMON NORMALS: Normal to inspection, nondistended, normoactive bowel sounds present, Soft to palpation and non-tender INSPECTION: Yes normal to inspection AUSCULTATION: Yes normoactive bowel sounds PALPATION: Yes Soft to palpation RECTAL EXAM: Yes deferred Extremity: COMMON NORMALS: normal to inspection GENERAL: Yes normal exam except as noted Neuro: COMMON NORMALS: patient oriented x3 SENSORIUM/ORIENTATION: Yes alert, Yes oriented to person, Yes oriented to place and Yes oriented to time CRANIAL NERVES: Yes CN normal except as noted Psych: COMMON NORMALS: mental status grossly normal, Normal thought process present, cooperative, activity/motor behavior normal, denies homicidal ideation and denies suicidal ideation THOUGHT PROCESS: Normal thought process present Skin: COMMON NORMALS: no rashes or lesions noted, no wounds and turgor normal GENERAL SKIN EXAM: no rashes or lesions noted and turgor normal Course Vital Signs: Vital signs: Vital Signs Temperature 98.6 F 11/06/23 17:00 Pulse Rate 85 11/06/23 18:00 Respiratory Rate 18 11/06/23 17:49 Blood Pressure 153/78 11/06/23 18:00 Pulse Oximetry 94 11/06/23 18:00 Oxygen Delivery Me thod Room Air 11/06/23 18:00 MDM - SOB/Dyspnea Medical Decision Making Patient evaluated in the emergency department today for shortness of breath and cough. Patient has a history of COPD. Differential diagnosis includes COPD exacerbation, pneumonia, bronchitis, AMI, chf. Patient underwent diagnostic evaluation which revealed pancytopenia. Patient has a civilian jail officer that he is seeing for years but has not seen him since April. Currently has platelet count of 45,000. His COPD exacerbation symptoms have improved. He was given steroids at the care clinic earlier today here in the emergency department I gave him 3 DuoNebs and his wheezing has resolved maintains oxygen saturation mid 90s. At this time I do not patient open diagnostics are warranted. I reviewed the case with Dr. morales who is in agreement. Advised patient to follow-up with his civilian jail officer tomorrow. He is to call to set up an appointment Patient is to return here for new concerning or worsening symptoms All questions answered Lab Data 11/06/23 17:41 11/06/23 17:41 Labs/Radiology: Radiology Impressions Chest X-Ray 11/06/23 17:31 IMPRESSION: No acute findings. Laboratory Results WBC 1.92 10^3/uL (3.29-11.43) L 11/06/23 17:41 RBC 3.58 10^6/uL (3.85-5.65) L 11/06/23 17:41 Hgb 12.00 g/dL (11.27-16.99) 11/06/23 17:41 Hct 35.5 % (37-53) L 11/06/23 17:41 MCV 99.2 fl (82-101) 11/06/23 17:41 MCH 33.5 pg (27-33) H 11/06/23 17:41 MCHC 33.8 g/dL (30-55) 11/06/23 17:41 RDW 14.6 % (12.1-15.1) 11/06/23 17:41 Plt Count 45 10^3/cmm (157-399) L 11/06/23 17:41 MPV 10.9 fL (7.4-10.4) H 11/06/23 17:41 Neut % (Auto) 87.0 % 11/06/23 17:41 Lymph % (Auto) 10.4 % 11/06/23 17:41 [place] % (Auto) 1.6 % 11/06/23 17:41 Eos % (Auto) 0.5 % 11/06/23 17:41 Baso % (Auto) 0.5 % 11/06/23 17:41 Neut # (Auto) 1.67 10^3/uL (1.8-7.7) L 11/06/23 17:41 Lymph # (Auto) 0.2 10^3/uL (0.8-4.8) L 11/06/23 17:41 [place] # (Auto) 0.0 10^3/uL (0.2-0.9) L 11/06/23 17:41 Eos # (Auto) 0.0 10^3/uL (0.0-0.8) 11/06/23 17:41 Baso # (Auto) 0.0 10^3/uL (0.0-0.1) 11/06/23 17:41 Nucleated RBC % (auto) 0 % 11/06/23 17:41 Nucleated RBCs # 0.0 /100WBC 11/06/23 17:41 Sodium 141 mmol/L (136-145) 11/06/23 17:41 Potassium 3.9 mmol/L (3.5-5.1) 11/06/23 17:41 Chloride 108 mmol/L (98-107) H 11/06/23 17:41 Carbon Dioxide 21 mmol/L (22-29) L 11/06/23 17:41 Anion Gap 15.9 (5-19) 11/06/23 17:41 BUN 15 mg/dL (8-23) 11/06/23 17:41 Creatinine 1.0 mg/dL (0.7-1.2) 11/06/23 17:41 GFR Calculation Not Reportable 11/06/23 17:41 Glucose 215 mg/dL (65-115) H 11/06/23 17:41 Calculated Osmolality 299 mOsm/kg (285-295) H 11/06/23 17:41 Calcium 8.8 mg/dL (8.5-10.5) 11/06/23 17:41 Total Bilirubin 1.1 mg/dL (0.15-1.2) 11/06/23 17:41 AST 25 U/L (0-40) 11/06/23 17:41 ALT 26 U/L (0-41) 11/06/23 17:41 Alkaline Phosphatase 106 U/L (40-130) 11/06/23 17:41 Troponin T Baseline < 6 ng/L (0-15) 11/06/23 17:41 NT-Pro-B Natriuret Pep 142 pg/mL (0-450) 11/06/23 17:41 Total Protein 6.5 g/dL (6.6-8.7) L 11/06/23 17:41 Albumin 4.0 g/dL (3.5-5.2) 11/06/23 17:41 Globulin 2.5 g/dL (1.3-4.6) 11/06/23 17:41 Influenza Type A Ag negative (Negative) 11/06/23 18:00 Influenza Type B Ag negative (Negative) 11/06/23 18:00 SARS-CoV-2 Ag (Rapid) negative (Negative) 11/06/23 18:00 All radiology interpretation(s) finalized by discharge Discharge Plan Discharge Patient Disposition: Home Clinical Impression: Thrombocytopenia, Pancytopenia, Exertional dyspnea, Eosinophilic asthma Condition: Stable Prescriptions: No Action fluticasone propion-salmeterol [Advair Diskus] 500-50 mcg/dose blister with device 1 inh INHALATION DAILY PRN albuterol sulfate 2.5 mg /3 mL (0.083 %) solution for nebulization 2.5 mg inhalation QID PRN (Reason: shortness of breath or wheezing) Qty: 90 1RF clotrimazole 1 % cream 1 applic TOPICAL BID PRN (Reason: Rash) Rx Instructions: for 2 weeks amoxicillin-pot clavulanate 875-125 mg tablet 1 tab PO BID 10 Days Qty: 20 0RF diclofenac sodium [Voltaren Arthritis Pain] 1 % gel 4 g topical BID 30 Days Qty: 100 2RF Rx Instructions: apply to single right great toe morning and night (DME) Sole Supports See Rx Instructions .Route .MEDSUPPLY Qty: 1 0RF Rx Instructions: As directed ipratropium-albuterol 0.5 mg-3 mg(2.5 mg base)/3 mL solution for nebulization 3 ml inhalation Q6H PRN (Reason: wheezing) Qty: 90 3RF (DME) Nebulizer and tubing See Rx Instructions .Route .MEDSUPPLY Qty: 1 0RF Rx Instructions: As directed albuterol sulfate [Ventolin HFA] 90 mcg/actuation Hfa Aerosol Inhaler 2 puff INHALATION Q4H PRN (Reason: Shortness Of Breath) tadalafil 20 mg tablet See Rx Instructions .ROUTE .COMPLEX Rx Instructions: 20 mg orally as needed for sexual intercourse oxycodone 20 mg tablet 20 mg PO Q4H PRN (Reason: pain) Rx Instructions: fill on or after 09/16/21 Discharge Orders: Discharge ED (Routine); Ordered 11/06/23 Ordered By: Bonita Corcoran [facility] Referrals: Primo King MD [Primary Care Provider] - Discharge Diet: Advance as tolerated Discharge Activity: Resume usual activity Patient Instructions: Pain Management, Pancytopenia (DC), Asthma Exacerbation - Adult Activity Restrictions/Additional Instructions: You need to follow-up with your civilian jail officer. Call tomorrow. You have a low blood counts that include red blood cells, white blood cells, platelets. Your treatment here for your asthma exacerbation/COPD symptoms included nebulized treatments. Please use your nebulizer at home as needed for wheezing You need to return to the emergency department for new concerning or worsening symptoms Coding Level of Care Code ED De Icer Kit Assembler for 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
[2023-11-06 17:49] VITALS: PULSE 88; RESP 18; O2SAT 95
[2023-11-06 17:50] LABS: Basophils % 0.5 %; Eosinophils % 0.5 %; Hematocrit 35.5 % (37-53); Lymphocytes # 0.2 10^3/uL (0.8-4.8); Lymphocytes % 10.4 %; Mean Corpuscular HGB Conc 33.8 g/dL (30-55); Mean Corpuscular Hemoglobin 33.5 pg (27-33); Mean Corpuscular Volume 99.2 fl (82-101); Mean Platelet Volume 10.9 fL (7.4-10.4); Monocytes % 1.6 %; Neutrophils # 1.67 10^3/uL (1.8-7.7); Nucleated Red Blood Cells % 0 %; Platelet Count 45 10^3/cmm (157-399); Red Blood Count 3.58 10^6/uL (3.85-5.65); Red Cell Distribution Width 14.6 % (12.1-15.1); White Blood Count 1.92 10^3/uL (3.29-11.43)
[2023-11-06] MEDS: ipratropium-albuterol 3 mL Neb INHALATION (17:52)
[2023-11-06 17:55] VITALS: PULSE 86
[2023-11-06] MEDS: sodium chloride 0.9% 500 ML 999 ML IV (17:55)
[2023-11-06 18:00] VITALS: BP 153/78; PULSE 85; O2SAT 94
[2023-11-06 18:07] LABS: Troponin(5th) Baseline < 6 ng/L (0-15)
[2023-11-06 18:34] LABS: Alanine Aminotransferase 26 U/L (0-41); Alkaline Phosphatase 106 U/L (40-130); Anion Gap 15.9 (5-19); Aspartate Amino Transferase 25 U/L (0-40); Blood Urea Nitrogen 15 mg/dL (8-23); Calcium 8.8 mg/dL (8.5-10.5); Carbon Dioxide 21 mmol/L (22-29); Chloride 108 mmol/L (98-107); Creatinine Clr Calc Pharmacy 58.5703; Globulin 2.5 g/dL (1.3-4.6); Glucose 215 mg/dL (65-115); NT Pro B Type Natriuretic Pept 142 pg/mL (0-450); Osmolality Calculated 299 mOsm/kg (285-295); Potassium 3.9 mmol/L (3.5-5.1); Sodium 141 mmol/L (136-145); Total Bilirubin 1.1 mg/dL (0.15-1.2); Total Protein 6.5 g/dL (6.6-8.7)
[2023-11-06 18:36] LABS: Influenza A by IFA negative (Negative); Influenza B by IFA negative (Negative); SARS Covid-2 Antigen negative (Negative)
--- NOTE | 2023-11-06 19:32 | ECG_ITS ---
[facility] Test Date: 2023-11-06 Pat Name: Sloan Rodriguez Department: Room: Gender: Male Office Spec: : 1945 Requested By: Bonita Corcoran Order Number: [id number] Chidi MD: Jm Stewart M.D. Measurements Intervals [place] Rate: 88 P: 62 [place]: 204 QRS: 34 QRSD: 101 T: 52 QT: 367 QTc: 445 Interpretive Statements SINUS RHYTHM INCOMPLETE RIGHT BUNDLE BRANCH BLOCK [90+ ms QRS DURATION, TERMINAL R IN V1/V2, 40+ ms S IN I/aVL/V4/V5/V6] Compared to ECG 11/06/2023 17:04:46 Incomplete right bundle-branch block now present ST (T wave) deviation no longer present Electronically Signed On 11-06-2023 21:51:38 BOOKSEAMER BLINDSTITCH by Jm Stewart M.D. [id number]
[2023-11-06 19:53] LABS: Troponin 5 2HR Delta 0.00001 ABS# (0-10)
== END 2023-11-06 19:58 | disposition home or self-care (01) ==
PROVIDERS: Emergency Provider Nurse Practitioner; PCP Family Medicine
DX: D69.6 Thrombocytopenia, unspecified (principal); D61.818 Other pancytopenia; R06.09 Other forms of dyspnea; J44.89 Other specified chronic obstructive pulmonary disease; J82.83 Eosinophilic asthma; Z11.52 Encounter for screening for COVID-19; Z87.891 Personal history of nicotine dependence; I10 Essential (primary) hypertension; Z86.19 Personal history of other infectious and parasitic diseases
CPT/HCPCS: 36415; 71045; 80053; 83880; 84484; 85025; 87426; 87804; 93005; 94640; 99285; J7040

== ENCOUNTER 2023-11-16 08:55 | Oncology outpatient (recurring) (ONCR) | payer MEDICARE, MEDICAID, SELFPAY ==
--- NOTE | 2023-11-16 10:43 | XRR_ITS ---
PROCEDURE INFORMATION: Exam: XR Chest Exam date and time: 11/16/2023 10:59 AM Age: 78 years old Clinical indication: Cough and shortness of breath; Patient HX: SOB; Thrombocytopenia; Copd; Ckd TECHNIQUE: Imaging protocol: Radiologic exam of the chest. Views: 2 views. COMPARISON: CR (CHEST, ) 11/06/2023 5:42 PM FINDINGS: Lungs: Unremarkable. No consolidation. Pleural spaces: Unremarkable. No pleural effusion. No pneumothorax. Heart/Mediastinum: Hiatal hernia. Bones/joints: Stable compression of multiple thoracic vertebral bodies. XR/XR chest 2V* [id number] IMPRESSION: No acute cardiopulmonary disease.
[2023-11-16 10:45] VITALS: BP 151/76; PULSE 77; RESP 16; TEMP 36.6; O2SAT 91
[2023-11-16 10:58] LABS: LAB Peripheral Smear Sent for Review
[2023-11-16 11:00] LABS: Basophils % 0.4 %; Eosinophils % 0.7 %; Hematocrit 37.2 % (37-53); Lymphocytes # 0.8 10^3/uL (0.8-4.8); Mean Corpuscular HGB Conc 34.1 g/dL (30-55); Mean Corpuscular Hemoglobin 33.4 pg (27-33); Mean Corpuscular Volume 97.9 fl (82-101); Mean Platelet Volume 10.7 fL (7.4-10.4); Monocytes # 0.2 10^3/uL (0.2-0.9); Monocytes % 3.7 %; Neutrophils # 4.32 10^3/uL (1.8-7.7); Neutrophils % 79.3 %; Nucleated Red Blood Cells % 0 %; Platelet Count 103 10^3/cmm (157-399); Red Cell Distribution Width 14.3 % (12.1-15.1); White Blood Count 5.45 10^3/uL (3.29-11.43)
[2023-11-16 11:14] LABS: Alanine Aminotransferase 36 U/L (0-41); Albumin Level 3.9 g/dL (3.5-5.2); Alkaline Phosphatase 89 U/L (40-130); Anion Gap 12.8 (5-19); Aspartate Amino Transferase 30 U/L (0-40); Blood Urea Nitrogen 15 mg/dL (8-23); Calcium 8.8 mg/dL (8.5-10.5); Carbon Dioxide 26 mmol/L (22-29); Chloride 106 mmol/L (98-107); Creatinine Clr Calc Pharmacy 56.4736; Globulin 3.1 g/dL (1.3-4.6); Glucose 132 mg/dL (65-115); Iron 118 ug/dL (59-158); Lactate Dehydrogenase 219 U/L (135-225); Osmolality Calculated 295 mOsm/kg (285-295); Percent Saturation 48.3 % (20-50); Potassium 3.8 mmol/L (3.5-5.1); Sodium 141 mmol/L (136-145); Total Bilirubin 1.9 mg/dL (0.15-1.2); Total Iron Binding Capacity 244 mcg/dl; Unsaturated Iron Binding 126 ug/dL (112-347)
[2023-11-16 11:27] LABS: Erythrocyte Sedimentation Rate < 1 mm/hr (0-10); Vitamin B12 740 pg/mL (232-1245)
[2023-11-16 11:38] LABS: Folate Level > 20.0 ng/mL (4.5-32.2)
== END 2023-12-05 23:59 | disposition home or self-care (01) ==
PROVIDERS: Internal Medicine Medical Oncology; PCP Clinical Nurse Specialist Adult Health; Visit Provider Internal Medicine Hematology & Oncology
DX: D69.6 Thrombocytopenia, unspecified (principal); K27.9 Peptic ulcer, site unspecified, unspecified as acute or chronic, without hemorrhage or perforation; Z86.19 Personal history of other infectious and parasitic diseases; Z86.010 Personal history of colon polyps; Z79.899 Other long term (current) drug therapy; D61.818 Other pancytopenia
CPT/HCPCS: 36415; 71046; 80053; 82105; 82607; 82746; 83540; 83550; 83615; 85025; 85651; 86140; 99214

== ENCOUNTER → 2024-03-13 15:30 | Outpatient (BNVA) | payer MEDICARE, MEDICAID, SELFPAY | PROVIDERS: PCP Clinical Nurse Specialist Adult Health; Visit Provider Nurse Practitioner Family | DX: B19.20 Unspecified viral hepatitis C without hepatic coma (principal) | CPT/HCPCS: G0328 ==

== ENCOUNTER → 2024-04-14 08:20 | Outpatient (BNVA) | payer MEDICARE, MEDICAID, SELFPAY | PROVIDERS: PCP Clinical Nurse Specialist Adult Health; Visit Provider Family Medicine | DX: N39.0 Urinary tract infection, site not specified (principal) | CPT/HCPCS: 81000 ==

== ENCOUNTER → 2024-05-02 08:54 | Outpatient (BNVA) | payer MEDICARE, MEDICAID, SELFPAY | PROVIDERS: PCP Clinical Nurse Specialist Adult Health; Visit Provider Nurse Practitioner Family | DX: T14.8XXA Other injury of unspecified body region, initial encounter (principal); W57.XXXA Bitten or stung by nonvenomous insect and other nonvenomous arthropods, initial encounter | CPT/HCPCS: 80053; 81000; 85025; 85651; 86618; 86666; 86757 ==

== ENCOUNTER → 2024-05-09 08:20 | Outpatient (BNVA) | payer MEDICARE, MEDICAID, SELFPAY | PROVIDERS: PCP Clinical Nurse Specialist Adult Health; Visit Provider Surgery | DX: Z12.11 Encounter for screening for malignant neoplasm of colon (principal) | CPT/HCPCS: 99024; 99204 ==

== ENCOUNTER 2024-07-18 19:10 | Emergency (ER) | payer MEDICARE, MEDICAID, SELFPAY ==
[2024-07-18 19:23] VITALS: BP 149/71; PULSE 87; RESP 16; TEMP 36.6; O2SAT 94; BMI 29.6
--- NOTE | 2024-07-18 20:32 | ED_ITS ---
HPI - Dizziness 2 General: Chief Complaint: Dizziness Stated Complaint: n/v extremely dizzy Time Seen by Provider: 07/18/24 20:31 History of Present Illness: HPI Narrative: 79-year-old male presents emergency room complaining of just generally not feeling well today states he could not get his bladder empty no fever at home has been very nauseous 1 or 2 episodes of vomiting. Difficulty urinating throughout the day and now cannot urinate at all. He denies any hematuria. No chest pain or shortness of breath no diarrhea. Associated symptoms: Denies chest pain or chills Related Data Home Medications Medication Instructions Recorded Confirmed clotrimazole 1 % topical cream 1 applic topical BID PRN Rash 01/29/23 06/19/24 tadalafil 20 mg tablet See Rx Instructions .Route .COMPLEX 07/12/23 06/19/24 oxycodone 20 mg tablet mg PO ONCE PRN 05/09/24 06/19/24 pantoprazole 40 mg tablet,delayed mg PO 05/09/24 06/19/24 release Previous Rx's Medication Instructions Recorded Sole Supports #1 ea 03/21/22 diclofenac sodium 1 % topical gel 4 g topical BID 30 days #100 grams 03/21/22 (Voltaren Arthritis Pain) albuterol sulfate 2.5 mg/3 mL 2.5 mg (3 mL) inhalation QID PRN 11/02/22 (0.083 %) solution for nebulization shortness of breath or wheezing #90 mL Nebulizer and tubing #1 ea 11/03/22 Acapella flutter valve #1 ea 11/13/23 albuterol sulfate 90 mcg/actuation 2 puff inhalation Q4H PRN 11/16/23 aerosol inhaler (Ventolin HFA) Shortness Of Breath #8.5 grams fluticasone 500 mcg-salmeterol 50 1 inh inhalation DAILY PRN 11/16/23 mcg/dose blistr powdr for wheezing #60 ea inhalation (Advair Diskus) ipratropium 0.5 mg-albuterol 3 mg 3 ml inhalation Q6H PRN wheezing 11/16/23 (2.5 mg base)/3 mL nebulization #90 mL soln amlodipine 5 mg tablet 5 mg PO DAILY #30 tabs 03/14/24 sulfamethoxazole 800 1 tab PO BID 10 days #20 tabs 04/14/24 mg-trimethoprim 160 mg tablet (Bactrim DS) doxycycline hyclate 100 mg capsule 100 mg PO BID 10 days #20 caps 05/02/24 polymyxin B sulfate 10,000 1 drp ophthalmic (eye) QID 7 days 06/06/24 unit-trimethoprim 1 mg/mL eye drops #10 mL triamcinolone acetonide 0.1 % 1 applic topical BID #80 grams 06/06/24 topical ointment cefdinir 300 mg capsule 300 mg PO BID 10 days #20 caps 07/18/24 Allergies Allergy/AdvReac Type Severity Reaction Status Date / Time ciprofloxacin Allergy ALGY-Rash Verified 07/18/24 19:29 gabapentin Allergy Unknown Verified 07/18/24 19:29 methadone Allergy SWELLING, Verified 07/18/24 19:29 INDIGESTION acetaminophen [From Tylenol] AdvReac UNABLE TO Verified 07/18/24 19:29 TAKE DUE TO LIVER FUNCTION donepezil AdvReac DROWSINESS Verified 07/18/24 19:29 erythromycin base AdvReac ALGY-Rash Verified 07/18/24 19:29 tramadol AdvReac MAKES HIM Verified 07/18/24 19:29 FEEL FUNNY Review of Systems 2 Const: Denies: fever(s) or chills Card: Denies: chest pain Resp: Denies: dyspnea GI: Denies: abdominal pain : Denies: dysuria, urinary frequency or urinary urgency Musc: Denies: neck pain or back pain Skin/Breast: Denies: rash PFSH ED 2 PFSH: Medical History Essential hypertension Colon perforation Cirrhosis Colon polyps COPD (chronic obstructive pulmonary disease) Thrombocytopenia Osteoarthritis Chronic pain cervical and lumbar spine Hepatitis C Surgical History S/P laparoscopy (11/19/20) repair of sigmoid perforation Status post colonoscopy S/P cholecystectomy S/P cataract extraction bilateral Family History Mother Cancer Grandmother Diabetes Other Hypertension Denies family history of CAD (coronary artery disease) Clotting disorder Dementia Hyperlipidemia Psychiatric illness Chronic kidney disease (CKD) Suicide Anesthesia complication Bleeding disorder Lung disease Stroke Social History Smoking and tobacco/nicotine status: unknown if used tobacco/nicotine Quit status (tobacco/nicotine): has quit using Year quit tobacco: 2004 Former quit date comment: 1 ppd X 16 years Second hand smoke exposure: No Alcohol intake: never Substance/Drug Use: never Physical Exam 2 Const: GENERAL APPEARANCE: cooperative ORIENTATION/CONSCIOUSNESS: Yes awake, Yes oriented to person, Yes oriented to place and Yes oriented to time HENMT: COMMON NORMALS: normocephalic, atraumatic and hearing grossly normal bilaterally HEAD & SCALP: normocephalic and atraumatic Resp: COMMON NORMALS: normal respiratory effort, No retractions, No use of accessory muscles and clear to auscultation bilaterally AUSCULTATION: clear to auscultation bilaterally Cardio: COMMON NORMALS: regular rate, regular rhythm and No murmurs present (Cardio) RATE: regular rate RHYTHM: regular rhythm GI: COMMON NORMALS: Soft to palpation and No hepatosplenomegaly present A USCULTATION: Yes normoactive bowel sounds PALPATION: Yes Soft to palpation, No Tenderness to palpation present (GI), No Guarding due to palpation present (GI) and Yes No hepatosplenomegaly present Extremity: COMMON NORMALS: normal to inspection, capillary refill normal, no clubbing, cyanosis or edema, no calf tenderness and no pedal edema Neuro: SENSORIUM/ORIENTATION: Yes oriented to person, Yes oriented to place and Yes oriented to time Skin: COMMON NORMALS: no rashes or lesions noted GENERAL SKIN EXAM: no rashes or lesions noted Course 2 Vital Signs: Vital signs: Vital Signs Temperature 97.8 F 07/18/24 19:23 Pulse Rate 82 07/18/24 22:42 Respiratory Rate 18 07/18/24 22:42 Blood Pressure 143/83 07/18/24 22:42 Pulse Oximetry 93 07/18/24 22:42 Oxygen Delivery Me thod Room Air 07/18/24 22:19 MDM - Dizziness Medical Decision Making Acute urinary retention with 400 remaining the bladder Quevedo placed UA showed signs of infection with 10-15 white blood cells and red blood cells per high- power field. Given dose of Rocephin. Discharged home with cefdinir 1 p.o. twice daily for 10 days referral to urology regarding his urinary retention Medical Records I reviewed the patient's medical records. Lab Data I reviewed the patient's lab results. 07/18/24 21:15 07/18/24 21:[address] 07/18/24 20:48 IMPRESSION: No acute intracranial abnormality. Abdomen/Pelvis CT 07/18/24 20:50 IMPRESSION: 1. Left renal cortical hypodensity with a layering calcification may represent a calyceal diverticulum. Otherwise no evidence of nephrolithiasis or obstructive uropathy. 2. Cirrhotic liver morphology. A hypodense lesion in the medial segment left hepatic lobe corresponds to an enhancing focus seen on 07/31/2023 and is slightly increased in size in the interval. Recommend nonemergent MRI abdomen without and with contrast for further characterization. 3. Splenomegaly. 4. Sigmoid diverticulosis without acute diverticulitis. 5. Quevedo catheter within a decompressed urinary bladder. COMMENTS: Consistent with the [place] [employer]'s Incidental Findings Committee white paper (J Am Lorie Radiol 2018): Any incidental renal lesion less than 1 cm or classified as too small to characterize, or any incidental cystic renal lesion characterized as simple-appearing, is likely benign. No follow-up imaging is recommended for these lesions per consensus recommendations based on imaging criteria. Laboratory Results WBC 5.55 10^3/uL (3.29-11.43) 07/18/24 21:15 RBC 3.78 10^6/uL (3.85-5.65) L 07/18/24 21:15 Hgb 12.90 g/dL (11.27-16.99) 07/18/24 21:15 Hct 36.5 % (37-53) L 07/18/24 21:15 MCV 96.6 fl (82-101) 07/18/24 21:15 MCH 34.1 pg (27-33) H 07/18/24 21:15 MCHC 35.3 g/dL (30-55) 07/18/24 21:15 RDW 13.3 % (12.1-15.1) 07/18/24 21:15 Plt Count 61 10^3/cmm (157-399) L 07/18/24 21:15 MPV 11.5 fL (7.4-10.4) H 07/18/24 21:15 Neut % (Auto) 79.7 % 07/18/24 21:15 Lymph % (Auto) 13.0 % 07/18/24 21:15 Union % (Auto) 5.2 % 07/18/24 21:15 Eos % (Auto) 1.4 % 07/18/24 21:15 Baso % (Auto) 0.5 % 07/18/24 21:15 Neut # (Auto) 4.42 10^3/uL (1.8-7.7) 07/18/24 21:15 Lymph # (Auto) 0.7 10^3/uL (0.8-4.8) L 07/18/24 21:15 Union # (Auto) 0.3 10^3/uL (0.2-0.9) 07/18/24 21:15 Eos # (Auto) 0.1 10^3/uL (0.0-0.8) 07/18/24 21:15 Baso # (Auto) 0.0 10^3/uL (0.0-0.1) 07/18/24 21:15 Nucleated RBC % (auto) 0 % 07/18/24 21:15 Nucleated RBCs # 0.0 /100WBC 07/18/24 21:15 Sodium 141 mmol/L (136-145) 07/18/24 21:15 Potassium 3.9 mmol/L (3.5-5.1) 07/18/24 21:15 Chloride 106 mmol/L (98-107) 07/18/24 21:15 Carbon Dioxide 23 mmol/L (22-29) 07/18/24 21:15 Anion Gap 15.9 (5-19) 07/18/24 21:15 BUN 16 mg/dL (8-23) 07/18/24 21:15 Creatinine 1.2 mg/dL (0.7-1.2) 07/18/24 21:15 GFR Calculation Not Reportable 07/18/24 21:15 Glucose 152 mg/dL (65-115) H 07/18/24 21:15 Calculated Osmolality 296 mOsm/kg (285-295) H 07/18/24 21:15 Lactic Acid 1.8 mmol/L (0.5-2.2) 07/18/24 21:15 Calcium 9.0 mg/dL (8.5-10.5) 07/18/24 21:15 Total Bilirubin 1.8 mg/dL (0.15-1.2) H 07/18/24 21:15 AST 28 U/L (0-40) 07/18/24 21:15 ALT 28 U/L (0-41) 07/18/24 21:15 Alkaline Phosphatase 99 U/L (40-130) 07/18/24 21:15 Total Protein 7.0 g/dL (6.6-8.7) 07/18/24 21:15 Albumin 4.3 g/dL (3.5-5.2) 07/18/24 21:15 Globulin 2.7 g/dL (1.3-4.6) 07/18/24 21:15 Lipase 35 U/L (13-60) 07/18/24 21:15 Urine Color Yellow (Yellow) 07/18/24 21:18 Urine Appearance Slightly cloudy (CLEAR) 07/18/24 21:18 Urine pH 5 (5-7) 07/18/24 21:18 Ur Specific [place] 1.015 (1.005-1.030) 07/18/24 21:18 Urine Protein Trace (Negative) 07/18/24 21:18 Urine Glucose (UA) Norm (Normal) 07/18/24 21:18 Urine Ketones Negative (Negative) 07/18/24 21:18 Urine Blood 2+ (Negative) H 07/18/24 21:18 Urine Nitrate Negative (Negative) 07/18/24 21:18 Urine Bilirubin Neg (Negative) 07/18/24 21:18 Urine Urobilinogen Neg mg/dL (Negative) 07/18/24 21:18 Ur Leukocyte Esterase Trace (Negative) H 07/18/24 21:18 Urine RBC 5-10 /hpf (0-2) H 07/18/24 21:18 Urine WBC 15-25 /hpf (0-5) H 07/18/24 21:18 Ur Squamous Epith Cells 0-4 /hpf (0-5) H 07/18/24 21:18 Amorphous Sediment Not Reportable 07/18/24 21:18 Urine Bacteria Trace /hpf (NONE) 07/18/24 21:18 All radiology interpretation(s) finalized by discharge Discharge Plan Discharge Patient Disposition: Home Clinical Impression: Acute urinary retention, Cystitis Condition: Stable Prescriptions: New cefdinir 300 mg capsule 300 mg PO BID 10 Days Qty: 20 0RF No Action albuterol sulfate 2.5 mg /3 mL (0.083 %) solution for nebulization 2.5 mg inhalation QID PRN (Reason: shortness of breath or wheezing) Qty: 90 1RF clotrimazole 1 % cream 1 applic TOPICAL BID PRN (Reason: Rash) Rx Instructions: for 2 weeks (DME) Acapella flutter valve See Rx Instructions .Route .MEDSUPPLY Qty: 1 0RF Rx Instructions: As directed sulfamethoxazole-trimethoprim [Bactrim DS] 800-160 mg tablet 1 tab PO BID 10 Days Qty: 20 0RF pantoprazole 40 mg tablet,delayed release (DR/EC) PO oxycodone 20 mg tablet PO ONCE PRN diclofenac sodium [Voltaren Arthritis Pain] 1 % gel 4 g topical BID 30 Days Qty: 100 2RF Rx Instructions: apply to single right great toe morning and night (DME) Sole Supports See Rx Instructions .Route .MEDSUPPLY Qty: 1 0RF Rx Instructions: As directed doxycycline hyclate 100 mg capsule 100 mg PO BID 10 Days Qty: 20 0RF triamcinolone acetonide 0.1 % ointment 1 applic topical BID Qty: 80 0RF polymyxin B sulf-trimethoprim 10,000 unit- 1 mg/mL drops 1 drp ophthalmic (eye) QID 7 Days Qty: 10 0RF Rx Instructions: while awake (DME) Nebulizer and tubing See Rx Instructions .Route .MEDSUPPLY Qty: 1 0RF Rx Instructions: As directed albuterol sulfate [Ventolin HFA] 90 mcg/actuation HFA aerosol inhaler 2 puff INHALATION Q4H PRN (Reason: Shortness Of Breath) Qty: 8.5 3RF fluticasone propion-salmeterol [Advair Diskus] 500-50 mcg/dose blister with device 1 inh INHALATION DAILY PRN (Reason: wheezing) Qty: 60 11RF ipratropium-albuterol 0.5 mg-3 mg(2.5 mg base)/3 mL solution for nebulization 3 ml inhalation Q6H PRN (Reason: wheezing) Qty: 90 3RF amlodipine 5 mg tablet 5 mg PO DAILY Qty: 30 11RF tadalafil 20 mg tablet See Rx Instructions .ROUTE .COMPLEX Rx Instructions: 20 mg orally as needed for sexual intercourse Discharge Orders: Discharge ED (Routine); Ordered 07/18/24 Ordered By: Gurmeet Rodriguez Referrals: Charo Mark FNP [Primary Care Provider] - Discharge Diet: Usual diet Discharge Activity: Increase activity as tolerated Patient Instructions: Opioid Safety, Pain Management Activity Restrictions/Additional Instructions: Thank you for choosing [facility] for your healthcare needs today. It is very important that you follow up as instructed or that you return to the Emergency Department should you have concerns or if your condition changes or worsens in any way. You were seen in the emergency room with retained urine for which a Quevedo was placed. We discharged home with a Quevedo leg bag and case management make arrangements for you to follow-up with urology. You are also noted to have a bladder infection you were given dose of antibiotics in the emergency room. You should start the oral antibiotics 1 pill twice a day beginning tomorrow. Coding Level of Care Code ED Radiology Clerk for 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
--- NOTE | 2024-07-18 20:48 | CTR_ITS ---
PROCEDURE INFORMATION: Exam: CT Head Without Contrast Exam date and time: 07/18/2024 9:00 PM Age: 79 years old Clinical indication: Patient HX: Dizziness with n/v; Additional info: Dizziness/n/v TECHNIQUE: Imaging protocol: Computed tomography of the head without contrast. Radiation optimization: All CT scans at this facility use at least one of these dose optimization techniques: automated exposure control; mA and/or kV adjustment per patient size (includes targeted exams where dose is matched to clinical indication); or iterative reconstruction. COMPARISON: CT head wo con* [id number] 06/11/2022 5:03 PM RADIATION DOSE METRICS: Total DLP (mGy-cm): 1055.58 FINDINGS: Brain: No hemorrhage. No edema. Moderate diffuse cerebral atrophy and mild sequela of chronic small vessel ischemic disease. No mass effect. Cerebral ventricles: No ventriculomegaly. Paranasal sinuses: Visualized sinuses are unremarkable. No fluid levels. Mastoid air cells: Visualized mastoid air cells are well aerated. Bones: Unremarkable. No acute fracture. Soft tissues: Unremarkable. CT/CT head wo con* [id number] IMPRESSION: No acute intracranial abnormality.
--- NOTE | 2024-07-18 20:50 | CTR_ITS ---
PROCEDURE INFORMATION: Exam: CT Abdomen And Pelvis Without Contrast Exam date and time: 07/18/2024 9:03 PM Age: 79 years old Clinical indication: Abdominal pain; Prior surgery; Surgery date: 6+ months; Surgery type: Gb. Sigmoid repair for perforation. Patient HX: C/i bilat flank pain with dysuria. History of cirrhosis. Quevedo in place. TECHNIQUE: Imaging protocol: Computed tomography of the abdomen and pelvis without contrast. Radiation optimization: All CT scans at this facility use at least one of these dose optimization techniques: automated exposure control; mA and/or kV adjustment per patient size (includes targeted exams where dose is matched to clinical indication); or iterative reconstruction. COMPARISON: CT angio chest w abd pel w con 07/31/2023 9:55 PM RADIATION DOSE METRICS: Total DLP (mGy-cm): 693.83 FINDINGS: Liver: Similar cirrhotic liver morphology with a nodular contour. 2.0 x 1.5 cm hypodensity in the medial segment left hepatic lobe corresponds to an enhancing focus which is seen on 07/31/2023 which measured 1.7 x 1.4 cm. This appears to lie along the course of the left portal vein branch. Gallbladder and biliary ducts: Status post cholecystectomy. Pancreas: Normal. No ductal dilation. Spleen: Ongoing splenomegaly. Adrenal glands: Normal. No mass. Kidneys and ureters: 0.9 cm cortical calcification in the left mid kidney appears to be layering within a 1.1 cm hypodensity, best seen on coronal series 6 image 68. No hydronephrosis. Stomach and bowel: Sigmoid diverticulosis without acute diverticulitis. Appendix: No evidence of appendicitis. Intraperitoneal space: Unremarkable. No free air. No significant fluid collection. Vasculature: Moderate diffuse atherosclerotic calcifications of the aorta and its branch vessels. No aortic aneurysm. Lymph nodes: Unremarkable. No enlarged lymph nodes. Urinary bladder: A Quevedo catheter is in place within the bladder. The urinary bladder is decompressed. Intraluminal air is likely from instrumentation. Reproductive: Unremarkable as visualized. Bones/joints: Grade 1 anterolisthesis of L5 on S1 with chronic bilateral L5 pars defects. Chronic compression fractures in the lower thoracic spine and at L1. Diffuse osseous demineralization. Soft tissues: Unremarkable. CT/CT kidney stone [id number] IMPRESSION: 1. Left renal cortical hypodensity with a layering calcification may represent a calyceal diverticulum. Otherwise no evidence of nephrolithiasis or obstructive uropathy. 2. Cirrhotic liver morphology. A hypodense lesion in the medial segment left hepatic lobe corresponds to an enhancing focus seen on 07/31/2023 and is slightly increased in size in the interval. Recommend nonemergent MRI abdomen without and with contrast for further characterization. 3. Splenomegaly. 4. Sigmoid diverticulosis without acute diverticulitis. 5. Quevedo catheter within a decompressed urinary bladder. COMMENTS: Consistent with the [place] [employer]'s Incidental Findings Committee white paper (J Am Lorie Radiol 2018): Any incidental renal lesion less than 1 cm or classified as too small to characterize, or any incidental cystic renal lesion characterized as simple-appearing, is likely benign. No follow-up imaging is recommended for these lesions per consensus recommendations based on imaging criteria.
[2024-07-18 21:19] VITALS: BP 141/83; PULSE 79; RESP 18; O2SAT 97
[2024-07-18 22:00] LABS: Urine Appearance Slightly Cloudy (CLEAR); Urine Color Yellow (Yellow); pH Urine 5 (5-7)
[2024-07-18 22:00] LABS: Basophils % 0.5 %; Eosinophils # 0.1 10^3/uL (0.0-0.8); Eosinophils % 1.4 %; Hematocrit 36.5 % (37-53); Lymphocytes # 0.7 10^3/uL (0.8-4.8); Mean Corpuscular HGB Conc 35.3 g/dL (30-55); Mean Corpuscular Hemoglobin 34.1 pg (27-33); Mean Corpuscular Volume 96.6 fl (82-101); Mean Platelet Volume 11.5 fL (7.4-10.4); Monocytes # 0.3 10^3/uL (0.2-0.9); Monocytes % 5.2 %; Neutrophils # 4.42 10^3/uL (1.8-7.7); Neutrophils % 79.7 %; Nucleated Red Blood Cells % 0 %; Platelet Count 61 10^3/cmm (157-399); Red Blood Count 3.78 10^6/uL (3.85-5.65); Red Cell Distribution Width 13.3 % (12.1-15.1); White Blood Count 5.55 10^3/uL (3.29-11.43)
[2024-07-18 22:01] LABS: Add Urine Culture? Yes; Add Urine Microscopic? YES; Bacteria Urine TRACE /hpf; Bilirubin Urine Neg (Negative); Blood Urine 2+ (Negative); Glucose Urine UA Norm (Normal); Ketones Urine Negative (Negative); Leukocyte Esterase Urine Trace (Negative); Nitrate Urine Negative (Negative); Protein Urine Trace (Negative); Specific Gravity, Urine 1.015 (1.005-1.030); Squamous Epithelial Cell Urine 0-4 /hpf (0-5); Urobilinogen Urine Neg (Negative); WBC Urine 15-25 /hpf (0-5)
[2024-07-18 22:19] VITALS: BP 145/78; PULSE 77; RESP 18; O2SAT 95
[2024-07-18] MEDS: cefTRIAXone 1,000 mg SDV 1000 MG IVP (22:20)
[2024-07-18 22:22] LABS: Alanine Aminotransferase 28 U/L (0-41); Albumin Level 4.3 g/dL (3.5-5.2); Alkaline Phosphatase 99 U/L (40-130); Anion Gap 15.9 (5-19); Aspartate Amino Transferase 28 U/L (0-40); Blood Urea Nitrogen 16 mg/dL (8-23); Carbon Dioxide 23 mmol/L (22-29); Chloride 106 mmol/L (98-107); Creatinine Clr Calc Pharmacy 47.3845; Globulin 2.7 g/dL (1.3-4.6); Glucose 152 mg/dL (65-115); Lipase 35 U/L (13-60); Osmolality Calculated 296 mOsm/kg (285-295); Potassium 3.9 mmol/L (3.5-5.1); Sodium 141 mmol/L (136-145); Total Bilirubin 1.8 mg/dL (0.15-1.2)
[2024-07-18 22:23] LABS: Lactic Sepsis W/Reflex 1.8 mmol/L (0.5-2.2)
[2024-07-18 22:42] VITALS: BP 143/83; PULSE 82; RESP 18; O2SAT 93
[2024-07-19 19:31] LABS: Bacillus cereus group Not Detected (NOT DETECT); Bacillus subtillis group Not Detected (NOT DETECT); Corynebacterium Not Detected (NOT DETECT); Cutibacterium acnes (P.acnes) Not Detected (NOT DETECT); Enterococcus Not Detected (NOT DETECT); Enterococcus faecalis Not Detected (NOT DETECT); Enterococcus faecium Not Detected (NOT DETECT); Lactobacillus species Not Detected (NOT DETECT); Listeria Not Detected (NOT DETECT); Listeria monocytogenes Not Detected (NOT DETECT); Micrococcus Not Detected (NOT DETECT); Pan Candida Not Detected (NOT DETECT); Pan Gram-Negative Not Detected (NOT DETECT); Staphylococcus epidermidis Detected (NOT DETECT); Staphylococcus lugdunensis Not Detected (NOT DETECT); Staphylococcus species Detected (NOT DETECT); Streptococcus agalactiae Not Detected (NOT DETECT); Streptococcus anginosus group Not Detected (NOT DETECT); Streptococcus pneumoniae Not Detected (NOT DETECT); Streptococcus pyogenes Not Detected (NOT DETECT); Streptococcus species Not Detected (NOT DETECT); mecA Not Detected (NOT DETECT); mecC Not Detected (NOT DETECT)
--- NOTE | 2024-07-20 02:16 | PC.NURSE ---
No new orders given at this time. Dr. Josue reviewed the Positive blood culture result and states that the Cefdinir that was sent with the patient is appropriate for treatment at this time.
--- NOTE | 2024-07-21 08:55 | DCPLANNER ---
faxed packet to urology to [facility]
== END 2024-07-18 22:43 | disposition home or self-care (01) ==
PROVIDERS: Emergency Provider Family Medicine; PCP Nurse Practitioner Family
DX: N30.90 Cystitis, unspecified without hematuria (principal); R33.9 Retention of urine, unspecified; Z87.891 Personal history of nicotine dependence; I10 Essential (primary) hypertension; J44.9 Chronic obstructive pulmonary disease, unspecified; Z86.19 Personal history of other infectious and parasitic diseases
CPT/HCPCS: 51702; 51798; 70450; 74176; 80053; 81001; 83605; 83690; 85025; 87040; 87077; 87086; 87150; 87186; 87205; 96374; 99285; J0696

== ENCOUNTER 2024-08-07 08:23 | Day surgery (SDC) | payer MEDICARE, MEDICAID, SELFPAY ==
--- NOTE | 2024-08-07 08:42 | P.HP_ITS ---
Same Day Surgery H&P Indication for Procedure/HPI DATE OF PROCEDURE: August 07, 2024 CHIEF COMPLAINT/INDICATIONFOR SURGICAL PROCEDURE: change of stool caliber PREOP DIAGNOSIS: need for screening colonoscopy PLANNED PROCEDURE: Operation Date: 08/07/24 09:40 Proposed Procedures p Colonoscopy - 67792, Z12.11(Not Applicable) - Georges Hickey MD Medications/Allergies* Home Medications Medication Instructions Recorded Confirmed Type clotrimazole 1 % topical cream 1 applic topical BID PRN Rash 01/29/23 06/19/24 History tadalafil 20 mg tablet See Rx Instructions .Route .COMPLEX 07/12/23 06/19/24 History oxycodone 20 mg tablet mg PO ONCE PRN Pain (Scale Score 05/09/24 06/19/24 History 4-6) pantoprazole 40 mg tablet,delayed mg PO 05/09/24 06/19/24 History release Allergies/Adverse Reactions Allergy/AdvReac Type Severity Reaction Status Date / Time ciprofloxacin Allergy ALGY-Rash Verified 07/18/24 19:29 gabapentin Allergy Unknown Verified 07/18/24 19:29 methadone Allergy SWELLING, Verified 07/18/24 19:29 INDIGESTION acetaminophen [From Tylenol] AdvReac UNABLE TO Verified 07/18/24 19:29 TAKE DUE TO LIVER FUNCTION erythromycin base AdvReac ALGY-Rash Verified 07/18/24 19:29 tramadol AdvReac MAKES HIM Verified 07/18/24 19:29 FEEL FUNNY Pertinent History/Comorbid Conditions* Medical History (Updated 07/26/24 @ 00:03 by CHAR Lion) Essential hypertension Colon perforation Cirrhosis Colon polyps COPD (chronic obstructive pulmonary disease) Thrombocytopenia Osteoarthritis Chronic pain cervical and lumbar spine Hepatitis C Surgical History (Updated 11/19/20 @ 17:32 by Haresh Tang MD) S/P laparoscopy (11/19/20) repair of sigmoid perforation Status post colonoscopy S/P cholecystectomy S/P cataract extraction bilateral Family History (Updated 05/05/22 @ 10:08 by Meme Roth LPN) Diabetes Grandmother Cancer Mother Hypertension Denies family history of CAD (coronary artery disease) Clotting disorder Dementia Hyperlipidemia Psychiatric illness Chronic kidney disease (CKD) Suicide Anesthesia complication Bleeding disorder Lung disease Stroke Social History Smoking and tobacco/nicotine status: unknown if used tobacco/nicotine Quit status (tobacco/nicotine): has quit using Year quit tobacco: 2004 Former quit date comment: 1 ppd X 16 years Second hand smoke exposure: No Alcohol intake: never Substance/Drug Use: never Pertinent Exam Findings alert, oriented x 3, clear to auscultation bilaterally, regular rate & rhythm, operative site marked and procedure specific exam findings Recommendations Surgery/Procedure today (patient has history of perforation during last colonoscopy, I have informed him that this makes him high risk. will proceed wit h extreme caution and low treshold for aborting procedure. ) Coding Level of Care Code Acute Code for [facility]
[2024-08-07 08:47] VITALS: BP 142/84; PULSE 71; RESP 18; TEMP 36.4; O2SAT 98; BMI 30.9
[2024-08-07] MEDS: sodium chloride 0.9% 1,000 ML 30 ML IV (08:56)
--- NOTE | 2024-08-07 09:00 | P.ANESASSM_ITS ---
Pre-Anesthetic Assessment Height/Weight: Height 1.6 m Weight 79.379 kg Temp Pulse Resp BP Pulse Ox O2 Del Method 97.6 F 71 18 142/84 98 Room Air 08/07/24 08:47 08/07/24 08:47 08/07/24 08:47 08/07/24 08:47 08/07/24 08:47 08/07/24 08:47 Preop Diagnosis: need for screening colonoscopy Operation Date: 08/07/24 09:40 Proposed Procedures p Colonoscopy - 50361, Z12.11(Not Applicable) - Georges Hickey MD Was Beta Patience taken within 24 hours: N/A Was Clonidine taken within 24 hours: N/A Last intake: Intake Last Liquid Date 08/06/24 Last Liquid Time 23:45 Last Solid Date 08/05/24 Last Solid Time 18:00 Social No alcohol and No tobacco Exam alert and oriented x 3 Airway Submandibular: within normal limits Cervical ROM: within normal limits Mallampati: Class II Dentition: full History/ROS No significant history except as noted Pulmonary Asthma and Shortness of Breath (with activity) CV/HEM Hypertension None reported Hepatic Cirrhosis and 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) GI Gastroesophageal Reflux Disease Metabolic None reported [facility]c/[facility] arthritis Neuropsych Neuropathy (sciatica) Anesthetic Plan ASA status: 3 Anesthesia: MAC Risk of > 500 ml blood loss (7ml/kg in children): No Medications/Allergies Home Medications Medication Instructions Recorded Confirmed Last Taken Type Sole Supports #1 ea 03/21/22 06/19/24 Unknown Rx albuterol sulfate 2.5 mg/3 mL 2.5 mg (3 mL) inhalation QID PRN 11/02/22 08/07/24 1 Week Ago Rx (0.083 %) solution for nebulization shortness of breath or wheezing ~07/31/24 #90 mL Nebulizer and tubing #1 ea 11/03/22 06/19/24 Unknown Rx clotrimazole 1 % topical cream 1 applic topical BID PRN Rash 01/29/23 08/07/24 1 Month Ago History ~07/08/24 tadalafil 20 mg tablet See Rx Instructions .Route .COMPLEX 07/12/23 08/07/24 1 Year Ago History ~08/07/23 Acapella flutter valve #1 ea 11/13/23 06/19/24 Unknown Rx albuterol sulfate 90 mcg/actuation 2 puff inhalation Q4H PRN 11/16/23 08/07/24 08/04/24 Rx aerosol inhaler (Ventolin HFA) Shortness Of Breath #8.5 grams fluticasone 500 mcg-salmeterol 50 1 inh inhalation DAILY PRN 11/16/23 08/07/24 08/06/24 Rx mcg/dose blistr powdr for wheezing #60 ea inhalation (Advair Diskus) ipratropium 0.5 mg-albuterol 3 mg 3 ml inhalation Q6H PRN wheezing 11/16/23 08/07/24 1 Week Ago Rx (2.5 mg base)/3 mL nebulization #90 mL ~07/31/24 soln amlodipine 5 mg tablet 5 mg PO DAILY #30 tabs 03/14/24 08/07/24 08/06/24 Rx oxycodone 20 mg tablet 20 mg PO ONCE PRN Pain (Scale 05/09/24 08/07/24 08/06/24 History Score 4-6) pantoprazole 40 mg tablet,delayed 40 mg PO DAILY 05/09/24 08/07/24 08/05/24 History release polymyxin B sulfate 10,000 1 drp ophthalmic (eye) QID 7 days 06/06/24 08/07/24 2 Weeks Ago Rx unit-trimethoprim 1 mg/mL eye drops #10 mL ~07/24/24 triamcinolone acetonide 0.1 % 1 applic topical BID #80 grams 06/06/24 08/07/24 Unknown Rx topical ointment Allergies Allergy/AdvReac Type Severity Reaction Status Date / Time ciprofloxacin Allergy ALGY-Rash Verified 07/18/24 19:29 gabapentin Allergy Unknown Verified 07/18/24 19:29 methadone Allergy SWELLING, Verified 07/18/24 19:29 INDIGESTION acetaminophen [From Tylenol] AdvReac UNABLE TO Verified 07/18/24 19:29 TAKE DUE TO LIVER FUNCTION erythromycin base AdvReac ALGY-Rash Verified 07/18/24 19:29 tramadol AdvReac MAKES HIM Verified 07/18/24 19:29 FEEL FUNNY Current Medications Generic Name Dose Route Start Last Admin Trade Name Freq PRN Reason Stop Dose Admin Sodium Chloride 1,000 mls @ 30 mls/hr 08/07/24 09:00 08/07/24 08:56 Sodium Chloride 0.9% IV 30 mls/hr .Q24H HUBERT Administration PFSH Anesthesia Medical History Essential hypertension Colon perforation Cirrhosis Colon polyps COPD (chronic obstructive pulmonary disease) Thrombocytopenia Osteoarthritis Chronic pain cervical and lumbar spine Hepatitis C Surgical History S/P laparoscopy (11/19/20) repair of sigmoid perforation Status post colonoscopy S/P cholecystectomy S/P cataract extraction bilateral Family History Mother Cancer Grandmother Diabetes Other Hypertension Denies family history of CAD (coronary artery disease) Clotting disorder Dementia Hyperlipidemia Psychiatric illness Chronic kidney disease (CKD) Suicide Anesthesia complication Bleeding disorder Lung disease Stroke Social History Smoking and tobacco/nicotine status: unknown if used tobacco/nicotine Quit status (tobacco/nicotine): has quit using Year quit tobacco: 2004 Former quit date comment: 1 ppd X 16 years Second hand smoke exposure: No Alcohol intake: never Substance/Drug Use: never Data Anesthesia Cardiac Studies: Echocardiogram Ultrasound 11/19/20 Cardiac Event Monitor 06/21/22
[2024-08-07 09:36] VITALS: BP 123/82; PULSE 66; RESP 20; TEMP 36.1; O2SAT 99
[2024-08-07 09:50] VITALS: BP 117/86; PULSE 65; RESP 18; O2SAT 97
--- NOTE | 2024-08-07 10:00 | ANE.PACU2 ---
Inpatient post-anesthesia follow up: Airway intact: Yes Vital signs: Temperature 97 F Pulse Rate 65 Respiratory Rate 18 Blood Pressure 117/86 Pulse Oximetry 97 Oxygen Delivery Me thod Room Air Oxygen Flow Rate Fraction of Inspir ed Oxygen Hydration adequate: Yes Nausea and vomiting: No Pain level: 1 Mental status: Baseline
== END 2024-08-07 10:07 | disposition home or self-care (01) ==
PROVIDERS: PCP Nurse Practitioner Family; Visit Provider Surgery
PROC: 0DJD8ZZ Inspection of Lower Intestinal Tract, Via Natural or Artificial Opening Endoscopic (ICD-10-PCS; CPT 45378; principal; 2024-08-07 09:40)
DX: R19.4 Change in bowel habit (principal); I10 Essential (primary) hypertension; J44.9 Chronic obstructive pulmonary disease, unspecified; Z86.0100 Personal history of colon polyps, unspecified; M19.90 Unspecified osteoarthritis, unspecified site; Z86.19 Personal history of other infectious and parasitic diseases; Z87.891 Personal history of nicotine dependence; K21.9 Gastro-esophageal reflux disease without esophagitis; K57.30 Diverticulosis of large intestine without perforation or abscess without bleeding
CPT/HCPCS: 45378; G0121; J2704; J7030

== ENCOUNTER → 2024-12-23 08:41 | Outpatient (BNVA) | payer MEDICARE, MEDICAID, SELFPAY | PROVIDERS: Family Provider Nurse Practitioner Family; PCP Nurse Practitioner Family; Visit Provider Nurse Practitioner Family | DX: M54.9 Dorsalgia, unspecified (principal) | CPT/HCPCS: 81000 ==

== ENCOUNTER 2025-06-07 12:38 | Emergency (ER) | payer MEDICARE, MEDICAID, SELFPAY ==
[2025-06-07 12:42] VITALS: BP 152/53; PULSE 80; TEMP 36.8; O2SAT 95; BMI 31.8
--- OUTSIDE RECORDS SUMMARY | 2025-06-07 12:44 | XMS_ITS | Patient Health Record ---
Author Organization [email or web address] Address [address] [place], [place] [id number] Care Team Providers Care Gl[employer]ained [employer] Name Role Phone Jas EDUARDO Charo Primary Care Provider Uvaldo Bautista MD, Salbador Unavailable [phone] Rao YARN TWISTER, Jada Unavailable Unavailable Manan STEWART, Eveline Unavailable [phone] Allergies Allergen (clinical drug ingredient) Drug/Non Drug Allergy documented on EMR Reaction Allergy Type Onset Date Status amoxicillin / clavulanate Augmentin Unknown Drug Allergy Active erythromycin Unknown Drug Allergy Acti ve methadone methadone Unknown Drug Allergy Active Results Component Value Reference Range Notes Urine tox screen / MS if ind icated Reviewed date:07/29/2024 10:03:21 AM Interpretation:Consistent Performing Lab: Notes/Report: Consistent Reason For Referral Reason Evaluation for possi ble treatment (clinic closing due to provider's senior living) Diagnosis 1 Vertebrogenic low ba ck pain (M54.51) Diagnosis 2 Spondylosis without myelopathy or radiculopathy, lumbar region (M47.816) Diagnosis 3 Sacroiliitis, not el sewhere classified (M46.1) Diagnosis 4 Spondylolisthesis, l umbosacral region (M43.17) Diagnosis 5 Spondylolysis, lumbo sacral region (M43.07) Referral Organization [facility] Referring Provider First Name Salbador Referring Provider Last Name Lily Referring Provider Speciality Pain Manag ement Referred Provider Interventional Pain Management, . Referred Provider Specialty Pain Managem ent General Notes Nicole Neri 10:17:01 AM >FAXED TODAY. Referral Priority Routine Referral Appointment Date 06/10/2025 Medications Medication SIG (Take, Route, Frequency, Duration) Notes Start Date End Date Status Advair Diskus 500 mcg-50 mcg 1 INH inhaled 2 times a day; Duration: 30 day(s) Active amLODIPine 10 mg 1 tab(s) orally once a day; Duration: 30 day(s) 12/12/2022 Active cefdinir 300 mg 1 cap(s) orally every 12 hours; Duration: 10 day(s) 07/29/2024 Active finasteride 5 mg 1 tab orally once a day Active oxyBUTYnin 5 mg 1 tab(s) orally once a day Active pantoprazole 40 mg 1 tab orally once a day Active oxyCODONE 20 mg 1 tab orally Q4-6H prn pain (max 3/day; hold within 4H of planned sleep); Duration: 28 days Do not fill prior to 05/07/25. ICD-10: G89.29 (early fill due to holiday, if needed) 03/10/2025 Active tamsulosin 0.4 mg 1 cap orally once a day Active oxyCODONE 20 mg 1 tab orally Q4-6H prn pain (max 3/day; hold within 4H of planned sleep); Duration: 28 days Do not fill prior to 03/13/25. ICD-10: G89.29 03/10/2025 Active oxyCODONE 20 mg 1 tab orally Q4-6H prn pain (max 3/day; hold within 4H of planned sleep); Duration: 28 days Do not fill prior to 04/10/25. ICD-10: G89.29 03/10/2025 Active Social History Tobacco Use: Social History Observation Description Date Details (start date - stop date) Never Smoker NA - NA Tobacco use: Question Answer Notes : nonsmoker AUDIT-C (Standard) Question Answer Notes Did you have a drink containing alcohol in the p ast year? 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) Active confirmed Problem Sleep disorder (01818665) Other sleep disorders (G47.8) Active confirmed Problem Chronic pain (75959750) Other chronic pain (G89.29) Active confirmed Problem Essential hypertension (55362273) Essential (primary) hypertension (I10) Active confirmed Problem Acquired spondylolisthesis (216072594) Spondylolysis, lumbosacral region (M43.07) Active confirmed Problem Acquired spondylolisthesis (756347646) Spondylolisthesi s, lumbosacral region (M43.17) Active confirmed Problem Pain in lumbar spine (488247816) Vertebrogenic low back pain (M54.51) Active confirmed Vital Signs Temperature 97.5 degrees Fahrenheit 03/10/2025 Blood pressure diastolic 81 mm Hg 03/10/2025 Oximetry 95 % 03/10/2025 Height 63.5 in 03/10/2025 Blood pressure systolic 156 mm Hg 03/10/2025 Weight 171.6 lbs 03/10/2025 BMI 29.92 kg/m2 03/10/2025 Encounters Encounter Location Date Provider Diagnosis [facility] [address] [place], [place] [id number] 07/29/2024 Eveline Hinkle Vertebrogenic low ba ck pain M54.51 ; Other chronic pain G89.29 ; Other sleep disorders G47.8 and 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 Z79.891 [facility] [address] [place], [place] [id number] 09/23/2024 Salbador Bautista Vertebrogenic low ba ck pain M54.51 ; Other chronic pain G89.29 and Other sleep disorders G47.8 [facility] [address] [place], [place] [id number] 11/18/2024 Salbador Bautista Vertebrogenic low ba ck pain M54.51 ; Other chronic pain G89.29 and Other sleep disorders G47.8 [facility] [address] [place], [place] [id number] 01/13/2025 Salbador Bautista Vertebrogenic low ba ck pain M54.51 ; Other chronic pain G89.29 ; Essential (primary) hypertension I10 and Other sleep disorders G47.8 [facility] [address] [place], [place] [id number] 03/10/2025 Salbador Uriosteguibang Vertebrogenic low ba ck pain M54.51 ; Other chronic pain G89.29 ; Essential (primary) hypertension I10 and Other sleep disorders G47.8 [facility] [address] [place], [place] [id number] 04/01/2025 Salbador Bautista Assessments Encounter Date Diagnosis (ICD Code) Assessment Notes Treatment Notes Treatment Clinical Notes Section Notes 11/18/2024 Vertebrogenic low back pain (ICD-10 - M54.51) Chronic axial lumbosacral spine pain. 03/10/2025 Vertebrogenic low back pain (ICD-10 - M54.51) Chronic axial lumbosacral spine pain. 01/13/2025 Other chronic pain (ICD-10 - G89.29) Patient reports that taking his pain medication allows him to walk around the grocery store to help with shopping. Plan to continue oral opioid medication management. 01/13/2025 Vertebrogenic low back pain (ICD-10 - M54.51) Chronic axial lumbosacral spine pain. 07/29/2024 Vertebrogenic low back pain (ICD-10 - M54.51) Chronic axial lumbosacral spine pain. 09/23/2024 Other chronic pain (ICD-10 - G89.29) Patient reports that taking his pain medication allows him to winter proof his home. Plan to continue oral opioid medication management. 09/23/2024 Vertebrogenic low back pain (ICD-10 - M54.51) Chronic axial lumbosacral spine pain. 09/23/2024 Other sleep disorders (ICD-10 - G47.8) Plan to continue to restrict opioid use in relation to sleep for safety concerns. 07/29/2024 Other sleep disorders (ICD-10 - G47.8) Plan to continue to restrict opioid use in relation to sleep for safety concerns. 07/29/2024 Other chronic pain (ICD-10 - G89.29) Patient reports that taking his pain medication allows him to work in his yard. Plan to continue oral opioid medication management. 11/18/2024 Other chronic pain (ICD-10 - G89.29) Patient reports that taking his pain medication allows him be more active each day. Plan to continue oral opioid medication management. 01/13/2025 Essential (primary) hypertension (ICD-10 - I10) Education sheet given at today's visit; patient to address with PCP. 03/10/2025 Other chronic pain (ICD-10 - G89.29) Patient reports that taking his pain medication allows him to work in his yard. Plan to continue oral opioid medication at today's visit. 11/18/2024 Other sleep disorders (ICD-10 - G47.8) Plan to continue to restrict opioid use in relation to sleep for safety concerns. 03/10/2025 Essential (primary) hypertension (ICD-10 - I10) Education sheet given at today's visit; patient to address with PCP. 01/13/2025 Other sleep disorders (ICD-10 - G47.8) Plan to continue to restrict opioid use in relation to sleep for safety concerns. 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 This places the patient in the low risk category. Plan urine toxicology screen today to monitor for presence of any unprescribed or illicit controlled substance(s), as well as prescribed oxycodone. 03/10/2025 Other sleep disorders (ICD-10 - G47.8) Plan to continue to restrict opioid use in relation to sleep for safety concerns. 09/23/2024 Other The service was provided by TERRY Sanchez, as part of the ongoing care plan established by Salbador Bautista MD, who was present in the office for direct supervision during the encounter. 01/13/2025 Other The service was provided by TERRY Sanchez, as part of the ongoing care plan established by Salbador Bautista MD, who was present in the office for direct supervision during the encounter. 03/10/2025 Other The service was provided by TERRY Sanchez, as part of the ongoing care plan established by Salbador Bautista MD, who was present in the office for direct supervision during the encounter. Patient was provided with a letter at today's visit informing patient that this clinic is closing due to Dr. 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 Terminal prescriptions were given to the patient along with tapering instructions. 11/18/2024 Other The service was provided by TERRY Sanchez, as part of the ongoing care plan established by Salbador Bautista MD, who was present in the office for direct supervision during the encounter. 07/29/2024 Other Plan Of Treatment No Information Insurance Providers Payer Name Payer Address Payer Phone Subscriber Number Group Number Insured Name Patient Relationship to Insured Coverage Start Date Coverage End Date [employer] [address] [address] [place] [address] [phone] [id number] Sloan Rodriguez Self - patient is the insured [place] [employer] [address] [place] [address] [phone] [id number] Sloan Rodriguez Self - patient is the insured Medical (General) History Medical History History ICD Code Chronic pain Low back pain Lumbar spondylosis, spondylolysis and sp ondylolisthesis Sacroiliitis Compression fractures, multi ple, thoracic and lumbar (T8, T11, L1 - see lumbar MRI report) Hepatitis C (treatment 2018 remission) Cirrhosis Chronic obstructive pulmonary disease Benign prostatic hypertrophy Gastric ulcers Early dementia Asbestos exposure Low platelets Kidney stones Sleep disorder, mild Obesity, mild Surgical History Surgery Date(Month/Year) Cholecystectomy, 2009 Colon surgery, performed at [facility], 2019 Bladder surgery, removal of kidney stones, performed at [facility] in [place], [place] by Dr. Mann, 07/2023 Removal of kidney stones, performed by Marco Antonio Mann, 09/25/23 Hospitalization History Reason Date(Month/Year) Broken back, treated in [place], [place], 02/22 07
--- OUTSIDE RECORDS SUMMARY | 2025-06-07 12:44 | XMS_ITS | Patient Health Record ---
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) Diagnosis 4 Spondylolisthesis, l umbosacral region (M43.17) Diagnosis 5 Sacroiliitis, not el sewhere classified (M46.1) Referring Provider First Name Salbador Referring Provider Last Name Lily Referring Provider Speciality [facility] Referred Organization [facility] Referred Provider Roger Soliman Referred Address [address], [place],[address], Referred Provider Specialty Intervention al Pain Medicine General Notes Leann Mishra 12/2024 08:05:29 AM >[facility] isn't running on website, Ann Marie Meredith 04/06/2025 09:09:41 AM >Patient is scheduled and will call when he gets his new address for NPPW Referral Priority Routine Medications Medication SIG (Take, Route, Frequency, Duration) Notes Start Date End Date Status MiraLax 17 gram/dose Powder Oral; Duration: 0 *please review for potential update for e-prescription and drug interaction check* Miralax Powder for Oral Solution 01/10/2012 Active Flomax 0.4 MG Capsule Take 1 capsule(s) by mouth daily Oral; Duration: 30 Flomax (Tamsulosin HCl) 0.4mg Capsules Take 1 capsule(s) by mouth daily #30 (Thirty) capsule(s) 12/15/2013 Active Proscar 5 MG Tablet Take 1 tablet(s) by mouth daily Oral; Duration: 30 Proscar (Finasteride) 5mg Tablet Take 1 tablet(s) by mouth daily #30 (Thirty) tablet(s) 02/16/2014 Active Vitamin C 500 mg Tablet Take 1 tablet(s) by mouth daily Oral; Duration: 30 Vitamin C 500mg Tablet Take 1 tablet(s) by mouth daily 11/26/2013 Active Caltrate 600 + D 600 mg(1,500mg) -400 unit tablet Three tabs po at supper.; Duration: 90 *please review for potential update for e-prescription and drug interaction check* Caltrate 600 + D Tablet Three tabs po at supper. #90 (Ninety) tablet(s) 02/12/2008 Active Fortical 200 unit/actuation AEROSOL, SPRAY WITH PUMP (ML) 1 spray(s) in 1 nostril daily . Alternate nostrils daily NASAL; Duration: 30 *please review for potential update for e-prescription and drug interaction check* Fortical (Calcitonin-Sweet) 200IU/1spray Nasal [place] 1 spray(s) in 1 nostril daily . Alternate nostrils daily #1 (One) 3.7 ml bottle 12/15/2013 Active Immunizations Vaccine Route Administration Date Status Comme nts Flu vaccine no Preserv 3 and > IM Intramuscular 09/12/2013 Administered Social History Social History Additional Details Category Social Info Options Details zzMigrated Social History Migrated Social History Advance Directive: Current and Verified Signed on 11/17/2011 Organ Donation: Patient Consents to Organ Donation Accepted Portal User: User Name: [email or web address] Highest Level of Education High School Education (9-12) Completed 11th grade only Problems Problem Type SNOMED Code ICD Code Onset Dates Problem Status W/U Status Risk Notes Problem Chronic pain syndrom e (312702309) Chronic pain syndrome (G89.4) Active confirmed Problem Acquired spondylolisthesis (335900058) Spondylolysis, lumbosacral region (M43.07) Active confirmed Problem Acquired spondylolisthesis (875708322) Spondylolisthesis, lumbosacral region (M43.17) Active confirmed Problem Solitary sacroiliiti s (440820404) Sacroiliitis, not elsewhere classified (M46.1) Active confirmed Problem Lumbosacral spondylosis without myelopathy (21391100) Spondylosis without myelopathy or radiculopathy, lumbar region (M47.816) Active confirmed Problem Fatigue (47153011) Fatigue (780.79) 03/21 Active confirmed [id number]- Problem Hypercholesterolemia (52133855) Hypercholesterolemia (272.0) 2016 Active confirmed [id number]- Problem Hand pain (16652196) Hand pain (729.5) 2016 Active confirmed [id number]- Problem 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) Cervical disc syndrome (722.71) 2012 Active confirmed [id number]- Problem Abnormal hemoglobin (4568244) Abnormal hemoglobin (282.7) 2013 Active confirmed [id number]- Problem Right upper quadrant pain (325122846) Right upper quadrant abdominal pain (789.01) 2017 Active confirmed [id number]- Problem Essential hypertension (01660976) Essential hypertension (401.1) 2016 Active confirmed [id number]- Problem Hypertension (57201060) HTN (401.1) 2006 Active confirmed [id number]- Problem Osteoporosis (76183658) Osteoporosis, unspecified (733.00) 2013 Active confirmed [id number]- Problem 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) 2016 Active confirmed [id number]- Problem Obstructive sleep apnea syndrome (54731188) Obstructive sleep apnea (adult) (pediatric) (327.23) 2017 Problem resolved confirmed [id number]- Problem Benign essential hypertension (2349555) Essential hypertension, benign (401.1) 2009 Problem resolved confirmed [id number]- Problem Acute maxillary sinusitis (75173373) Acute maxillary sinusitis (461.0) 2013 Problem resolved confirmed [id number]- Problem Acute frontal sinusitis (34295907) Acute frontal sinusitis (461.1) 2013 Problem resolved confirmed [id number]- Problem Acute sinusitis (48769039) Acute sinusitis, unspecified (461.9) 2016 Problem resolved confirmed [id number]- Problem Anal fissure (52282567) Anal fissure (565.0) 2011 Problem resolved confirmed [id number]- Problem Memory loss (78050499) Memory loss (780.93) 2011 Problem resolved confirmed [id number]- Problem Shortness of breath (159663092) Shortness of breath (786.05) 2008 Problem resolved confirmed [id number]- Problem Dysuria (16013617) Dysuria (788.1) 2016 Problem resolved confirmed [id number] [id number]- Problem Splenomegaly (39930384) Splenomegaly (789.2) 2013 Problem resolved confirmed [id number] [id number]- Problem Drug allergy (623070787) Other drug allergy (995.27) 2006 Problem resolved confirmed [id number] [id number]- Problem Hemochromatosis (914954393) Other hemochromatosis (275.03) 2011 Problem resolved confirmed Terry-[id number] 5911- Problem Screening for malignant neoplasm of prostate (154879351) Screening for prostate cancer (V76.44) 2006 Problem resolved confirmed [id number] 5911- Problem Ingrown toenail (201152114) Ingrown toenail (703.0) 2016 Problem resolved confirmed Terry-[id number] 5911- Problem Restless legs (75115913) Restless legs syndrome (RLS) (333.94) 2006 Problem resolved confirmed Terry-[id number] 5911- Problem Anemia (223103492) Anemia, unspe cified (285.9) 2011 Problem resolved confirmed Terry-[id number] 5911- Problem Rash (491360188) Rash (782.1) 2006 Problem resolved confirmed Terry-[id number] 5911- Problem Low back pain (293437254) Low back pain (724.2) 2009 Problem resolved confirmed Terry-[id number] 5911- Problem Neck pain (22689241) Neck pain (723.1) 2009 Problem resolved confirmed Terry-[id number] 5911- Problem Iron deficiency anemia (34641510) Iron deficiency anemia, unspecified (280.9) 2011 Problem resolved confirmed [id number] [id number]- Problem Splinter in hand (s), except finger(s) (914.6) 2012 Problem resolved confirmed Terry-[id number] 5911- Problem Lesion of ulnar nerv e (840724062) 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) 2016 Problem resolved confirmed Terry-[id number] 5911- Problem Cirrhosis - non-alcoholic (152222236) 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) 2017 Problem resolved confirmed Terry-[id number] 5911- Problem Shortness of breath (205433352) Shortness of breath (786.09) 2012 Problem resolved confirmed Terry-[id number] 5911- Problem Multiple thoraci c compression fractures (805.2) 2015 Problem resolved confirmed Terry-98 5911- Problem Achrochordon (156350989) Achrochordon (701.9) 2009 Problem resolved confirmed Terry-[id number] 5911- Problem Acute sinusitis (68567141) Acute sinusitis (461.9) 2014 Problem resolved confirmed Terry-98 5911- Problem Allergic rhinitis du e to allergen (38251247) Allergic rhinitis, other allergen-induced (477.8) 2016 Problem resolved confirmed Terry-[id number] 5911- Problem Allergic rhinitis caused by pollen (66733248) Allergies (477.0) 2009 Problem resolved confirmed Terry-[id number] 5911- Problem Disorder of hematopoietic system (16759725) Other abnormal findings on blood examination (790.99) 2016 Problem resolved confirmed Terry-[id number] 5911- Problem Sore throat (046971220) Sore Throat (462) 2007 Problem resolved confirmed Terry-[id number]- Problem Spastic colon (47801447) Spastic colon (564.1) 2015 Problem resolved confirmed Terry-[id number] 5911- Problem Acute exacerbation o f chronic obstructive airways disease (891330327) Acute exacerbation of chronic obstructive pulmonary disease (COPD) (491.21) 2017 Problem resolved confirmed [id number] 5911- Problem Hemorrhage of rectum and anus (481265006) Bright red blood per rectum (BRBPR) (569.3) 2015 Problem resolved confirmed [id number] [id number]- Problem Generalized abdomina l pain (359936068) Generalized abdominal pain (789.07) 2010 Problem resolved confirmed Terry-[id number] 5911- Problem Hematochezia (776817313) Hematochezia (578.1) 2008 Problem resolved confirmed [id number]- Problem Lab: Used to mat ch unlinked laboratory orders (V92) 2014 Problem resolved confirmed Terry-[id number] 5911- Problem Enlargement of splee n (95453482) Enlargement of spleen (789.2) 2017 Problem resolved confirmed Terry-[id number] 5911- Problem Flank pain (342411647) Flank pain (724.8) 2017 Problem resolved confirmed Terry-[id number] 5911- Problem Ear ache (204220023) Ear ache (388.71) 2015 Problem resolved confirmed Terry-98 5911- Problem Elevated levels of transaminase & lactic acid dehydrogenase (577004225) Elevated SGOT (AST) (790.4) 2006 Problem resolved confirmed Terry-[id number] 5911- Problem Insomnia (222645652) Insomnia (307.41) 2007 Problem resolved confirmed Terry-[id number] 5911- Problem Precordial pain (29389719) Precordial chest pain (786.51) 2009 Problem resolved confirmed Terry-[id number] 5911- Problem Rectal pain (61411818) Rectal pain (569.42) 2008 Problem resolved confirmed Terry-98 5911- Problem Rib pain (881852423) Rib pain (786.50) 2014 Problem resolved confirmed Terry-98 5911- Problem Abnormal findings on diagnostic imaging of skull and head (610917903) Nonspecific (abnormal) findings on radiological and other examination of skull and head (793.0) 2016 Problem resolved confirmed Terry-[id number] 5911- Problem Needs influenza immunization (481690425) Vaccination against other viral diseases, Influenza (V04.81) 2012 Problem resolved confirmed Terry-98 5911- Problem Weak urinary stream (966160347) Weak urinary stream (788.62) 2006 Problem resolved confirmed Terry-98 5911- Problem Osteoarthritis of hi p (907500434) Osteoarthritis of hip (715.15) 2011 Problem resolved confirmed Terry-98 5911- Problem Acute otitis media (6754134) Acute otitis media (382.00) 2011 Problem resolved confirmed Terry-98 5911- Problem Cellulitis (032746754) Cellulitis or abscess of other site (682.8) 2006 Problem resolved confirmed Terry-98 5911- Problem Chronic hepatitis C (394054922) Chronic hepatitis C (070.54) 2009 Problem resolved confirmed Terry-98 5911- Problem Acute sinusitis (84920504) Acute sinusitis (461.8) 2008 Problem resolved confirmed Terry-98 5911- Problem Cellulitis and abscess of upper arm (339356457) Cellulitis of the arm (682.3) 2014 Problem resolved confirmed Terry-98 5911- Problem Chest pain (22889841) Chest pain (786.59) 2008 Problem resolved confirmed Terry-98 5911- Problem Neoplasm of digestiv e system (585216222) Colon polyps (239.0) 2016 Problem resolved confirmed Terry-98 5911- Problem Gynecomastia (1724707) Gynecomastia (611.1) 2016 Problem resolved confirmed Terry-98 5911- Problem Thrombosed external hemorrhoids (81493227) Hemorrhoids, external thrombosed (455.4) 2015 Problem resolved confirmed Terry-98 5911- Problem Pneumococcal pneumonia (381232746) Acute lobar pneumonia (481) 2015 Problem resolved confirmed Terry-98 5911- Problem Chest discomfort (390223995) Chest discomfort (786.59) 2014 Problem resolved confirmed Terry-98 5911- Problem Urinary incontinence (555191840) urinary dribbling (788.30) 2007 Problem resolved confirmed Terry-98 5911- Problem Hip pain (82801944) Hip pain (719.45) 2006 Problem resolved confirmed Terry-98 5911- Problem Insect bite (055906118) Insect bite (919.4) 2015 Problem resolved confirmed Terry-98 5911- Problem Cramp in lower limb (733541773) Leg cramps (729.82) 2009 Problem resolved confirmed Terry-98 5911- Problem Multiple lumbar compression fractures (805.4) 2006 Problem resolved confirmed Terry-98 5911- Problem 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 (90159931) Unspecified skin lesion (239.2) 2009 Problem resolved confirmed Terry-[id number]- Plan Of Treatment Next Appt Details Provider Name:Roger Moo Soliman, 06/10/2025 10:20:00 AM, [address] [place], [address], Insurance Providers Payer Name Payer Address Payer Phone Subscriber Number Group Number Insured Name Patient Relationship to Insured Coverage Start Date Coverage End Date [facility] Medicare Dual Complete PPO [address] [address] [place] [address] [id number] Sloan Rodriguez Self - patient is the insured [place] Medicaid [address] [place] [id number] [phone] [id number] Sloan Rodriguez Self - patient is the insured Medical (General) History Surgical History Surgery Date(Month/Year) Positive forCholecystectomy;
--- NOTE | 2025-06-07 12:54 | W.ED.HEATRA ---
HPI - Head Injury General: Chief complaint: Head Injury Stated complaint: hit head Time Seen by Provider: 06/07/25 12:50 Source: patient Mode of arrival: ambulatory Limitations: no limitations History of Present Illness: 80-year-old male states he is pulling stuff off a shelf and it fell on his head. He denies any loss conscious he has a mild headache denies any vomiting is not any blood thinners. He does have some dried blood but no active bleeding. He denies any other pain Associated symptoms: Deny nausea, neck pain or vomiting Related Data Home Medications ?Medication ?Instructions ?Recorded ?Confirmed clotrimazole 1 % topical cream 1 applic topical BID PRN Rash 01/29/23 12/23/24 tadalafil 20 mg tablet See Rx Instructions .Route .COMPLEX 07/12/23 12/23/24 oxycodone 20 mg tablet 20 mg PO ONCE PRN Pain (Scale 05/09/24 12/23/24 Score 4-6) pantoprazole 40 mg tablet,delayed 40 mg PO DAILY 05/09/24 12/23/24 release Previous Rx's ?Medication ?Instructions ?Recorded Sole Supports #1 ea 03/21/22 albuterol sulfate 2.5 mg/3 mL 2.5 mg (3 mL) inhalation QID PRN 11/02/22 (0.083 %) solution for nebulization shortness of breath or wheezing #90 mL Nebulizer and tubing #1 ea 11/03/22 Acapella flutter valve #1 ea 11/13/23 albuterol sulfate 90 mcg/actuation 2 puff inhalation Q4H PRN 11/16/23 aerosol inhaler (Ventolin HFA) Shortness Of Breath #8.5 grams amlodipine 5 mg tablet 5 mg PO DAILY #30 tabs 03/14/24 polymyxin B sulfate 10,000 1 drp ophthalmic (eye) QID 7 days 06/06/24 unit-trimethoprim 1 mg/mL eye drops #10 mL triamcinolone acetonide 0.1 % 1 applic topical BID #80 grams 06/06/24 topical ointment fluticasone 500 mcg-salmeterol 50 1 inh inhalation DAILY PRN 11/20/24 mcg/dose blistr powdr for wheezing #60 ea inhalation (Advair Diskus) ipratropium 0.5 mg-albuterol 3 mg 3 ml inhalation Q6H PRN wheezing 11/20/24 (2.5 mg base)/3 mL nebulization #90 mL soln amoxicillin 875 mg-potassium 1 tab PO BID #20 tabs 12/23/24 clavulanate 125 mg tablet Allergies Allergy/AdvReac Type Severity Reaction Status Date / Time ciprofloxacin Allergy ALGY-Rash Verified 06/07/25 12:48 gabapentin Allergy Unknown Verified 06/07/25 12:48 methadone Allergy SWELLING, Verified 06/07/25 12:48 INDIGESTION acetaminophen (From Tylenol) AdvReac UNABLE TO Verified 06/07/25 12:48 TAKE DUE TO LIVER FUNCTION erythromycin base AdvReac ALGY-Rash Verified 06/07/25 12:48 tramadol AdvReac MAKES HIM Verified 06/07/25 12:48 FEEL FUNNY Review of Systems Const: Denies: fever(s), chills, body aches or change in appetite ENMT: Denies: throat pain or dental pain Card: Denies: chest pain Resp: Denies: dyspnea GI: Denies: abdominal pain, nausea, vomiting or diarrhea Musc: Denies: neck pain or back pain Skin/Breast: Denies: rash Neuro: Reports: headache(s) PFSH ED PFSH: Medical History Essential hypertension Colon perforation Cirrhosis Colon polyps COPD (chronic obstructive pulmonary disease) Thrombocytopenia Osteoarthritis Chronic pain cervical and lumbar spine Hepatitis C Surgical History S/P laparoscopy (11/19/20) repair of sigmoid perforation Status post colonoscopy S/P cholecystectomy S/P cataract extraction bilateral Family History Mother Cancer Grandmother Diabetes Other Hypertension Denies family history of CAD (coronary artery disease) Clotting disorder Dementia Hyperlipidemia Psychiatric illness Chronic kidney disease (CKD) Suicide Anesthesia complication Bleeding disorder Lung disease Stroke Social History Smoking and tobacco/nicotine status: unknown if used tobacco/nicotine Quit status (tobacco/nicotine): has quit using Year quit tobacco: 2004 Former quit date comment: 1 ppd X 16 years Second hand smoke exposure: No Alcohol intake: never Substance/Drug Use: never Physical Exam Const: COMMON NORMALS: no acute distress, patient oriented x3 and healthy appearing HENMT: COMMON NORMALS: normocephalic HEAD & SCALP: normocephalic OTHER: Small abrasion noted to the top of the head no deep laceration no active bleeding Eye: COMMON NORMALS: Equal, round and reactive pupils present and EOMs intact bilaterally PUPIL: Yes Equal, round and reactive pupils present Neck/C-Spine: COMMON NORMALS: full ROM and supple CERVICAL SPINE: No Cervical spine tenderness Chest: COMMONS NORMALS: normal inspection of the chest Resp: COMMON NORMALS: normal respiratory effort Cardio: COMMON NORMALS: regular rate, regular rhythm and No murmurs present (Cardio) RATE: regular rate RHYTHM: regular rhythm Extremity: COMMON NORMALS: normal to inspection and full ROM Neuro: COMMON NORMALS: patient oriented x3, moves all extremities and no focal motor deficits Psych: COMMON NORMALS: mental status grossly normal, Normal thought process present and cooperative THOUGHT PROCESS: Normal thought process present Skin: COMMON NORMALS: no rashes or lesions noted and no wounds GENERAL SKIN EXAM: no rashes or lesions noted Course Vital Signs: Vital signs: Vital Signs Temperature 98.2 F 06/07/25 12:42 Pulse Rate 80 06/07/25 12:42 Respiratory Rate 18 06/07/25 13:02 Blood Pressure 152/53 06/07/25 12:42 Pulse Oximetry 95 06/07/25 13:02 Oxygen Delivery Me thod Room Air 06/07/25 13:02 MDM - Head Injury Medcial Decision Making Patient presents here with a head injury does have an abrasion does not need his abrasion repaired is not a deep laceration no signs of any major head injury does not require head CT stable for discharge follow-up PCP return if worsening. Medical Records I reviewed the patient's medical records. No radiology studies performed this visit Discharge Plan Discharge Patient Disposition: Home Clinical Impression: Closed head injury Condition: Stable Prescriptions: No Action albuterol sulfate 2.5 mg /3 mL (0.083 %) solution for nebulization 2.5 mg inhalation QID PRN (Reason: shortness of breath or wheezing) Qty: 90 1RF clotrimazole 1 % cream 1 applic TOPICAL BID PRN (Reason: Rash) Rx Instructions: for 2 weeks (DME) Acapella flutter valve See Rx Instructions .Route .MEDSUPPLY Qty: 1 0RF Rx Instructions: As directed pantoprazole 40 mg tablet,delayed release (DR/EC) 40 mg PO DAILY oxycodone 20 mg tablet 20 mg PO ONCE PRN (Reason: Pain (Scale Score 4-6)) amoxicillin-pot clavulanate 875-125 mg tablet 1 tab PO BID Qty: 20 0RF (DME) Sole Supports See Rx Instructions .Route .MEDSUPPLY Qty: 1 0RF Rx Instructions: As directed triamcinolone acetonide 0.1 % ointment 1 applic topical BID Qty: 80 0RF polymyxin B sulf-trimethoprim 10,000 unit- 1 mg/mL drops 1 drp ophthalmic (eye) QID 7 Days Qty: 10 0RF Rx Instructions: while awake (DME) Nebulizer and tubing See Rx Instructions .Route .MEDSUPPLY Qty: 1 0RF Rx Instructions: As directed albuterol sulfate [Ventolin HFA] 90 mcg/actuation HFA aerosol inhaler 2 puff INHALATION Q4H PRN (Reason: Shortness Of Breath) Qty: 8.5 3RF amlodipine 5 mg tablet 5 mg PO DAILY Qty: 30 11RF ipratropium-albuterol 0.5 mg-3 mg(2.5 mg base)/3 mL solution for nebulization 3 ml inhalation Q6H PRN (Reason: wheezing) Qty: 90 3RF fluticasone propion-salmeterol [Advair Diskus] 500-50 mcg/dose blister with device 1 inh INHALATION DAILY PRN (Reason: wheezing) Qty: 60 11RF tadalafil 20 mg tablet See Rx Instructions .ROUTE .COMPLEX Rx Instructions: 20 mg orally as needed for sexual intercourse Discharge Orders: Discharge ED (Routine); Ordered 06/07/25 Ordered By: Rubens Juarez Referrals: Charo Mark FNP [Primary Care Provider, Family Practice] - 4-7 days Discharge Diet: Advance as tolerated Discharge Activity: Resume usual activity Patient Instructions: Head Injury (ED) Print Language: Fijian Coding Level of Care Code ED Director Of Field Service for 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
[2025-06-07 13:02] VITALS: RESP 18; O2SAT 95
[2025-06-07 13:12] VITALS: BP 138/74; PULSE 85; O2SAT 98
== END 2025-06-07 13:12 | disposition home or self-care (01) ==
PROVIDERS: Emergency Provider Emergency Medicine; PCP Nurse Practitioner Family
DX: S09.8XXA Other specified injuries of head, initial encounter (principal); W20.8XXA Other cause of strike by thrown, projected or falling object, initial encounter; Z87.891 Personal history of nicotine dependence; I10 Essential (primary) hypertension; J44.9 Chronic obstructive pulmonary disease, unspecified
CPT/HCPCS: 99282

== ENCOUNTER → 2025-07-23 10:27 | Outpatient (BNVA) | payer MEDICARE, MEDICAID, SELFPAY | PROVIDERS: PCP Nurse Practitioner Family; Visit Provider Nurse Practitioner Family | DX: M54.50 Low back pain, unspecified (principal); Z79.891 Long term (current) use of opiate analgesic; N39.0 Urinary tract infection, site not specified | CPT/HCPCS: 81003; 87086 ==

== ENCOUNTER 2025-08-20 15:20 | Outpatient (CLI) | payer MEDICARE, MEDICAID, SELFPAY ==
[2025-08-20 16:16] LABS: Hematocrit 37.1 % (37-53); Hemoglobin 12.80 g/dL (11.27-16.99); Mean Corpuscular HGB Conc 34.5 g/dL (30-55); Mean Corpuscular Hemoglobin 33.2 pg (27-33); Mean Corpuscular Volume 96.4 fl (82-101); Nucleated Red Blood Cells % 0 %; Platelet Count 54 10^3/cmm (157-399); Red Blood Count 3.85 10^6/uL (3.85-5.65); White Blood Count 3.46 10^3/uL (3.29-11.43)
[2025-08-20 16:34] LABS: INR 1.25 (0.8-1.2); Prothrombin Time 16.50 SECONDS (12.1-14.9)
[2025-08-20 16:44] LABS: Tumor Marker Alpha Fetoprotein 5.5 ng/mL (0-8.3)
[2025-08-20 16:55] LABS: Alanine Aminotransferase 25 U/L (0-41); Albumin Level 4.1 g/dL (3.5-5.2); Alkaline Phosphatase 91 U/L (40-130); Anion Gap 17.3 (5-19); Aspartate Amino Transferase 28 U/L (0-40); Blood Urea Nitrogen 26 mg/dL (8-23); Calcium 9.2 mg/dL (8.5-10.5); Carbon Dioxide 24 mmol/L (22-29); Chloride 104 mmol/L (98-107); Globulin 2.4 g/dL (1.3-4.6); Glucose 84 mg/dL (65-115); Osmolality Calculated 296 mOsm/kg (285-295); Potassium 4.3 mmol/L (3.5-5.1); Sodium 141 mmol/L (136-145); Total Protein 6.5 g/dL (6.6-8.7)
== END 2025-08-20 15:21 | disposition home or self-care (01) ==
LOC: LAB 15:22
PROVIDERS: PCP Nurse Practitioner Family; Visit Provider Nurse Practitioner
DX: K74.60 Unspecified cirrhosis of liver (principal)
CPT/HCPCS: 36415; 80053; 82105; 85025; 85610

== ENCOUNTER 2025-08-27 15:14 | Outpatient (CLI) | payer MEDICARE, MEDICAID, SELFPAY ==
--- NOTE | 2025-08-27 15:19 | MR_ITS ---
WS: [id number] MRI LUMBAR SPINE WITH AND WITHOUT CONTRAST HISTORY: LUMBAR RADICULOPATHY COMPARISON: 03/10/2014 TECHNIQUE: Sagittal and axial multisequence imaging is submitted. Sagittal and axial T1 fat sat sequences post-MultiHance 15 cc IV. Cervical spondylosis. Mild cervical osteophyte disc disease on the cervical canal at C3-4 and C4-5. Increase in thoracic kyphosis. Anterior wedging of T7, T8, T9, T10, T11 and T12. Biconcave severe fracture T11. Severe compression at T8. Thoracic spine compression fractures are very similar to the study from 2013. Biconcave fracture of L1 is stable. Very small amount of marrow edema within the adjacent endplates of L5 and S1. L5 anterolisthesis by 5 mm. Mild retropulsion of L1 is stable. No acute fractures. Disc spaces are narrowed and desiccated. Conus terminates normally at L1-2 disc level. L1-L2: Retropulsion of L1 with slight encroachment upon the ventral thecal sac. Mild bilateral foraminal stenosis. L2-L3: Bilateral facet joint arthropathy. No significant stenosis. L3-L4: Bilateral facet arthritis. No significant stenosis. L4-L5: Patulous thecal sac. No stenosis. Mild facet arthritis. L5-S1: Marked annular disc bulging. RIGHT hemilaminectomy defect. Unroofing of the disc due to anterolisthesis of L5. There is a moderate extruded disc or disc fragment which has extended superiorly, posterior to the RIGHT lateral L5 vertebral body. New since the prior study. Osteophytic ridging with disc disease and facet arthritis. There is a small extruded disc also on the LEFT extending superior to the vertebral body in part related to the anterolisthesis of L5 with unroofing of the disc. Severe bilateral foraminal and subarticular recess stenosis. Mild clumping of the nerve roots in the thecal sac. No discitis or osteomyelitis. Bilateral facet joint enhancement and synovitis at L5-S1. Urinary bladder is overly distended. Prostate is enlarged. Mild LEFT hydronephrosis. LEFT ureter is dilated measuring 9 mm in diameter. MR/MR lumbar spine wo/w con [id number] IMPRESSION: 1. Numerous chronic thoracic spine compression fractures are reidentified. 2. Biconcave remote fracture L1. 3. L5 anterolisthesis by 5 mm. 4. Severe bilateral subarticular recess and foraminal stenosis at L5-S1. Moder ate size extruded disc extends posterior to the RIGHT lateral L5 vertebral body . Smaller disc extrusion on the LEFT. In part these extrusions and migration ma y be related to anterolisthesis of S1. There is significant foraminal and subar ticular recess stenosis with contact on the L5 and S1 nerve roots. 5. Prior RIGHT hemilaminectomy defect at L5. 6. Facet joint synovitis at L5-S1. 7. Mild LEFT hydronephrosis and LEFT hydroureter. Recommend follow-up with uro logy or additional imaging studies such as a renal stone CT protocol. Post cont rast imaging may also be necessary if an occluding mass is identified.
[2025-08-27] MEDS: gadobenate dimeglumine 20 mL vial 15 ML IV (16:48)
== END 2025-08-27 15:15 | disposition home or self-care (01) ==
LOC: RAD 15:15
PROVIDERS: PCP Nurse Practitioner Family; Visit Provider Nurse Practitioner Family
DX: M54.16 Radiculopathy, lumbar region (principal); S32.018A Other fracture of first lumbar vertebra, initial encounter for closed fracture; X58.XXXA Exposure to other specified factors, initial encounter; M43.16 Spondylolisthesis, lumbar region; M48.07 Spinal stenosis, lumbosacral region; R93.7 Abnormal findings on diagnostic imaging of other parts of musculoskeletal system; Z98.890 Other specified postprocedural states; M65.88 Other synovitis and tenosynovitis, other site; N13.30 Unspecified hydronephrosis; N13.4 Hydroureter; M25.78 Osteophyte, vertebrae; M40.294 Other kyphosis, thoracic region; M48.061 Spinal stenosis, lumbar region without neurogenic claudication; M47.896 Other spondylosis, lumbar region; M51.379 Other intervertebral disc degeneration, lumbosacral region without mention of lumbar back pain or lower extremity pain; N40.0 Benign prostatic hyperplasia without lower urinary tract symptoms; N28.9 Disorder of kidney and ureter, unspecified
CPT/HCPCS: 72158

== ENCOUNTER → 2025-08-31 09:54 | Outpatient (BNVA) | payer MEDICARE, MEDICAID, SELFPAY | PROVIDERS: PCP Nurse Practitioner Family; Referring Provider Nurse Practitioner Family; Visit Provider Dermatology | DX: L82.1 Other seborrheic keratosis (principal); N48.1 Balanitis; D23.39 Other benign neoplasm of skin of other parts of face; D18.01 Hemangioma of skin and subcutaneous tissue | CPT/HCPCS: 99204 ==

== ENCOUNTER 2025-09-12 15:36 | Emergency (ER) | payer MEDICARE, MEDICAID, SELFPAY ==
[2025-09-12 15:39] VITALS: BP 168/80; PULSE 81; RESP 16; TEMP 36.7; O2SAT 98; BMI 31.3
--- OUTSIDE RECORDS SUMMARY | 2025-09-12 15:42 | XMS_ITS | Encounter Summary ---
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
--- OUTSIDE RECORDS SUMMARY | 2025-09-12 15:42 | XMS_ITS | Encounter Summary ---
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
--- OUTSIDE RECORDS SUMMARY | 2025-09-12 15:42 | XMS_ITS | Patient Health Record ---
Author Organization [facility] Address [address] [place] [address] Care Team Providers Care Payroll Analyst Name Role Phone Charo Mark APRN Primary Care Provider Karlee Andrea Unavailable [phone] Jourdan Roger Unavailable [phone] Jo-Ann Roberts Unavailable Allergies Allergen (clinical drug ingredient) Drug/Non Drug Allergy documented on EMR Reaction Allergy Type Onset Date Status donepezil Donepezil HCl drowsiness Drug Allergy Ac tive erythromycin Erythromycin Base Unknown Drug Allergy 2006 Active methadone Methadone HCl indigestion Drug Allergy A ctive Vicodin Unknown Drug Allergy 05/17/2007 Active Results Component Value Reference Range Flag Notes Urine Drug Screen (cup read) - [id number] Reviewed date:07/08/2025 10:12:32 AM Interpretation: Performing Lab: Notes/Report: OXY + Urine Confirmation Panel (in strument) - [id number] Reviewed date:07/14/2025 01:24:33 PM Interpretation: Performing Lab: Notes/Report: 6-Acetylmorphine 0 <6 ng/mL N This dalton t was developed and its performance characteristics determined by [facility]. It has not been cleared or approved by the U.S. Food and Drug Administration. 7-Aminoclonazepam 0 <60 ng/mL N This te st was developed and its performance characteristics determined by [facility]. It has not been cleared or approved by the U.S. Food and Drug Administration. Alprazolam 0 <60 ng/mL N This test was developed and its performance characteristics determined by [facility]. It has not been cleared or approved by the U.S. Food and Drug Administration. Amphetamine 0 <75 ng/mL N This test was developed and its performance characteristics determined by [facility]. It has not been cleared or approved by the U.S. Food and Drug Administration. aOH-Alprazolam 0 <60 ng/mL N This test was developed and its performance characteristics determined by [facility]. It has not been cleared or approved by the U.S. Food and Drug Administration. Buprenorphine 0.0 <7.5 ng/mL N This test w as developed and its performance characteristics determined by [facility]. It has not been cleared or approved by the U.S. Food and Drug Administration. Norbuprenorphine 0.0 <37.5 ng/mL N This te st was developed and its performance characteristics determined by [facility]. It has not been cleared or approved by the U.S. Food and Drug Administration. Carisoprodol 0 <75 ng/mL N This test wa s developed and its performance characteristics determined by [facility]. It has not been cleared or approved by the U.S. Food and Drug Administration. Codeine 0 <75 ng/mL N This test was developed and its performance characteristics determined by [facility]. It has not been cleared or approved by the U.S. Food and Drug Administration. EDDP 0 <75 ng/mL N This test was developed and its performance characteristics determined by [facility]. It has not been cleared or approved by the U.S. Food and Drug Administration. Fentanyl 0 <6 ng/mL N This test was developed and its performance characteristics determined by [facility]. It has not been cleared or approved by the U.S. Food and Drug Administration. Hydrocodone 0 <75 ng/mL N This test was developed and its performance characteristics determined by [facility]. It has not been cleared or approved by the U.S. Food and Drug Administration. Hydromorphone 0 <75 ng/mL N This test w as developed and its performance characteristics determined by [facility]. It has not been cleared or approved by the U.S. Food and Drug Administration. Lorazepam 0 <60 ng/mL N This test was developed and its performance characteristics determined by [facility]. It has not been cleared or approved by the U.S. Food and Drug Administration. MDMA 0 <75 ng/mL N This test was developed and its performance characteristics determined by [facility]. It has not been cleared or approved by the U.S. Food and Drug Administration. Meperidine 0.0 <37.5 ng/mL N This test was developed and its performance characteristics determined by [facility]. It has not been cleared or approved by the U.S. Food and Drug Administration. Meprobamate 0 <75 ng/mL N This test was developed and its performance characteristics determined by [facility]. It has not been cleared or approved by the U.S. Food and Drug Administration. Methamphetamine 0 <75 ng/mL N This test was developed and its performance characteristics determined by [facility]. It has not been cleared or approved by the U.S. Food and Drug Administration. Methadone 0 <75 ng/mL N This test was developed and its performance characteristics determined by [facility]. It has not been cleared or approved by the U.S. Food and Drug Administration. Morphine 0 <75 ng/mL N This test was developed and its performance characteristics determined by [facility]. It has not been cleared or approved by the U.S. Food and Drug Administration. Nordiazepam 0 <60 ng/mL N This test was developed and its performance characteristics determined by [facility]. It has not been cleared or approved by the U.S. Food and Drug Administration. Norfentanyl 0 <6 ng/mL N This test was developed and its performance characteristics determined by [facility]. It has not been cleared or approved by the U.S. Food and Drug Administration. Normeperidine 0.0 <37.5 ng/mL N This test was developed and its performance characteristics determined by [facility]. It has not been cleared or approved by the U.S. Food and Drug Administration. O-desmethyltramadol 0 <75 ng/mL N This test was developed and its performance characteristics determined by [facility]. It has not been cleared or approved by the U.S. Food and Drug Administration. Oxazepam 0 <60 ng/mL N This test was developed and its performance characteristics determined by [facility]. It has not been cleared or approved by the U.S. Food and Drug Administration. Oxycodone 468.0 <37.5 ng/mL H This test was developed and its performance characteristics determined by [facility]. It has not been cleared or approved by the U.S. Food and Drug Administration. Oxymorphone 129 <75 ng/mL H This test was developed and its performance characteristics determined by [facility]. It has not been cleared or approved by the U.S. Food and Drug Administration. Phencyclidine 0.0 <7.5 ng/mL N This test w as developed and its performance characteristics determined by [facility]. It has not been cleared or approved by the U.S. Food and Drug Administration. Tapentadol 10.1 <37.5 ng/mL N This test was developed and its performance characteristics determined by [facility]. It has not been cleared or approved by the U.S. Food and Drug Administration. Temazepam 0 <60 ng/mL N This test was developed and its performance characteristics determined by [facility]. It has not been cleared or approved by the U.S. Food and Drug Administration. Tramadol 0 <75 ng/mL N This test was developed and its performance characteristics determined by [facility]. It has not been cleared or approved by the U.S. Food and Drug Administration. Norhydrocodone 0 <75 ng/mL N This test was developed and its performance characteristics determined by [facility]. It has not been cleared or approved by the U.S. Food and Drug Administration. Noroxycodone 454 <38 ng/mL H This test wa s developed and its performance characteristics determined by [facility]. It has not been cleared or approved by the U.S. Food and Drug Administration. Pregabalin 0 <225 ng/mL N This test was developed and its performance characteristics determined by [facility]. It has not been cleared or approved by the U.S. Food and Drug Administration. Gabapentin 0 <225 ng/mL N This test was developed and its performance characteristics determined by [facility]. It has not been cleared or approved by the U.S. Food and Drug Administration. Benzoylecgonine 0.0 <37.5 ng/mL N This dalton t was developed and its performance characteristics determined by [facility]. It has not been cleared or approved by the U.S. Food and Drug Administration. 4-Hydroxy Xylazine 0 <25 ng/mL N This t est was developed and its performance characteristics determined by [facility]. It has not been cleared or approved by the U.S. Food and Drug Administration. 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) Diagnosis 4 Spondylolisthesis, l umbosacral region (M43.17) Diagnosis 5 Sacroiliitis, not el sewhere classified (M46.1) Referring Provider First Name Salbador Referring Provider Last Name Lily Referring Provider Speciality Pain Medic ine Referred Organization [facility] Referred Provider Roger Soliman Referred Address [address] [place] [phone], Referred Provider Specialty [facility] General Notes Leann Mishra 12/2024 08:05:29 AM >[facility] isn't running on website, Ann Marie Meredith 04/06/2025 09:09:41 AM >Patient is scheduled and will call when he gets his new address for NPPW Referral Priority Routine Medications Medication SIG (Take, Route, Frequency, Duration) Notes Start Date End Date Status Fortical 200 unit/actuation AEROSOL, SPRAY WITH PUMP (ML) 1 spray(s) in 1 nostril daily . Alternate nostrils daily NASAL; Duration: 30 *please review for potential update for e-prescription and drug interaction check* Fortical (Calcitonin-[place]) 200IU/1spray Nasal [place] 1 spray(s) in 1 nostril daily . Alternate nostrils daily #1 (One) 3.7 ml bottle 12/15/2013 Active Proscar 5 MG Tablet Take 1 tablet(s) by mouth daily Oral; Duration: 30 Proscar (Finasteride) 5mg Tablet Take 1 tablet(s) by mouth daily #30 (Thirty) tablet(s) 02/16/2014 Active oxyCODONE HCl 10 MG Tablet 1 tablet Orally every 6 hours; Duration: 30 days As needed Not to exceed 4 per day Fill on 09/09/2025 08/06/2025 10/09/2025 Active MiraLax 17 gram/dose Powder Oral; Duration: 0 *please review for potential update for e-prescription and drug interaction check* Miralax Powder for Oral Solution 01/10/2012 Active Caltrate 600 + D 600 mg(1,500mg) -400 unit tablet Three tabs po at supper.; Duration: 90 *please review for potential update for e-prescription and drug interaction check* Caltrate 600 + D Tablet Three tabs po at supper. #90 (Ninety) tablet(s) 02/12/2008 Active Flomax 0.4 MG Capsule Take 1 capsule(s) by mouth daily Oral; Duration: 30 Flomax (Tamsulosin HCl) 0.4mg Capsules Take 1 capsule(s) by mouth daily #30 (Thirty) capsule(s) 12/15/2013 Active Vitamin C 500 mg Tablet Take 1 tablet(s) by mouth daily Oral; Duration: 30 Vitamin C 500mg Tablet Take 1 tablet(s) by mouth daily 11/26/2013 Active Immunizations Vaccine Route Administration Date Status Comme nts Flu vaccine no Preserv 3 and > IM Intramuscular 09/12/2013 Administered Social History Tobacco Use: Social History Observation Description Date Details (start date - stop date) Never Smoker NA - NA Social History Tobacco Use: Social Info Question Answer Notes Tobacco Control (Standard) Tobacco use: Nonsmoker Additional Details Category Social Info Options Details Miscellaneous: Sexually active: no Sexual abuse: no Drugs/Alcohol: Do you smoke marijuana? De nies Do you drink alcohol? No Problems Problem Type SNOMED Code ICD Code Onset Dates Problem Status W/U Status Risk Notes Problem Chronic pain syndrom e (416595947) Chronic pain syndrome (G89.4) Active confirmed Problem Cirrhosis of liver (47864384) Unspecified cirrhosis of liver (K74.60) Active confirmed Problem Acquired spondylolisthesis (976746985) Spondylolysis, lumbosacral region (M43.07) Active confirmed Problem Acquired spondylolisthesis (621781041) Spondylolisthesis, lumbosacral region (M43.17) Active confirmed Problem Solitary sacroiliiti s (516863981) Sacroiliitis, not elsewhere classified (M46.1) Active confirmed Problem Lumbosacral spondylosis without myelopathy (19396990) Other spondylosis with radiculopathy, lumbar region (M47.26) Active confirmed Problem Lumbosacral spondylosis without myelopathy (85254989) Spondylosis without myelopathy or radiculopathy, lumbar region (M47.816) Active confirmed Problem High risk drug monitoring status (797697409) halfway (current) use of opiate analgesic (Z79.891) Active confirmed Problem Lumbar radiculopathy (531278418) Lumbar radiculopathy (M54.16) Active confirmed Problem Lumbar spondylosis (605119631) Lumbar spondylosis (M47.816) Active confirmed Problem Cervical pain (51117283) Cervical pain (M54.2) Active confirmed Problem Abnormal gait (21993441) Abnormality of gait and mobility (R26.9) Active confirmed Problem Fatigue (47243980) Fatigue (780.79) 03/21 Active confirmed [id number]- Problem Hypercholesterolemia (06950946) Hypercholesterolemia (272.0) 2016 Active confirmed [id number]- Problem Hand pain (08172408) Hand pain (729.5) 2016 Active confirmed [id number]- Problem 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) Cervical disc syndrome (722.71) 2012 Active confirmed [id number]- Problem Abnormal hemoglobin (1997976) Abnormal hemoglobin (282.7) 2013 Active confirmed [id number]- Problem Right upper quadrant pain (814720007) Right upper quadrant abdominal pain (789.01) 2017 Active confirmed [id number]- Problem Essential hypertension (86913667) Essential hypertension (401.1) 2016 Active confirmed [id number] [id number]- Problem Hypertension (08944707) HTN (401.1) 2006 Active confirmed [id number]- Problem Osteoporosis (37909407) Osteoporosis, unspecified (733.00) 2013 Active confirmed [id number]- Problem 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) 2016 Active confirmed [facility]-[id number] [id number]- Problem Obstructive sleep apnea syndrome (14651562) Obstructive sleep apnea (adult) (pediatric) (327.23) 2017 Problem resolved confirmed [id number]- Problem Benign essential hypertension (3711124) Essential hypertension, benign (401.1) 2009 Problem resolved confirmed [id number]- Problem Acute maxillary sinusitis (14504715) Acute maxillary sinusitis (461.0) 2013 Problem resolved confirmed [facility]-[id number] [id number]- Problem Acute frontal sinusitis (24388647) Acute frontal sinusitis (461.1) 2013 Problem resolved confirmed [facility]-[id number] 5911- Problem Acute sinusitis (94126036) Acute sinusitis, unspecified (461.9) 2016 Problem resolved confirmed [facility]-[id number] [id number]- Problem Anal fissure (60742934) Anal fissure (565.0) 2011 Problem resolved confirmed [id number]- Problem Memory loss (90972841) Memory loss (780.93) 2011 Problem resolved confirmed [facility]-[id number] [id number]- Problem Shortness of breath (116222424) Shortness of breath (786.05) 2008 Problem resolved confirmed [id number] [id number]- Problem Dysuria (44384662) Dysuria (788.1) 2016 Problem resolved confirmed Terry-98 5911- Problem Splenomegaly (51775060) Splenomegaly (789.2) 2013 Problem resolved confirmed Terry-[id number] 5911- Problem Drug allergy (009490963) Other drug allergy (995.27) 2006 Problem resolved confirmed Terry-98 5911- Problem Hemochromatosis (310548416) Other hemochromatosis (275.03) 2011 Problem resolved confirmed Terry-98 5911- Problem Screening for malignant neoplasm of prostate (231644891) Screening for prostate cancer (V76.44) 2006 Problem resolved confirmed Terry-[id number] 5911- Problem Ingrown toenail (123239154) Ingrown toenail (703.0) 2016 Problem resolved confirmed [facility]-98 5911- Problem Restless legs (37100965) Restless legs syndrome (RLS) (333.94) 2006 Problem resolved confirmed [facility]-98 5911- Problem Anemia (032589700) Anemia, unspe cified (285.9) 2011 Problem resolved confirmed [facility]-98 5911- Problem Rash (909394157) Rash (782.1) 2006 Problem resolved confirmed [facility]-98 5911- Problem Low back pain (113249851) Low back pain (724.2) 2009 Problem resolved confirmed Terry-98 5911- Problem Neck pain (55378212) Neck pain (723.1) 2009 Problem resolved confirmed Terry-98 5911- Problem Iron deficiency anemia (26029890) Iron deficiency anemia, unspecified (280.9) 2011 Problem resolved confirmed [facility]-98 5911- Problem Splinter in hand (s), except finger(s) (914.6) 2012 Problem resolved confirmed Terry-98 5911- Problem Lesion of ulnar nerv e (322049222) 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) 2016 Problem resolved confirmed Terry-98 5911- Problem Cirrhosis - non-alcoholic (379083690) 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) 2017 Problem resolved confirmed Terry-98 5911- Problem Shortness of breath (464591746) Shortness of breath (786.09) 2012 Problem resolved confirmed Terry-98 5911- Problem Multiple thoraci c compression fractures (805.2) 2015 Problem resolved confirmed Terry-98 5911- Problem Achrochordon (686345736) Achrochordon (701.9) 2009 Problem resolved confirmed Terry-98 5911- Problem Acute sinusitis (88915620) Acute sinusitis (461.9) 2014 Problem resolved confirmed Terry-98 5911- Problem Allergic rhinitis du e to allergen (00505198) Allergic rhinitis, other allergen-induced (477.8) 2016 Problem resolved confirmed [facility]-98 5911- Problem Allergic rhinitis caused by pollen (28958750) Allergies (477.0) 2009 Problem resolved confirmed Terry-98 5911- Problem Disorder of hematopoietic system (08458664) Other abnormal findings on blood examination (790.99) 2016 Problem resolved confirmed [facility]-98 5911- Problem Sore throat (985248001) Sore Throat (462) 2007 Problem resolved confirmed [facility]-98 5911- Problem Spastic colon (07257511) Spastic colon (564.1) 2015 Problem resolved confirmed [facility]-98 5911- Problem Acute exacerbation o f chronic obstructive airways disease (152321547) Acute exacerbation of chronic obstructive pulmonary disease (COPD) (491.21) 2017 Problem resolved confirmed Terry-98 5911- Problem Hemorrhage of rectum and anus (357231406) Bright red blood per rectum (BRBPR) (569.3) 2015 Problem resolved confirmed Terry-98 5911- Problem Generalized abdomina l pain (555885122) Generalized abdominal pain (789.07) 2010 Problem resolved confirmed Terry-98 5911- Problem Hematochezia (681011727) Hematochezia (578.1) 2008 Problem resolved confirmed Terry-98 5911- Problem Lab: Used to mat ch unlinked laboratory orders (V92) 2014 Problem resolved confirmed Terry-98 5911- Problem Enlargement of splee n (86310412) Enlargement of spleen (789.2) 2017 Problem resolved confirmed [facility]-98 5911- Problem Flank pain (341369761) Flank pain (724.8) 2017 Problem resolved confirmed [facility]-98 5911- Problem Ear ache (646350450) Ear ache (388.71) 2015 Problem resolved confirmed [facility]-98 5911- Problem Elevated levels of transaminase & lactic acid dehydrogenase (768795153) Elevated SGOT (AST) (790.4) 2006 Problem resolved confirmed [facility]-98 5911- Problem Insomnia (552273504) Insomnia (307.41) 2007 Problem resolved confirmed [facility]-98 5911- Problem Precordial pain (19386338) Precordial chest pain (786.51) 2009 Problem resolved confirmed [facility]-98 5911- Problem Rectal pain (39599605) Rectal pain (569.42) 2008 Problem resolved confirmed [facility]-98 5911- Problem Rib pain (028489460) Rib pain (786.50) 2014 Problem resolved confirmed [facility]-98 5911- Problem Abnormal findings on diagnostic imaging of skull and head (144322025) Nonspecific (abnormal) findings on radiological and other examination of skull and head (793.0) 2016 Problem resolved confirmed Terry-98 5911- Problem Needs influenza immunization (538604216) Vaccination against other viral diseases, Influenza (V04.81) 2012 Problem resolved confirmed Terry-98 5911- Problem Weak urinary stream (605293826) Weak urinary stream (788.62) 2006 Problem resolved confirmed Terry-98 5911- Problem Osteoarthritis of hi p (764100275) Osteoarthritis of hip (715.15) 2011 Problem resolved confirmed Terry-98 5911- Problem Acute otitis media (4272948) Acute otitis media (382.00) 2011 Problem resolved confirmed [facility]-98 5911- Problem Cellulitis (912496107) Cellulitis or abscess of other site (682.8) 2006 Problem resolved confirmed [facility]-98 5911- Problem Chronic hepatitis C (464110903) Chronic hepatitis C (070.54) 2009 Problem resolved confirmed Terry-98 5911- Problem Acute sinusitis (10213297) Acute sinusitis (461.8) 2008 Problem resolved confirmed [facility]-98 5911- Problem Cellulitis and abscess of upper arm (067449345) Cellulitis of the arm (682.3) 2014 Problem resolved confirmed Terry-98 5911- Problem Chest pain (37897458) Chest pain (786.59) 2008 Problem resolved confirmed Terry-98 5911- Problem Neoplasm of digestiv e system (194282949) Colon polyps (239.0) 2016 Problem resolved confirmed [facility]-98 5911- Problem Gynecomastia (9324729) Gynecomastia (611.1) 2016 Problem resolved confirmed Terry-98 5911- Problem Thrombosed external hemorrhoids (22430134) Hemorrhoids, external thrombosed (455.4) 2015 Problem resolved confirmed Terry-98 5911- Problem Pneumococcal pneumonia (492422633) Acute lobar pneumonia (481) 2015 Problem resolved confirmed Terry-98 5911- Problem Chest discomfort (624303376) Chest discomfort (786.59) 2014 Problem resolved confirmed [facility]- Problem Urinary incontinence (701966588) urinary dribbling (788.30) 2007 Problem resolved confirmed [facility]- Problem Hip pain (85562511) Hip pain (719.45) 2006 Problem resolved confirmed [facility]- Problem Insect bite (397349161) Insect bite (919.4) 2015 Problem resolved confirmed [facility]- Problem Cramp in lower limb (839036187) Leg cramps (729.82) 2009 Problem resolved confirmed [facility]11- Problem Multiple lumbar compression fractures (805.4) 2006 Problem resolved confirmed [facility]11- Problem 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) Unspecified skin lesion (239.2) 2009 Problem resolved confirmed [facility]11- Vital Signs Height-cm 160.02 cm 08/06/2025 Weight-kg 75.75 kg 08/06/2025 Height 63 in 08/06/2025 Weight 167 lbs 08/06/2025 BMI 29.58 kg/m2 08/06/2025 Encounters Encounter Location Date Provider Diagnosis [facility] [address] [place] [address] 08/06/2025 Karlee Santillan Chronic pain syndrom e G89.4 ; Other spondylosis with radiculopathy, lumbar region M47.26 ; Closed wedge compression fracture of lumbar vertebra with routine healing, unspecified lumbar vertebral level, subsequent encounter S32.000D ; Cervical pain M54.2 ; Unspecified cirrhosis of liver K74.60 ; Abnormality of gait and mobility R26.9 ; halfway (current) use of opiate analgesic Z79.891 ; Lumbar spondylosis M47.816 and Lumbar radiculopathy M54.16 [facility] [address] [place] [address] 07/08/2025 Roger Soliman Chronic pain syndrom e G89.4 ; Other spondylosis with radiculopathy, lumbar region M47.26 ; Closed wedge compression fracture of lumbar vertebra with routine healing, unspecified lumbar vertebral level, subsequent encounter S32.000D ; Cervical pain M54.2 ; Unspecified cirrhosis of liver K74.60 ; Abnormality of gait and mobility R26.9 ; halfway (current) use of opiate analgesic Z79.891 ; Lumbar spondylosis M47.816 and Lumbar radiculopathy M54.16 [facility] [address] [place] [address] 06/10/2025 Roger Soliman Chronic pain syndrom e G89.4 ; Other spondylosis with radiculopathy, lumbar region M47.26 ; Closed wedge compression fracture of lumbar vertebra with routine healing, unspecified lumbar vertebral level, subsequent encounter S32.000D ; Cervical pain M54.2 ; Unspecified cirrhosis of liver K74.60 ; Abnormality of gait and mobility R26.9 ; terminal operator (current) use of opiate analgesic Z79.891 ; Lumbar spondylosis M47.816 and Lumbar radiculopathy M54.16 [facility] [place] [address] [place] [address] 08/06/2025 Roger Soliman Other spondylosis with radiculopathy, lumbar region M47.26 Assessments Encounter Date Diagnosis (ICD Code) Assessment Notes Treatment Notes Treatment Clinical Notes Section Notes 06/10/2025 Chronic pain syndrome (ICD-10 - G89.4) I had a nice visit with the patient today regarding his chronic pain issues. Based on his hx, PE, and his old imaging from about 11 years ago, which I reviewed, the worst of the symptoms appears consistent with lumbar spinal stenosis with radiculopathy. This is complicated further by his hx of compression fractures and cirrhosis. We'll get updated imaging with a lumbar MRI, and order an EMG/nerve conduction study as he has a bit of an unsteady gait. I'm unsure what exactly is causing this, in combination with the radicular symptoms, we will take over prescribing medication at a lower dosage and see how he does. We'll see him back in about a month a proceed accordingly. 06/10/2025 Other spondylosis with radiculopathy, lumbar region (ICD-10 - M47.26) 07/08/2025 Chronic pain syndrome (ICD-10 - G89.4) I had a nice visit with the patient today regarding his chronic pain issues. Not much has changed since his last visit. He has not yet completed the MRI, although it has been approved. We will work on getting that scheduled, along with his EMG/nerve conduction study. We will continue his medication regimen unchanged for now. He reports that on some days, he does not take all four doses and only takes three. We will maintain the current prescription, allowing flexibility, which may take four tablets on more painful days or an additional half tablet if a single dose is not sufficient, as long as the medication lasts for the month. We will follow up in one month and proceed accordingly. 08/06/2025 Chronic pain syndrome (ICD-10 - G89.4) I had a nice discussion with the patient today regarding his chronic pain complaints. He continues with neck and lower back pain with his lower back pain taking precedence. He feels the medications working reasonably well. It appears he canceled his EMG/NCV twice and states he does not want to do this. He still has not gotten his MRI and states he is unable to go to [place] to get this done. We will send it to [facility] here in [place] however I did explain we have a hard time getting imaging results from them so he is going to try to get those in hand to bring to us. He denies any other changes since we last seen him or any untoward side effects of the medication. I did discuss lifestyle modifications as well as a bowel regimen. He will continue his medication at present level and return to clinic in 2 months to monitor for treatment effectiveness and compliance. The patient continues with chronic pain requiring treatment to help restore function and improve quality of life. Risks of opioid therapy as well as interaction of opioids with alcohol, illicit drugs, muscle relaxers, and other sedative medications are reviewed briefly with patient again today. The patient has trialed all other reasonable treatment options and uses the medication to alleviate pain in order to remain active and rest with less pain. No clinically relevant medication side effects are noted. Last UDS and AR EDGE GLUER reviewed today. Patient is advised that best long-term goals include increased activity, core strengthening, proper weight management, coping strategies, avoidance of painful triggers, and targeted interventional therapy. We will see the patient for routine follow up in accordance with all clinic policies. We did remind patient today of current guidelines to decrease opioid when possible. We will continue to stress nonopioid treatment. URINE TESTING TODAY; POINT OF SERVICE Urine drug screening will be performed today to monitor compliance with opioid therapy or to serve as a baseline screen for a patient who may be a candidate for opioid therapy in the future, pending UDS results. We will monitor with in-office testing (rapid testing) today and review the results prior to dispensing prescription, as well. Patient has been made aware of this policy. 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.26) 06/10/2025 Closed wedge compression fracture of lumbar vertebra with routine healing, unspecified lumbar vertebral level, subsequent encounter (ICD-10 - S32.000D) 06/10/2025 Cervical pain (ICD-10 - M54.2) 07/08/2025 Closed wedge compression fracture of lumbar vertebra with routine healing, unspecified lumbar vertebral level, subsequent encounter (ICD-10 - S32.000D) 08/06/2025 Closed wedge compression fracture of lumbar vertebra with routine healing, unspecified lumbar vertebral level, subsequent encounter (ICD-10 - S32.000D) 08/06/2025 Cervical pain (ICD-10 - M54.2) 07/08/2025 Cervical pain (ICD-10 - M54.2) 06/10/2025 Unspecified cirrhosis of liver (ICD-10 - K74.60) 06/10/2025 Abnormality of gait and mobility (ICD-10 - R26.9) 07/08/2025 Unspecified cirrhosis of liver (ICD-10 - K74.60) 08/06/2025 Unspecified cirrhosis of liver (ICD-10 - K74.60) 08/06/2025 Abnormality of gait and mobility (ICD-10 - R26.9) 07/08/2025 Abnormality of gait and mobility (ICD-10 - R26.9) 06/10/2025 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 We will monitor with in-office testing (rapid testing) today and review the results prior to dispensing prescription. All positive results will be sent for quantitative analysis to ensure accuracy and quantify amounts. Any expected positive results that return negative will also be sent for quantitative analysis. Any questionable read or any medication we cannot test for in the office confidently will be sent for quantitative analysis, as well. Patient has been made aware of this policy and agrees to abide by our urine testing policy. 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 MRI is not typically needed prior to initiating treatment unless there is a rapid change in condition or a deterioration in neurologic status. Findings from this study will be incorporated, in conjunction with objective findings, into the decision process of formulating a treatment plan for this patient. 06/10/2025 Dafne Llanes, am scribing for Dr. Roger Soliman. Nelia, Dr. Roger Soliman, personally performed the services described in this documentation, as scribed by Dafne Gaines, and it is both accurate and complete. 07/08/2025 Dafne Llanes, am scribing for Dr. Roger Soliman. I, Dr. Roger Soliman, personally performed the services described in this documentation, as scribed by Dafne Gaines, and it is both accurate and complete. Plan Of Treatment Pending Test Test Name Order Date MRI Lumbar Spine w/ + w/o Cont-[id number] 12/2024 MRI Lumbar Spine w/o Cont-[id number] 06/10/20 25 BUN/CREATININE RATIO (296) 08/06/2025 Future Test Test Name Order Date 2 Limb NCV/EMG - [id number], [id number] 06/11/2025 Next Appt Details Provider Name:Karlee Conor garcia, 10/08/2025 11:00:00 AM, [address] [place], [address], Insurance Providers Payer Name Payer Address Payer Phone Subscriber Number Group Number Insured Name Patient Relationship to Insured Coverage Start Date Coverage End Date NOT IN NETWORK - UHC Medicare Dual Complete HMO [address] [address] [place] [id number] Sloan Rodriguez Self - patient is the insured [place] Medicaid [address] [place] [address] [id number] Sloan Rodriguez Self - patient is the insured Medical (General) History Medical History History ICD Code Hepatitis: type C; Renal Sto gentry Chronic Pain: since age 56; Fracture(s): right hand; Osteoarthritis: since 1985; Allergies: seasonal; PREVENTIVE HEALTH MAINTENANCE INFLUENZA VACCINE: was last done 09/12/2013 TETANUS VACCINE: was last done 01/2013 High Blood Pressure Measles/Mumps/Rubella bronchitis/emphysema Stomach Ulcer Arthritis constipation Prostate Problems Surgical History Surgery Date(Month/Year) gall bladder removal Positive forCholecystectomy;
--- OUTSIDE RECORDS SUMMARY | 2025-09-12 15:42 | XMS_ITS | Clinical Summary ---
Author Organization [facility] Address [address] [place] [address] Care Team Providers Care Dumbwaiter Operator Name Role Phone Carlitos Betancourt MD, Josh Newman Primary Care Provider Allergies Active Allergy Reactions Criticality Noted Date Comments Erythromycin Rash Low 08/04/2008 Medications PEG-INTRON REDIPEN 150 mcg/0.5 mL subCUT PnKt Inject by subcutaneous injection every 7 days. Active PROCRIT IJ by Injection route every 7 days. Active MULTI-VITAMIN Oral Tab Take 1 Tab by mouth daily. Active MIACALCIN 200 unit/Actuation Both Nostril SprA Administer 1 [place] in right nostril daily. Alternating Nostrils Active CALCIUM + D PO Take 3 Tabs by mouth daily at bedtime. Active VITAMIN E 400 unit Oral Cap Take 1 Units by mouth daily. Active VITAMIN C 500 mg Oral Tab Take 1 Tab by mouth daily. 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 Gender Identity Not on file Sexual Orientation Not on file Last Filed Vital Signs Vital Sign Reading Time Taken Comments Blood Pressure 132/88 08/04/2008 9:25 AM CDT Pulse 88 08/04/2008 9:25 AM CDT Temperature 36.7 C (98.1 F) 08/04/2008 9:25 AM CDT Respiratory Rate 18 08/04/2008 9:25 AM CDT Oxygen Saturation - - Inhaled Oxygen Concentration - - Weight 77.5 kg (170 lb 12 oz) 08/04/2008 9:25 AM CDT Height - - Body Mass Index - - Plan of Treatment Health Maintenance Due Date Last Done Comments DTAP/TDAP/TD VACCINES (1 - Tdap) 1966 PNEUMOCOCCAL VACCINE 50+ YEARS (1 of 2 - PCV) 04/13/19 68 ZOSTER VACCINE (1 of 2) 1997 RSV VACCINE (60+ or ) (1 - 1-dose 75+ series) 2022 INFLUENZA VACCINE (#1) 2025 Insurance MEDICAID [place] Care Teams Dumbwaiter Operator Relationship Specialty Start Date End Date Josh Urbina Jr., MD [address] [place] [address] PCP - General 09/20/07
--- OUTSIDE RECORDS SUMMARY | 2025-09-12 15:42 | XMS_ITS | Clinical Summary ---
Author Organization [facility] Address [address] Mccarthy: Epic Prelude ADT [place] [address] Care Team Providers Care Station Mechanic Helper Name Role Phone Carlitos Betancourt MD, Josh Newman Primary Care Provider Allergies Active Allergy Reactions Criticality Noted Date Comments Erythromycin Rash Low 08/04/2008 Active Problems Problem Noted Date Diagnosed Date Chronic hepatitis C without mention of hepatic c esme 08/03/2008 Family History Medical History Relation Name Comments Cancer Father bladder Stroke Father Relation Name Status Comments Father Social History Tobacco Use Types Packs/Day Years Used Date Smoking Tobacco: Never Assessed Sex and Gender Information Value Date Recorded Sex Assigned at Not on file 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
--- OUTSIDE RECORDS SUMMARY | 2025-09-12 15:42 | XMS_ITS | Encounter Summary ---
Author Organization [facility] Address [address] [place] [address] Care Team Providers Care Watershed Manager Name Role Phone Carlitos Betancourt MD, Josh Newman Primary Care Provider Encounter Details Date Type Department Care Team (Latest Contact Info) Description 10/03/2007 Outpatient Historical [facility] My Simpson FNP NO ADDRESS ON FILE Cirrhosis of Liver without Mention of Alcohol (CMS/HCC); Unspecified Viral Hepatitis C without Hepatic Coma; Unspecified Arthropathy, Site Unspecified; Pathologic Fracture of Vertebrae; Unspecified Peripheral Vascular Disease; Other Chronic Pain Social History Tobacco Use Types Packs/Day Years Used Date Smoking Tobacco: Never Assessed Sex and Gender Information Value Date Recorded Sex Assigned at Not on file Legal Sex Male 6:51 AM RN 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 Gender Identity Not on file Sexual Orientation Not on file documented as of this encounter Plan of Treatment Not on file documented as of this encounter Procedures Procedure Name Priority Date/Time Associated Diagnosis Comments PT AND APTT Routine 09/20/2007 10:46 AM RN TRAVEL PLATELET COUNT Routine 09/20/2007 10:46 AM RN TRAVEL documented in this encounter Results * (ABNORMAL) PLATELET COUNT (09/20/2007 10:46 AM RN TRAVEL) PLATELETS 137(L) 140 - 440 K/ul INTERFACE SYSTEM 09/20/2007 10:4 6 AM RN TRAVEL us [facility] ORDERABLES Edited INTERFACE SYSTEM Refer to clinic/hospital department * PT AND APTT (09/20/2007 10:46 AM RN TRAVEL) PROTIME 15.4 13.0 - 15.7 Secs INTERFACE SYSTEM Comment: As of 06 note change in normal range. INR 1.1 INTERFACE SYSTEM Comment: Expected Values for INR: DVT/PE Goal INR 2.5; range 2.0 - 3.0 Valve Replacement Tissue Goal INR 2.5; range 2.0 - 3.0 Mechanical Goal INR 3.0; range 2.5 - 3.5 POST-PA Goal INR 2.5; range 2.0 - 3.0 or Goal 3.0; range 2.5 - 3.5 Atrial Fibrillation Goal INR 2.5; range 2.0 - 3.0 Ischemic Stroke Goal INR 2.5; range 2.0 - 3.0 For additional information see Guidelines for Anticoagulation available from the pharmacy [facility] Andrea DKarthikeyan PTT 30.5 21.6 - 35.6 Secs INTERFACE SYSTEM Comment: Therapeutic Range: Hi-level PE/DVT heparin protocol 80.1 -95.0 sec Lo-level PE/DVT heparin protocol 67.1 - 80.0 sec Cardiac Heparin Protocol 67.1 - 85.0 sec Neuro Heparin Protocol 67.1 - 80.0 sec As of 10/11/2006 note change in APTT Normal Range. 09/20/2007 10:4 6 AM RN TRAVEL My Simpson FUR POINTER HEMATOLOGY ORDERABLES Edited INTERFACE SYSTEM Refer to clinic/hospital department documented in this encounter Visit Diagnoses Diagnosis Cirrhosis of liver without mention of alcohol (CMS/HCC) Cirrhosis of liver without mention of alcohol Unspecified viral hepatitis C without hepatic coma Arthropathy, unspecified, site unspecified Pathologic fracture of vertebrae Peripheral vascular disease, unspecified Other chronic pain documented in this encounter Care Teams Watershed Manager Relationship Specialty Start Date End Date Josh Urbina Jr., MD [address] [place] [address] PCP - General 09/20/07 documented as of this encounter
--- OUTSIDE RECORDS SUMMARY | 2025-09-12 15:42 | XMS_ITS | Encounter Summary ---
Author Organization [facility] Address [address] [place] [address] Care Team Providers Care Employment Coordinator Name Role Phone Carlitos Betancourt MD, Josh Newman Primary Care Provider Encounter Details Date Type Department Care Team (Latest Contact Info) Description 08/01/2007 Outpatient Historical [facility] My Simpson FNP NO ADDRESS ON FILE Chronic Hepatitis C without Mention of Hepatic Coma (CMS/HCC) (Primary Dx) Social History Tobacco Use Types Packs/Day Years Used Date Smoking Tobacco: Never Assessed Sex and Gender Information Value Date Recorded Sex Assigned at Not on file 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
--- OUTSIDE RECORDS SUMMARY | 2025-09-12 15:42 | XMS_ITS | Encounter Summary ---
Author Organization [facility] Address [address] [place] [address] Care Team Providers Care Adaptive Physical Education Teacher Name Role Phone Carlitos Betancourt MD, Josh Newman Primary Care Provider Encounter Details Date Type Department Care Team (Late st Contact Info) Description 12/05/2007 Outpatient Historical HIS [facility] My Simspon FNP NO ADDRESS ON FILE Social History Tobacco Use Types Packs/Day Years Used Date Smoking Tobacco: Never Assessed Sex and Gender Information Value Date Recorded Sex Assigned at Not on file Legal Sex Male 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 Pulse: 80. BP: 142/90. Temp: 98.7. Resp: 18. HISTORY OF PRESENT ILLNESS: Mr. Rodriguez is here in the clinic in follow-up to hepatitis C. He has given four injections. He complains of some shortness of breath with any activity. He is not short of breath when he is resting or at night. He notes some change in his stools and frequent bowel movements if he eats. He sees no blood. He denies any chest pain, change in vision, or emotion lability. LABORATORY DATA: Labs show a drop in white count to 2.8 and a drop in hemoglobin to 10.3, with platelets at 116. HisAST is normal, but ALT 69. Total bilirubin is 1.2. Electrolytes are normal with normal creatinine. CURRENT MEDICATIONS: Fentanyl patch q3 days Lyrica daily Pegasys 180 mcg subQ weekly Ribavirin 200 mg three in the morning and two in the evening Promethazine 25 mg p.r.n. PHYSICAL EXAMINATION: Alert and oriented male in no acute distress. SKIN: normal. [place] mucous membranes. LUNGS: clear. HEART: regular. ABDOMEN: round, soft. Injection site reactions are within normal limits. IMPRESSION: Hepatitis C. Leukopenia and anemia related to his PEG-Intron and ribavirin. PLAN: I have called in prescription to [facility] and given both the patient and pharmacist instructions to decrease his Pegasys to 135 mcg subQ weekly. Will also decrease his ribavirin to 200 mg two b.i.d. My Simpson RN,[facility] Electronically Signed by My Simpson RN, 12/13/2007 10:24 , P, 223 Job #: Document #: [id number] cc: Josh Urbina M.D. IAL CERTIFICATE DICTATOR documented in this encounter Miscellaneous Notes * Letter - My Simpson NP - 12/05/2007 12:00 AM CST 12/19/2007 Sloan Rodriguez [address] [place] [address] Dear Karthikeyan Rodriguez: Your hepatitis C viral count drawn at four weeks returned 1,890,000 IU/mL. If you remember, your baseline was 576,000. I have reviewed this with Dr. Winston and we will continue to treat you until twelve weeks. At that time we will recheck your virus and make a decision as to how the treatment is progressing. Sincerely, My Simpson RN,[facility] Electronically Signed by My Simpson RN, 12/23/2007 11:25 , P, 223 Job #: Document #: [id number] Visit #: cc: Josh Urbina M.D. IAL CERTIFICATE DICTATOR documented in this encounter Plan of Treatment Not on file documented as of this encounter Visit Diagnoses Not on filedocumented in this encounter Care Teams Adaptive Physical Education Teacher Relationship Specialty Start Date End Date Josh Urbina Jr., MD [address] [place] [address] PCP - General 09/20/07 documented as of this encounter
[2025-09-12 16:33] VITALS: BP 143/84; O2SAT 98
[2025-09-12 16:42] LABS: Glucose Urine UA Negative (Normal); Nitrate Urine Negative (Negative); Specific Gravity, Urine 1.011 (1.005-1.030)
--- NOTE | 2025-09-12 16:43 | CTR_ITS ---
PROCEDURE INFORMATION: Exam: CT Abdomen And Pelvis With Contrast Exam date and time: 09/12/2025 6:14 PM Age: 80 years old Clinical indication: Abdominal pain; Localized; Prior surgery; Surgery date: 6+ months; Surgery type: Gb; C/O lower abd pain with hematuria. History of sigmoid perforation. ; Additional info: Hematuria, low abd pain TECHNIQUE: Imaging protocol: Computed tomography of the abdomen and pelvis with contrast. Radiation optimization: All CT scans at this facility use at least one of these dose optimization techniques: automated exposure control; mA and/or kV adjustment per patient size (includes targeted exams where dose is matched to clinical indication); or iterative reconstruction. Contrast material: OMNI 350; Contrast volume: 100 ml; Contrast route: INTRAVENOUS (IV); COMPARISON: CT kidney stone [id number] 07/18/2024 9:03 PM RADIATION DOSE METRICS: Total DLP (mGy-cm): 577 FINDINGS: Liver: Liver cirrhosis, splenomegaly and sequela of portal hypertension including gastric and gastroesophageal varices. Gallbladder and biliary ducts: Normal. No calcified stones. No ductal dilation. Pancreas: Normal. No ductal dilation. Spleen: See Liver finding. Adrenal glands: Normal. No mass. Kidneys and ureters: Moderate left hydronephrosis and hydroureter with enhancing ureteral wall, an underlying ureteral mass lesion is a differential consideration. No discrete ureteral calculus. Irregular thickening and enhancement of the anterior and lateral bladder dinh suggestive of a mass lesion. Recommend urology consultation for possible cystoscopy/ureteroscopy. Calcified renal cysts on the left also seen on prior. No right-sided hydronephrosis or hydroureter. Stomach and bowel: Thickening of the colon wall involving the descending colon series 3, image 28 through 35 with subtle pericolonic fat stranding suggestive of colitis. Appendix: No evidence of appendicitis. Intraperitoneal space: Unremarkable. No free air. No significant fluid collection. 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 Lymph nodes: Unremarkable. No enlarged lymph nodes. Urinary bladder: See Kidneys and ureters finding. Reproductive: Unremarkable as visualized. Bones/joints: Multilevel degenerative changes of the thoracolumbar spine. Severe degenerative disc disease L5-S1 with grade 1 anterolisthesis at this level. Severe chronic anterior wedging T11 vertebral body similar to prior 06/29/2023. Soft tissues: Unremarkable. CT/CT abdomen pelvis w con* [id number] IMPRESSION: 1. Moderate left hydronephrosis and hydroureter with enhancing ureteral wall, an underlying ureteral mass lesion is a differential consideration. No discrete ureteral calculus. Irregular thickening and enhancement of the anterior and lateral bladder dinh suggestive of a mass lesion. Recommend urology consultation for possible cystoscopy/ureteroscopy. 2. Thickening of the colon wall involving the descending colon series 3, image 28 through 35 with subtle pericolonic fat stranding suggestive of colitis. 3. Liver cirrhosis, splenomegaly and sequela of portal hypertension including gastric and gastroesophageal varices. 4. 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
[2025-09-12 16:47] LABS: Add Urine Microscopic? YES
[2025-09-12 16:52] LABS: Hematocrit 34.5 % (37-53); Hemoglobin 11.80 g/dL (11.27-16.99); Mean Corpuscular HGB Conc 34.2 g/dL (30-55); Mean Corpuscular Hemoglobin 33.6 pg (27-33); Mean Corpuscular Volume 98.3 fl (82-101); Nucleated Red Blood Cells % 0 %; Platelet Count 51 10^3/cmm (157-399); Red Blood Count 3.51 10^6/uL (3.85-5.65); White Blood Count 3.90 10^3/uL (3.29-11.43)
--- NOTE | 2025-09-12 16:53 | ED_ITS ---
HPI - Male Genitourinary 2 General: Chief complaint: Urogenital-Male Stated complaint: Peeing Blood Time Seen by Provider: 09/12/25 16:21 Source: patient Mode of arrival: ambulatory Limitations: no limitations History of Present Illness: Patient is a 80-year-old male presenting to the emergency department stating he has had hematuria onset today. He has a history of thrombocytopenia. States he had 1 episode of diffuse bleeding, and had a subsequent episode where it seemed to resolve. He notes some minor pain in the perineal region. States that he has a history of prostate issues. No use of blood thinner. No history of bladder cancer. No nausea or vomiting, no fevers, no other symptoms reported at this time. His vitals are stable, overall nontoxic-appearing. MD Complaint: other (hematuria) Duration: improved Associated symptoms: Reports hematuria; Deny dysuria, nausea or vomiting Related Data Home Medications ?Medication ?Instructions ?Recorded ?Confirmed pantoprazole 40 mg tablet,delayed 40 mg PO DAILY 05/0909/12/25 release famotidine 20 mg tablet 20 mg PO BID 09/12/25 Previous Rx's ?Medication ?Instructions ?Recorded Sole Supports #1 ea 03/21/22 Nebulizer and tubing #1 ea 11/03/22 Acapella flutter valve #1 ea 11/13/23 amlodipine 5 mg tablet 5 mg PO DAILY #30 tabs 03/14 fluticasone 500 mcg-salmeterol 50 1 inh inhalation MARIUSZ LY PRN 11/20/24 mcg/dose blistr powdr for wheezing #60 ea inhalation (Advair Diskus) ipratropium 0.5 mg-albuterol 3 mg 3 ml inhalation Q6H PRN wheezing 11/20/24 (2.5 mg base)/3 mL nebulization #90 mL soln Allergies Allergy/AdvReac Type Severity Reaction Status Date / Time ciprofloxacin Allergy ALGY-Rash Verified 09/12/25 15:42 gabapentin Allergy Unknown Verified 09/12/25 15:42 methadone Allergy SWELLING, Verified 09/12/25 15:42 INDIGESTION acetaminophen (From Tylenol) AdvReac UNABLE TO Verified 09/12/25 15:42 TAKE DUE TO LIVER FUNCTION erythromycin base AdvReac ALGY-Rash Verified 09/12/25 15:42 tramadol AdvReac MAKES HIM Verified 09/12/25 15:42 FEEL FUNNY Review of Systems 2 General: Reports: 10 or more systems reviewed and unremarkable except in HPI and below Const: Denies: fever(s), chills or fatigue Eyes: Denies: change in vision ENMT: Denies: throat pain, ear or mastoid pain or nasal discharge Card: Denies: chest pain, palpitations, swelling of feet/ankles or lightheadedness Resp: Denies: dyspnea, productive cough or wheezing GI: Denies: abdominal pain, nausea, vomiting, diarrhea or constipation : Reports: hematuria and other (perineal pain); Denies: flank pain, difficulty urinating, dysuria or urinary frequency Musc: Denies: neck pain, back pain or joint pain Skin/Breast: Denies: rash Neuro: Denies: headache(s), numbness in extremities or weakness in extremities PFSH ED 2 PFSH: Medical History Essential hypertension Colon perforation Cirrhosis Colon polyps COPD (chronic obstructive pulmonary disease) Thrombocytopenia Osteoarthritis Chronic pain cervical and lumbar spine Hepatitis C Surgical History S/P laparoscopy (11/19/20) repair of sigmoid perforation Status post colonoscopy S/P cholecystectomy S/P cataract extraction bilateral Family History Mother Cancer Grandmother Diabetes Other Hypertension Denies family history of CAD (coronary artery disease) Clotting disorder Dementia Hyperlipidemia Psychiatric illness Chronic kidney disease (CKD) Suicide Anesthesia complication Bleeding disorder Lung disease Stroke Social History Smoking and tobacco/nicotine status: never used tobacco/nicotine Quit status (tobacco/nicotine): has quit using Year quit tobacco: 2004 Former quit date comment: 1 ppd X 16 years Second hand smoke exposure: No Alcohol intake: never Substance/Drug Use: never Physical Exam 2 Const: COMMON NORMALS: no acute distress, average body habitus, patient oriented x3, no limitations, healthy appearing, alert and well nourished G ENERAL APPEARANCE: cooperative and comfortable ORIENTATION/CONSCIOUSNESS: Yes awake Neck/C-Spine: COMMON NORMALS: full ROM, supple and no meningeal signs Resp: COMMON NORMALS: normal respiratory effort, No retractions, No use of accessory muscles and clear to auscultation bilaterally AUSCULTATION: clear to auscultation bilaterally, no crackles, no rales, no rhonchi and no wheezes Cardio: COMMON NORMALS: regular rate, regular rhythm, No gallops present (Cardio), No clicks present (Cardio), No murmurs present (Cardio) and No rub (Cardio) RATE: regular rate RHYTHM: regular rhythm GI: COMMON NORMALS: Normal to inspection, nondistended, normoactive bowel sounds present, Soft to palpation, non-tender, No hepatosplenomegaly present and no masses AUSCULTATION: Yes normoactive bowel sounds PALPATION: Yes Soft to palpation, No Guarding due to palpation present (GI), No Rigid due to palpation and Yes No hepatosplenomegaly present RECTAL EXAM: Yes deferred : COMMON NORMALS: Yes no CVA tenderness BLADDER/KIDNEY EXAM: Yes no CVA tenderness Back/Pelvis: COMMON NORMALS: no CVA tenderness Extremity: COMMON NORMALS: normal to inspection and full ROM Neuro: COMMON NORMALS: patient oriented x3, moves all extremities, no focal motor deficits and no sensory deficits noted SENSORIUM/ORIENTATION: Yes alert MENINGEAL SIGNS: Yes no meningeal signs Psych: COMMON NORMALS: mental status grossly normal, cooperative and speech normal SPEECH: Yes normal speech Skin: COMMON NORMALS: no rashes or lesions noted GENERAL SKIN EXAM: no rashes or lesions noted Course 2 Vital Signs: Vital signs: Vital Signs Temperature 98.0 F 09/12/25 15:39 Pulse Rate 71 09/12/25 19:58 Respiratory Rate 16 09/12/25 19:58 Blood Pressure 127/75 09/12/25 19:58 Pulse Oximetry 97 09/12/25 19:58 Oxygen Delivery Me thod Room Air 09/12/25 19:23 MDM - Male Medical Decision Making This patient presented with painless hematuria beginning today, 1 episode of gross hematuria and then a second episode where he stated had seem to cleared up. Reported some perineal pain, but otherwise had no other symptoms. Did not appear toxic at time of exam, no reproducible abdominal tenderness to palpation. No history of cancer, no use of blood thinners, does not report longstanding smoking history. He has chronic thrombocytopenia on lab work, rest of labs appeared his baseline. Urinalysis showing greater than 100 red blood cells indicating the microscopic hematuria. CT showing concern for a bladder mass, and patient will be referred to urology for further evaluation. Otherwise he is stable for discharge home, informed of the importance to follow-up to which he verbalizes understanding. Did give return precautions. Lab Data 09/12/25 16:46 09/12/25 16:46 Radiology Impressions Abdomen/Pelvis CT 09/12/25 16:43 IMPRESSION: 1. Moderate left hydronephrosis and hydroureter with enhancing ureteral wall, an underlying ureteral mass lesion is a differential consideration. No discrete ureteral calculus. Irregular thickening and enhancement of the anterior and lateral bladder dinh suggestive of a mass lesion. Recommend urology consultation for possible cystoscopy/ureteroscopy. 2. Thickening of the colon wall involving the descending colon series 3, image 28 through 35 with subtle pericolonic fat stranding suggestive of colitis. 3. Liver cirrhosis, splenomegaly and sequela of portal hypertension including gastric and gastroesophageal varices. 4. 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 Laboratory Results WBC 3.90 10^3/uL (3.29-11.43) 09/12/25 16:46 RBC 3.51 10^6/uL (3.85-5.65) L 09/12/25 16:46 Hgb 11.80 g/dL (11.27-16.99) 09/12/25 16:46 Hct 34.5 % (37-53) L 09/12/25 16:46 MCV 98.3 fl (82-101) 09/12/25 16:46 MCH 33.6 pg (27-33) H 09/12/25 16:46 MCHC 34.2 g/dL (30-55) 09/12/25 16:46 RDW 14.0 % (12.1-15.1) 09/12/25 16:46 Plt Count 51 10^3/cmm (157-399) L 09/12/25 16:46 MPV 10.6 fL (7.4-10.4) H 09/12/25 16:46 Neut % (Auto) 61.0 % 09/12/25 16:46 Lymph % (Auto) 26.2 % 09/12/25 16:46 [place] % (Auto) 9.2 % 09/12/25 16:46 Eos % (Auto) 2.8 % 09/12/25 16:46 Baso % (Auto) 0.8 % 09/12/25 16:46 Neut # (Auto) 2.38 10^3/uL (1.8-7.7) 09/12/25 16:46 Lymph # (Auto) 1.0 10^3/uL (0.8-4.8) 09/12/25 16:46 [place] # (Auto) 0.4 10^3/uL (0.2-0.9) 09/12/25 16:46 Eos # (Auto) 0.1 10^3/uL (0.0-0.8) 09/12/25 16:46 Baso # (Auto) 0.0 10^3/uL (0.0-0.1) 09/12/25 16:46 Nucleated RBC % (auto) 0 % 09/12/25 16:46 Nucleated RBCs # 0.0 /100WBC 09/12/25 16:46 Sodium 140 mmol/L (136-145) 09/12/25 16:46 Potassium 4.1 mmol/L (3.5-5.1) 09/12/25 16:46 Chloride 105 mmol/L (98-107) 09/12/25 16:46 Carbon Dioxide 25 mmol/L (22-29) 09/12/25 16:46 Anion Gap 14.1 (5-19) 09/12/25 16:46 BUN 27 mg/dL (8-23) H 09/12/25 16:46 Creatinine 1.1 mg/dL (0.7-1.2) 09/12/25 16:46 GFR Calculation Not Reportable 09/12/25 16:46 Glucose 90 mg/dL (65-115) 09/12/25 16:46 Calculated Osmolality 295 mOsm/kg (285-295) 09/12/25 16:46 Calcium 9.0 mg/dL (8.5-10.5) 09/12/25 16:46 Total Bilirubin 1.5 mg/dL (0.15-1.2) H 09/12/25 16:46 AST 25 U/L (0-40) 09/12/25 16:46 ALT 28 U/L (0-41) 09/12/25 16:46 Alkaline Phosphatase 94 U/L (40-130) 09/12/25 16:46 Total Protein 6.4 g/dL (6.6-8.7) L 09/12/25 16:46 Albumin 3.9 g/dL (3.5-5.2) 09/12/25 16:46 Globulin 2.5 g/dL (1.3-4.6) 09/12/25 16:46 Urine Color [place] (Yellow) A 09/12/25 15:58 Urine Appearance Cloudy (CLEAR) A 09/12/25 15:58 Urine pH 6.0 (5-7) 09/12/25 15:58 Ur Specific [place] 1.011 (1.005-1.030) 09/12/25 15:58 Urine Protein 1+ (Negative) A 09/12/25 15:58 Urine Glucose (UA) Negative (Normal) 09/12/25 15:58 Urine Ketones Negative (Negative) 09/12/25 15:58 Urine Blood 3+ (Negative) A 09/12/25 15:58 Urine Nitrate Negative (Negative) 09/12/25 15:58 Urine Bilirubin Negative (Negative) 09/12/25 15:58 Urine Urobilinogen 0.2 mg/dL (Negative) 09/12/25 15:58 Ur Leukocyte Esterase 2+ (Negative) A 09/12/25 15:58 Urine RBC >100 /hpf (0-2) H 09/12/25 15:58 Urine WBC 51-100 /hpf (0-5) H 09/12/25 15:58 Ur Squamous Epith Cells 0-5 /hpf (0-5) 09/12/25 15:58 Amorphous Sediment Not Reportable 09/12/25 15:58 Urine Bacteria None seen /hpf (NONE) 09/12/25 15:58 Hyaline Casts 0.81 /lpf 09/12/25 15:58 All radiology interpretation(s) finalized by discharge Discharge Plan Discharge Patient Disposition: Home Clinical Impression: Bladder mass Hematuria Qualifiers: Hematuria type: unspecified type Qualified Code(s): R31.9 - Hematuria, unspecified Condition: Stable Prescriptions: No Action (DME) Acapella flutter valve See Rx Instructions .Route .MEDSUPPLY Qty: 1 0RF Rx Instructions: As directed pantoprazole 40 mg tablet,delayed release (DR/EC) 40 mg PO DAILY (DME) Sole Supports See Rx Instructions .Route .MEDSUPPLY Qty: 1 0RF Rx Instructions: As directed (DME) Nebulizer and tubing See Rx Instructions .Route .MEDSUPPLY Qty: 1 0RF Rx Instructions: As directed amlodipine 5 mg tablet 5 mg PO DAILY Qty: 30 11RF ipratropium-albuterol 0.5 mg-3 mg(2.5 mg base)/3 mL solution for nebulization 3 ml inhalation Q6H PRN (Reason: wheezing) Qty: 90 3RF fluticasone propion-salmeterol [Advair Diskus] 500-50 mcg/dose blister with device 1 inh INHALATION DAILY PRN (Reason: wheezing) Qty: 60 11RF famotidine 20 mg tablet 20 mg PO BID Discharge Orders: Discharge ED (Routine); Ordered 09/12/25 Ordered By: Georges Weiss Referrals: Charo Mark FNP [Primary Care Provider, Family Practice] Patient Instructions: Patient Portal & [place] Instructions Activity Restrictions/Additional Instructions: Bladder Mass Discharge Instructions You have been diagnosed with a bladder mass and blood in your urine (hematuria). You are stable to go home, but it is important to follow up with a urologist soon for further evaluation. - Next Steps: You will be referred to a urologist for outpatient evaluation. This will likely include a procedure called cystoscopy, where a small camera is used to look inside your bladder. This is the standard way to check for bladder tumors and is recommended for anyone with blood in the urine and a bladder mass. - What to Expect: Cystoscopy is usually done in the office. It helps your doctor see the inside of your bladder and decide if further treatment or testing is needed. You may also need imaging tests (such as a CT scan or ultrasound) to look at your kidneys and urinary tract. - When to Seek Help: Go to the emergency department if you have: - Heavy bleeding that does not stop - Trouble urinating or cannot urinate at all - Severe pain in your lower abdomen or back - Fever, chills, or signs of infection - General Care: - Drink plenty of fluids unless told otherwise. - Avoid strenuous activity until you see the urologist. - If you smoke, quitting is strongly recommended, as smoking increases the risk of bladder cancer. - Follow-Up: - Attend your urology appointment as scheduled. - Bring a list of your medications and any family history of cancer to your appointment, as this may help guide further testing. If you have any new or worsening symptoms, contact your healthcare provider or return to the emergency department. Print Language: Uzbek Coding Level of Care Code ED [facility] Director for 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
[2025-09-12 17:02] VITALS: BP 153/80; O2SAT 99
[2025-09-12 17:13] LABS: Alanine Aminotransferase 28 U/L (0-41); Albumin Level 3.9 g/dL (3.5-5.2); Alkaline Phosphatase 94 U/L (40-130); Anion Gap 14.1 (5-19); Aspartate Amino Transferase 25 U/L (0-40); Blood Urea Nitrogen 27 mg/dL (8-23); Calcium 9.0 mg/dL (8.5-10.5); Carbon Dioxide 25 mmol/L (22-29); Chloride 105 mmol/L (98-107); Creatinine Clr Calc Pharmacy 51.8658; Globulin 2.5 g/dL (1.3-4.6); Glucose 90 mg/dL (65-115); Osmolality Calculated 295 mOsm/kg (285-295); Potassium 4.1 mmol/L (3.5-5.1); Sodium 140 mmol/L (136-145); Total Protein 6.4 g/dL (6.6-8.7)
[2025-09-12] MEDS: iohexol 350 mg/mL 500 mL Btl (per mL) IV (18:23)
[2025-09-12 19:23] VITALS: BP 151/85; O2SAT 97
[2025-09-12 19:58] VITALS: BP 127/75; PULSE 71; RESP 16; O2SAT 97
--- NOTE | 2025-09-14 09:46 | DCPLANNER ---
Addendum entered by Debbi Martin 09/14/25 11:09: urology called and his insurance is not in network with [facility] and has no out of network coverage. faxed to [facility] in [place], images pushed. Original Note: faxed referral packet to [facility]. images pushed.
== END 2025-09-12 19:59 | disposition home or self-care (01) ==
PROVIDERS: Emergency Provider Physician Assistant; PCP Nurse Practitioner Family
DX: R31.9 Hematuria, unspecified (principal); N32.89 Other specified disorders of bladder; Z87.891 Personal history of nicotine dependence; J44.9 Chronic obstructive pulmonary disease, unspecified; I10 Essential (primary) hypertension
CPT/HCPCS: 36415; 74177; 80053; 81001; 85025; 87077; 87086; 87186; 99285

== ENCOUNTER → 2025-09-24 10:34 | Outpatient (BNVA) | payer MEDICARE, MEDICAID, SELFPAY | PROVIDERS: PCP Nurse Practitioner Family; Referring Provider Nurse Practitioner Family; Visit Provider Dermatology | DX: N48.1 Balanitis (principal) | CPT/HCPCS: 99214 ==